=== PATIENT | male | born 1960 | race Two or more races ===

== ENCOUNTER → 2020-05-08 09:06 | Outpatient (BNVA) | payer OTHER, SELFPAY | PROVIDERS: PCP Internal Medicine; Visit Provider Nurse Practitioner ==

== ENCOUNTER 2020-05-09 09:31 | Outpatient (REF) | payer OTHER, SELFPAY ==
[2020-05-09 10:32] LABS: MANUAL DIFF FLAG NO
[2020-05-09 10:40] LABS: Basophils Percent Auto 0.3 % (0-2); Eosinophils Absolute Auto 0.3 X10*3/uL (0.0-0.4); Hematocrit 44.7 % (42-52); Hemoglobin 14.9 g/dl (14.0-18.0); Imm Gran Abs Auto 0.05 X10*3/uL (0.00-0.03); Imm Gran Pct Auto 0.4 % (0.0-0.4); Lymphocytes Absolute Auto 3.4 X10*3/uL (1.2-4.9); Lymphocytes Percent Auto 25.4 % (20-40); Mean Corpuscular HGB Conc 33.3 g/dl (31.0-36.0); Mean Corpuscular Volume 93.1 fL (80-98); Monocytes Absolute Auto 0.8 X10*3/uL (0.1-1.2); Neutrophils Absolute Auto 8.9 X10*3/uL (2.0-8.3); Neutrophils Percent Auto 65.9 % (45-73); Platelet Count 299 X10*3/uL (160-400); Red Cell Distribution Width 12.8 % (11.0-16.0); White Blood Count 13.6 X10*3/uL (4.8-10.8)
[2020-05-09 11:10] LABS: Alanine Aminotransferase 23 U/L (0-40); Albumin Level 4.5 g/dL (3.5-5.0); Alkaline Phosphatase 105 U/L (39-117); Aspartate Amino Transferase 19 U/L (5-37); Bilirubin Total 0.4 mg/dL (0.0-1.0); Blood Urea Nitrogen 24 mg/dL (9-16); Estimated Glomerular Filt Rate > 60; Glucose Random 105 mg/dL (60-115); Total Protein 7.6 g/dL (6.5-8.0)
[2020-05-09 11:20] LABS: Anion Gap 13 (12-20); Carbon Dioxide 27 mmol/L (22-29); Chloride 107 mmol/L (96-108); Potassium 5.9 mmol/L (3.3-5.1); Sodium 141 mmol/L (135-145)
== END 2020-05-09 09:32 | disposition home or self-care (01) ==
LOC: HO.LAB 09:31
PROVIDERS: PCP Internal Medicine; Visit Provider Nurse Practitioner
DX: D12.6 Benign neoplasm of colon, unspecified (principal); Z12.11 Encounter for screening for malignant neoplasm of colon
CPT/HCPCS: 36415; 80053; 85025

== ENCOUNTER 2020-08-01 08:37 | Day surgery (SDC) | payer OTHER, SELFPAY ==
[2020-07-25 16:20] VITALS: BMI 25.3
--- NOTE | 2020-07-31 09:26 | HO.ANESPROP2 ---
Documented by User: Savannah Grider 08/05/20 11:03 HPI - Anesthesia Eval Consult details Narrative: 59yo M for Colonoscopy PMFSH Active Problems Active Problems: All Active Problems (Updated 07/25/20 @ 16:19 by Angeline Nash) Tubular adenoma of colon (Acute) Colon cancer screening (Acute) Leukocytosis (Acute) Past Medical History Medical History Erectile dysfunction HLD (hyperlipidemia) Hx of hematuria Hypertension Multiple joint pain Osteoporosis Seasonal allergies Family History Family History Family/Other Diabetes Surgical History Surgical History Hx of colonoscopy Social History Social History Are you a primary continuum of care manager to a significant other at home: No Do you presently have visiting nurse or other home services: No Alcohol intake: former Smoking Status: Current every day smoker Tobacco Type: Cigarette Packs Per Day: 0.5 Cigarettes Per Day: 10.0 Meds Allergies Allergy/AdvReac Type Severity Reaction Status Date / Time aspirin [ASPIRIN] Allergy Unknown RASH/SWELLING, Verified 07/25/20 16:11 hives ibuprofen Allergy Unknown hives Verified 07/25/20 16:11 Seasonal Allergies Allergy Unknown Unknown Verified 07/25/20 16:11 Home Medications Medication Instructions Recorded Confirmed Last Taken Type amitriptyline 25 mg tablet 25 mg PO BEDTIME 05/08/20 07/25/20 Unknown History atorvastatin 20 mg tablet 20 mg PO DAILY 05/08/20 07/25/20 Unknown History docusate sodium 100 mg capsule 100 mg PO BID 05/08/20 07/25/20 Unknown History alendronate 1 tab PO QAM 07/25/20 07/25/20 Unknown History calcium carbonate 1 tab PO BID 07/25/20 07/25/20 Unknown History gabapentin 2 cap PO TID 07/25/20 07/25/20 Unknown History loratadine 1 tab PO DAILY 07/25/20 07/25/20 Unknown History Exam Exam Date and Time: July 31, 2020 0926 Height,Weight and Vital Signs: Height 5 ft 4 in Weight 67 kg Assessment and Plan Assessment Anesthesia Assessment: Chart Reviewed Documented by User: Mike Casarez MD 08/06/20 08:30 PMFSH Past Medical History Medical History Erectile dysfunction HLD (hyperlipidemia) Hx of hematuria Hypertension Multiple joint pain Osteoporosis Seasonal allergies Family History Family History Family/Other Diabetes Surgical History Surgical History Hx of colonoscopy Social History Social History Are you a primary continuum of care manager to a significant other at home: No Do you presently have visiting nurse or other home services: No Alcohol intake: former Smoking Status: Current every day smoker Tobacco Type: Cigarette Packs Per Day: 0.5 Cigarettes Per Day: 10.0 Meds Allergies Allergy/AdvReac Type Severity Reaction Status Date / Time aspirin [ASPIRIN] Allergy Unknown RASH/SWELLING, Verified 07/25/20 16:11 hives ibuprofen Allergy Unknown hives Verified 07/25/20 16:11 Seasonal Allergies Allergy Unknown Unknown Verified 07/25/20 16:11 Home Medications Medication Instructions Recorded Confirmed Last Taken Type amitriptyline 25 mg tablet 25 mg PO BEDTIME 05/08/20 07/25/20 Unknown History atorvastatin 20 mg tablet 20 mg PO DAILY 05/08/20 07/25/20 Unknown History docusate sodium 100 mg capsule 100 mg PO BID 05/08/20 07/25/20 Unknown History alendronate 1 tab PO QAM 07/25/20 07/25/20 Unknown History calcium carbonate 1 tab PO BID 07/25/20 07/25/20 Unknown History gabapentin 2 cap PO TID 07/25/20 07/25/20 Unknown History loratadine 1 tab PO DAILY 07/25/20 07/25/20 Unknown History Assessment and Plan Assessment Anesthesia Assessment: Anesthesia Plan Discussed and Chart Reviewed Final Anesthetic Review NPO: Yes ASA Class: III Final Preanesthetic Review: No Changes in Pt Med Stat, Meds/Allgs Chart Reviewed, Consent Obtained/Reviewed and Anes Risks/Benef Reviewed Patient Risk: Low Procedure Risk: Low Anesthetic Plan Anesthetic Plan: MAC: Disposition: Standard PACU
--- NOTE | 2020-08-01 09:01 | MHC.SHP ---
Pre-Procedural Eval Section B Chief Complaint: Screening Details of Present Illness: hx of polyps and poor prep Relevant Family History (Specify if Yes): No Relevant Social History: Tobacco Use Present Medications: see Short Stay Collaborative assessment Medical History: Significant History (Erectile dysfunction HLD (hyperlipidemia) Hx of hematuria Hypertension Multiple joint pain Osteoporosis Seasonal allergies) History of Previous Operations: Relevant previous surgery/procedure and date(s) (colonoscopy ) Allergies: Allergies Allergy/AdvReac Type Severity Reaction Status Date / Time aspirin [ASPIRIN] Allergy Unknown RASH/SWELLING, Verified 07/25/20 16:11 hives ibuprofen Allergy Unknown hives Verified 07/25/20 16:11 Seasonal Allergies Allergy Unknown Unknown Verified 07/25/20 16:11 Review of Systems Sugical H&P ROS: Negative: Constitution, Cardiovascular, Respiratory, Neurological, Psychiatric, Hem-Onc, Allergic/Immunologic, Gastrointestinal, Genitourinary, Musculoskeletal, Integumentary, Endocrine and Eyes/Ears/Nose/Throat Exam Surgical H&P Exam: Normal: HEENT, Normal: Heart, Normal: Lungs, Normal: Extremities, Normal: Abdomen, Normal: Skin and Normal: Neurological Plan Diagnosis/Plan: Unchanged I have reviewed the history and physical and performed a pertinent physical examination on my patient. No changes have occurred unless specified.
[2020-08-01 09:17] VITALS: BP 137/74; PULSE 79; RESP 16; TEMP 36.2; O2SAT 98
[2020-08-01] MEDS: Lactated Ringers 1,000 ML 100 ML IVCONT (09:27)
--- NOTE | 2020-08-01 09:36 | P.OP_ITS ---
Operative Note Operative Note Date of Service: 08/01/20 Narrative: Operative Information Procedure Description: Colonoscopy COLONOSCOPY Instrument: Olympus variable stiffness adult scope 190L Colonoscopy Monitoring: Vital signs and clinical assessment, continuous EKG monitoring, Pulse oximetry, Carbon Dioxide monitoring and blood pressure monitoring were done throughout the procedure. Colon withdrawal time was 9 minutes. Procedure: The patient was placed in the left lateral decubitis position and pre-procedure medications were administered. After a digital rectal examination of the ano-rectum, the video colonoscope was inserted into the rectum and advanced through the colon to the cecum/TI. The colonoscope was slowly withdrawn in a retrograde panoramic fashion and the colon mucosa was carefully examined including a retroflexed view of the rectum. Findings and interventions are described below. Procedure Difficulty:easy Findings: Terminal Ileum-normal Cecum:normal Ascending Colon: normal Transverse Colon - 5-7 mm sessile polyp removed with forceps Descending Colon:normal Sigmoid Colon: x 2 sessile polyps 10-12 mm removed with cold snare Rectum: Retroflexion with small internal hemorrhoids, grade I Anorectum - normal Colon preparation: [place] Bowel Preparation Scale Right colon; 3 Transverse colon: 3 Left colon; 3 (0 = Unprepared colon segment with mucosa not seen due to solid stool that cannot be cleared. 1 = Portion of mucosa of the colon segment seen, but other areas of the colon segment not well seen due to staining, residual stool and/or opaque liquid. 2 = Minor amount of residual staining, small fragments of stool and/or opaque liquid, but mucosa of colon segment seen well. 3 = Entire mucosa of colon segment seen well with no residual staining, small fragments of stool or opaque liquid) Impression and Post Procedure Diagnosis: polyps internal hemorrhoids Plan: High fiber diet leaflet Avoid straining at stool, epsom salts and sitz bath, anusol supps or cream as needed Repeat Colonoscopy in 5-7 years or earlier if clinically indicated Above findings were reviewed with the patient and relevant handouts were provided if indicated.
--- NOTE | 2020-08-01 09:36 | P.BOP_ITS ---
Brief Operative Note Date of Service: 08/01/20 Pre-op diagnosis: hx of polyps Post-op diagnosis: same Procedure: see op note Surgeon: Melony Stock MD Anesthesia: MAC Was an Cytogenetic Technician used for this Procedure?: No Estimated blood loss (mL): 0 Condition: stable Disposition: PACU
[2020-08-01 10:10] VITALS: BP 123/73; PULSE 73; RESP 16; TEMP 36.1; O2SAT 98
[2020-08-01 10:25] VITALS: BP 109/69; PULSE 64; RESP 16; TEMP 36.1; O2SAT 98
== END 2020-08-01 11:01 | disposition home or self-care (01) ==
PROVIDERS: PCP Internal Medicine; Visit Provider Internal Medicine Gastroenterology
PROC: 0DJD8ZZ Inspection of Lower Intestinal Tract, Via Natural or Artificial Opening Endoscopic (ICD-10-PCS; CPT 45378; principal; 2020-08-01 10:10)
DX: Z12.11 Encounter for screening for malignant neoplasm of colon (principal); Z86.010 Personal history of colon polyps; D12.3 Benign neoplasm of transverse colon; D12.5 Benign neoplasm of sigmoid colon; K64.0 First degree hemorrhoids; I10 Essential (primary) hypertension; M81.0 Age-related osteoporosis without current pathological fracture; Z79.899 Other long term (current) drug therapy; F17.210 Nicotine dependence, cigarettes, uncomplicated; Z88.8 Allergy status to other drugs, medicaments and biological substances
CPT/HCPCS: 45385; 45380; 88305

== ENCOUNTER → 2020-08-15 13:30 | Outpatient (BNVA) | payer MEDICAID, SELFPAY | PROVIDERS: PCP Internal Medicine; Visit Provider Nurse Practitioner ==

== ENCOUNTER 2021-07-16 17:27 | Emergency (ER) | payer MEDICARE, MEDICAID, SELFPAY ==
--- NOTE | ~2021-07-16 | CT_ITS ---
EXAMINATION: CT HEAD WITHOUT CONTRAST CLINICAL INFORMATION: Left-sided headache. COMPARISON: None. TECHNIQUE: Contiguous axial imaging was performed from the skull base to vertex without intravenous administration of contrast. Coronal and sagittal reformatted images are performed at the CT scanner. [This CT examination was performed using dose optimization techniques as appropriate, variously including the following: *Automated exposure control *Adjustment of mA and/or kV according to patient size (this includes techniques or standardized protocols for targeted exams where dose is matched to indication/reason for exam; i.e. extremities or head) *Use of iterative reconstruction technique] DLP: 652 mGy-cm. FINDINGS: There is no evidence of acute intracranial hemorrhage or territorial infarction. No abnormal mass-effect or midline shift is seen. Phelan to white matter differentiation is well preserved. No extra-axial fluid collections are identified. The ventricles are normal in size. There is no abnormal attenuation within the brain parenchyma. There is no osseous abnormality. The mastoid air cells and visualized portions of the paranasal sinuses are well-aerated. CT/CT head/brain wo con IMPRESSION: No acute intracranial pathology.
[2021-07-16 18:29] VITALS: BP 161/90; PULSE 70; RESP 18; TEMP 36.5; O2SAT 98; BMI 26.6
[2021-07-16 20:02] VITALS: BP 173/83; PULSE 70; RESP 166; TEMP 36.5; O2SAT 96
--- NOTE | 2021-07-16 20:05 | ED_ITS ---
HPI - Headache General Chief Complaint: Headache Stated Complaint: Head pain Time Seen by Provider: 07/16/21 17:35 Source: patient Mode of arrival: ambulatory Limitations: language barrier History of Present Illness HPI Narrative: history obtained by converting technician. Patient with left sided headache that goes from back to front, It is stabbing. No history of migraines, he has had headaches before that is one sided. MD elicited complaint: headache Onset (ago): day(s) Onset description: gradually Location: left Severity: moderate Quality & Timing: sharp Associated symptoms: none Related Data Home Medications Medication Instructions Recorded Confirmed amitriptyline 25 mg tablet 25 mg PO BEDTIME 05/08/20 07/25/20 atorvastatin 20 mg tablet 20 mg PO DAILY 05/08/20 07/25/20 docusate sodium 100 mg capsule 100 mg PO BID 05/08/20 07/25/20 alendronate 70 mg tablet 1 tab PO QAM 07/25/20 07/25/20 calcium carbonate 500 mg calcium 1 tab PO BID 07/25/20 07/25/20 (1,250 mg) tablet gabapentin 100 mg capsule 2 cap PO TID 07/25/20 07/25/20 loratadine 10 mg tablet 1 tab PO DAILY 07/25/20 07/25/20 Previous Rx's Medication Instructions Recorded magnesium citrate 300 ml PO DAILY 1 Days #296 ml 05/08/20 acetaminophen 500 mg tablet 1,000 mg PO Q6H PRN #30 tab 07/16/21 (Tylenol Extra Strength) promethazine 25 mg tablet 25 mg PO Q6H PRN #20 tab 07/16/21 Allergies Allergy/AdvReac Type Severity Reaction Status Date / Time aspirin [ASPIRIN] Allergy Unknown RASH/SWELLING, Verified 07/16/21 18:32 hives ibuprofen Allergy Unknown hives Verified 07/16/21 18:32 Seasonal Allergies Allergy Unknown Unknown Verified 07/16/21 18:32 Review of Systems Constitutional: Constitutional: Reports no additional constitutional complaints Eyes: Eyes: Reports no additional eye complaints ENT: Denies dizziness Cardiovascular: Cardiovascular: Reports no additional cardiovascular complaints Respiratory: Respiratory: Reports as per HPI Gastrointestinal: Gastrointestinal: Reports no additional gastrointestinal complaints Musculoskeletal: Musculoskeletal: Reports no additional musculoskeletal complaints Integumentary/Breasts: Skin/Breast: Denies rash Neurologic: Reports system reviewed and no additional complaints, except as documented, Denies dizziness and Denies Sensory deficit (Neuro) Psychiatric: Psychiatric: Denies anxiety [facility] Past Medical History Medical History Erectile dysfunction HLD (hyperlipidemia) Hx of hematuria Hypertension Multiple joint pain Osteoporosis Seasonal allergies Surgical History Hx of colonoscopy Family History Family History Family/Other Diabetes Social History Social History Are you a primary home visit field care manager to a significant other at home: No Do you presently have visiting nurse or other home services: No Alcohol intake: never Patient Tobacco Use Status: Never used Tobacco Cigarette Packs Per Day: 0.5 Cigarettes Per Day: 10.0 Use of substances other than those prescribed or required for medical reasons: No Advance Directives: No Physical Exam Vital Signs: Vital Signs: Last Vital Signs Temp 97.7 F 07/16/21 20:02 Pulse 70 07/16/21 20:02 Resp 166 H 07/16/21 20:02 BP 173/83 H 07/16/21 20:02 Pulse Ox 96 07/16/21 20:02 BMI result Body Mass Index 26.6 Const: General: healthy appearing Nutritional Appearance: average body habitus Orientation/consciousness: oriented to person and patient oriented x3 Limitations: no limitations HEENT: Head: Yes normal to inspection Ears: external ears normal General nose exam: Normal external nose present Mouth: Normal oral and palatal mucosa present and oropharynx normal Throat: Yes posterior oropharynx normal Eyes: General: appearance normal, both eyes and all related structures Neck: Other: supple Neck: Yes normal visual inspection Chest: Chest palpation & inspection: normal inspection of the chest Resp: Auscultation: clear to auscultation bilaterally Cardio: Jugular venous distension: no JVD Rate: regular rate Rhythm: regular rhythm Heart sounds: S1 normal heart sound present and S2 normal heart sound present GI: Inspection: Yes normal to inspection Palpation (GI): Soft to palpation, nontender and No hepatosplenomegaly present Auscultation: normal bowel sounds : General: Yes no CVA tenderness Back/Spine/Pelvis: Back: no CVA tenderness Skin: General skin exam: no rashes or lesions noted Neuro: General: oriented to person and patient oriented x3 Cranial nerves: Yes CN's II-XII intact bilaterally Motor exam (neuro): 5/5 motor strength present throughout Sensory Exam: No Sensory deficit (Neuro) Extrem: General: Yes normal to inspection Psych: Appearance: grossly normal Course Reevaluation(s) Reevaluation #1: patient looks well, neurologically intact with dc home with migraine Time: 21:03 MDM - Headache Imaging Data CT scan - head: Radiologist's impression: no intracranial pathology Discharge Plan Discharge Clinical Impression: Headache, Migraine Patient Disposition: Home, Self-Care Instructions: Acute Headache (ED), Migraine Headache (ED) Prescriptions: New acetaminophen [Tylenol Extra Strength] 500 mg tablet 1,000 mg PO Q6H PRN (Reason: pain) Qty: 30 0RF promethazine 25 mg tablet 25 mg PO Q6H PRN (Reason: nausea and vomiting) Qty: 20 0RF No Action alendronate 70 mg tablet 1 tab PO QAM 0RF calcium carbonate 500 mg calcium (1,250 mg) tablet 1 tab PO BID 0RF gabapentin 100 mg capsule 2 cap PO TID 0RF loratadine 10 mg tablet 1 tab PO DAILY 0RF docusate sodium 100 mg capsule 100 mg PO BID 0RF amitriptyline 25 mg tablet 25 mg PO BEDTIME 0RF atorvastatin 20 mg tablet 20 mg PO DAILY 0RF magnesium citrate Solution 300 ml PO DAILY 1 Days Qty: 296 0RF Referrals: Tremaine Banuelos MD [Primary Care Provider] - 1 week
[2021-07-16] MEDS: Acetaminophen 325 MG TABLET 975 MG PO (20:15)
== END 2021-07-16 21:23 | disposition home or self-care (01) ==
PROVIDERS: Emergency Provider Emergency Medicine; PCP Internal Medicine
DX: G43.009 Migraine without aura, not intractable, without status migrainosus (principal); I10 Essential (primary) hypertension
CPT/HCPCS: 70450; 99284

== ENCOUNTER 2022-01-29 07:17 | Outpatient (REF) | payer OTHER, MEDICARE, MEDICAID, SELFPAY ==
--- NOTE | ~2022-01-29 | MR_ITS ---
EXAMINATION: MR LUMBAR SPINE WITHOUT CONTRAST CLINICAL INFORMATION: Vertebrogenic low back pain. COMPARISON: None TECHNIQUE: MRI of the lumbar spine was obtained using routine sequences without contrast. FINDINGS: The lumbar vertebral bodies maintain normal heights and alignment. No significant disc height loss is seen. There is minimal subchondral endplate edema superiorly at L2 and L4. The distal spinal cord appears normal. The conus medullaris terminates normally at the L1-L2 level. The extraspinal soft tissues are within normal limits. SPINAL LEVELS: L1-L2: No posterior disc abnormality. No spinal canal or neural foraminal stenosis. L2-L3: Mild disc bulging. No spinal canal or neural foraminal stenosis. L3-L4: Mild disc bulging with mild facet arthropathy. Right foraminal protrusion contacts the extraforaminal right L3 nerve root. No spinal canal stenosis. L4-L5: Disc bulging. Mild bilateral neural foraminal stenosis. No spinal canal stenosis. L5-S1: No posterior disc abnormality. Mild facet arthropathy. No spinal canal or neural foraminal stenosis. MR/MR lumbar spine wo con IMPRESSION: Mild degenerative spondylosis. No significant narrowing of the spinal canal. At L3-L4 there is right foraminal protrusion which contacts the extraforaminal right L3 nerve root.
== END 2022-01-29 07:18 | disposition home or self-care (01) ==
LOC: HO.MRI 07:17
PROVIDERS: Visit Provider Internal Medicine
DX: M54.51 Vertebrogenic low back pain (principal)
CPT/HCPCS: 72148

== ENCOUNTER 2022-03-10 16:31 | Inpatient (IN) | payer MEDICARE, MEDICAID, SELFPAY ==
--- NOTE | ~2022-03-10 | CT_ITS ---
EXAMINATION: CT HEAD WITHOUT CONTRAST CLINICAL INFORMATION: Right-sided weakness. COMPARISON: CT head 07/16/2021 TECHNIQUE: Contiguous axial imaging was performed from the skull base to vertex without intravenous administration of contrast. Coronal and sagittal reformatted images are performed at the CT scanner. [This CT examination was performed using dose optimization techniques as appropriate, variously including the following: *Automated exposure control *Adjustment of mA and/or kV according to patient size (this includes techniques or standardized protocols for targeted exams where dose is matched to indication/reason for exam; i.e. extremities or head) *Use of iterative reconstruction technique] DLP: 624 mGy-cm. FINDINGS: There is no evidence of acute intracranial hemorrhage or territorial infarction. No abnormal mass-effect or midline shift is seen. Phelan to white matter differentiation is well preserved. No extra-axial fluid collections are identified. The ventricles are normal in size. There is no abnormal attenuation within the brain parenchyma. There is no osseous abnormality. The mastoid air cells and visualized portions of the paranasal sinuses are well-aerated. CT/CT head for stroke IMPRESSION: No acute intracranial pathology. This critical result was discussed with Dr Jasso on 03/10/2022, 1807 hours and it was ascertained that the content and urgency of the report was understood at the time of direct communication.
--- NOTE | ~2022-03-10 | CT_ITS ---
EXAMINATION: CTA OF THE HEAD AND NECK CLINICAL INFORMATION: Right-sided weakness. COMPARISON: Head CT dated 07/16/2021. TECHNIQUE: Test bolus sequences followed by intravenous administration 70 mL of Omnipaque 350. Helical imaging was performed in the axial plane from the mediastinum to the skull vertex. Delayed postcontrast imaging of the head was also performed. The data was processed at the histotechnologist's workstation for generation of MIP sequences. Three-dimensional volume rendered reformatted images were also generated at an offline 3-D workstation. Stenoses are assessed in accordance with NASCET criteria unless otherwise indicated. This CT examination was performed using dose optimization techniques as appropriate, variously including the following: *Automated exposure control *Adjustment of mA and/or kV according to patient size (this includes techniques or standardized protocols for targeted exams where dose is matched to indication/reason for exam; i.e. extremities or head) *Use of iterative reconstruction technique DLP: 1530 mGy-cm. FINDINGS: CTA neck: The imaged aortic arch and origins of the great vessels are normal. The common carotid arteries are widely patent. The carotid bifurcations are relatively normal with minimal atheromatous calcifications at the origins of the internal carotid arteries. The remainder of the cervical internal carotid arteries are normal. The vertebral arteries opacify normally and are of normal caliber. The soft tissues of the neck are unremarkable. [id number] cervical spondylosis noted. There are subsegmental atelectatic changes in the lungs with moderate emphysematous changes and apical bullae. CTA head: The vertebral arteries and basilar artery are normal in caliber with mild atherosclerotic wall calcifications in the intradural vertebral arteries. The posterior cerebral arteries are widely patent. The internal carotid arteries are of normal caliber. The ANTIONE and MCA vascular complexes bilaterally are normal. There is no abnormal parenchymal or leptomeningeal enhancement. The venous sinuses opacify normally. CT/CT angio head neck stroke IMPRESSION: No significant stenosis or occlusion in the cervical or intracranial vasculature. Mild scattered areas of atherosclerotic wall calcifications. Moderate emphysematous changes in the lungs with apical bullae. Imaging findings reported to JOLYNN Kincaid at 7:11 PM on 03/10/2022.
--- NOTE | ~2022-03-10 | XR_ITS ---
EXAMINATION: XR CHEST CLINICAL INFORMATION: Weakness and shortness of breath COMPARISON: None TECHNIQUE: Frontal view of the chest was obtained. FINDINGS: The lungs are clear. No airspace consolidation, pleural effusion, or pneumothorax. The cardiomediastinal silhouette is within normal limits. No acute osseous injury. XR/XR chest 1V IMPRESSION: No acute pulmonary process.
--- NOTE | ~2022-03-10 | MR_ITS ---
MRI OF THE BRAIN WITHOUT IV CONTRAST INDICATION: CVA. COMPARISON: CT Head and CTA head and neck 03/10/2022. TECHNIQUE: Multiplanar multisequence MR imaging of the brain was obtained without IV contrast. FINDINGS: There is no hydrocephalus, extra-axial surface collection, or herniation. There is mild background chronic microangiopathy. The major flow voids at the skull base are preserved. Small acute infarct in the left parietal lobe extending into the left operculum. There is no intracranial hemorrhage on the gradient recalled echo acquisition. There is a partially empty sella. The cerebellar tonsils are normally positioned. The cerebellum and brainstem are normal. The craniocervical junction is normal. Osseous marrow signal intensity is homogenous. The visualized soft tissues are unremarkable. MR/MR head/brain wo con IMPRESSION: - Small acute infarct in the left parietal lobe extending into the left operculum. No mass effect and no hemorrhagic transformation. - Mild background chronic microangiopathy.
--- NOTE | 2022-03-10 17:42 | ED_ITS ---
HPI - General Adult General Chief complaint: Weakness Stated complaint: High blood pressure Time Seen by Provider: 03/10/22 18:03 Related Data Home Medications Medication Instructions Recorded Confirmed amitriptyline 25 mg tablet 25 mg PO BEDTIME 05/08/20 07/25/20 atorvastatin 20 mg tablet 20 mg PO DAILY 05/08/20 07/25/20 docusate sodium 100 mg capsule 100 mg PO BID 05/08/20 07/25/20 alendronate 70 mg tablet 1 tab PO QAM 07/25/20 07/25/20 calcium carbonate 500 mg calcium 1 tab PO BID 07/25/20 07/25/20 (1,250 mg) tablet gabapentin 100 mg capsule 2 cap PO TID 07/25/20 07/25/20 loratadine 10 mg tablet 1 tab PO DAILY 07/25/20 07/25/20 Previous Rx's Medication Instructions Recorded magnesium citrate 300 ml PO DAILY 1 day #296 mL 05/08/20 acetaminophen 500 mg tablet 1,000 mg PO Q6H PRN pain #30 tabs 07/16/21 (Tylenol Extra Strength) promethazine 25 mg tablet 25 mg PO Q6H PRN nausea and 07/16/21 vomiting #20 tabs Allergies Allergy/AdvReac Type Severity Reaction Status Date / Time aspirin [ASPIRIN] Allergy Unknown RASH/SWELLING, Verified 07/16/21 18:32 hives ibuprofen Allergy Unknown hives Verified 07/16/21 18:32 Seasonal Allergies Allergy Unknown Unknown Verified 07/16/21 18:32 PMFSH Past Medical History Medical History Erectile dysfunction HLD (hyperlipidemia) Hx of hematuria Hypertension Multiple joint pain Osteoporosis Seasonal allergies Surgical History Hx of colonoscopy Family History Family History Family/Other Diabetes Social History Social History Are you a primary respiratory care technician to a significant other at home: No Do you presently have visiting nurse or other home services: No Alcohol intake: never Patient Tobacco Use Status: Never used Tobacco Cigarette Packs Per Day: 0.5 Cigarettes Per Day: 10.0 Advance Directives: No Advance Directives Information Provided: No Physical Exam ED Vital Signs: Vital Signs - 24 hr 03/10/22 17:43 03/10/22 19:50 Temperature 97.8 F 98.3 F Pulse Rate 65 64 Respiratory Rate 20 18 Blood Pressure 170/52 H 149/72 H Pulse Oximetry 99 97 Oxygen Delivery Method Room Air Room Air BMI result Body Mass Index 27.6 Course Course Course Narrative: RUPERTO 61 year old male presents w/ right sided weakness, facial droop, difficulty speaking, numbhead and headache, since this morning. Spoke to nurse from [facility] and told him to come in. LKWT : 8 am, however now having increasing weakness over the past hour and headache w/ numbness. Not on thinners Exam: Right sided weakness and left sided facial droop Plan- back to the department stroke protocol ordered Medications Administered Discontinued Medications Generic Name Dose Route Start Last Admin Trade Name Freq PRN Reason Stop Dose Admin Iohexol 70 ml 03/10/22 18:52 03/10/22 18:53 Iohexol 350 Mg/Ml 100 Ml Infus..Btl IV 03/10/22 18:53 70 ml ONCE ONE Administration Medical Decision Making Lab Data Result Diagrams: 03/10/22 18:14 03/10/22 18:14 Labs: Lab Results 03/10/22 03/10/22 03/10/22 Range/Units 18:02 18:14 18:14 WBC 9.2 (4.8-10.8) X10*3/uL RBC 4.68 (4.60-5.80) X10*6/uL Hgb 14.1 (14.0-18.0) g/dl Hct 42.1 (42.0-52.0) % MCV 90.0 (80.0-98.0) fL MCH 30.1 (27.0-33.0) pg MCHC 33.5 (31.0-36.0) g/dl RDW 12.8 (11.0-16.0) % Plt Count 249 (160-400) X10*3/uL MPV 9.5 (9.4-12.4) fL Immature Gran % (Auto) 0.4 (0.0-0.4) % Neut % (Auto) 51.8 (45-73) % Lymph % (Auto) 35.6 (20-40) % [place] % (Auto) 7.6 (2-11) % Eos % (Auto) 4.2 H (0-4) % Baso % (Auto) 0.4 (0-2) % Lymph # (Auto) 3.3 (1.2-4.9) X10*3/uL [place] # (Auto) 0.7 (0.1-1.2) X10*3/uL Eos # (Auto) 0.4 (0.0-0.4) X10*3/uL Baso # (Auto) 0.0 (0.0-0.2) X10*3/uL Abs Immat Gran (auto) 0.04 H (0.00-0.03) X10*3/uL Absolute Neuts (auto) 4.7 (2.0-8.3) x10*3/uL Absolute Nucleated RBC 0.000 (0.0-0.012) X10*3/uL Nucleated RBC % (auto) 0.0 (0.0-0.2) /100WBC PT 11.1 (10.0-13.1) SEC Whole Blood PT 11.6 (11.1-13.5) sec INR 1.0 (0.9-1.1) Whole Blood INR 1.0 (0.9-1.1) Sodium (135-145) mmol/L Potassium (3.3-5.1) mmol/L Chloride (96-108) mmol/L Carbon Dioxide (22-29) mmol/L Anion Gap (12-20) BUN (9-16) mg/dL Creatinine (0.5-1.4) mg/dL Estim Creat Clear Calc Estimated GFR Random Glucose (60-115) mg/dL Calcium (8.4-10.2) mg/dL Troponin I High Sens (<3.5-35.0) ng/L Hold Red Top 03/10/22 03/10/22 03/10/22 Range/Units 18:14 18:14 18:14 WBC (4.8-10.8) X10*3/uL RBC (4.60-5.80) X10*6/uL Hgb (14.0-18.0) g/dl Hct (42.0-52.0) % MCV (80.0-98.0) fL MCH (27.0-33.0) pg MCHC (31.0-36.0) g/dl RDW (11.0-16.0) % Plt Count (160-400) X10*3/uL MPV (9.4-12.4) fL Immature Gran % (Auto) (0.0-0.4) % Neut % (Auto) (45-73) % Lymph % (Auto) (20-40) % [place] % (Auto) (2-11) % Eos % (Auto) (0-4) % Baso % (Auto) (0-2) % Lymph # (Auto) (1.2-4.9) X10*3/uL [place] # (Auto) (0.1-1.2) X10*3/uL Eos # (Auto) (0.0-0.4) X10*3/uL Baso # (Auto) (0.0-0.2) X10*3/uL Abs Immat Gran (auto) (0.00-0.03) X10*3/uL Absolute Neuts (auto) (2.0-8.3) x10*3/uL Absolute Nucleated RBC (0.0-0.012) X10*3/uL Nucleated RBC % (auto) (0.0-0.2) /100WBC PT (10.0-13.1) SEC Whole Blood PT (11.1-13.5) sec INR (0.9-1.1) Whole Blood INR (0.9-1.1) Sodium 139 (135-145) mmol/L Potassium 4.3 (3.3-5.1) mmol/L Chloride 109 H (96-108) mmol/L Carbon Dioxide 25 (22-29) mmol/L Anion Gap 9 L (12-20) BUN 19 H (9-16) mg/dL Creatinine 1.15 (0.5-1.4) mg/dL Estim Creat Clear Calc 60.2 Estimated GFR > 60 Random Glucose 98 (60-115) mg/dL Calcium 9.1 (8.4-10.2) mg/dL Troponin I High Sens 4.4 (<3.5-35.0) ng/L Hold Red Top See Note Discharge Plan Discharge Prescriptions: No Action alendronate 70 mg tablet 1 tab PO QAM calcium carbonate 500 mg calcium (1,250 mg) tablet 1 tab PO BID gabapentin 100 mg capsule 2 cap PO TID loratadine 10 mg tablet 1 tab PO DAILY acetaminophen [Tylenol Extra Strength] 500 mg tablet 1,000 mg PO Q6H PRN (Reason: pain) Qty: 30 0RF promethazine 25 mg tablet 25 mg PO Q6H PRN (Reason: nausea and vomiting) Qty: 20 0RF docusate sodium 100 mg capsule 100 mg PO BID amitriptyline 25 mg tablet 25 mg PO BEDTIME atorvastatin 20 mg tablet 20 mg PO DAILY magnesium citrate Solution 300 ml PO DAILY 1 Days Qty: 296 0RF
[2022-03-10 17:43] VITALS: BP 170/52; PULSE 65; RESP 20; TEMP 36.6; O2SAT 99; BMI 25.7
--- NOTE | 2022-03-10 17:45 | ECG_ITS ---
Test Reason : weakness Blood Pressure : / mmHG Vent. Rate : 063 BPM Atrial Rate : 063 BPM P-R Int : 152 ms QRS Dur : 078 ms QT Int : 388 ms P-R-T Axes : 008 038 037 degrees QTc Int : 397 ms Normal sinus rhythm Normal ECG No previous ECGs available Referred By: Malinda Kincaid Electronically Signed By:RACHEAL REYNOLDS MD
[2022-03-10 17:59] VITALS: BMI 27.6
[2022-03-10 18:19] LABS: MANUAL DIFF FLAG NO
[2022-03-10 18:20] LABS: Prothrombin Time Whole Bld POC 11.6 sec (11.1-13.5)
[2022-03-10 18:21] LABS: Basophils Percent Auto 0.4 % (0-2); Eosinophils Absolute Auto 0.4 X10*3/uL (0.0-0.4); Eosinophils Percent Auto 4.2 % (0-4); Hematocrit 42.1 % (42.0-52.0); Hemoglobin 14.1 g/dl (14.0-18.0); Imm Gran Abs Auto 0.04 X10*3/uL (0.00-0.03); Imm Gran Pct Auto 0.4 % (0.0-0.4); Lymphocytes Absolute Auto 3.3 X10*3/uL (1.2-4.9); Lymphocytes Percent Auto 35.6 % (20-40); Mean Corpuscular HGB Conc 33.5 g/dl (31.0-36.0); Mean Corpuscular Hemoglobin 30.1 pg (27.0-33.0); Mean Platelet Volume 9.5 fL (9.4-12.4); Monocytes Absolute Auto 0.7 X10*3/uL (0.1-1.2); Monocytes Percent Auto 7.6 % (2-11); Neutrophils Absolute Auto 4.7 x10*3/uL (2.0-8.3); Neutrophils Percent Auto 51.8 % (45-73); Platelet Count 249 X10*3/uL (160-400); Red Blood Count 4.68 X10*6/uL (4.60-5.80); Red Cell Distribution Width 12.8 % (11.0-16.0); White Blood Count 9.2 X10*3/uL (4.8-10.8)
[2022-03-10 18:28] LABS: Prothrombin Time 11.1 SEC (10.0-13.1)
[2022-03-10 18:34] LABS: Stroke Lab Use COMPLETE
[2022-03-10 18:37] LABS: Anion Gap 9 (12-20); Blood Urea Nitrogen 19 mg/dL (9-16); Calcium 9.1 mg/dL (8.4-10.2); Carbon Dioxide 25 mmol/L (22-29); Chloride 109 mmol/L (96-108); Creatinine Clr Calc Pharmacy 60.2; Estimated Glomerular Filt Rate > 60; Glucose Random 98 mg/dL (60-115); Potassium 4.3 mmol/L (3.3-5.1); Sodium 139 mmol/L (135-145)
[2022-03-10 18:42] LABS: Troponin-I High Sensitivity 4.4 ng/L (<3.5-35.0)
[2022-03-10] MEDS: iohexoL 350 MG/ML 100 ML INFUS..BTL 70 ML IV (18:53)
--- NOTE | 2022-03-10 19:08 | ED_ITS ---
HPI - Weakness General Chief complaint: Weakness Stated complaint: High blood pressure Time Seen by Provider: 03/10/22 18:03 Source: patient and family ( ) Mode of arrival: EMS Limitations: language barrier ( patient speaks [place] only, motor vehicle parts interpreter used) History of Present Illness HPI Narrative: 61-year-old male who presents emergency department for evaluation of right arm and leg weakness and headache. Patient states that last night when he went to bed around 22:00 he had a headache which came on gradually. He states that is unusual for him to get headache. The headache was located in the front of his head and the top of his head. He described as a pressure-like sensation which was constant and was 9/10. He states that he took a sleeping pill ( he does not know the name of the pill) and fell asleep. He then woke up at 08:00 and his right arm and right leg were weak. He states that he also had difficulty speaking. He states the headache resolved. He states that the ventrally was able to talk and he did regain some strength and his right side but he still feels like his right hand and right leg are weak compared to the left. He states that around 14:00 hours his headache came back but was not as severe. He denied fever, chills, rhinorrhea, sore throat, cough, chest pain, shortness of breath, nausea, vomiting or diarrhea. Related Data Home Medications Medication Instructions Recorded Confirmed amitriptyline 25 mg tablet 25 mg PO BEDTIME 05/08/20 07/25/20 atorvastatin 20 mg tablet 20 mg PO DAILY 05/08/20 07/25/20 calcium carbonate 500 mg calcium 1 tab PO BID 07/25/20 07/25/20 (1,250 mg) tablet gabapentin 100 mg capsule 2 cap PO TID 07/25/20 07/25/20 lisinopril 10 mg tablet 1 tab DAILY 03/10/22 quetiapine 50 mg tablet 1 tab DAILY 03/10/22 Previous Rx's Medication Instructions Recorded acetaminophen 500 mg tablet 1,000 mg PO Q6H PRN pain #30 tabs 07/16/21 (Tylenol Extra Strength) Allergies Allergy/AdvReac Type Severity Reaction Status Date / Time aspirin [ASPIRIN] Allergy Unknown RASH/SWELLING, Verified 07/16/21 18:32 hives ibuprofen Allergy Unknown hives Verified 07/16/21 18:32 Seasonal Allergies Allergy Unknown Unknown Verified 07/16/21 18:32 Review of Systems Review of Systems: Yes all other systems are reviewed and are negative [facility] Past Medical History [facility] Narrative: Social history: Patient is a former smoker states that he quit 1 year prior. He did smoke for 46 years. He states that he has had no alcohol drinking 20 years. He denies drug use. He i Medical History Erectile dysfunction HLD (hyperlipidemia) Hx of hematuria Hypertension Multiple joint pain Osteoporosis Seasonal allergies Surgical History Hx of colonoscopy Family History Family History Family/Other Diabetes Social History Social History Are you a primary aged or disabled carer to a significant other at home: No Do you presently have visiting nurse or other home services: No Alcohol intake: never Patient Tobacco Use Status: Never used Tobacco Cigarette Packs Per Day: 0.5 Cigarettes Per Day: 10.0 Advance Directives: No Advance Directives Information Provided: No Physical Exam Vital Signs: Vital Signs: Last Vital Signs Temp 98.3 F 03/10/22 19:50 Pulse 64 03/10/22 19:50 Resp 18 03/10/22 19:50 BP 149/72 H 03/10/22 19:50 Pulse Ox 97 03/10/22 19:50 O2 Del Method 03/10/22 19:50 BMI result Body Mass Index 27.6 Const: General: cooperative and no acute distress Orientation/consciousness: oriented to person and oriented to place Limitations: no limitations HEENT: Head: Yes normal to inspection, Yes normocephalic and Yes atraumatic Ears: external ears normal General nose exam: Normal external nose present Face and sinus: Yes normal facial exam Mouth: Normal oral and palatal mucosa present Throat: Yes posterior oropharynx normal Eyes: General: appearance normal, both eyes and all related structures Pupils: Equal, round and reactive pupils present Neck: Neck: Yes normal visual inspection, Yes no lymphadenopathy, Yes trachea midline and Yes supple Chest: Chest palpation & inspection: normal inspection of the chest and normal palpation of entire chest wall Resp: Effort & Inspection: normal respiratory effort and able to speak in complete sentences Auscultation: clear to auscultation bilaterally Cardio: Rate: regular rate Rhythm: regular rhythm Heart sounds: S1 normal heart sound present, S2 normal heart sound present and no murmurs GI: Inspection: Yes normal to inspection Palpation (GI): Soft to palpation, nontender and no guarding Auscultation: normal bowel sounds : General: Yes no CVA tenderness Back/Spine/Pelvis: Back: no CVA tenderness Skin: General skin exam: no rashes or lesions noted Neuro: Other: The patient does have 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 He is able to hold his arms and legs up against gravity. He has a normal light touch sensory exam bilaterally. General: oriented to person and oriented to place Cranial nerves: Yes CN's II-XII intact bilaterally and Yes Equal, round and reactive pupils present Cognition (Neuro): normal cognition Extrem: General: Yes normal to inspection Psych: Appearance: grossly normal Speech and movement: Normal speech and movement present Affect: normal affect Attitude: cooperative Thought process: Normal thought process present Thought content: Normal thought content present NIH Stroke Scale Internal: Initial- Upon Arrival Level of Consciousness: Alert Level of Consciousness Questions: Answers both questions correctly Level of Consciousness Commands: Performs both tasks correctly Best Gaze: Normal Visual: No visual loss Facial Palsy: Normal Motor Arm (Right): Drift Motor Arm (Left): No drift Motor Leg (Right): Drift Motor Leg (Left): No drift Limb Ataxia: Absent Sensory: Normal Best Language: No aphasia Dysarthia: Normal Extinction and Inattention: No abnormality Score: 2 Course Course Course Narrative: 61-year-old male who went to bed last night at 22:00 hours with a headache and woke up in the morning at 08:00 hours with right arm, right leg weakness and difficulty talking. His symptoms have improved throughout the day, he is able to talk without any difficulty and has no difficulty with word finding. The patient does have right upper and right lower extremity weakness compared to the left. The patient has an ache stroke scale was 2. By the time the patient presented he was outside of the thrombolytics window but may be inside the clot retrieval window. Laboratory evaluation was ordered. CT of the brain without contrast and CT angiogram head and neck were also ordered. The patient is allergic to aspirin, this causes throat swelling and rash. 1918: Laboratory evaluation: Chloride elevated 109, BUN elevated 19, high sensitive troponin I detectable but not elevated 4.4. Radiology evaluation: CT head without contrast: IMPRESSION: No acute intracranial pathology. This critical result was discussed with Dr Jasso on 03/10/2022, 1807 hours and it was ascertained that the content and urgency of the report was understood at the time of direct communication. Dictated By:Joe Cronin MD CT angiogram head/ neck: IMPRESSION: No significant stenosis or occlusion in the cervical or intracranial vasculature. Mild scattered areas of atherosclerotic wall calcifications. Moderate emphysematous changes in the lungs with apical bullae. Imaging findings reported to JOLYNN Kincaid at 7:11 PM on 03/10/2022. Dictated By:TRENTON MOORE MD Given the negative CT scan and CT angiogram, do not think that there is an acute intervention that can be done at this time however the patient will need to be admitted for further evaluation of possible acute stroke. The patient cannot take aspirin Therefore I will give the patient Plavix 75 mg orally. 1926: I did discuss the patient's presentation over tiger text with the covering hospitalist, Dr. Vidal Medications Administered Discontinued Medications Generic Name Dose Route Start Last Admin Trade Name Freq PRN Reason Stop Dose Admin Iohexol 70 ml 03/10/22 18:52 03/10/22 18:53 Iohexol 350 Mg/Ml 100 Ml Infus..Btl IV 03/10/22 18:53 70 ml ONCE ONE Administration Medical Decision Making Lab Data Result Diagrams: 03/10/22 18:14 03/10/22 18:14 Labs: Lab Results 03/10/22 03/10/22 03/10/22 Range/Units 18:02 18:14 18:14 WBC 9.2 (4.8-10.8) X10*3/uL RBC 4.68 (4.60-5.80) X10*6/uL Hgb 14.1 (14.0-18.0) g/dl Hct 42.1 (42.0-52.0) % MCV 90.0 (80.0-98.0) fL MCH 30.1 (27.0-33.0) pg MCHC 33.5 (31.0-36.0) g/dl RDW 12.8 (11.0-16.0) % Plt Count 249 (160-400) X10*3/uL MPV 9.5 (9.4-12.4) fL Immature Gran % (Auto) 0.4 (0.0-0.4) % Neut % (Auto) 51.8 (45-73) % Lymph % (Auto) 35.6 (20-40) % [place] % (Auto) 7.6 (2-11) % Eos % (Auto) 4.2 H (0-4) % Baso % (Auto) 0.4 (0-2) % Lymph # (Auto) 3.3 (1.2-4.9) X10*3/uL [place] # (Auto) 0.7 (0.1-1.2) X10*3/uL Eos # (Auto) 0.4 (0.0-0.4) X10*3/uL Baso # (Auto) 0.0 (0.0-0.2) X10*3/uL Abs Immat Gran (auto) 0.04 H (0.00-0.03) X10*3/uL Absolute Neuts (auto) 4.7 (2.0-8.3) x10*3/uL Absolute Nucleated RBC 0.000 (0.0-0.012) X10*3/uL Nucleated RBC % (auto) 0.0 (0.0-0.2) /100WBC PT 11.1 (10.0-13.1) SEC Whole Blood PT 11.6 (11.1-13.5) sec INR 1.0 (0.9-1.1) Whole Blood INR 1.0 (0.9-1.1) Sodium (135-145) mmol/L Potassium (3.3-5.1) mmol/L Chloride (96-108) mmol/L Carbon Dioxide (22-29) mmol/L Anion Gap (12-20) BUN (9-16) mg/dL Creatinine (0.5-1.4) mg/dL Estim Creat Clear Calc Estimated GFR POC Glucose (60-115) mg/dL Random Glucose (60-115) mg/dL Calcium (8.4-10.2) mg/dL Troponin I High Sens (<3.5-35.0) ng/L Hold Red Top 03/10/22 03/10/22 03/10/22 Range/Units 18:14 18:14 18:14 WBC (4.8-10.8) X10*3/uL RBC (4.60-5.80) X10*6/uL Hgb (14.0-18.0) g/dl Hct (42.0-52.0) % MCV (80.0-98.0) fL MCH (27.0-33.0) pg MCHC (31.0-36.0) g/dl RDW (11.0-16.0) % Plt Count (160-400) X10*3/uL MPV (9.4-12.4) fL Immature Gran % (Auto) (0.0-0.4) % Neut % (Auto) (45-73) % Lymph % (Auto) (20-40) % [place] % (Auto) (2-11) % Eos % (Auto) (0-4) % Baso % (Auto) (0-2) % Lymph # (Auto) (1.2-4.9) X10*3/uL [place] # (Auto) (0.1-1.2) X10*3/uL Eos # (Auto) (0.0-0.4) X10*3/uL Baso # (Auto) (0.0-0.2) X10*3/uL Abs Immat Gran (auto) (0.00-0.03) X10*3/uL Absolute Neuts (auto) (2.0-8.3) x10*3/uL Absolute Nucleated RBC (0.0-0.012) X10*3/uL Nucleated RBC % (auto) (0.0-0.2) /100WBC PT (10.0-13.1) SEC Whole Blood PT (11.1-13.5) sec INR (0.9-1.1) Whole Blood INR (0.9-1.1) Sodium 139 (135-145) mmol/L Potassium 4.3 (3.3-5.1) mmol/L Chloride 109 H (96-108) mmol/L Carbon Dioxide 25 (22-29) mmol/L Anion Gap 9 L (12-20) BUN 19 H (9-16) mg/dL Creatinine 1.15 (0.5-1.4) mg/dL Estim Creat Clear Calc 60.2 Estimated GFR > 60 POC Glucose (60-115) mg/dL Random Glucose 98 (60-115) mg/dL Calcium 9.1 (8.4-10.2) mg/dL Troponin I High Sens 4.4 (<3.5-35.0) ng/L Hold Red Top See Note 03/10/22 Range/Units 19:51 WBC (4.8-10.8) X10*3/uL RBC (4.60-5.80) X10*6/uL Hgb (14.0-18.0) g/dl Hct (42.0-52.0) % MCV (80.0-98.0) fL MCH (27.0-33.0) pg MCHC (31.0-36.0) g/dl RDW (11.0-16.0) % Plt Count (160-400) X10*3/uL MPV (9.4-12.4) fL Immature Gran % (Auto) (0.0-0.4) % Neut % (Auto) (45-73) % Lymph % (Auto) (20-40) % [place] % (Auto) (2-11) % Eos % (Auto) (0-4) % Baso % (Auto) (0-2) % Lymph # (Auto) (1.2-4.9) X10*3/uL [place] # (Auto) (0.1-1.2) X10*3/uL Eos # (Auto) (0.0-0.4) X10*3/uL Baso # (Auto) (0.0-0.2) X10*3/uL Abs Immat Gran (auto) (0.00-0.03) X10*3/uL Absolute Neuts (auto) (2.0-8.3) x10*3/uL Absolute Nucleated RBC (0.0-0.012) X10*3/uL Nucleated RBC % (auto) (0.0-0.2) /100WBC PT (10.0-13.1) SEC Whole Blood PT (11.1-13.5) sec INR (0.9-1.1) Whole Blood INR (0.9-1.1) Sodium (135-145) mmol/L Potassium (3.3-5.1) mmol/L Chloride (96-108) mmol/L Carbon Dioxide (22-29) mmol/L Anion Gap (12-20) BUN (9-16) mg/dL Creatinine (0.5-1.4) mg/dL Estim Creat Clear Calc Estimated GFR POC Glucose 101 (60-115) mg/dL Random Glucose (60-115) mg/dL Calcium (8.4-10.2) mg/dL Troponin I High Sens (<3.5-35.0) ng/L Hold Red Top Critical Care Time Critical Care Time Critical Care Time: Yes Total Critical Care Time: 45 Attestation: Critical Care: The patient was critically ill with a high probability of imminent or life threatening deterioration. I spent greater than 30 minutes of discontinuous time evaluating the patient,delivering critical care at the bedside, discussing and evaluating pertinent data with consultants. Critical care time does not include time spent performing separately billable procedures or teaching. Total time spent performing critical care was 45 minutes. Discharge Plan Discharge Clinical Impression: Stroke Prescriptions: No Action alendronate 70 mg tablet 1 tab PO QAM calcium carbonate 500 mg calcium (1,250 mg) tablet 1 tab PO BID gabapentin 100 mg capsule 2 cap PO TID loratadine 10 mg tablet 1 tab PO DAILY acetaminophen [Tylenol Extra Strength] 500 mg tablet 1,000 mg PO Q6H PRN (Reason: pain) Qty: 30 0RF promethazine 25 mg tablet 25 mg PO Q6H PRN (Reason: nausea and vomiting) Qty: 20 0RF docusate sodium 100 mg capsule 100 mg PO BID amitriptyline 25 mg tablet 25 mg PO BEDTIME atorvastatin 20 mg tablet 20 mg PO DAILY magnesium citrate Solution 300 ml PO DAILY 1 Days Qty: 296 0RF
[2022-03-10 19:50] VITALS: BP 149/72; PULSE 64; RESP 18; TEMP 36.8; O2SAT 97
[2022-03-10 20:03] LABS: Glucose, Whole Blood 101 mg/dL (60-115)
--- NOTE | 2022-03-10 20:31 | PHA.MEDREC ---
Pharmacy Consult ? Medication Reconciliation Pharmacy has completed the medication reconciliation.
[2022-03-10 20:41] LABS: Influenza A PCR NEGATIVE (Negative); Influenza B PCR NEGATIVE (Negative); Resp Syncy Virus RNA Qual PCR NEGATIVE (Negative); SARS COV2 PCR INHOUSE NEGATIVE (Negative)
[2022-03-10] MEDS: Clopidogrel Bisulfate 75 MG TABLET PO (21:02)
--- NOTE | 2022-03-10 21:03 | PC.NURSE ---
Pt was able to swallow his meds with no problem
--- NOTE | 2022-03-10 21:13 | PM.IMHP ---
History of Present Illness Date of Service: 03/10/22 Chief Complaint: weakness Uruguayan-speaking only, history is obtained with the help of an motor vehicle parts interpreter. 61-year-old male past medical history of hypertension, and hyperlipidemia presents to the hospital with complaints of right-sided weakness as well as change in speech. Patient reports that he went to bed on Wednesday night with a headache, woke up on Wednesday morning at 08:00 with inability to speak, as well as right-sided weakness in the upper and lower extremity. He feels that he is now back to his baseline. With normal speech, in no significant weakness on the right side. He denies any current headache, no change in vision, no blurry or double vision, no facial droop, no chest pain, no palpitations, no abdominal pain nausea or vomiting, no diarrhea constipation, no urinary symptoms and extremity edema. No previous similar episode. On arrival to the ED patient hypertensive with blood pressure 170/52, otherwise stable Labs unremarkable Chest x-ray negative, Head and neck CT angiogram shows no significant stenosis or occlusion in the cervical or intracranial vasculature. Mild scattered areas of atherosclerotic wall calcification. Patient allergic to aspirin, given Plavix will be admitted for further management Review of Systems Review of Systems: Yes all other systems are reviewed and are negative [facility] Medical History Erectile dysfunction HLD (hyperlipidemia) Hx of hematuria Hypertension Multiple joint pain Osteoporosis Seasonal allergies Family History Family/Other Diabetes Surgical History Hx of colonoscopy Social History Are you a primary client care representative to a significant other at home: No Do you presently have visiting nurse or other home services: No Alcohol intake: never Patient Tobacco Use Status: Never used Tobacco Cigarette Packs Per Day: 0.5 Cigarettes Per Day: 10.0 Advance Directives: No Advance Directives Information Provided: No Meds Allergies Allergy/AdvReac Type Severity Reaction Status Date / Time aspirin [ASPIRIN] Allergy Unknown RASH/SWELLING, Verified 07/16/21 18:32 hives ibuprofen Allergy Unknown hives Verified 07/16/21 18:32 Seasonal Allergies Allergy Unknown Unknown Verified 07/16/21 18:32 Active Medications: Current Medications Acetaminophen (Acetaminophen 325 Mg Tablet) 650 mg PO Q6H PRN PRN Reason: Pain, Mild (Pain Scale 1-3) Atorvastatin Calcium (Atorvastatin Calcium 80 Mg Tablet) 80 mg PO DAILY [facility] Calcium Carbonate (Calcium Carbonate 500 Mg Tablet) 500 mg PO BID [facility] Clopidogrel Bisulfate (Clopidogrel Bisulfate 75 Mg Tablet) 75 mg PO DAILY [facility] Docusate Sodium (Docusate Sodium 100 Mg Capsule) 100 mg PO DAILY PRN PRN Reason: Constipation Ondansetron HCl (Ondansetron Hcl 4 Mg/2 Ml Vial) 4 mg IVPUSH Q8H PRN PRN Reason: Nausea and Vomiting Pharmacy Consult (Consult Rx Perform Med Rec) 1 each MISCELLANE ONCE PRN PRN Reason: Consult order Quetiapine Fumarate (Quetiapine Fumarate 50 Mg Tablet) 50 mg PO BEDTIME [facility] Home Medications Medication Instructions Recorded Confirmed Last Taken Type atorvastatin 20 mg tablet 20 mg PO DAILY 05/08/20 03/10/22 03/10/22 History calcium carbonate 500 mg calcium 1 tab PO BID 07/25/20 03/10/22 03/10/22 History (1,250 mg) tablet lisinopril 10 mg tablet 1 tab DAILY 03/10/22 03/10/22 03/10/22 History quetiapine 50 mg tablet 1 tab PO BEDTIME 03/10/22 03/10/22 03/09/22 History Physical Exam Vital Signs and Narrative: Vital Signs: Last Vital Signs Temp 98.3 F 03/10/22 19:50 Pulse 64 03/10/22 19:50 Resp 18 03/10/22 19:50 BP 149/72 H 03/10/22 19:50 Pulse Ox 97 03/10/22 19:50 O2 Del Method 03/10/22 19:50 BMI result Body Mass Index 27.6 Const: General: cooperative and no acute distress Orientation/consciousness: patient oriented x3 Eyes: General: appearance normal, both eyes and all related structures Pupils: Equal, round and reactive pupils present Resp: Effort & Inspection: normal respiratory effort Auscultation: clear to auscultation bilaterally Cardio: Rate: regular rate Rhythm: regular rhythm GI: Palpation (GI): Soft to palpation Auscultation: normal bowel sounds Skin: General skin exam: no rashes or lesions noted Neuro: Other: 4/5 strength in right lower extremity, No aphasia General: patient oriented x3 Cranial nerves: Yes Equal, round and reactive pupils present Cognition (Neuro): normal cognition Extrem: General: Yes normal to inspection and Yes no pedal edema Results Labs CBC and Chem 7: 03/10/22 18:14 03/10/22 18:14 Labs: Laboratory Results - last 24 hr 03/10/22 03/10/22 03/10/22 18:02 18:14 18:14 MCV 90.0 MCH 30.1 MCHC 33.5 RDW 12.8 Plt Count 249 MPV 9.5 Immature Gran % (Auto) 0.4 Neut % (Auto) 51.8 Lymph % (Auto) 35.6 Bibb % (Auto) 7.6 Eos % (Auto) 4.2 H Baso % (Auto) 0.4 Lymph # (Auto) 3.3 Bib[place] # (Auto) 0.7 Eos # (Auto) 0.4 Baso # (Auto) 0.0 Abs Immat Gran (auto) 0.04 H Absolute Neuts (auto) 4.7 Absolute Nucleated RBC 0.000 Nucleated RBC % (auto) 0.0 PT 11.1 Whole Blood PT 11.6 INR 1.0 Whole Blood INR 1.0 Anion Gap Estim Creat Clear Calc Estimated GFR POC Glucose Random Glucose Calcium Troponin I High Sens Hold Red Top Influenza Type A (PCR) Influenza Type B (PCR) RSV RNA Qual (PCR) SARS-CoV-2 RNA (RT-PCR) 03/10/22 03/10/22 03/10/22 18:14 18:14 18:14 MCV MCH MCHC RDW Plt Count MPV Immature Gran % (Auto) Neut % (Auto) Lymph % (Auto) Bibb % (Auto) Eos % (Auto) Baso % (Auto) Lymph # (Auto) Bibb # (Auto) Eos # (Auto) Baso # (Auto) Abs Immat Gran (auto) Absolute Neuts (auto) Absolute Nucleated RBC Nucleated RBC % (auto) PT Whole Blood PT INR Whole Blood INR Anion Gap 9 L Estim Creat Clear Calc 60.2 Estimated GFR > 60 POC Glucose Random Glucose 98 Calcium 9.1 Troponin I High Sens 4.4 Hold Red Top See Note Influenza Type A (PCR) Influenza Type B (PCR) RSV RNA Qual (PCR) SARS-CoV-2 RNA (RT-PCR) 03/10/22 03/10/22 19:51 19:59 MCV MCH MCHC RDW Plt Count MPV Immature Gran % (Auto) Neut % (Auto) Lymph % (Auto) [place] % (Auto) Eos % (Auto) Baso % (Auto) Lymph # (Auto) [place] # (Auto) Eos # (Auto) Baso # (Auto) Abs Immat Gran (auto) Absolute Neuts (auto) Absolute Nucleated RBC Nucleated RBC % (auto) PT Whole Blood PT INR Whole Blood INR Anion Gap Estim Creat Clear Calc Estimated GFR POC Glucose 101 Random Glucose Calcium Troponin I High Sens Hold Red Top Influenza Type A (PCR) NEGATIVE Influenza Type B (PCR) NEGATIVE RSV RNA Qual (PCR) NEGATIVE SARS-CoV-2 RNA (RT-PCR) NEGATIVE Imaging Radiologist's Impressions: Impressions Head CT 03/10/22 17:57 IMPRESSION: No acute intracranial pathology. This critical result was discussed with Dr Jasso on 03/10/2022, 1807 hours and it was ascertained that the content and urgency of the report was understood at the time of direct communication. Head/Neck CTA 03/10/22 18:53 IMPRESSION: No significant stenosis or occlusion in the cervical or intracranial vasculature. Mild scattered areas of atherosclerotic wall calcifications. Moderate emphysematous changes in the lungs with apical bullae. Imaging findings reported to JOLYNN Kincaid at 7:11 PM on 03/10/2022. Chest X-Ray 03/10/22 19:08 IMPRESSION: No acute pulmonary process. Assessment and Plan (1) Stroke: Status: Acute Plan 61-year-old male with past medical history of hyperlipidemia, hypertension presents to the hospital with complaints of stroke-like symptoms # acute CVA - likely left-sided MCA territory given his symptoms. Patient had expressive aphasia as well as right-sided weakness - no significant neurological deficits on exam at this time - will start on Plavix given his allergy to aspirin - high-dose statin - lipid battery - MRI in a.m. - neurology consulted # hypertension - hold antihypertensive to permissive hypertension - monitor BP # hyperlipidemia - on atorvastatin 20 mg, will increase to 80 daily DVT prophylaxis: Early ambulation Time Spent With Patient Time: Total time managing care of this patient today ____ minutes. Quality Stroke Does the patient have a stroke diagnosis?: Yes Reason for No Anti-thrombotic by Day Two: N/A - Med Ordered VTE Prior VTE?: No VTE Risk Level:: Medical - low VTE Device Contraindication: Treatment Not Indicated VTE Drug Contraindication: Treatment Not Indicated
[2022-03-10 21:17] VITALS: BP 142/70; PULSE 61; RESP 19; TEMP 36.7; O2SAT 99
[2022-03-11] VITALS (11 sets, daily range): BP systolic 122–143; BP diastolic 63–74; PULSE 55–80; RESP 13–20; TEMP 36.4–37; O2SAT 96–98
--- NOTE | 2022-03-11 02:29 | MHC.EDTECH ---
pt ambulated to the restroom and back no problem, he ask for something to eat and drink 2 turkey sandwiches were given and a pitcher of water vitals taken no other issues
--- NOTE | 2022-03-11 06:11 | PC.NURSE ---
Patient is alert and oriented. Neuso assessment remains to be negative through the night. Vitals are stable. Denies to be in pain. Patient drinking water and ambulated to the bathroom multiple times with the steady gate. Patient is aware of plan of care
[2022-03-11 06:50] LABS: MANUAL DIFF FLAG NO
[2022-03-11 06:55] LABS: Basophils Absolute Auto 0.1 X10*3/uL (0.0-0.2); Basophils Percent Auto 0.5 % (0-2); Eosinophils Absolute Auto 0.5 X10*3/uL (0.0-0.4); Eosinophils Percent Auto 4.3 % (0-4); Hematocrit 39.8 % (42.0-52.0); Hemoglobin 13.9 g/dl (14.0-18.0); Imm Gran Abs Auto 0.06 X10*3/uL (0.00-0.03); Imm Gran Pct Auto 0.6 % (0.0-0.4); Lymphocytes Absolute Auto 2.8 X10*3/uL (1.2-4.9); Lymphocytes Percent Auto 25.5 % (20-40); Mean Corpuscular HGB Conc 34.9 g/dl (31.0-36.0); Mean Corpuscular Hemoglobin 31.2 pg (27.0-33.0); Mean Corpuscular Volume 89.2 fL (80.0-98.0); Mean Platelet Volume 10.1 fL (9.4-12.4); Monocytes Absolute Auto 0.8 X10*3/uL (0.1-1.2); Monocytes Percent Auto 7.1 % (2-11); Neutrophils Absolute Auto 6.8 x10*3/uL (2.0-8.3); Platelet Count 247 X10*3/uL (160-400); Red Blood Count 4.46 X10*6/uL (4.60-5.80); Red Cell Distribution Width 12.7 % (11.0-16.0); White Blood Count 10.9 X10*3/uL (4.8-10.8)
[2022-03-11 07:13] LABS: Cholesterol 138 mg/dL; HDL Cholesterol 27 mg/dL; LDL Cholesterol Calculated 78 mg/dl; Triglycerides 167 mg/dL
[2022-03-11 07:14] LABS: Anion Gap 12 (12-20); Blood Urea Nitrogen 17 mg/dL (9-16); Calcium 9.2 mg/dL (8.4-10.2); Carbon Dioxide 23 mmol/L (22-29); Chloride 108 mmol/L (96-108); Creatinine Clr Calc Pharmacy 62.9; Estimated Glomerular Filt Rate > 60; Glucose Random 145 mg/dL (60-115); Sodium 139 mmol/L (135-145)
[2022-03-11 08:11] LABS: Glucose, Whole Blood 109 mg/dL (60-115)
--- NOTE | 2022-03-11 09:21 | MHC.CM.PN ---
Addendum entered by Rupali Welch 03/11/22 15:45: PT MADE INPATIENT. IMM DELIVERED. Original Note: [facility] DELIVERED PT LIVES WITH SPOUSE IN A [facility]. USES [facility] AT TIMES FOR MOBILITY. NO PRIOR SERVICES. + COVID VAX X4. NO HCP BUT WILLING TO COMPLETE ONE. PCP DR. DIAMOND AT [facility]. DP: HOME, NO SERVICES ANTICIPATED. [facility] WILL TRANSPORT. CM WILL CONTINUE TO FOLLOW.
[2022-03-11] MEDS: Atorvastatin Calcium 80 MG TABLET PO (10:00)
[2022-03-11] MEDS: Clopidogrel Bisulfate 75 MG TABLET PO (10:00)
--- NOTE | 2022-03-11 14:47 | MHC.STROKE ---
03/10/22 1631 WALK-IN C/O RIGHT ARM, LEG, VANN AND RESOLVED SLURRED SPEECH. LAST KNOWN WELL 03/09/22 2200 WITH VANN, WOKE ON 03/10/22 AT 0800 WITH RIGHT ARM/LEG WEAKNESS. WAITED TO COME TO THE ED FOR > 8HRS. NIHSS =2. CTH AND CTA H/N DONE, NO LVO, EXCLUDED FROM THROMBOLYTIC THERAPY DUE TO > 4.5 HOURS FROM ONSET. I MET WITH THE PATIENT, HIS AND [id number] AFTER THE MRI TO REVIEW THE FINDINGS. I HAD AN STUDENT FINANCE SPECIALIST PRESENT DURING THIS TEACHING SESSION. I GAVE THEM A SCREENSHOT OF THE LOCATION OF THE STROKE AND CORRELATING SYMPTOMS, I REVIEWED THE PLAN OF CARE THE STROKE EDUCATION BOOKLET, STRESSED MEDICATION COMPLIANCE AND PROGNOSIS IN THIS AREA OF THE BRAIN, I ANSWERED ALL OF THEIR QUESTIONS. HE WILL BE GETTIGN AND ECHO WITH BUBBLE PART OF THE STROKE WORKUP. I DISCUSSED THIS WITH DR BAHENA AND HE HAS SPOKEN TO DR SHEPHERD. WE REVIEWED HIS LIPID PANEL AND HE HAS BEEN VERY GOOD ABOUT TAKING HIS MEDICATIONS. HE UNDERSTANDS THAT IF SYMPTOMS RETURN TO CALL 911 AND RETURN TO THE HOSPITAL.
[2022-03-11] MEDS: Acetaminophen 325 MG TABLET 650 MG PO (14:49)
--- NOTE | 2022-03-11 15:14 | PC.NURSE ---
Pt c/o 09/21 headache with some dizzines with amb. tylemol given . bed alarm on. Ирина Nolan Rn taking over pt care.
--- NOTE | 2022-03-11 17:42 | HO.PM.IMPN ---
Subjective Subjective Date of Service: 03/11/22 Interval History: cva Review of Systems Seems like weakness and slurred speech seems to be improving, Denies any chest pain or shortness of breath or abdominal pain or fever chills. Physical Exam Vital Signs: Vital Signs: Last Vital Signs Temp 98.0 F 03/11/22 15:11 Pulse 80 03/11/22 15:11 Resp 18 03/11/22 15:11 BP 143/69 H 03/11/22 15:20 Pulse Ox 98 03/11/22 15:11 O2 Del Method 03/11/22 15:11 BMI result Body Mass Index 27.6 Appearance: Alert.? Oriented X3.? not in distress.? cvs: rrr, [id number] , no murmur res: clear to auscultation ,no rhonchii or wheezing abd: no rebound or guarding ,nt, bs present. ext pulses present , no cyanosis . neuro: axo3 , seems to be right sided weakness imprvin significantly Objective Data Active Medications Acetaminophen (Acetaminophen 325 Mg Tablet) 650 mg PO Q6H PRN PRN Reason: Pain, Mild (Pain Scale 1-3) Last Admin: 03/11/22 14:49 Dose: 650 mg Documented By: RASHAAD Atorvastatin Calcium (Atorvastatin Calcium 80 Mg Tablet) 80 mg PO DAILY [facility] Last Admin: 03/11/22 10:00 Dose: 80 mg Documented By: RASHAAD Calcium Carbonate (Calcium Carbonate 500 Mg Tablet) 500 mg PO BID [facility] Last Admin: 03/11/22 10:00 Dose: 500 mg Documented By: RASHAAD Clopidogrel Bisulfate (Clopidogrel Bisulfate 75 Mg Tablet) 75 mg PO DAILY [facility] Last Admin: 03/11/22 10:00 Dose: 75 mg Documented By: RASHAAD Docusate Sodium (Docusate Sodium 100 Mg Capsule) 100 mg PO DAILY PRN PRN Reason: Constipation Ondansetron HCl (Ondansetron Hcl 4 Mg/2 Ml Vial) 4 mg IVPUSH Q8H PRN PRN Reason: Nausea and Vomiting Pharmacy Consult (Consult Rx Perform Med Rec) 1 each MISCELLANE ONCE PRN PRN Reason: Consult order Quetiapine Fumarate (Quetiapine Fumarate 50 Mg Tablet) 50 mg PO BEDTIME [facility] Labs CBC & Chem 7: 03/11/22 06:15 03/11/22 06:15 Labs: Laboratory Results - last 24 hr 03/10/22 03/10/22 03/10/22 18:02 18:14 18:14 MCV 90.0 MCH 30.1 MCHC 33.5 RDW 12.8 Plt Count 249 MPV 9.5 Immature Gran % (Auto) 0.4 Neut % (Auto) 51.8 Lymph % (Auto) 35.6 [place] % (Auto) 7.6 Eos % (Auto) 4.2 H Baso % (Auto) 0.4 Lymph # (Auto) 3.3 [place] # (Auto) 0.7 Eos # (Auto) 0.4 Baso # (Auto) 0.0 Abs Immat Gran (auto) 0.04 H Absolute Neuts (auto) 4.7 Absolute Nucleated RBC 0.000 Nucleated RBC % (auto) 0.0 PT 11.1 Whole Blood PT 11.6 INR 1.0 Whole Blood INR 1.0 Anion Gap Estim Creat Clear Calc Estimated GFR POC Glucose Random Glucose Calcium Troponin I High Sens Triglycerides Cholesterol LDL Cholesterol, Calc HDL Cholesterol Hold Red Top Influenza Type A (PCR) Influenza Type B (PCR) RSV RNA Qual (PCR) SARS-CoV-2 RNA (RT-PCR) 03/10/22 03/10/22 03/10/22 18:14 18:14 18:14 MCV MCH MCHC RDW Plt Count MPV Immature Gran % (Auto) Neut % (Auto) Lymph % (Auto) [place] % (Auto) Eos % (Auto) Baso % (Auto) Lymph # (Auto) [place] # (Auto) Eos # (Auto) Baso # (Auto) Abs Immat Gran (auto) Absolute Neuts (auto) Absolute Nucleated RBC Nucleated RBC % (auto) PT Whole Blood PT INR Whole Blood INR Anion Gap 9 L Estim Creat Clear Calc 60.2 Estimated GFR > 60 POC Glucose Random Glucose 98 Calcium 9.1 Troponin I High Sens 4.4 Triglycerides Cholesterol LDL Cholesterol, Calc HDL Cholesterol Hold Red Top See Note Influenza Type A (PCR) Influenza Type B (PCR) RSV RNA Qual (PCR) SARS-CoV-2 RNA (RT-PCR) 03/10/22 03/10/22 03/11/22 19:51 19:59 06:15 MCV 89.2 MCH 31.2 MCHC 34.9 RDW 12.7 Plt Count 247 MPV 10.1 Immature Gran % (Auto) 0.6 H Neut % (Auto) 62.0 Lymph % (Auto) 25.5 [place] % (Auto) 7.1 Eos % (Auto) 4.3 H Baso % (Auto) 0.5 Lymph # (Auto) 2.8 [place] # (Auto) 0.8 Eos # (Auto) 0.5 H Baso # (Auto) 0.1 Abs Immat Gran (auto) 0.06 H Absolute Neuts (auto) 6.8 Absolute Nucleated RBC 0.000 Nucleated RBC % (auto) 0.0 PT Whole Blood PT INR Whole Blood INR Anion Gap Estim Creat Clear Calc Estimated GFR POC Glucose 101 Random Glucose Calcium Troponin I High Sens Triglycerides Cholesterol LDL Cholesterol, Calc HDL Cholesterol Hold Red Top Influenza Type A (PCR) NEGATIVE Influenza Type B (PCR) NEGATIVE RSV RNA Qual (PCR) NEGATIVE SARS-CoV-2 RNA (RT-PCR) NEGATIVE 03/11/22 03/11/22 03/11/22 06:15 06:45 07:02 MCV MCH MCHC RDW Plt Count MPV Immature Gran % (Auto) Neut % (Auto) Lymph % (Auto) [place] % (Auto) Eos % (Auto) Baso % (Auto) Lymph # (Auto) [place] # (Auto) Eos # (Auto) Baso # (Auto) Abs Immat Gran (auto) Absolute Neuts (auto) Absolute Nucleated RBC Nucleated RBC % (auto) PT Whole Blood PT INR Whole Blood INR Anion Gap 12 Estim Creat Clear Calc 62.9 Estimated GFR > 60 POC Glucose 109 Random Glucose 145 H Calcium 9.2 Troponin I High Sens Triglycerides 167 Cholesterol 138 LDL Cholesterol, Calc 78 HDL Cholesterol 27 Hold Red Top Influenza Type A (PCR) Influenza Type B (PCR) RSV RNA Qual (PCR) SARS-CoV-2 RNA (RT-PCR) Assessment and Plan (1) Stroke: Status: Acute Plan 61-year-old male with past medical history of hyperlipidemia, hypertension presents to the hospital with complaints of stroke-like symptoms # acute CVA - likely left-sided MCA territory given his symptoms.? Patient had expressive aphasia as well as right-sided weakness - no significant neurological deficits on exam at this time - - MRI -shows Small acute infarct in the left parietal lobe extending into the left operculum.? - neurology consulted-will start on Plavix given his allergy to aspirin,high-dose statin - lipid panel noted. echo with bubble study permissive htn neuro d/w -complete workup -continue above management # hypertension - hold antihypertensive to permissive hypertension - monitor BP, pt/ot # hyperlipidemia - on atorvastatin 20 mg, adjusted to 80 daily DVT prophylaxis:? Early ambulation inpatient need:new cva -workup pending echo,moniter blood pressure. Time Spent With Patient Time: Total time managing care of this patient today ____ minutes. Quality Stroke Does the patient have a stroke diagnosis?: Yes Reason for No Anti-thrombotic by Day Two: N/A - Med Ordered VTE Prior VTE?: No VTE Risk Level:: Medical - low VTE Device Contraindication: Treatment Not Indicated VTE Drug Contraindication: Treatment Not Indicated
[2022-03-11] MEDS: QUEtiapine Fumarate 50 MG TABLET PO (21:22)
[2022-03-12] VITALS: BP 153/76; PULSE 69; RESP 20; TEMP 36.1; O2SAT 94
[2022-03-12 03:10] VITALS: BP 132/73; PULSE 66; RESP 20; TEMP 36.9; O2SAT 96
--- NOTE | 2022-03-12 07:00 | CA_ITS ---
Transthoracic Echocardiogram Patient (Last, First, Middle): Leatha Olivas, Gender: Male Date of : 1960 Age: 61 Procedure Date: 03/12/2022 Procedure Type: Transthoracic Echocardiogram Location: [facility] [place] Height: 162.56 cm Weight: 73.03 kg BSA: 1.78 m2 Heart Rate: 74 bpm BP: 139 / 74 mmHg Funeral Counselor: ÁLVARO Sood MD: Reina Nagel MD Gasoline Catalyst Operator: Paul Darling MD Symptoms: cva, Please perform bubble Study Quality: Fair/Contrast ECG Rhythm: Sinus Conclusions: - 1. Technically limited study despite use of contrast agent 2. Hyperdynamic LV systolic function with greater than 70% LV EF with impaired relaxation filling pattern 3. Mild aortic regurgitation 4. No clear evidence of PFO on this study Findings Procedure Information Contrast agent, definity, is being given per protocol without apparent complications. Left Ventricle Normal left ventricular cavity size. There is normal left ventricular wall thickness. The left ventricular systolic function is hyperdynamic. The visually estimated ejection fraction is >70%. Spectral Doppler is indicative of an impaired relaxation filling pattern. Right Ventricle There is normal right ventricular systolic function. Atria The left atrium is normal in size. There is no evidence of interatrial shunt by agitated saline. The right atrium was not well visualized. Aortic Valve The aortic valve was not well visualized. There is no aortic valve stenosis. There is mild aortic valve regurgitation. Mitral Valve There is mild anterior and posterior mitral leaflet thickening. There is trace mitral valve regurgitation. There is no mitral valve stenosis. Pulmonic Valve The pulmonic valve was not well visualized. Tricuspid Valve Likely normal tricuspid valve structure and function. Tricuspid regurgitation envelope is inadequate for calculation of right ventricular systolic pressure. Normal right atrial pressure. Great Vessels The aorta was not well visualized. The pulmonary artery was not well visualized. Venous The inferior vena cava is normal in size and collapses greater than 50% with inspiration. Pericardium/Pleural The pericardium was not well visualized. Prior Study Comparison No prior study available for comparison. Measurements 2D Linear Measurements IVSd: 0.77 0.6-0.9/0.6-1.0 cm LVIDd: 4.31 3.9-5.3/4.2-5.9 cm LVIDd Index: 2.42 2.4-3.2/2.2-3.1 cm/m2 LVIDs: 2.71 2.0-3.6 cm LVPWd: 0.80 0.7-1.1 cm LA Diam: 2.90 2.7-3.8/3.0-4.0 cm LAIDs Index: 1.63 1.5-2.3 cm/m2 LV Mass: 127.73 67-162/88-224 g LV Mass Index: 71.76 43-95/49-115 g/m2 LVOT Diam: 1.90 3.0+(-)1.3 cm 2D Systolic Function EF 4C: 76.10 >55% EF 2C: 75.20 >55% EF BiP: 75.00 >55% Mitral Valve MV Pk E: 0.51 MV PK A: 0.77 MV Decel Time: 261.00 E/A: 0.70 E'Lateral: 10.40 E'Medial: 8.27 E/E' Med: 6.20 E/E' Lat: 4.90 PHT: 76.00 MVA PHT: 2.89 Decel [place]: 1.95 Aortic Valve AoV Pk Tj: 1.45 AoV Mn Tj: 0.80 AoV VTI: 0.22 AoV Pk Grad: 8.00 Aov Mn Grad: 3.00 ROBIN Cont.VTI: 2.66 LVOT LVOT Pk Tj: 1.31 LVOT Mn Tj: 0.78 LVOT VTI: 0.21 LVOT Pk Grad: 7.00 LVOT Mn Grad: 3.00 LVOT Diam: 1.90 LVOT Area: 2.84 Diastolic Function MV Pk E: 0.51 MV Pk A: 0.77 E/A: 0.70 E'Medial: 8.27 E/E' Med: 6.20 E' Laterial: 10.40 E/E' Lat: 4.90 Right Ventricle TAPSE (mm): 20.00 TVS' Tj: 11.50 Tricuspid Valve RA Press: 3.00 Great Vessels Aorta Sinus of Valsalva: 3.10 2.0-3.5 cm Ao Asc: 3.00 2.1-3.4 cm Pulmonary Valve PV Pk Tj: 0.99 Peak PV Grad: 4.00 Updated in Other Vendor System with Status of Final Paul Darling MD electronically signed on 03/12/2022 12:03:03 PM with status of Final
[2022-03-12 08:00] VITALS: BP 135/82; PULSE 84; RESP 19; TEMP 36.2; O2SAT 95
[2022-03-12] MEDS: Clopidogrel Bisulfate 75 MG TABLET PO (09:46)
[2022-03-12] MEDS: Atorvastatin Calcium 80 MG TABLET PO (09:46)
--- NOTE | 2022-03-12 10:02 | PM.DS ---
DS: Providers Provider Date of Service: 03/12/22 Date of admission: 03/11/22 14:42 Primary care physician: Tremaine Chandra MD Consults: 03/10/22 21:10 Consult to Neurology Routine Consulting Provider: [facility] Reason for consultation: CVA Has provider been notified: No DS: Diagnosis Discharge Diagnosis (1) Stroke: Status: Acute DS: Summary Hospital Course Hospital Course: 61-year-old male past medical history of hypertension, and hyperlipidemia presents to the hospital with complaints of right-sided weakness as well as change in speech.? Patient reports that he went to bed on Wednesday night with a headache, woke up on Wednesday morning at 08:00 with inability to speak, as well as right-sided weakness in the upper and lower extremity.? He feels that he is now back to his baseline.? With normal speech, in no significant weakness on the right side. He denies any current headache, no change in vision, no blurry or double vision, no facial droop, no chest pain, no palpitations, no abdominal pain nausea or vomiting, no diarrhea constipation, no urinary symptoms and extremity edema.? No previous similar episode.? On arrival to the ED patient hypertensive with blood pressure 170/52, otherwise stable Labs unremarkable Chest x-ray negative, Head and neck CT angiogram shows no significant stenosis or occlusion in the cervical or intracranial vasculature.? Mild scattered areas of atherosclerotic wall calcification. Patient allergic to aspirin, given Plavix will be admitted for further management. Hospital course: Patient was admitted for acute CVA with right-sided weakness and somewhat slowed speech: Patient was started on Plavix and adjusted atorvastatin high dose in addition patient had an MRI and CTA done-CTA seems fine, MRI shows small acute infarct in left parietal lobe . Patient's symptoms are improved significantly patient is mobile and walking around freely without much deficits. Echo seems fine ,ef 70%,seems fine. further management outaptiently. Discussed with the neuro-continue Plavix and statin, patient is to follow-up with PCP outpatient for further management, consider outpatient neuro evaluation. seen by pt/ot-recommendations patient home with no services. Going on with Above is discussed with the patient in detail length. Time Spent with Patient Time attestation: Total time managing care of this patient today ____ minutes. Discharge coordination time: Greater than 30 minutes Quality: Safe Use of Opioids Does Pt have an Active Cancer Diagnosis on the Problem List?: No Quality: Stroke Does the patient have a stroke diagnosis?: No Physical Exam Vital Signs: Vital Signs: Last Vital Signs Temp 97.2 F 03/12/22 08:00 Pulse 84 03/12/22 08:00 Resp 19 03/12/22 08:00 BP 135/82 03/12/22 08:00 Pulse Ox 95 03/12/22 08:00 O2 Del Method 03/12/22 08:00 BMI result Body Mass Index 27.6 Appearance: Alert.? Oriented X3.? not in distress.? cvs: rrr, [id number] , no murmur res: clear to auscultation ,no rhonchii or wheezing abd: no rebound or guarding ,nt, bs present. ext pulses present , no cyanosis . neuro: axo3 , seems to be right sided weakness improved. DS: Data Imaging Chest x-ray: Radiologist's impression: ITS Impressions Head CT 03/10/22 17:57 IMPRESSION: No acute intracranial pathology. This critical result was discussed with Dr Jasso on 03/10/2022, 1807 hours and it was ascertained that the content and urgency of the report was understood at the time of direct communication. Head/Neck CTA 03/10/22 18:53 IMPRESSION: No significant stenosis or occlusion in the cervical or intracranial vasculature. Mild scattered areas of atherosclerotic wall calcifications. Moderate emphysematous changes in the lungs with apical bullae. Imaging findings reported to JOLYNN Kincaid at 7:11 PM on 03/10/2022. Chest X-Ray 03/10/22 19:08 IMPRESSION: No acute pulmonary process. Brain MRI 03/11/22 12:06 IMPRESSION: - Small acute infarct in the left parietal lobe extending into the left operculum. No mass effect and no hemorrhagic transformation. - Mild background chronic microangiopathy. Discharge Plan Discharge Anticipated Discharge Date/Time: 03/12/22 09:55 Patient Disposition: Home, Self-Care Discharge Diagnosis: cva Referrals: Tremaine Banuelos MD [Primary Care Provider] - 1 Week Discharge Medications: New clopidogrel 75 mg Tablet 75 mg PO DAILY Qty: 30 0RF atorvastatin 80 mg Tablet 80 mg PO DAILY Qty: 30 0RF docusate sodium 100 mg Capsule 100 mg PO DAILY PRN (Reason: Constipation) Qty: 30 0RF Continued calcium carbonate 500 mg calcium (1,250 mg) tablet 1 tab PO BID lisinopril 10 mg tablet 1 tab DAILY quetiapine 50 mg tablet 1 tab PO BEDTIME Discontinued atorvastatin 20 mg tablet 20 mg PO DAILY Discharge Orders: Discharge Order (Routine); Ordered 03/12/22 Ordered By: Reina Nagel Diet: Advance to usual diet Activity on Discharge: As tolerated Stand Alone Forms: Patient Portal Discharge page Care Plan Goals: Patient was admitted for acute CVA with right-sided weakness and somewhat slowed speech: Patient was started on Plavix and adjusted atorvastatin high dose in addition patient had an MRI and CTA done-CTA seems fine, MRI shows small acute infarct in left parietal lobe . Patient's symptoms are improved significantly patient is mobile and walking around freely without much deficits. Echo seems fine ,ef 70%,seems fine. further management outaptiently. patient is to follow-up with PCP outpatient for further management, consider outpatient neuro evaluation. Health Concerns: As above. Plan of Treatment: As above. Assessment: As above. Patient Instructions: Ischemic Stroke (DC)
--- NOTE | 2022-03-12 10:19 | MHC.CM.PN ---
DP:PT MEDICALLY CLEARED FOR DC HOME, NO SERVICES. [facility] WILL TRANSPORT HOME.
== END 2022-03-12 13:51 | disposition home or self-care (01) | DRG 65 ==
LOC: HO.ED 18:16 → HO.EDOVER 21:13 → HO.IMC 03-11 06:50
PROVIDERS: Physician Assistant; Admitting Provider Internal Medicine; Emergency Provider Emergency Medicine Emergency Medical Services; PCP Internal Medicine; Visit Provider Internal Medicine
DX: I63.512 Cerebral infarction due to unspecified occlusion or stenosis of left middle cerebral artery (principal); G81.91 Hemiplegia, unspecified affecting right dominant side; R29.702 NIHSS score 2; I35.1 Nonrheumatic aortic (valve) insufficiency; E78.5 Hyperlipidemia, unspecified; Z79.899 Other long term (current) drug therapy
CPT/HCPCS: 0241U; 36415; 70450; 70496; 70498; 70551; 71045; 80048; 80061; 82947; 84484; 85025; 85610; 93005; 93306; 97165; 99219; 99285; Q9957; Q9967

== ENCOUNTER → 2022-06-01 10:32 | Outpatient (REF) | payer MEDICARE, MEDICAID, SELFPAY ==
--- NOTE | 2022-06-01 10:36 | HM_ITS ---
* Procedure start date 06/01/2022. Procedure length 30 days. Wear time 22.2 days. * Underlying rhythm is sinus. Average ventricular rate 74/Min. Range 46 to 133/Min. * Rare supraventricular ventricular ectopy. Low burden. * No sustained arrhythmias. No evidence of atrial fibrillation. * No clear patient symptoms documented. MTDD
== END ==
LOC: HO.CARD 10:32
PROVIDERS: PCP Registered Nurse; Visit Provider Psychiatry & Neurology Neurology
DX: Z86.73 Personal history of transient ischemic attack (TIA), and cerebral infarction without residual deficits (principal)
CPT/HCPCS: 93270

== ENCOUNTER 2022-06-11 08:06 | Outpatient (REF) | payer MEDICARE, MEDICAID, SELFPAY ==
--- NOTE | ~2022-06-11 | MM_ITS ---
EXAMINATION: BONE DENSITOMETRY CLINICAL INDICATION: Osteoporosis. COMPARISON: Baseline BD dated 03/23/2019. Dorsal spine radiographs 12/08/2019. TECHNIQUE: Using a [employer] DXA System (software version: 13.1) manufactured by [employer], dual-energy x-ray absorptiometry was performed of the lumbar spine and left hip. The images are of good technical quality. Summary results are attached. FINDINGS: AP SPINE L1-L4: BMD 1.067 g/cm2, Z-score -0.2, T-score -1.3, osteopenia, 5.6% increase from baseline (<5% change is not significant). Baseline: BMD 1.010 g/cm2. LEFT FEMUR, NECK: BMD 0.761 g/cm2, Z-score -0.9, T-score -2.4, osteopenia. Baseline: BMD 0.738 g/cm2. LEFT FEMUR, TOTAL: BMD 0.867 g/cm2, Z-score -0.7, T-score -1.6, osteopenia, 15.6% increase from baseline (<5% change is not significant). Baseline: BMD 0.750 g/cm2. . IDENTIFIED RISK FACTORS: Rheumatoid arthritis. Osteoporosis. HISTORY OF FRACTURE: Mid dorsal vertebral compression, T8. MEDICATIONS: Calcium supplement or multivitamin. Vitamin D. MM/XR DEXA axial skeleton IMPRESSION: 1. DIAGNOSIS: Osteopenia based on the lowest T-score value of -2.4 in the femoral neck applying World Health Organization criteria. 2. 10-YEAR FRACTURE RISK PREDICTION, FRAX: Major osteoporotic fracture (clinical spine, forearm, hip or shoulder) 7.2%. Hip fracture 1.8%. 3. Treatment Recommendations: NOF guidelines recommend consideration for treatment in postmenopausal women and men age 50 and older presenting with the following: -A hip or vertebral (clinical or morphometric) fracture. -T-score less than or equal to -2.5 at the femoral neck or spine after appropriate evaluation to exclude secondary causes. -Low bone mass at the hip or spine and a 10-year fracture probability by FRAX of greater than or equal to 3% for hip fracture or greater than or equal to 20% for major osteoporotic fracture based on the [place] adapted WHO algorithm. 4. Other Recommendations: All treatment decisions require clinical judgment and consideration of individual patient factors, including patient preferences, comorbidities, previous drug use, risk factors not captured in the FRAX model (e.g. frailty, falls, vitamin D deficiency, increased bone turnover, interval significant decline in bone density) and possible under or overestimation of fracture risk by FRAX. Additional medical evaluation for secondary cause of low bone mineral density may be appropriate. FUTURE SCAN RECOMMENDATION: People with diagnosed cases of osteoporosis or at high risk for fracture should have regular bone mineral density tests. For patients eligible for Medicare, routine testing is allowed once every 2 years. The testing frequency can be increased to one year for patients who have rapidly progressing disease, those who are receiving or discontinuing medical therapy to restore bone mass, or have additional risk factors.
== END 2022-06-11 08:07 | disposition home or self-care (01) ==
LOC: HO.MAMMO 08:06
PROVIDERS: Visit Provider Registered Nurse
DX: Z13.820 Encounter for screening for osteoporosis (principal); M81.0 Age-related osteoporosis without current pathological fracture
CPT/HCPCS: 77080

== ENCOUNTER 2022-06-24 11:55 | Outpatient (REF) | payer MEDICARE, MEDICAID, SELFPAY ==
--- NOTE | ~2022-06-24 | XR_ITS ---
EXAMINATION: XR KNEE, LEFT CLINICAL INFORMATION: Reason for Exam ACUTE PAIN OF LEFT KNEE COMPARISON: Knee radiographs 12/05/2019 TECHNIQUE: 4 views of the knee FINDINGS: No acute fracture or dislocation. Mild degenerative changes of the knee with quadriceps tendon enthesopathy, spurring of the tibial spines and borderline loss of medial compartment joint space. Small suprapatellar joint effusion. Atherosclerotic vascular calcification. XR/XR knee LT 4V IMPRESSION: * No acute osseous abnormality. * Mild degenerative changes of the knee, similar to prior. Small suprapatellar joint effusion.
== END 2022-06-24 11:56 | disposition home or self-care (01) ==
LOC: HO.XRAY 11:55
PROVIDERS: PCP Registered Nurse; Visit Provider Registered Nurse
DX: M25.562 Pain in left knee (principal); Z86.73 Personal history of transient ischemic attack (TIA), and cerebral infarction without residual deficits
CPT/HCPCS: 73564

== ENCOUNTER 2022-08-26 10:25 | Emergency (ER) | payer MEDICARE, MEDICAID, SELFPAY ==
[2022-08-26 11:17] VITALS: BP 119/80; PULSE 78; RESP 18; TEMP 36.4; O2SAT 97; BMI 27.5
--- NOTE | 2022-08-26 11:17 | ED.SKABFB ---
HPI - Skin/Abscess/Foreign Bdy General Chief complaint: General Medical Stated complaint: bumps on skin Time Seen by Provider: 08/26/22 11:22 Source: patient, RN notes reviewed and old records reviewed Mode of arrival: ambulatory History of Present Illness HPI narrative: 61-year-old male with a past medical history of CVA presenting to the ED complaining of pruritic rash to bilateral upper extremities x1 week. Does report using new body soap, otherwise denies known new exposures, travel, or insect bites. Denies SOB/CP, throat closing sensation, cough MD complaint: rash Onset (ago): week(s) Related Data Home Medications Medication Instructions Recorded Confirmed calcium carbonate 500 mg calcium 1 tab PO BID 07/25/20 03/10/22 (1,250 mg) tablet lisinopril 10 mg tablet 1 tab DAILY 03/10/22 03/10/22 quetiapine 50 mg tablet 1 tab PO BEDTIME 03/10/22 03/10/22 Previous Rx's Medication Instructions Recorded atorvastatin 80 mg tablet 80 mg PO DAILY #30 tabs 03/12/22 clopidogrel 75 mg tablet 75 mg PO DAILY #30 tabs 03/12/22 docusate sodium 100 mg capsule 100 mg PO DAILY PRN Constipation 03/12/22 #30 caps cetirizine 10 mg capsule (Zyrtec) 10 mg PO DAILY PRN allergy 08/26/22 symptoms #10 caps diphenhydramine HCl 25 mg capsule 25 mg PO TID PRN itching #14 caps 08/26/22 (Benadryl) hydrocortisone 1 % topical cream 1 appl topical BID PRN rash 7 days 08/26/22 (Anti-Itch (hydrocortisone)) #453.6 grams Allergies Allergy/AdvReac Type Severity Reaction Status Date / Time aspirin [ASPIRIN] Allergy Unknown RASH/SWELLING, Verified 07/16/21 18:32 hives ibuprofen Allergy Unknown hives Verified 07/16/21 18:32 Seasonal Allergies Allergy Unknown Unknown Verified 07/16/21 18:32 Review of Systems Review of Systems: Constitutional: No Fever, No Chills ENT/Mouth: No Ear Pain, No Nasal Congestion, No Hoarseness, No sore throat, No Rhinorrhea, No Swallowing Difficulty Cardiovascular: No Chest Pain, No SOB Respiratory: No Cough, No Sputum, No Wheezing Gastrointestinal: No Nausea, No Vomiting, No Abdominal pain Musculoskeletal: No joint pain, No Myalgias, No Joint Swelling Skin: No Skin Lesions, + rash Neuro: No Weakness, No Numbness, No Paresthesias Yes all other systems are reviewed and are negative Constitutional: Constitutional: Reports as per [facility] Past Medical History Attestation statement: The following information was validated with the patient. Source: old records reviewed Medical History Erectile dysfunction HLD (hyperlipidemia) Hx of hematuria Hypertension Multiple joint pain Osteoporosis Seasonal allergies Surgical History Hx of colonoscopy Family History Family History Family/Other Diabetes Social History Social History Are you a primary professional healthcare representative to a significant other at home: No Do you presently have visiting nurse or other home services: No Alcohol intake: never Patient Tobacco Use Status: Never used Tobacco Cigarette Packs Per Day: 0.5 Cigarettes Per Day: 10.0 service: No Current occupational status: disabled Physical Exam Vital Signs: Vital Signs: Last Vital Signs Temp 97.6 F 08/26/22 11:17 Pulse 78 08/26/22 11:17 Resp 18 08/26/22 11:17 BP 119/80 08/26/22 11:17 Pulse Ox 97 08/26/22 11:17 O2 Del Method Room Air 08/26/22 11:17 BMI result Body Mass Index 27.5 Const: General: cooperative, healthy appearing and no acute distress Orientation/consciousness: patient oriented x3 Limitations: no limitations HEENT: Head: Yes normal to inspection and Yes atraumatic Ears: hearing grossly normal bilaterally General nose exam: Normal external nose present Face and sinus: Yes normal facial exam Mouth: Normal oral and palatal mucosa present Throat: Yes posterior oropharynx normal, Yes tonsils normal, Yes uvula midline, No peritonsillar mass, No uvula laterally displaced and No uvular edema Eyes: General: appearance normal, both eyes and all related structures EOM: EOMs intact bilaterally Neck: Neck: Yes normal visual inspection and Yes no meningeal signs Resp: Effort & Inspection: normal respiratory effort and no respiratory distress Cardio: Rate: regular rate Skin: Other: + raised erythematous rash with scant central scaling. No vesicles, no warmth, not circumferential. No palm/sole involvement or mucous membrane involvement. No sloughing Wounds: no wounds Neuro: General: patient oriented x3, tone normal and no meningeal signs Gait exam (Neuro): Normal gait present Extrem: General: Yes normal to inspection Course Course Course Narrative: RME - 61 yo Indonesian speaking male presents to the ER for evaluation of an itchy, red, rash on his bilateral arms for the last 1 week. Plan: full skin evaluation in [facility] [place] Medical Decision Making Medical Decision Making MDM Narrative: 61-year-old male with a past medical history of CVA presenting to the ED complaining of pruritic rash to bilateral upper extremities x1 week. On exam vital signs stable, NAD, nontoxic appearing appearing, physical exam as noted above concerning for atopic dermatitis vs possible psoriasis. Lower suspicion for tinea, SJS/TENS or cellulitis Plan: Topical steroid, dermatology follow-up Please refer to course for remaining clinical decision making, interpretation of labs/imaging results, and discussions with consultants and/or family members. Differential Diagnosis Differential Diagnoses: The differential diagnosis associated with the presentation includes As above Admission/Observation Consideration of admission/observation: Escalation of care including admission/observation considered Lab Data [facility] Lab Attestation statement: I reviewed the patient's lab results. Radiology Impression Discussion of test interpretation with radiology: I have reviewed the radiologist's reading. External Record Review External record reviewed: Inpatient record, Office record, Outpatient record, Prior outpatient labs, Prior outpatient radiology, Primary care record and Outside ED record Tests considered The following testing was considered but not selected: As above Discharge Plan Discharge Clinical Impression: Dermatitis Patient Disposition: Home, Self-Care Instructions: Dermatitis (ED) Additional Instructions: Topical hydrocortisone is a steroid, apply to your rash. You may also take Benadryl and Zyrtec at home for itching. Benadryl will make you drowsy, take at night. Topical steroids potentially can discolored your skin, ovoid application to her face, hands, feet or genital region Follow-up with your doctor in Dermatology as needed Is symptoms persist or worsen he develops shortness of breath, throat closing sensation return to the ED La hidrocortisona t?pica es un esteroide, se aplica a la erupci?n. Tambi?n puede chidi Benadryl y Zyrtec en casa para la picaz?n. Benadryl te adormecer?, t?stephane por la noche. Los esteroides t?picos potencialmente pueden decolorar la piel, la aplicaci?n ovoide en la klaus, las elisabeth, los pies o la velma?n genital. Seguimiento con cheema m?dico en Dermatolog?a seg?n sea necesario Si los s?ntomas persisten o empeoran, presenta dificultad para respirar, la sensaci?n de cerrar la garganta regresa al servicio de urgencias. Prescriptions: New hydrocortisone [Anti-Itch (HC)] 1 % cream 1 appl topical BID PRN (Reason: rash) 7 Days Qty: 453.6 0RF diphenhydramine HCl [Benadryl] 25 mg capsule 25 mg PO TID PRN (Reason: itching) Qty: 14 0RF Zyrtec 10 mg capsule 10 mg PO DAILY PRN (Reason: allergy symptoms) Qty: 10 0RF No Action calcium carbonate 500 mg calcium (1,250 mg) tablet 1 tab PO BID lisinopril 10 mg tablet 1 tab DAILY quetiapine 50 mg tablet 1 tab PO BEDTIME atorvastatin 80 mg Tablet 80 mg PO DAILY Qty: 30 0RF clopidogrel 75 mg Tablet 75 mg PO DAILY Qty: 30 0RF docusate sodium 100 mg Capsule 100 mg PO DAILY PRN (Reason: Constipation) Qty: 30 0RF Referrals: Carmela Goodman PA [Physician [employer] Operator] - Narayan Mullins MD [Physician] - Nina Poole PA [Physician [employer] Operator] - Bre Stanton NP [Nurse Practitioner] - Roxy Gonzalez PA-C [Physician [employer] Operator] - Print Language: Indonesian
[2022-08-26] MEDS: diphenhydrAMINE HCL 25 MG CAPSULE PO (11:40)
[2022-08-26 11:57] VITALS: BP 137/74; PULSE 69; RESP 18; O2SAT 96
--- NOTE | 2022-08-26 11:57 | PC.NURSE ---
Patient with rash noted to bilateral forearms. Patient otherwise well appearing.
== END 2022-08-26 11:59 | disposition home or self-care (01) ==
PROVIDERS: Emergency Provider Emergency Medicine
DX: R21 Rash and other nonspecific skin eruption (principal); L30.9 Dermatitis, unspecified
CPT/HCPCS: 99283; 99284

== ENCOUNTER 2022-09-21 10:44 | Outpatient (REF) | payer MEDICARE, MEDICAID, OTHER, SELFPAY ==
--- NOTE | ~2022-09-21 | XR_ITS ---
EXAMINATION: XR KNEE, RIGHT CLINICAL INFORMATION: Bilateral anterior knee pain. No injury. COMPARISON: Right knee radiographs 12/05/2019 TECHNIQUE: Four views of the right knee. FINDINGS: No fracture or joint effusion. Alignment is anatomic. Mild loss of patellofemoral compartmental and medial compartmental space overall similar to prior. There is enthesopathy of the quadriceps tendon, minimally increased from prior. XR/XR knee RT 4V IMPRESSION: Mild degenerative changes of the knee, essentially unchanged.
--- NOTE | ~2022-09-21 | XR_ITS ---
EXAMINATION: XR KNEE, LEFT CLINICAL INFORMATION: Bilateral anterior knee pain. No injury. COMPARISON: Radiographs of left knee 06/24/2022 TECHNIQUE: Four views of the left knee. FINDINGS: No fracture. Alignment is anatomic. Borderline medial compartmental narrowing is similar to the prior and there is again slight spurring of the tibial spines.. There is enthesopathy of the quadriceps tendon, similar to prior. Small suprapatellar effusion. XR/XR knee LT 4V IMPRESSION: Minimal degenerative change left knee, essentially unchanged. Small suprapatellar effusion.
== END 2022-09-21 10:45 | disposition home or self-care (01) ==
LOC: HO.XRAY 10:44
PROVIDERS: Visit Provider Registered Nurse
DX: M25.561 Pain in right knee (principal); M25.562 Pain in left knee; G89.29 Other chronic pain
CPT/HCPCS: 73564

== ENCOUNTER 2023-01-05 10:53 | Outpatient (REF) | payer MEDICARE, MEDICAID, OTHER, SELFPAY ==
[2023-01-05 13:26] LABS: MANUAL DIFF FLAG NO
[2023-01-05 13:53] LABS: Basophils Percent Auto 0.4 % (0-2); Eosinophils Absolute Auto 0.3 X10*3/uL (0.0-0.4); Eosinophils Percent Auto 3.6 % (0-4); Hematocrit 41.4 % (42.0-52.0); Hemoglobin 13.6 g/dl (14.0-18.0); Imm Gran Abs Auto 0.06 X10*3/uL (0.00-0.03); Imm Gran Pct Auto 0.7 % (0.0-0.4); Lymphocytes Absolute Auto 2.3 X10*3/uL (1.2-4.9); Mean Corpuscular HGB Conc 32.9 g/dl (31.0-36.0); Mean Corpuscular Hemoglobin 30.1 pg (27.0-33.0); Mean Corpuscular Volume 91.6 fL (80.0-98.0); Mean Platelet Volume 9.7 fL (9.4-12.4); Monocytes Absolute Auto 0.7 X10*3/uL (0.1-1.2); Monocytes Percent Auto 7.9 % (2-11); Neutrophils Absolute Auto 5.7 x10*3/uL (2.0-8.3); Neutrophils Percent Auto 62.4 % (45-73); Platelet Count 261 X10*3/uL (160-400); Red Blood Count 4.52 X10*6/uL (4.60-5.80); Red Cell Distribution Width 12.7 % (11.0-16.0); White Blood Count 9.1 X10*3/uL (4.8-10.8)
[2023-01-05 14:15] LABS: Anion Gap 12 (12-20); Blood Urea Nitrogen 18 mg/dL (9-16); Calcium 9.5 mg/dL (8.4-10.2); Carbon Dioxide 25 mmol/L (22-29); Chloride 107 mmol/L (96-108); Estimated Glomerular Filt Rate > 60; Glucose Random 99 mg/dL (60-115); Potassium 4.2 mmol/L (3.3-5.1); Sodium 140 mmol/L (135-145)
== END 2023-01-05 10:54 | disposition home or self-care (01) ==
LOC: HO.HHCL 10:53
PROVIDERS: Visit Provider Internal Medicine Geriatric Medicine
DX: Z01.818 Encounter for other preprocedural examination (principal)
CPT/HCPCS: 36415; 80048; 85025

== ENCOUNTER 2023-02-17 09:19 | Outpatient (REF) | payer MEDICARE, MEDICAID, OTHER, SELFPAY ==
--- NOTE | ~2023-02-17 | XR_ITS ---
EXAMINATION: XR CERVICAL SPINE CLINICAL INFORMATION: Cervical radiculopathy with right-sided pain x1 week COMPARISON: None available. TECHNIQUE: 3 views of the cervical spine were obtained. FINDINGS: There is maintained cervical lordosis. The vertebral heights and alignment is normal. There is loss of C6-C7 disc height with mild ventral spondylosis C4-C5, C5-C6, C6-C7 and C7-T1 disc levels. There is no visible fracture, dislocation. There is cardiomegaly unfused or old injury of C6 spinous process. The prevertebral and paravertebral soft tissues are normal. XR/XR cervical spine 3V IMPRESSION: 1. Degenerative disc changes C6-C7 disc level with mild ventral spondylosis. No visible acute fracture or dislocation seen. 2. There is unfused or old injury of C6 spinous process.
== END 2023-02-17 09:20 | disposition home or self-care (01) ==
LOC: HO.HHCX 09:19
PROVIDERS: Visit Provider Emergency Medicine
DX: M54.12 Radiculopathy, cervical region (principal)
CPT/HCPCS: 72040

== ENCOUNTER 2023-03-07 20:14 | Emergency (ER) | payer MEDICARE, MEDICAID, SELFPAY ==
--- NOTE | ~2023-03-07 | XR_ITS ---
EXAMINATION: XR CHEST CLINICAL INFORMATION: Chest pain COMPARISON: Chest radiograph 03/10/2022, dorsal spine 12/07/2021 TECHNIQUE: 2 views of the chest were obtained. FINDINGS: Dense seen is a mild compression fracture involving the T8 vertebral body, unchanged from 12/08/2019. No other significant abnormality is noted involving the heart, lungs, mediastinum, bony thorax or soft tissues. XR/XR chest 2V IMPRESSION: No acute intrathoracic disease. Old T8 compression fracture.
--- NOTE | 2023-03-07 20:16 | ECG_ITS ---
Test Reason : CHEST PAIN Blood Pressure : / mmHG Vent. Rate : 071 BPM Atrial Rate : 071 BPM P-R Int : 160 ms QRS Dur : 076 ms QT Int : 360 ms P-R-T Axes : 048 -01 028 degrees QTc Int : 391 ms Normal sinus rhythm Normal ECG When compared with ECG of 10-MAR-2022 17:57, No significant change was found Referred By: Generic ED Physician Electronically Signed By:RACHEAL REYNOLDS MD
[2023-03-07 20:24] VITALS: BP 139/81; PULSE 79; RESP 18; TEMP 37; O2SAT 96; BMI 28.1
[2023-03-07 20:34] LABS: MANUAL DIFF FLAG NO
[2023-03-07 20:36] LABS: Basophils Percent Auto 0.3 % (0-2); Eosinophils Absolute Auto 0.4 X10*3/uL (0.0-0.4); Eosinophils Percent Auto 3.7 % (0-4); Hematocrit 42.8 % (42.0-52.0); Hemoglobin 14.2 g/dl (14.0-18.0); Imm Gran Abs Auto 0.05 X10*3/uL (0.00-0.03); Imm Gran Pct Auto 0.4 % (0.0-0.4); Lymphocytes Percent Auto 26.8 % (20-40); Mean Corpuscular HGB Conc 33.2 g/dl (31.0-36.0); Mean Corpuscular Volume 90.5 fL (80.0-98.0); Mean Platelet Volume 8.8 fL (9.4-12.4); Monocytes Absolute Auto 0.9 X10*3/uL (0.1-1.2); Monocytes Percent Auto 7.8 % (2-11); Neutrophils Absolute Auto 6.8 x10*3/uL (2.0-8.3); Platelet Count 343 X10*3/uL (160-400); Red Blood Count 4.73 X10*6/uL (4.60-5.80); White Blood Count 11.2 X10*3/uL (4.8-10.8)
[2023-03-07 20:51] LABS: Alanine Aminotransferase 20 U/L (0-40); Albumin Level 4.1 g/dL (3.5-5.0); Alkaline Phosphatase 139 U/L (39-117); Anion Gap 17 (12-20); Aspartate Amino Transferase 18 U/L (5-37); Bilirubin Total 0.4 mg/dL (0.0-1.0); Blood Urea Nitrogen 21 mg/dL (9-16); Carbon Dioxide 21 mmol/L (22-29); Chloride 107 mmol/L (96-108); Creatinine Clr Calc Pharmacy 54.6; Estimated Glomerular Filt Rate 58; Glucose Random 106 mg/dL (60-115); Potassium 5.5 mmol/L (3.3-5.1); Sodium 139 mmol/L (135-145); Total Protein 7.8 g/dL (6.5-8.0)
[2023-03-07 21:00] LABS: Troponin-I High Sensitivity < 2.7 ng/L (<3.5-35.0)
--- NOTE | 2023-03-07 23:26 | ED.CHESTPAIN ---
HPI - Chest Pain General Chief Complaint: Chest Pain Stated Complaint: chest pain Time Seen by Provider: 03/07/23 23:26 Source: patient Mode of arrival: ambulatory Limitations: no limitations History of Present Illness HPI narrative: patient is 62 years old with history of hypertension hyperlipidemia left MCA CVA on clopidogrel comes with right-sided chest pain which is burning/tightness feeling for last 2 days worse on deep breath no nausea no vomiting Pain increases on movement and palpation Related Data Home Medications Medication Instructions Recorded Confirmed calcium carbonate 500 mg calcium 1 tab PO BID 07/25/20 03/10/22 (1,250 mg) tablet lisinopril 10 mg tablet 1 tab DAILY 03/10/22 03/10/22 quetiapine 50 mg tablet 1 tab PO BEDTIME 03/10/22 03/10/22 Previous Rx's Medication Instructions Recorded atorvastatin 80 mg tablet 80 mg PO DAILY #30 tabs 03/12/22 clopidogrel 75 mg tablet 75 mg PO DAILY #30 tabs 03/12/22 docusate sodium 100 mg capsule 100 mg PO DAILY PRN Constipation 03/12/22 #30 caps cetirizine 10 mg capsule (Zyrtec) 10 mg PO DAILY PRN allergy 08/26/22 symptoms #10 caps diphenhydramine HCl 25 mg capsule 25 mg PO TID PRN itching #14 caps 08/26/22 (Benadryl) hydrocortisone 1 % topical cream 1 appl topical BID PRN rash 7 days 08/26/22 (Anti-Itch (hydrocortisone)) #453.6 grams morphine 15 mg immediate release 15 mg PO Q8H PRN pain #15 tabs 03/08/23 tablet Allergies Allergy/AdvReac Type Severity Reaction Status Date / Time aspirin [ASPIRIN] Allergy Unknown RASH/SWELLING, Verified 07/16/21 18:32 hives ibuprofen Allergy Unknown hives Verified 07/16/21 18:32 Seasonal Allergies Allergy Unknown Unknown Verified 07/16/21 18:32 Review of Systems Review of Systems: Yes all other systems are reviewed and are negative PMFSH Past Medical History Medical History Osteoporosis Erectile dysfunction Seasonal allergies HLD (hyperlipidemia) Hypertension Hx of hematuria Multiple joint pain Surgical History Hx of colonoscopy Family History Family History Family/Other Diabetes Social History Social History Are you a primary healthcare architect to a significant other at home: No Do you presently have visiting nurse or other home services: No Alcohol intake: never Patient Tobacco Use Status: Never used Tobacco Cigarette Packs Per Day: 0.5 Cigarettes Per Day: 10.0 Smoked in Last 30 Days: No Use of substances other than those prescribed or required for medical reasons: No Advance Directives: No Advance Directives Information Provided: No service: No Current occupational status: disabled Physical Exam Vital Signs: Vital Signs: Last Vital Signs Temp 98.3 F 03/08/23 02:13 Pulse 73 03/08/23 02:13 Resp 14 03/08/23 02:13 BP 134/81 03/08/23 02:13 Pulse Ox 95 03/08/23 02:13 O2 Del Method Room Air 03/08/23 02:13 BMI result Body Mass Index 28.1 Appearance: Alert. Oriented X3. No acute distress. Eyes: PERRLA, No Nystagmus ENT: Pharynx normal. Oral Mucosa moist Neck: Normal inspection. Neck supple. CVS: Normal heart rate and rhythm. Pulses normal. Respiratory: No respiratory distress. Equal air entry bilateral, no wheezing/rales/rhonchi Abdomen: Soft and nontender. Bowel sounds are present, no mass palpable, no CVA tenderness Skin: Skin warm and dry. Normal skin color. Normal skin turgor. Extremities: No lower extremity edema. No calf tenderness Neuro: Oriented X 3. No motor deficit. No sensory deficit.No cerebellar signs , cranial nerves II-XII intact Medications Administered Discontinued Medications Generic Name Dose Route Start Last Admin Trade Name Freq PRN Reason Stop Dose Admin Morphine Sulfate 15 mg 03/08/23 02:00 03/08/23 02:48 Morphine Sulfate Immed Release 15 Mg Tablet PO 03/08/23 02:01 15 mg ONCE ONE Administration Sodium Zirconium Cyclosilicate 10 gm 03/08/23 00:06 03/08/23 00:24 Sodium Zirconium Cyclosilicate 10 Gm Powd.Pack PO 03/08/23 00:07 10 gm ONCE ONE Administration Medical Decision Making Medical Decision Making MDM Narrative: Patient workup negative for PE/ACS , two high sensitive troponin were negative for delta change, EKG without any ischemic change Differential Diagnosis Differential Diagnoses: The differential diagnosis associated with the presentation includes ACS/musculoskeletal chest pain/PE Lab Data [facility] Lab Attestation statement: I reviewed the patient's lab results. 03/07/23 20:29 03/07/23 20:29 Labs: Lab Results 03/07/23 03/08/23 Range/Units 20:29 01:03 WBC 11.2 H (4.8-10.8) X10*3/uL RBC 4.73 (4.60-5.80) X10*6/uL Hgb 14.2 (14.0-18.0) g/dl Hct 42.8 (42.0-52.0) % MCV 90.5 (80.0-98.0) fL MCH 30.0 (27.0-33.0) pg MCHC 33.2 (31.0-36.0) g/dl RDW 12.0 (11.0-16.0) % Plt Count 343 D (160-400) X10*3/uL MPV 8.8 L (9.4-12.4) fL Immature Gran % (Auto) 0.4 (0.0-0.4) % Neut % (Auto) 61.0 (45-73) % Lymph % (Auto) 26.8 (20-40) % [place] % (Auto) 7.8 (2-11) % Eos % (Auto) 3.7 (0-4) % Baso % (Auto) 0.3 (0-2) % Lymph # (Auto) 3.0 (1.2-4.9) X10*3/uL [place] # (Auto) 0.9 (0.1-1.2) X10*3/uL Eos # (Auto) 0.4 (0.0-0.4) X10*3/uL Baso # (Auto) 0.0 (0.0-0.2) X10*3/uL Abs Immat Gran (auto) 0.05 H (0.00-0.03) X10*3/uL Absolute Neuts (auto) 6.8 (2.0-8.3) x10*3/uL Absolute Nucleated RBC 0.000 (0.0-0.012) X10*3/uL Nucleated RBC % (auto) 0.0 (0.0-0.2) /100WBC PT 11.8 (11.1-13.3) SEC INR 1.0 (0.9-1.1) D-Dimer High Sensitivty 214 NG/ML Sodium 139 (135-145) mmol/L Potassium 5.5 H D (3.3-5.1) mmol/L Chloride 107 (96-108) mmol/L Carbon Dioxide 21 L (22-29) mmol/L Anion Gap 17 (12-20) BUN 21 H (9-16) mg/dL Creatinine 1.26 (0.5-1.4) mg/dL Estim Creat Clear Calc 54.6 Estimated GFR 58 Random Glucose 106 (60-115) mg/dL Calcium 10.0 (8.4-10.2) mg/dL Total Bilirubin 0.4 (0.0-1.0) mg/dL AST 18 (5-37) U/L ALT 20 (0-40) U/L Alkaline Phosphatase 139 H (39-117) U/L Troponin I High Sens < 2.7 < 2.7 (<3.5-35.0) ng/L Total Protein 7.8 (6.5-8.0) g/dL Albumin 4.1 (3.5-5.0) g/dL Independent Interpretation I performed an independent interpretation of an: EKG and Plain X-Ray Interpretation: Normal sinus rhythm heart rate 71 beats per minute normal intervals normal axis no acute ST-T no acute ischemia impression normal EKG Discharge Plan Discharge Clinical Impression: Musculoskeletal chest pain Patient Disposition: Home, Self-Care Instructions: Noncardiac Chest Pain (ED) Additional Instructions: Your chest pain is unlikely from the heart your potassium slightly elevated avoid having bananas/orange juice Follow with PCP Take pain medication as prescribed Es poco probable que cheema dolor en el pecho provenga del coraz?n. cheema potasio ligeramente elevado evite consumir pl?tanos/jugo de naranja Seguir con PCP [place] los analg?sicos seg?n lo recetado. Prescriptions: New morphine 15 mg tablet 15 mg PO Q8H PRN (Reason: pain) Qty: 15 0RF Rx Instructions: Partial Fill upon patient request. No Action calcium carbonate 500 mg calcium (1,250 mg) tablet 1 tab PO BID lisinopril 10 mg tablet 1 tab DAILY quetiapine 50 mg tablet 1 tab PO BEDTIME atorvastatin 80 mg Tablet 80 mg PO DAILY Qty: 30 0RF clopidogrel 75 mg Tablet 75 mg PO DAILY Qty: 30 0RF docusate sodium 100 mg Capsule 100 mg PO DAILY PRN (Reason: Constipation) Qty: 30 0RF hydrocortisone [Anti-Itch (HC)] 1 % cream 1 appl topical BID PRN (Reason: rash) 7 Days Qty: 453.6 0RF diphenhydramine HCl [Benadryl] 25 mg capsule 25 mg PO TID PRN (Reason: itching) Qty: 14 0RF Zyrtec 10 mg capsule 10 mg PO DAILY PRN (Reason: allergy symptoms) Qty: 10 0RF Interventions: ED Discharge Assessment Last Done: 03/08/23 02:51 Discharge Date/Time: 03/08/23 02:52 Print Language: Cameroonian
[2023-03-07 23:36] VITALS: BP 147/82; PULSE 71; RESP 14; TEMP 37.1; O2SAT 96
[2023-03-08] MEDS: Sodium Zirconium Cyclosilicate 10 GM POWD.PACK PO (00:24)
[2023-03-08 01:32] LABS: Troponin-I High Sensitivity < 2.7 ng/L (<3.5-35.0)
[2023-03-08 01:37] LABS: Prothrombin Time 11.8 SEC (11.1-13.3)
[2023-03-08 01:39] LABS: D Dimer High Sensitivity 214 NG/ML
[2023-03-08 02:13] VITALS: BP 134/81; PULSE 73; RESP 14; TEMP 36.8; O2SAT 95
[2023-03-08] MEDS: Morphine Sulfate Immed Release 15 MG TABLET PO (02:48)
== END 2023-03-08 02:53 | disposition home or self-care (01) ==
PROVIDERS: Emergency Provider Internal Medicine
DX: R07.89 Other chest pain (principal); I10 Essential (primary) hypertension; Z86.73 Personal history of transient ischemic attack (TIA), and cerebral infarction without residual deficits; Z79.899 Other long term (current) drug therapy
CPT/HCPCS: 36415; 71046; 80053; 84484; 85025; 85379; 85610; 93005; 99283; 99284

== ENCOUNTER → 2023-03-07 20:16 | Outpatient (BNV) | payer MEDICARE, MEDICAID, SELFPAY | PROVIDERS: Emergency Provider Internal Medicine; Visit Provider Internal Medicine Cardiovascular Disease | DX: R07.9 Chest pain, unspecified (principal) | CPT/HCPCS: 93010 ==

== ENCOUNTER 2023-03-27 11:26 | Emergency (ER) | payer MEDICARE, MEDICAID, SELFPAY ==
--- NOTE | ~2023-03-27 | CT_ITS ---
EXAMINATION: CT ABDOMEN AND PELVIS WITHOUT CONTRAST CLINICAL INFORMATION: Left mid abdomen pain. Question stone. COMPARISON: 09/16/2018 . Thoracic spine radiograph dated 12/08/2019 TECHNIQUE: Multidetector volumetric imaging was performed from the superior aspect of the liver through the pubic symphysis. Sagittal and coronal reformatted images were obtained on the technologist's workstation. This CT examination was performed using dose optimization techniques as appropriate, variously including the following: *Automated exposure control *Adjustment of mA and/or kV according to patient size (this includes techniques or standardized protocols for targeted exams where dose is matched to indication/reason for exam; i.e. extremities or head) *Use of iterative reconstruction technique DLP: 529 mGy-cm FINDINGS: LUNG BASES: Within the anterior segment of the right upper lobe near the right minor fissure, there is a partially imaged 3 x 1.3 x 1.5 cm focus of nodular consolidation which abuts the anterior pleural surface and anterior aspect of the mediastinal pleural . No effusion. Minimal dependent atelectasis at the bases. LIVER, GALLBLADDER, AND BILIARY TREE: The liver is normal in size, shape, and attenuation. No focal hepatic lesion or biliary ductal dilatation is present. The gallbladder is unremarkable with no evidence of radiopaque gallstones, gallbladder wall thickening, or obvious pericholecystic inflammatory changes. PANCREAS: Unremarkable. SPLEEN: Unremarkable. ADRENAL GLANDS: Unremarkable. KIDNEYS AND URETERS: A calcification in the left renal sinus is likely vascular. The kidneys are normal in size, shape, and attenuation. No hydronephrosis, hydroureter, or calculi seen. Trace bilateral perinephric stranding. BLADDER: Unremarkable. GASTROINTESTINAL TRACT: Multiple duodenal diverticula are identified, particularly around the second portion of the duodenum, measuring up to 4 cm in diameter. Stomach, small bowel, and colon are normal in caliber. There is a small focus of fat stranding around the anterior margin of the descending colon with intervening fat attenuation, most likely corresponding to epiploic appendagitis. There is a separate pericolonic calcific focus just distal to this which likely corresponds to a previously torsed epiploic appendage. Appendix is normal. No significant diverticulosis. ABDOMINAL WALL: Tiny fat-containing umbilical hernia. No bowel involvement. LYMPH NODES: Normal. VASCULAR: Calcific atherosclerosis in the abdominal aorta and iliac arteries. No aneurysmal dilatation. PELVIC VISCERA: The prostate and seminal vesicles are unremarkable. OSSEOUS STRUCTURES: No acute osseous findings. Mild multilevel degenerative disc disease in the lower thoracic and lumbar spine. There is chronic anterior wedging vertebral bodies at T8 and T9, consistent with old compression fractures. CT/CT abdomen pelvis wo IV con IMPRESSION: 1. Epiploic appendagitis at the descending colon. 2. A partially imaged 3 cm focus of nodular consolidation in the right upper lobe. According to the UPDATED 2017 Fleischner Society recommendations, the advised follow-up imaging for a single solid nodule measuring 9 mm or greater is: Consider CT, PET/CT, or tissue sampling at 3 months. 3. Multiple duodenal diverticula.
[2023-03-27 12:23] VITALS: BP 126/81; PULSE 63; RESP 18; TEMP 36.7; O2SAT 99; BMI 27.7
--- NOTE | 2023-03-27 12:25 | ED_ITS ---
HPI - Abdominal Pain General Chief Complaint: Abdominal Pain Stated Complaint: L side abd pain Time Seen by Provider: 03/27/23 22:25 Source: patient Mode of arrival: ambulatory Limitations: no limitations History of Present Illness HPI narrative: Patient's history of colonic tubular adenoma status post colonoscopy 09/01 also has history of kidney stone more than 30 years ago comes here for pain in the left mid abdominal area for last 3 days constant pain which gets worse off and on no nausea no vomiting no hematuria no blood in the stool no constipation patient feels hungry no fever or chills Related Data Home Medications Medication Instructions Recorded Confirmed calcium carbonate 500 mg calcium 1 tab PO BID 07/25/20 03/10/22 (1,250 mg) tablet lisinopril 10 mg tablet 1 tab DAILY 03/10/22 03/10/22 quetiapine 50 mg tablet 1 tab PO BEDTIME 03/10/22 03/10/22 Previous Rx's Medication Instructions Recorded atorvastatin 80 mg tablet 80 mg PO DAILY #30 tabs 03/12/22 clopidogrel 75 mg tablet 75 mg PO DAILY #30 tabs 03/12/22 docusate sodium 100 mg capsule 100 mg PO DAILY PRN Constipation 03/12/22 #30 caps cetirizine 10 mg capsule (Zyrtec) 10 mg PO DAILY PRN allergy 08/26/22 symptoms #10 caps diphenhydramine HCl 25 mg capsule 25 mg PO TID PRN itching #14 caps 08/26/22 (Benadryl) hydrocortisone 1 % topical cream 1 appl topical BID PRN rash 7 days 08/26/22 (Anti-Itch (hydrocortisone)) #453.6 grams morphine 15 mg immediate release 15 mg PO Q8H PRN pain #15 tabs 03/08/23 tablet Allergies Allergy/AdvReac Type Severity Reaction Status Date / Time aspirin [ASPIRIN] Allergy Unknown RASH/SWELLING, Verified 03/27/23 12:22 hives Seasonal Allergies Allergy Unknown Unknown Verified 03/27/23 12:22 Review of Systems Review of Systems Yes all other systems are reviewed and are negative PMFSH Past Medical History Onset Date is defined in the Problem List Problems that require an onset date and time if occurred within 24 hrs of arrival to the ED Aortic Dissection and Rupture; Neurologic impairment; Cardiopulmonary Arrest; Endotracheal Intubation; Insertion or Replacement of Mechanical Circulatory Assist Device Medical History Osteoporosis Erectile dysfunction Seasonal allergies HLD (hyperlipidemia) Hypertension Hx of hematuria Multiple joint pain Surgical History Hx of colonoscopy Family History Family History Family/Other Diabetes Social History Social History Are you a primary patient care associate to a significant other at home: No Do you presently have visiting nurse or other home services: No Alcohol intake: never Patient Tobacco Use Status: Never used Tobacco Cigarette Packs Per Day: 0.5 Cigarettes Per Day: 10.0 Smoked in Last 30 Days: No Use of substances other than those prescribed or required for medical reasons: No Advance Directives: No Advance Directives Information Provided: No service: No Current occupational status: disabled Physical Exam ED Vital Signs: Vital Signs - 24 hr 03/27/23 12:23 03/27/23 20:51 03/27/23 22:37 Temperature 98.1 F 97.1 F 98.0 F Pulse Rate 63 66 60 Respiratory Rate 18 18 12 Blood Pressure 126/81 129/76 141/67 H Pulse Oximetry 99 96 100 Oxygen Delivery Method Room Air Room Air Room Air BMI result Body Mass Index 27.7 Appearance: Alert. Oriented X3. No acute distress. Eyes: No pallor or icterus ENT: Pharynx normal. Oral Mucosa moist Neck: Normal inspection. Neck supple. CVS: Normal heart rate and rhythm. Pulses normal. Respiratory: No respiratory distress. Equal air entry bilateral, Abdomen: Soft , deep tenderness left midabdomen Bowel sounds are present, no mass palpable, no CVA tenderness Skin: Skin warm and dry. Normal skin color. Normal skin turgor. Extremities: No lower extremity edema. No calf tenderness Neuro: Oriented X 3. Course Course Course Narrative: This is an RME: Additional HPI, ROS, PE not included below will be deferred to primary provider. This is a 62-year-old Surinamese-speaking male presenting to the emergency department with complaints of left lower quadrant pain x2 days. Last bowel movement was this morning. No bloody or black stool. He is eating well. Plan: Labs Medical Decision Making Medical Decision Making MDM Narrative: Patient nonspecific left upper and mid abdominal pain workup negative except for CT scan showing epiploic appendagitis likely the cause for the pain negative for diverticulitis or gall stone kidney stone or UTI will discharge patient home on ibuprofen Differential Diagnosis Differential Diagnoses: The differential diagnosis associated with the presentation includes Renal colic/ diverticulitis Lab Data [facility] Lab Attestation statement: I reviewed the patient's lab results. 03/27/23 14:43 03/27/23 14:43 Labs: Lab Results 03/27/23 03/27/23 Range/Units 14:43 23:54 WBC 9.6 (4.8-10.8) X10*3/uL RBC 4.81 (4.60-5.80) X10*6/uL Hgb 14.4 (14.0-18.0) g/dl Hct 44.1 (42.0-52.0) % MCV 91.7 (80.0-98.0) fL MCH 29.9 (27.0-33.0) pg MCHC 32.7 (31.0-36.0) g/dl RDW 12.2 (11.0-16.0) % Plt Count 321 (160-400) X10*3/uL MPV 9.2 L (9.4-12.4) fL Immature Gran % (Auto) 0.6 H (0.0-0.4) % Neut % (Auto) 63.6 (45-73) % Lymph % (Auto) 27.1 (20-40) % [place] % (Auto) 5.4 (2-11) % Eos % (Auto) 2.9 (0-4) % Baso % (Auto) 0.4 (0-2) % Lymph # (Auto) 2.6 (1.2-4.9) X10*3/uL [place] # (Auto) 0.5 (0.1-1.2) X10*3/uL Eos # (Auto) 0.3 (0.0-0.4) X10*3/uL Baso # (Auto) 0.0 (0.0-0.2) X10*3/uL Abs Immat Gran (auto) 0.06 H (0.00-0.03) X10*3/uL Absolute Neuts (auto) 6.1 (2.0-8.3) x10*3/uL Absolute Nucleated RBC 0.000 (0.0-0.012) X10*3/uL Nucleated RBC % (auto) 0.0 (0.0-0.2) /100WBC Sodium 139 (135-145) mmol/L Potassium 4.2 (3.3-5.1) mmol/L Chloride 106 (96-108) mmol/L Carbon Dioxide 24 (22-29) mmol/L Anion Gap 13 (12-20) BUN 19 H (9-16) mg/dL Creatinine 1.20 (0.5-1.4) mg/dL Estim Creat Clear Calc 56.9 Estimated GFR > 60 Random Glucose 153 H (60-115) mg/dL Calcium 9.8 (8.4-10.2) mg/dL Magnesium 1.9 (1.6-2.6) mg/dL Total Bilirubin 0.3 (0.0-1.0) mg/dL Direct Bilirubin 0.1 (0.0-0.5) mg/dL AST 28 (5-37) U/L ALT 43 H (0-40) U/L Alkaline Phosphatase 129 H (39-117) U/L Total Protein 7.7 (6.5-8.0) g/dL Albumin 4.2 (3.5-5.0) g/dL Lipase 51 (8-78) U/L Urine Color Yellow Urine Appearance Clear Urine pH 5.5 (5.0-9.0) Ur Specific [place] 1.020 (1.005-1.025) Urine Protein Negative (Neg-Trace) mg/dL Urine Glucose (UA) Negative (Negative) mg/dL Urine Ketones Negative (Negative) mg/dL Urine Blood Negative (Negative) Urine Nitrite Negative (Negative) Ur Leukocyte Esterase Negative (Negative) Independent Interpretation I performed an independent interpretation of an: CT Scan Radiology Impression Discussion of test interpretation with radiology: I have reviewed the radiologist's reading. Medications Administered Discontinued Medications Generic Name Dose Route Start Last Admin Trade Name Freq PRN Reason Stop Dose Admin Ibuprofen 600 mg 03/28/23 00:57 03/28/23 01:15 Ibuprofen 600 Mg Tablet PO 03/28/23 00:58 600 mg ONCE ONE Administration Discharge Plan Discharge Clinical Impression: Epiploic appendagitis Patient Disposition: Home, Self-Care Instructions: Abdominal Pain (ED) Additional Instructions: Take ibuprofen for pain as needed You have benign condition which will resolve off its own Report to the ER if pain gets worse [place] ibuprofeno para el dolor seg?n sea necesario. Tiene elham afecci?n benigna que se resolver? por s? hamzah. Informe a urgencias si el dolor empeora Prescriptions: No Action calcium carbonate 500 mg calcium (1,250 mg) tablet 1 tab PO BID lisinopril 10 mg tablet 1 tab DAILY quetiapine 50 mg tablet 1 tab PO BEDTIME atorvastatin 80 mg Tablet 80 mg PO DAILY Qty: 30 0RF clopidogrel 75 mg Tablet 75 mg PO DAILY Qty: 30 0RF docusate sodium 100 mg Capsule 100 mg PO DAILY PRN (Reason: Constipation) Qty: 30 0RF morphine 15 mg tablet 15 mg PO Q8H PRN (Reason: pain) Qty: 15 0RF Rx Instructions: Partial Fill upon patient request. hydrocortisone [Anti-Itch (HC)] 1 % cream 1 appl topical BID PRN (Reason: rash) 7 Days Qty: 453.6 0RF diphenhydramine HCl [Benadryl] 25 mg capsule 25 mg PO TID PRN (Reason: itching) Qty: 14 0RF Zyrtec 10 mg capsule 10 mg PO DAILY PRN (Reason: allergy symptoms) Qty: 10 0RF Interventions: ED Discharge Assessment Last Done: 03/28/23 01:21 Discharge Date/Time: 03/28/23 01:23 Print Language: Surinamese
[2023-03-27 14:48] LABS: MANUAL DIFF FLAG NO
[2023-03-27 14:49] LABS: Basophils Percent Auto 0.4 % (0-2); Eosinophils Absolute Auto 0.3 X10*3/uL (0.0-0.4); Eosinophils Percent Auto 2.9 % (0-4); Hematocrit 44.1 % (42.0-52.0); Hemoglobin 14.4 g/dl (14.0-18.0); Imm Gran Abs Auto 0.06 X10*3/uL (0.00-0.03); Imm Gran Pct Auto 0.6 % (0.0-0.4); Lymphocytes Absolute Auto 2.6 X10*3/uL (1.2-4.9); Lymphocytes Percent Auto 27.1 % (20-40); Mean Corpuscular HGB Conc 32.7 g/dl (31.0-36.0); Mean Corpuscular Hemoglobin 29.9 pg (27.0-33.0); Mean Corpuscular Volume 91.7 fL (80.0-98.0); Mean Platelet Volume 9.2 fL (9.4-12.4); Monocytes Absolute Auto 0.5 X10*3/uL (0.1-1.2); Monocytes Percent Auto 5.4 % (2-11); Neutrophils Absolute Auto 6.1 x10*3/uL (2.0-8.3); Neutrophils Percent Auto 63.6 % (45-73); Platelet Count 321 X10*3/uL (160-400); Red Blood Count 4.81 X10*6/uL (4.60-5.80); Red Cell Distribution Width 12.2 % (11.0-16.0); White Blood Count 9.6 X10*3/uL (4.8-10.8)
[2023-03-27 15:08] LABS: Alanine Aminotransferase 43 U/L (0-40); Albumin Level 4.2 g/dL (3.5-5.0); Alkaline Phosphatase 129 U/L (39-117); Anion Gap 13 (12-20); Aspartate Amino Transferase 28 U/L (5-37); Bilirubin Direct 0.1 mg/dL (0.0-0.5); Bilirubin Total 0.3 mg/dL (0.0-1.0); Blood Urea Nitrogen 19 mg/dL (9-16); Calcium 9.8 mg/dL (8.4-10.2); Carbon Dioxide 24 mmol/L (22-29); Chloride 106 mmol/L (96-108); Creatinine Clr Calc Pharmacy 56.9; Estimated Glomerular Filt Rate > 60; Glucose Random 153 mg/dL (60-115); Lipase 51 U/L (8-78); Magnesium 1.9 mg/dL (1.6-2.6); Potassium 4.2 mmol/L (3.3-5.1); Sodium 139 mmol/L (135-145); Total Protein 7.7 g/dL (6.5-8.0)
[2023-03-27 20:51] VITALS: BP 129/76; PULSE 66; RESP 18; TEMP 36.2; O2SAT 96
[2023-03-27 22:37] VITALS: BP 141/67; PULSE 60; RESP 12; TEMP 36.7; O2SAT 100
--- NOTE | 2023-03-27 22:40 | PC.NURSE ---
Pt ca&ox4, no signs of distress. Pt reports 10/10 LLQ pain onset x2 days that has gotten progressively worse does not radiate, worsens with movement, improves when applying pressure. Pt denies n/v/d. Family at bedside. Urine requested. Pt ambulates with a steady gait. Plan of care ongoing.
[2023-03-28 00:02] LABS: Appearance Urine Clear; Color Urine Yellow; Glucose Urine UA Negative (Negative); Leukocyte Esterase Urine Negative (Negative); Nitrite Urine Negative (Negative); PH 5.5 (5.0-9.0); Urine Blood Negative (Negative); Urine Ketones Negative (Negative); Urine Protein Negative (Neg-Trace)
[2023-03-28] MEDS: Ibuprofen 600 MG TABLET PO (01:15)
== END 2023-03-28 01:23 | disposition home or self-care (01) ==
PROVIDERS: Physician Assistant Medical; Emergency Provider Internal Medicine
DX: K63.89 Other specified diseases of intestine (principal); R10.32 Left lower quadrant pain; I10 Essential (primary) hypertension; E78.5 Hyperlipidemia, unspecified; Z86.73 Personal history of transient ischemic attack (TIA), and cerebral infarction without residual deficits; Z79.02 Long term (current) use of antithrombotics/antiplatelets; Z79.899 Other long term (current) drug therapy
CPT/HCPCS: 36415; 74176; 80048; 80076; 81003; 83690; 83735; 85025; 99284

== ENCOUNTER 2023-08-23 08:13 | Outpatient (REF) | payer MEDICARE, MEDICAID, SELFPAY ==
[2023-08-23 11:48] LABS: Hematocrit 41.3 % (42.0-52.0); Hemoglobin 13.8 g/dl (14.0-18.0); Mean Corpuscular HGB Conc 33.4 g/dl (31.0-36.0); Mean Corpuscular Hemoglobin 30.8 pg (27.0-33.0); Mean Corpuscular Volume 92.2 fL (80.0-98.0); Platelet Count 262 X10*3/uL (160-400); Red Blood Count 4.48 X10*6/uL (4.60-5.80); Red Cell Distribution Width 12.9 % (11.0-16.0); White Blood Count 8.5 X10*3/uL (4.8-10.8)
[2023-08-23 11:58] LABS: Estimated Average Glucose 123 mg/dL; Hemoglobin A1c % 5.9 % (<6.0)
[2023-08-23 12:17] LABS: Appearance Urine Clear; Color Urine Yellow; Glucose Urine UA Negative (Negative); Leukocyte Esterase Urine Negative (Negative); Nitrite Urine Negative (Negative); PH 6.5 (5.0-9.0); Urine Blood Negative (Negative); Urine Ketones Negative (Negative); Urine Protein Negative (Neg-Trace)
[2023-08-23 12:24] LABS: Alanine Aminotransferase 19 U/L (0-40); Albumin Level 4.1 g/dL (3.5-5.0); Alkaline Phosphatase 110 U/L (39-117); Anion Gap 15 (12-20); Aspartate Amino Transferase 25 U/L (5-37); Bilirubin Total 0.4 mg/dL (0.0-1.0); Blood Urea Nitrogen 19 mg/dL (9-16); Calcium 9.7 mg/dL (8.4-10.2); Carbon Dioxide 23 mmol/L (22-29); Chloride 108 mmol/L (96-108); Cholesterol 119 mg/dL (<200); Estimated Glomerular Filt Rate > 60; Glucose Random 108 mg/dL (60-115); HDL Cholesterol 30 mg/dL (>40); LDL Cholesterol Calculated 66 mg/dL (<100); Potassium 4.4 mmol/L (3.3-5.1); Sodium 142 mmol/L (135-145); Triglycerides 117 mg/dL (<150)
[2023-08-23 12:25] LABS: Syphilis Screen Nonreactive (Nonreactive)
[2023-08-23 12:26] LABS: HBS Num1 0.92 mIU/mL (0-7.99); HBc Num1 0.08 S/CO (0.00-0.79); HBsAGNum1 0.28 S/CO (0.00-0.99); HIV AB/AG Nonreactive (Nonreactive); HIV Num 1 0.06 S/CO (0.00-0.99); Hepatitis B Core Antibody Nonreactive (Nonreactive); Hepatitis B Surface Antigen Negative (Negative); ~HepC Num1 0.09 S/CO (0.00-0.79); ~Hepatitis B Surface Antibody NONREACTIVE (Nonreactive); ~Hepatitis C Antibody Nonreactive (Nonreactive)
[2023-08-23 12:27] LABS: TSH reflex Free T4 3.81 uIU/mL (0.32-4.0); Vitamin D 25-OH Total 41.3 ng/mL (>30)
[2023-08-23 12:33] LABS: Bacteria Urine None Seen (None Seen); Hyaline Casts Urine 0-2 /LPF (0-2); RBC Urine 0-2 /HPF (0-2); Squamous Epithelial Cell Urine 0-2 /HPF (0-2); WBC Urine 0-5 /HPF (0-5)
[2023-08-23 12:35] LABS: Prostate Specific Antigen 0.43 ng/mL (<0.05-4.0)
[2023-08-23 13:17] LABS: CT PCR NOT DETECTED (Not Detect.); NG PCR NOT DETECTED (Not Detect.)
== END 2023-08-23 08:14 | disposition home or self-care (01) ==
LOC: HO.HHCL 08:13
PROVIDERS: Visit Provider Student in an Organized Health Care Education/Training Program
DX: Z00.00 Encounter for general adult medical examination without abnormal findings (principal); R31.29 Other microscopic hematuria; Z12.5 Encounter for screening for malignant neoplasm of prostate
CPT/HCPCS: 0353U; 36415; 80053; 80061; 81001; 82306; 83036; 84153; 84443; 85027; 86704; 86706; 86780; 86803; 87340; 87389

== ENCOUNTER 2023-08-26 16:39 | Outpatient (REF) | payer MEDICARE, MEDICAID, SELFPAY ==
[2023-08-26 17:21] LABS: Creatinine Urine 28.47 mg/dL; Microalbumin Urine < 5.0 mg/L
== END 2023-08-26 16:40 | disposition home or self-care (01) ==
LOC: HO.HHCLNP 16:39
PROVIDERS: Visit Provider Student in an Organized Health Care Education/Training Program
DX: Z00.00 Encounter for general adult medical examination without abnormal findings (principal)
CPT/HCPCS: 82043; 82570

== ENCOUNTER → 2023-11-10 16:00 | Outpatient (RCR) | payer OTHER, SELFPAY ==
[2020-05-20 10:55] VITALS: BP 162/88; PULSE 77; RESP 12; TEMP 36.6; O2SAT 99; BMI 25.3
--- NOTE | 2020-05-20 11:41 | P.CNHO_ITS ---
Subjective - Subjective Chief complaint: Consult for leukocytosis. Patient: new to practice Consult date: 05/20/20 Requesting Physician: Dr. Tremaine Chandra. Primary Care Provider: Tremaine Chandra MD Medical Summary: DIAGNOSIS: LEUKOCYTOSIS. HPI - Consult Narrative Reason for consult: Consult for leukocytosis. Narrative: Leatha Olivas is a pleasant 59 year old gentleman, with a history of smoking, who has been noted to have Leukocytosis. Review of his lab revealed the following WBC trend: 07/31: WBC 8.8. 01/31: WBC 12.5. 05/09/20: WBC 13.6. ROS: He denies easy fatigability. No fever nor chills. Appetite is good. Weight goes up and down. He has body aches and joint pains. He fell years ago. Since then he has had these aches and pains. No headache no dizziness. No chest pain or trouble breathing. Denies abdominal pain nausea vomiting heartburn indigestion. Bowels are working without any gross blood in it. He enjoys a good appetite. His weight is s table. No dysuria hematuria. Denies depression. Denies skin rashes nor pruritus. Family history: He denies any known blood disorder or cancer in the family. Social history: He used to work in [employer]. He is not but lives with someone. He has 2 children. He smokes half a pack a day. Not all the time. He used to be heavy drinker but quit 20 years ago. Denies drugs. Review of Systems - Constitutional Reports system reviewed and no additional complaints, except as documented, Reports weakness - Eyes Reports system reviewed and no additional complaints, except as documented, Denies blurry vision - ENT Reports system reviewed and no additional complaints, except as documented - Cardiovascular Reports system reviewed and no additional complaints, except as documented, Denies chest pain at rest - Respiratory Reports no additional respiratory complaints, Denies chest congestion - Gastrointestinal Reports system reviewed and no additional complaints, except as documented, Denies abdominal pain, Denies change in bowel habits - Genitourinary Genitourinary: Reports no additional male genitourinary complaints, Denies blood in urine - Musculoskeletal Reports system reviewed and no additional complaints, except as documented, D enies back pain - Integumentary/Breasts Skin/Breast: Reports no additional skin complaints, Denies bleeding lesions - Neurologic Reports system reviewed and no additional complaints, except as documented - Psychiatric Reports system reviewed and no additional complaints, except as documented, Denies anxiety - Endocrine Reports no additional endocrine complaints, Denies excessive sweating - Hematologic/Lymphatic Reports system reviewed and no additional complaints, except as documented - Allergic/Immunologic Reports system reviewed and no additional complaints, except as documented, Denies GI upset with certain foods Oncology Screenings - ECOG Performance Status ECOG Performance Status: 0 [facility] Medical History: Medical History (Last Updated 05/20/20 @ 08:12 by Dora Cabezas) Erectile dysfunction HLD (hyperlipidemia) Hx of hematuria Hypertension Multiple joint pain Osteoporosis Seasonal allergies Functional capacity: independent ambulation Patient : No Family History: Family History (Last Updated 05/08/20 @ 09:13 by NIEVES Perez) Family/Other Diabetes Surgical History: Surgical History (Last Updated 05/08/20 @ 09:12 by NIEVES Perez) Hx of colonoscopy Social History: Social History (Last Updated 05/20/20 @ 11:00 by Dora Cabezas) Alcohol History: Alcohol intake: former Alcohol History Details: Alcohol intake frequency: does not drink Tobacco History: Smoking Status: Current every day smoker Tobacco Type: Cigarette Substance Use History: Use of substances other than those prescribed or required for medical reasons : No Nutrition Assessment: Patient : No Smoking status: Current every day smoker Home Medications and Allergies Home Medications Medication Instructions Recorded Confirmed Type amitriptyline 25 mg tablet 25 mg PO BEDTIME 05/08/20 05/20/20 History atorvastatin 20 mg tablet 20 mg PO DAILY 05/08/20 05/20/20 History calcium carbonate 500 mg calcium 500 mg PO BID 05/08/20 05/20/20 History (1,250 mg) tablet docusate sodium 100 mg capsule 100 mg PO BID 05/08/20 05/20/20 History Allergies Allergy/AdvReac Type Severity Reaction Status Date / Time aspirin [ASPIRIN] Allergy Unknown RASH/SWELLING, Verified 05/08/20 09:07 hives ibuprofen Allergy Unknown hives Verified 05/08/20 09:07 Seasonal Allergies Allergy Unknown Unknown Verified 05/20/20 08:13 Physical Exam Vital signs: Vital Signs Temp 98 F 05/20/20 10:55 Pulse 77 05/20/20 10:55 Resp 12 05/20/20 10:55 BP 162/88 H 05/20/20 10:55 Pulse Ox 99 05/20/20 10:55 Intake & Output 05/19/20 05/20/20 05/20/20 18:59 06:59 18:59 Other: Weight 67 kg Weight in Grams [id number] Weight 67 kg - Constitutional Present: no acute distress - Routine HEENT Exam Head: Present: normal inspection ENT: Present: mucous membranes moist - Routine Neck Exam Present: supple - Routine Respiratory Exam Present: CTAB - Routine Cardiovascular Exam Cardiovascular: Present: RRR, S1, S2 - Routine Abdominal Exam Present: normal bowel sounds, nontender - Routine Rectal Exam Patient deferred: digital exam - Routine Extremities Exam Present: nontender - Routine Skin Exam Present: intact - Routine Neurological Exam Present: alert, oriented X3, normal speech - Detailed Neurological Exam: Coma Scale Eye Opening: Spontaneous (4) Verbal Response: Oriented (5) Motor Response: Obeys commands (6) [place] Coma Scale Total: 15 Hem/Onc Consult Result - Labs CBC & Chem 7: 05/20/20 11:59 05/20/20 11:59 Assessment and Plan (1) Leukocytosis Status: Acute This is a pleasant 59-year-old gentleman with a history of leukocytosis dating back to 02/07/2019, when his white count was 12.5. Recent white count from 05/09/2020 was 13.6. He has a normal diff. DIFFERENTIAL DIAGNOSIS: 1. AN INFECTION: He denies any symptoms of fever chills night sweats or any acute infectious problems. 2. MED RELATED: No recent use of steroids or epinephrine or other medications that could be responsible. 3. SMOKING RELATED: This appears most likely, he has been smoking for a long time. 4. COLLAGEN VASCULAR DISORDER: Mostly associated with leukopenia however sometimes can lead to leukocytosis. Rheumatoid arthritis versus lupus. 5. LYMPHOPROLIFERATIVE DISORDER: CML versus lymphoma. WBC count from today's actually within normal limits. This is reassuring. PLAN: I will proceed with further workup. Will check sed rate: 23, BRE and RA: <15. Will check LDH: 153 and BCR ABL gene transcript. If the above is positive will proceed with a bone marrow exam for further evaluation. In the meantime he was advised to quit smoking. He will return in 3 months for a follow-up visit. Thank you CC: Dr. Tremaine Chandra.
--- NOTE | 2020-05-20 11:44 | MHC.HEMONCMA ---
Pr present for leukocytosis consult. History reviewed, labs drawn and nub card tender was used.
[2020-05-20 12:31] LABS: Baso%MD 0.3 %; Eos%MD 1.9 %; Hematocrit 42.1 % (42-52); IG%MD 0.3 %; Lymph%MD 32.8 %; Mean Corpuscular HGB Conc 33.3 g/dl (31.0-36.0); Mean Corpuscular Hemoglobin 30.6 pg (27.0-33.0); Mean Corpuscular Volume 92.1 fL (80-98); Neut%MD 58.7 %; Platelet Count 270 X10*3/uL (160-400); Red Blood Count 4.57 X10*6/uL (4.60-5.80); Red Cell Distribution Width 12.6 % (11.0-16.0); White Blood Count 10.3 X10*3/uL (4.8-10.8)
[2020-05-20 12:52] LABS: Alanine Aminotransferase 21 U/L (0-40); Albumin Level 4.5 g/dL (3.5-5.0); Alkaline Phosphatase 93 U/L (39-117); Aspartate Amino Transferase 18 U/L (5-37); Bilirubin Total 0.3 mg/dL (0.0-1.0); Blood Urea Nitrogen 17 mg/dL (9-16); Calcium 9.4 mg/dL (8.4-10.2); Creatinine Clr Calc Pharmacy 71.3; Estimated Glomerular Filt Rate > 60; Glucose Random 95 mg/dL (60-115); Lactate Dehydrogenase 153 U/L (118-273); Total Protein 7.3 g/dL (6.5-8.0)
[2020-05-20 13:12] LABS: Anion Gap 12 (12-20); Carbon Dioxide 27 mmol/L (22-29); Chloride 105 mmol/L (96-108); Potassium 4.3 mmol/L (3.3-5.1); Rheumatoid Factor < 15.0 IU/mL (<15.0); Sodium 140 mmol/L (135-145)
[2020-05-20 13:50] LABS: Erythrocyte Sedimentation Rate 23 MM/HR (0-15)
[2020-05-20 14:10] LABS: Band Neutrophils Percent 3 % (3-5); Eosinophils Absolute Manual 0.1 X10*3/UL (0.0-0.8); Eosinophils Percent Manual 1 % (0-4); Lymphocytes Absolute Manual 4.1 X10*3/uL (0.6-4.8); Lymphocytes Percent Manual 40 % (20-40); Monocytes Absolute Manual 0.5 X10*3/uL (0.0-1.2); Monocytes Percent Manual 5 % (2-11); Neutrophils Absolute Manual 5.6 X10*3/uL (2.2-7.9); Neutrophils Percent Manual 51 % (45-73)
[2020-05-20 14:11] LABS: Platelet Estimate NORMAL (NORMAL); Platelet Morphology Comment NORMAL; RBC Morphology NORMAL
[2020-05-22 13:22] LABS: Anti Nuclear Antibody Screen NEGATIVE (NEGATIVE)
== END | disposition home or self-care (01) ==
LOC: HO.ONC 05-20 10:33
PROVIDERS: PCP Internal Medicine; Referring Provider Internal Medicine; Visit Provider Internal Medicine Medical Oncology
DX: D72.829 Elevated white blood cell count, unspecified (principal)
CPT/HCPCS: 36415; 80053; 81206; 81207; 83615; 85007; 85027; 85652; 86038; 86039; 86431; 99204

== ENCOUNTER 2024-05-07 02:30 | Emergency (ER) | payer MEDICARE, MEDICAID, SELFPAY ==
--- NOTE | ~2024-05-07 | CT_ITS ---
CLINICAL HISTORY: abdominal pain CT abdomen and pelvis with contrast Comparison: CT/REG/[place]/SR - CT ABDOMEN PELVIS WO IV CON - 03/27/23 23:23 EST Findings: Mild dependent subsegmental atelectasis is seen in bilateral lower lobes. There is focal fatty infiltration adjacent to the falciform ligament. The gallbladder, pancreas, spleen, bilateral adrenal glands, and bilateral kidneys appear within normal limits. 3.9 cm duodenal diverticulum is present. There is no evidence of bowel obstruction. The appendix appears normal. There is no pneumoperitoneum or ascites. Small fat containing umbilical hernia is noted. The urinary bladder appears normal. There is no adenopathy. Mild degenerative changes are seen in the spine. Schmorl's node is seen in the superior endplate of T11. No acute osseous abnormality is identified. IMPRESSION: No acute abdominopelvic abnormality is identified. This document has been electronically signed by: Ana Valdez on 05/07/2024 09:04:45
[2024-05-07 02:42] VITALS: BP 98/66; PULSE 94; RESP 16; TEMP 36.9; O2SAT 98; BMI 27.4
--- NOTE | 2024-05-07 04:11 | ECG_ITS ---
Test Reason : DIZZY Blood Pressure : */* mmHG Vent. Rate : 94 BPM Atrial Rate : 94 BPM P-R Int : 144 ms QRS Dur : 72 ms QT Int : 326 ms P-R-T Axes : 47 -26 16 degrees QTcB Int : 407 ms Normal sinus rhythm Low voltage QRS Cannot rule out Anterior infarct , age undetermined Abnormal ECG When compared with ECG of 07-Mar-2023 20:20, Minimal criteria for Anterior infarct are now Present Referred By: Abigail Colon Electronically Signed By: TROY MOODY
[2024-05-07 04:37] LABS: MANUAL DIFF FLAG NO
[2024-05-07 04:38] LABS: Basophils Percent Auto 0.3 % (0-2); Eosinophils Absolute Auto 0.1 X10*3/uL (0.0-0.4); Eosinophils Percent Auto 0.9 % (0-4); Hematocrit 35.2 % (42.0-52.0); Hemoglobin 12.2 g/dl (14.0-18.0); Imm Gran Abs Auto 0.03 X10*3/uL (0.00-0.03); Imm Gran Pct Auto 0.3 % (0.0-0.4); Lymphocytes Absolute Auto 0.8 X10*3/uL (1.2-4.9); Lymphocytes Percent Auto 7.4 % (20-40); Mean Corpuscular HGB Conc 34.7 g/dl (31.0-36.0); Mean Corpuscular Hemoglobin 29.4 pg (27.0-33.0); Mean Corpuscular Volume 84.8 fL (80.0-98.0); Mean Platelet Volume 9.5 fL (9.4-12.4); Monocytes Percent Auto 9.3 % (2-11); Neutrophils Percent Auto 81.8 % (45-73); Platelet Count 204 X10*3/uL (160-400); Red Blood Count 4.15 X10*6/uL (4.60-5.80); Red Cell Distribution Width 13.2 % (11.0-16.0)
[2024-05-07 04:58] LABS: Troponin-I High Sensitivity 3.8 ng/L (<3.5-35.0)
[2024-05-07 05:00] LABS: Alkaline Phosphatase 97 U/L (39-117)
[2024-05-07 05:05] LABS: Alanine Aminotransferase 18 U/L (0-40); Albumin Level 3.9 g/dL (3.5-5.0); Anion Gap 12 (12-20); Aspartate Amino Transferase 25 U/L (5-37); Bilirubin Direct 0.2 mg/dL (0.0-0.5); Bilirubin Total 0.7 mg/dL (0.0-1.0); Blood Urea Nitrogen 16 mg/dL (9-16); Calcium 8.8 mg/dL (8.4-10.2); Carbon Dioxide 19 mmol/L (22-29); Chloride 110 mmol/L (96-108); Creatinine Clr Calc Pharmacy 62.1; Estimated Glomerular Filt Rate > 60; Ethanol < 10 mg/dL; Glucose Random 122 mg/dL (60-115); Magnesium 1.6 mg/dL (1.6-2.6); Sodium 137 mmol/L (135-145)
--- NOTE | 2024-05-07 05:21 | MHC.EDTECH ---
Attempted to get a urine sample,patient was unable to give at this time
[2024-05-07 05:24] LABS: Influenza A PCR NEGATIVE (Negative); Influenza B PCR NEGATIVE (Negative); Resp Syncy Virus RNA Qual PCR NEGATIVE (Negative); SARS COV2 PCR INHOUSE NEGATIVE (Negative)
--- NOTE | 2024-05-07 07:44 | ED_ITS ---
HPI - General Adult General Chief complaint: General Medical Stated complaint: Dizziness, fever Time Seen by Provider: 05/07/24 07:44 Source: patient and seismic interpreter (all interactions with this patient were facilitated with an [facility] japanese interpreter) Mode of arrival: ambulatory Limitations: language barrier (all interactions with this patient were facilitated with an [facility] japanese interpreter) History of Present Illness ED Provider: Alivia Chance PA-C HPI narrative: Patient is a 63 year old assigned male at with a history of stroke presenting to the emergency department today with chills, lightheadedness, abdominal pain, and nausea. Patient states that over the last few days he has had nausea, abdominal pain, chills, and lightheadedness. Patient denies any dizziness, vomiting, fever, blurry vision, double vision, loss of vision, chest pain, difficulty breathing, shortness of breath, back pain, night sweats, pain with urination, increased urinary frequency, increased urinary urgency, blood in his urine or stool, syncope or a near syncopal episode, recent trauma or falls, bowel incontinence, bladder incontinence, or any other complaints at this time. Onset (ago): day(s) Relieving factors: none Exacerbating factors: none Associated symptoms: fever/chills and nausea/vomiting Treatments prior to arrival: none Related Data Home Medications ?Medication ?Instructions ?Recorded ?Confirmed calcium carbonate 1 tab PO BID 07/25/20 03/10/22 lisinopril 10 mg tablet 1 tab DAILY 03/10/22 03/10/22 quetiapine 50 mg tablet 1 tab PO BEDTIME 03/10/22 03/10/22 Previous Rx's ?Medication ?Instructions ?Recorded atorvastatin 80 mg tablet 80 mg PO DAILY #30 tabs 03/12/22 clopidogrel 75 mg tablet 75 mg PO DAILY #30 tabs 03/12/22 docusate sodium 100 mg capsule 100 mg PO DAILY PRN Constipation 03/12/22 #30 caps cetirizine 10 mg capsule (Zyrtec) 10 mg PO DAILY PRN allergy 08/26/22 symptoms #10 caps diphenhydramine HCl 25 mg capsule 25 mg PO TID PRN itching #14 caps 08/26/22 (Benadryl) hydrocortisone 1 % topical cream 1 appl topical BID PRN rash 7 days 08/26/22 (Anti-Itch (hydrocortisone)) #453.6 grams morphine 15 mg immediate release 15 mg PO Q8H PRN pain #15 tabs 03/08/23 tablet Allergies Allergy/AdvReac Type Severity Reaction Status Date / Time aspirin [ASPIRIN] Allergy Unknown RASH/SWELLING, Verified 05/07/24 02:45 hives Seasonal Allergies Allergy Unknown Unknown Verified 05/07/24 02:45 Review of Systems 2 Constitutional: Constitutional: Reports no additional constitutional complaints, Reports chills, Denies fever(s) and Denies night sweats Eyes: Eyes: Reports no additional eye complaints, Denies blurry vision, Denies change in vision, Denies diplopia, Denies eye discharge, Denies loss of vision and Denies eye pain ENT: Denies dizziness Cardiovascular: Cardiovascular: Reports no additional cardiovascular complaints, Denies chest pain, Denies lightheadedness, Denies Loss of Consciousness and Denies dyspnea Respiratory: Respiratory: Reports no additional respiratory complaints and Denies dyspnea Gastrointestinal: Gastrointestinal: Reports no additional gastrointestinal complaints, Reports abdominal pain, Denies melena, Denies hematochezia, Denies change in bowel habits, Denies change in stool character and Reports nausea Genitourinary: Genitourinary: Reports no additional male genitourinary complaints, Denies hematuria, Denies oliguria, Denies difficulty urinating, Denies dysuria, Denies urinary frequency, Denies urinary hesitancy, Denies urinary incontinence and Denies urinary urgency Musculoskeletal: Musculoskeletal: Reports no additional musculoskeletal complaints, Denies numbness and Denies tingling Neurologic: Denies dizziness, Denies loss of vision, Denies numbness and Denies tingling Psychiatric: Psychiatric: Reports no additional psychiatric complaints Endocrine: Endocrine: Reports no additional endocrine complaints Hematologic/Lymphatic: Hematologic/Lymphatic: Reports no additional hematologic/lymphatic complaints Allergic/Immunologic: Allergic/Immunologic: Reports no additional allergic/immunologic complaints PMFSH Past Medical History Attestation statement: The following information was validated with the patient. Source: old records reviewed and nursing notes reviewed Medical History Osteoporosis Erectile dysfunction Seasonal allergies HLD (hyperlipidemia) Hypertension Hx of hematuria Multiple joint pain Surgical History Hx of colonoscopy Family History Family History Family/Other Diabetes Social History Social History Are you a primary career development associate to a significant other at home: No Do you presently have visiting nurse or other home services: No Alcohol intake: never Patient Tobacco Use Status: Never used Tobacco Cigarette Packs Per Day: 0.5 Cigarettes Per Day: 10.0 Advance Directives: No Advance Directives Information Provided: No service: No Current occupational status: disabled Physical Exam ED Vital Signs: Vital Signs - 24 hr 05/07/24 02:42 05/07/24 09:51 Temperature 98.5 F 99.1 F Pulse Rate 94 73 Respiratory Rate 16 18 Blood Pressure 98/66 128/64 Pulse Oximetry 98 95 Oxygen Delivery Method Room Air Room Air BMI result Body Mass Index 27.4 Const General: cooperative, no acute distress, alert and awake Nutritional Appearance: well nourished Orientation/consciousness: patient oriented x3 Limitations: no limitations HENMT Head: Yes normal to inspection and Yes atraumatic Ears: hearing grossly normal bilaterally and external ears normal General nose exam: Normal external nose present, no nasal discharge noted and no epistaxis Face and sinus: Yes normal facial exam, No abrasion and No laceration Mouth: Normal oral and palatal mucosa present, no drooling and no muffled voice Eyes General: appearance normal, both eyes and all related structures Periorbital: periorbital findings normal Eyelids: Yes eyelids normal Conjunctivae: conjunctivae normal Pupils: Equal, round and reactive pupils present EOM: EOMs intact bilaterally Neck Neck: Yes normal visual inspection, Yes full ROM and Yes no lymphadenopathy Chest Chest palpation & inspection: normal inspection of the chest Resp Effort & Inspection: normal respiratory effort and able to speak in complete sentences GI Inspection: Yes normal to inspection Palpation (GI): Soft to palpation, not firm, Tenderness to palpation present (GI) in the LLQ, in the RLQ, in the LUQ and in the RUQ, no guarding and not rigid Neuro General: patient oriented x3, moves all extremities and CN's II-XI intact bilaterally Cranial nerves: Yes Equal, round and reactive pupils present Cognition (Neuro): normal cognition Extrem General: Yes normal to inspection, Yes full ROM and Yes capillary refill normal Psych Appearance: grossly normal Mental Status: mental status grossly normal Affect: normal affect Attitude: cooperative Thought process: Normal thought process present Thought content: Normal thought content present Insight: Good insight present (Psych) NIH Stroke Scale Internal: Initial- Upon Arrival Time: 07:44 Level of Consciousness: Alert Level of Consciousness Questions: Answers both questions correctly Level of Consciousness Commands: Performs both tasks correctly Best Gaze: Normal Visual: No visual loss Facial Palsy: Normal Motor Arm (Right): No drift Motor Arm (Left): No drift Motor Leg (Right): No drift Motor Leg (Left): No drift Limb Ataxia: Absent Sensory: Normal Best Language: No aphasia Dysarthia: Normal Extinction and Inattention: No abnormality Score: 0 Medications Administered Discontinued Medications Generic Name Dose Route Start Last Admin Trade Name Freq PRN Reason Stop Dose Admin Sodium Chloride 1,000 mls @ 999 mls/hr 05/07/24 08:00 05/07/24 09:46 Ns IV 05/07/24 09:00 Infused .Q1H1M STEPHANIE Infusion Iohexol 85 ml 05/07/24 08:27 05/07/24 08:27 Iohexol 350 Mg/Ml 100 Ml Infus..Btl IV 05/07/24 08:28 85 ml ONCE ONE Administration Morphine Sulfate 4 mg 05/07/24 07:56 05/07/24 08:28 Morphine Sulfate 4 Mg/Ml Cartridge IVPUSH 05/07/24 07:57 4 mg ONCE ONE Administration Protocol Medical Decision Making Medical Decision Making [facility] Narrative: Patient is a 63 year old assigned male at with a history of stroke presenting to the emergency department today with chills, lightheadedness, abdominal pain, and nausea. Patient's physical exam was as noted in the physical exam portion of this note. Patient's blood work was unremarkable. Patient's urine showed no acute process. Patient's EKG was unremarkable. Patient's CT abd/pelvis showed no acute process. I explained my physical exam findings as well as all test results to the patient. I answered all questions asked by the patient. I stressed the importance of the patient taking his medication as directed (either prescribed or as the over the counter packaging recommends). I stressed the importance of the patient following up with his primary care provider. I stressed the importance of the patient returning to the emergency department immediately if his symptoms were to worsen or if he were to develop any dizziness, shortness of breath, difficulty breathing, chest pain, blurry vision, loss of vision, nausea, vomiting, abdominal pain, fever, chills, back pain, or any other complaints. Patient verbalized agreement and understanding with this treatment plan and discharge. Differential Diagnosis Differential Diagnoses: The differential diagnosis associated with the presentation includes Viral illness Influenza RSV COVID-19 Nausea Abdominal pain Gastroenteritis Admission/Observation Consideration of admission/observation: Escalation of care including admission/observation considered Patient would have been admitted to the hospital had his work up had any findings where hospital admission was appropriate and his clinical presentation warranted hospital admission. Lab Data [facility] Lab Attestation statement: I reviewed the patient's lab results. My interpretation of these results are in the [facility] Rationale portion of this note. 05/07/24 04:29 05/07/24 04:29 Labs: Lab Results 05/07/24 05/07/24 05/07/24 Range/Units 04: 04: 08:32 WBC 11.0 H (4.8-10.8) X10*3/uL RBC 4.15 L (4.60-5.80) X10*6/uL Hgb 12.2 L (14.0-18.0) g/dl Hct 35.2 L (42.0-52.0) % MCV 84.8 (80.0-98.0) fL MCH 29.4 (27.0-33.0) pg MCHC 34.7 (31.0-36.0) g/dl RDW 13.2 (11.0-16.0) % Plt Count 204 (160-400) X10*3/uL MPV 9.5 (9.4-12.4) fL Immature Gran % (Auto) 0.3 (0.0-0.4) % Neut % (Auto) 81.8 H (45-73) % Lymph % (Auto) 7.4 L (20-40) % [place] % (Auto) 9.3 (2-11) % Eos % (Auto) 0.9 (0-4) % Baso % (Auto) 0.3 (0-2) % Lymph # (Auto) 0.8 L (1.2-4.9) X10*3/uL [place] # (Auto) 1.0 (0.1-1.2) X10*3/uL Eos # (Auto) 0.1 (0.0-0.4) X10*3/uL Baso # (Auto) 0.0 (0.0-0.2) X10*3/uL Abs Immat Gran (auto) 0.03 (0.00-0.03) X10*3/uL Absolute Neuts (auto) 9.0 H (2.0-8.3) x10*3/uL Absolute Nucleated RBC 0.000 (0.0-0.012) X10*3/uL Nucleated RBC % (auto) 0.0 (0.0-0.2) /100WBC Sodium 137 (135-145) mmol/L Potassium 4.0 (3.3-5.1) mmol/L Chloride 110 H (96-108) mmol/L Carbon Dioxide 19 L (22-29) mmol/L Anion Gap 12 (12-20) BUN 16 (9-16) mg/dL Creatinine 1.08 (0.5-1.4) mg/dL Estim Creat Clear Calc 62.1 Estimated GFR > 60 Random Glucose 122 H (60-115) mg/dL Calcium 8.8 D (8.4-10.2) mg/dL Magnesium 1.6 (1.6-2.6) mg/dL Total Bilirubin 0.7 (0.0-1.0) mg/dL Direct Bilirubin 0.2 (0.0-0.5) mg/dL AST 25 (5-37) U/L ALT 18 (0-40) U/L Alkaline Phosphatase 97 (39-117) U/L Troponin I High Sens 3.8 (<3.5-35.0) ng/L Total Protein 7.0 (6.5-8.0) g/dL Albumin 3.9 (3.5-5.0) g/dL Urine Color Yellow Urine Appearance Clear Urine pH 5.5 (5.0-9.0) Ur Specific [place] 1.015 (1.005-1.025) Urine Protein Negative (Neg-Trace) mg/dL Urine Glucose (UA) Negative (Negative) mg/dL Urine Ketones Negative (Negative) mg/dL Urine Blood Negative (Negative) Urine Nitrite Negative (Negative) Ur Leukocyte Esterase Negative (Negative) Urine Opiates Screen Not Detected (Not Detect) Ur Buprenorphine Scrn Not Detected (Not Detect) ng/mL Ur Oxycodone Screen Not Detected (Not Detect) ng/mL Urine Methadone Screen Not Detected (Not Detect) ng/mL Urine Fentanyl Screen Not Detected (Not Detect) Ur Barbiturates Screen Not Detected (Not Detect) Ur Phencyclidine Scrn Not Detected (Not Detect) Ur Amphetamines Screen Not Detected (Not Detect) U Benzodiazepines Scrn Not Detected (Not Detect) Urine Cocaine Screen Not Detected (Not Detect) U Marijuana (THC) Screen Not Detected (Not Detect) Ethyl Alcohol < 10 mg/dL Influenza Type A (PCR) NEGATIVE (Negative) Influenza Type B (PCR) NEGATIVE (Negative) RSV RNA Qual (PCR) NEGATIVE (Negative) SARS-CoV-2 RNA (RT-PCR) NEGATIVE (Negative) S. pyogenes GrpA ELLE Negative (Negative) Independent Interpretation I performed an independent interpretation of an: EKG and CT Scan Interpretation: My interpretation is in agreement with the radiologist's impression of this imaging study. L Report Number: [id number]: Total DLP = 465.00 mGy-cm CLINICAL HISTORY: abdominal pain CT abdomen and pelvis with contrast Comparison: CT/REG/NC/SR - CT ABDOMEN PELVIS WO IV CON - 03/27/23 23:23 EST Findings: Mild dependent subsegmental atelectasis is seen in bilateral lower lobes. There is focal fatty infiltration adjacent to the falciform ligament. The gallbladder, pancreas, spleen, bilateral adrenal glands, and bilateral kidneys appear within normal limits.3.9 cm duodenal diverticulum is present. There is no evidence of bowel obstruction. The appendix appears normal. There is no pneumoperitoneum or ascites. Small fat containing umbilical hernia is noted. The urinary bladder appears normal. There is no adenopathy. Mild degenerative changes are seen in the spine. Schmorl's node is seen in the superior endplate of T11. No acute osseous abnormality is identified. IMPRESSION: No acute abdominopelvic abnormality is identified. This document has been electronically signed by: Ana Valdez on 05/07/2024 09:04:45 Dictated By: Ana Valdez MD Signed By: Electronically signed by Ana Valdez MD 05/07/24 0905 I independently interpreted this EKG and am in agreement with the below findings: Vent. Rate: 94 BPM Atrial Rate: 94 BPM P-R Int: 144 ms QRS Dur: 72 ms QT Int: 326 ms P-R-T Axes: 47 -26 16 degrees QTcB Int: 407 ms Normal sinus rhythm Low voltage QRS Cannot rule out Anterior infarct , age undetermined When compared with ECG of 07-Mar-2023 20:20, Minimal criteria for Anterior infarct are now Present Referred By: Abigail Colon Electronically Signed By: DAVID MOODY Dictated By: David Moody MD Signed By: Electronically signed by David Moody MD 05/07/24 [id number] Radiology Impression Discussion of test interpretation with radiology: I have reviewed the radiologist's reading. Discharge Plan Discharge Clinical Impression: Viral illness, Abdominal pain, Nausea Patient Disposition: Home, Self-Care Instructions: Acute Nausea and Vomiting (ED), Viral Syndrome (ED), Abdominal Pain (ED) Additional Instructions: Your work up today did not show any emergent reason for your symptoms. Follow up with your primary care provider. Return to the emergency department immediately if your symptoms worsen or if you develop any dizziness, shortness of breath, difficulty breathing, chest pain, blurry vision, loss of vision, nausea, vomiting, abdominal pain, fever, chills, back pain, or any other complaints. Ramana?seguimiento?con cheema m?dico de atenci?n primaria. Acuda inmediatamente al servicio de urgencias si brayan s?ntomas empeoran o si presenta falta de aliento, dificultad para respirar, dolor tor?cico, mareos, aturdimiento, dolor de espalda, dolor abdominal, fiebre, escalofr?os o cualquier otro s?ntoma. Prescriptions: No Action calcium carbonate 500 mg calcium (1,250 mg) tablet 1 tab PO BID lisinopril 10 mg tablet 1 tab DAILY quetiapine 50 mg tablet 1 tab PO BEDTIME atorvastatin 80 mg Tablet 80 mg PO DAILY Qty: 30 0RF clopidogrel 75 mg Tablet 75 mg PO DAILY Qty: 30 0RF docusate sodium 100 mg Capsule 100 mg PO DAILY PRN (Reason: Constipation) Qty: 30 0RF morphine 15 mg tablet 15 mg PO Q8H PRN (Reason: pain) Qty: 15 0RF Rx Instructions: Partial Fill upon patient request. hydrocortisone [Anti-Itch (HC)] 1 % cream 1 appl topical BID PRN (Reason: rash) 7 Days Qty: 453.6 0RF diphenhydramine HCl [Benadryl] 25 mg capsule 25 mg PO TID PRN (Reason: itching) Qty: 14 0RF Zyrtec 10 mg capsule 10 mg PO DAILY PRN (Reason: allergy symptoms) Qty: 10 0RF Referrals: [facility] [Provider Group] (Call to establish and follow up with a primary care provider. If you already have a primary care provider, please follow up with them. Llame para establecer y hacer un seguimiento con un proveedor de atenci?n primaria. Si ya tiene un proveedor de atenci?n primaria, ramana un seguimiento con ?l.) [facility] [Provider [facility]] (Call to establish and follow up with a primary care provider. If you already have a primary care provider, please follow up with them. Llame para establecer y hacer un seguimiento con un proveedor de atenci?n primaria. Si ya tiene un proveedor de atenci?n primaria, ramana un seguimiento con ?l.) [facility] [Provider Group] (Call to establish and follow up with a primary care provider. If you already have a primary care provider, please follow up with them. Llame para establecer y hacer un seguimiento con un proveedor de atenci?n primaria. Si ya tiene un proveedor de atenci?n primaria, ramana un seguimiento con ?l.) [facility] [Provider Group] (Call to establish and follow up with a primary care provider. If you already have a primary care provider, please follow up with them. Llame para establecer y hacer un seguimiento con un proveedor de atenci?n primaria. Si ya tiene un proveedor de atenci?n primaria, ramana un seguimiento con ?l.) Interventions: ED Discharge Assessment Last Done: 05/07/24 09:51 Discharge Date/Time: 05/07/24 09:52 Print Language: Jamaican
[2024-05-07] MEDS: 0.9 % Sodium Chloride 1,000 ML 999 ML IV (08:09)
[2024-05-07] MEDS: iohexoL 350 MG/ML 100 ML INFUS..BTL 85 ML IV (08:27)
[2024-05-07] MEDS: Morphine Sulfate 4 MG/ML CARTRIDGE IVPUSH (08:28)
[2024-05-07 08:38] LABS: Appearance Urine Clear; Color Urine Yellow; Glucose Urine UA Negative (Negative); Leukocyte Esterase Urine Negative (Negative); Nitrite Urine Negative (Negative); PH 5.5 (5.0-9.0); Specific Gravity - Urine 1.015 (1.005-1.025); Urine Blood Negative (Negative); Urine Ketones Negative (Negative); Urine Protein Negative (Neg-Trace)
[2024-05-07 08:43] LABS: IDNOW Serial# 08D9AD1C; Strep A Nucleic Acid Negative (Negative)
[2024-05-07 08:48] LABS: Amphetamine Screen Urine Not Detected (Not Detect); Barbiturates, Urine Not Detected (Not Detect); Benzodiazepines Screen Urine Not Detected (Not Detect); Buprenorphine Scr Not Detected (Not Detect); Cannabinoid Screen Urine Not Detected (Not Detect); Cocaine Screen Urine Not Detected (Not Detect); Fentanyl, urine Not Detected (Not Detect); Methadone Screen, Urine Not Detected (Not Detect); Opiate Screen Urine Not Detected (Not Detect); Oxycodone Screen Urine Not Detected (Not Detect); Phencyclidine Screen Urine Not Detected (Not Detect)
[2024-05-07 09:51] VITALS: BP 128/64; PULSE 73; RESP 18; TEMP 37.3; O2SAT 95
== END 2024-05-07 09:52 | disposition home or self-care (01) ==
PROVIDERS: Emergency Medicine; Physician Assistant Medical; Emergency Provider Emergency Medicine; PCP Student in an Organized Health Care Education/Training Program
DX: B34.9 Viral infection, unspecified (principal); R42 Dizziness and giddiness; R50.9 Fever, unspecified; R10.2 Pelvic and perineal pain; R94.31 Abnormal electrocardiogram [ECG] [EKG]; R11.2 Nausea with vomiting, unspecified; Z03.818 Encounter for observation for suspected exposure to other biological agents ruled out; Z51.81 Encounter for therapeutic drug level monitoring; Z79.899 Other long term (current) drug therapy
CPT/HCPCS: 0241U; 74177; 80048; 80076; 80307; 81003; 83735; 84484; 85025; 87651; 93005; 96361; 96374; 99284; J2270; Q9967

== ENCOUNTER → 2024-05-07 04:11 | Outpatient (BNV) | payer MEDICARE, MEDICAID, SELFPAY | PROVIDERS: Emergency Provider Emergency Medicine; PCP Student in an Organized Health Care Education/Training Program; Visit Provider Internal Medicine | DX: R94.31 Abnormal electrocardiogram [ECG] [EKG] (principal); R42 Dizziness and giddiness | CPT/HCPCS: 93010 ==

== ENCOUNTER → 2024-05-07 07:56 | Outpatient (BNV) | payer MEDICARE, MEDICAID, SELFPAY | PROVIDERS: Emergency Provider Emergency Medicine; PCP Student in an Organized Health Care Education/Training Program; Visit Provider Radiology Vascular & Interventional Radiology | DX: R10.9 Unspecified abdominal pain (principal) | CPT/HCPCS: 74177 ==

== ENCOUNTER 2024-08-02 09:42 | Outpatient (REF) | payer MEDICARE, OTHER, SELFPAY ==
--- NOTE | ~2024-08-02 | XR_ITS ---
EXAMINATION: XR KNEE 3 VIEWS LEFT HISTORY: pt with left knee pain in last 6 months with ongoing pain, had surgery of knee COMPARISON: Comparison is made with the prior examination dated 09/21/2022. FINDINGS: Three views of the left knee are submitted. Osseous mineralization is normal. There is no fracture or dislocation. The joint spaces are preserved. There is calcification of the popliteal artery. There is no joint effusion. XR/XR knee LT 3V IMPRESSION: Unremarkable examination of the left knee. Electronically signed by: Viktor Cody MD 08/02/2024 10:02 AM EDT
--- OUTSIDE RECORDS SUMMARY | 2024-08-02 11:00 | XMS_ITS | Encounter Summary ---
Author Organization [employer] Address [address] [place] [address] Care Team Providers Care Hand Decorator Name Role Phone Janet Thompson MD Primary Care Pro vider Reason for Visit * Reason Comments Med Refill Encounter Details Date Type Department Care Team ([facility] st Contact Info) Description 03/20/2024 Refill [facility] MEDICINE [address] [place], [place] [phone] Kasie Blackwood MD [address] [place], [place] [phone] Social History Tobacco Use Types Packs/Day Years Used Date Smoking Tobacco: Former Cigarettes 0.5 44 1 976 - 2019 Smokeless Tobacco: Never Comments:Used to smoke tobac co at 14 y of age until 2 y ago,at 60 y of age ,used to smoke 5 to 6 cig a day for 46 years . PQT a year 13.8 -no need for lung ca screening Alcohol Use Standard Drinks/Week Comments Not Currently 0 (1 standard drink = 0.6 oz pur e alcohol) Quit 20 years ago Depression Answer Date Recorded Patient Health Questionnaire-9 Score 2 06/30/2023 Patient Health Questionnaire-9 Score 2 06/30/2023 Last PHQ-9: Questionnaire Data Not on file 0 06/30/2023 Housing Stability Answer Date Recorded What is your housing situation today? I have dustin molina 06/21/[address] you li ve. Do you have problems with any of the following? None of the above 06/21/2023 Food Insecurity Answer Date Recorded Within the past 12 months, y ou worried that your food would run out before you got money to buy more: Never True 06/30/2023 Within the past 12 months,th e food you bought just didn't last and you didn't have enough money to get more: Never True Transportation Answer Date Recorded In the past 12 months, has l ack of transportation kept you from medical appts, meetings, work or from getting things needed for daily living? No 06/21/2023 Utilities Answer Date Recorded In the past 12 months, has t he electric, gas, oil or water company threatened to shut off services in your home? No 06/21/2023 Depression Answer Date Recorded Patient Health Questionnaire-2 Score 0 06/30/2023 Sex and Gender Information Value Date Recorded Sex Assigned at Male 01/12/2022 10:19 AM EDT Legal Sex Male 10:19 AM EDT Gender Identity Male 01/12/2022 10:19 AM EDT Sexual Orientation Straight 01/12/2022 10 :19 AM EDT documented as of this encounter Plan of Treatment Upcoming Encounters Date Type Department Care Team (Late st Contact Info) Description 09/27/2024 2:00 PM EDT Office Visit [facility] MEDICINE [address] [place] [address] Janet Thompson MD [address] [place] [address] 10/13/2024 2:00 PM EDT Office Visit [facility] OPTOMETRY [address] [place] [address] Diego, Sara, OD [address] [place] [address] documented as of this encounter Visit Diagnoses Not on filedocumented in this encounter Additional Health Concerns Assessment Noted Time PHQ-9 Depression Total Score: 2 06/30/19 24 2:02 PM EDT documented as of this encounter Care Teams Hand Decorator Relationship Specialty Start Date End Date Janet Thompson MD [address] [place] [id number] PCP - General Internal Medicine 09/09/22 documented as of this encounter
--- OUTSIDE RECORDS SUMMARY | 2024-08-02 11:00 | XMS_ITS | Encounter Summary ---
Author Organization [employer] Address [address] [facility] [address] [place] [address] Care Team Providers Care Credit Counselor Name Role Phone Janet Thompson MD Primary Care Pro vider Reason for Visit * Reason Comments Med Refill Encounter Details Date Type Department Care Team (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) Social History Tobacco Use Types Packs/Day Years [...] Description 09/27/2024 2:00 PM EDT Office Visit [facility] MEDICINE [address] [place] [address] Janet Thompson MD [address] [place] [address] 10/13/2024 2:00 PM EDT Office Visit [facility] OPTOMETRY [address] [place] [address] Diego, Sara, OD [address] [place] [address] documented as of this encounter Visit Diagnoses Diagnosis 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
--- OUTSIDE RECORDS SUMMARY | 2024-08-02 11:00 | XMS_ITS | Encounter Summary ---
Author Organization [employer] Address 75 [facility] 7t [place] [address] Care Team Providers Care Mounter Sousaphones Name Role Phone Tremaine Banuelos MD Primary Care Prov ider Erin Aviles Primary Care Provider [phone]- [phone] Janet Thompson MD Primary Care Pro vider Encounter Details Date Type Department Care Team (Latest Contact Info) Description 05/13/2021 Abstract [facility] CONVERSIONS Dental, Provider, DDS Social History Tobacco Use Types Packs/Day Years Used Date Smoking Tobacco: Never Assessed Sex and Gender Information Value Date Recorded Sex Assigned at Male 01/12/2022 10:19 AM EDT Legal Sex Male 10:19 AM EDT Gender Identity Male 01/12/2022 10:19 AM EDT Sexual Orientation Straight 01/12/2022 10 :19 AM EDT documented as of this encounter Plan of Treatment Upcoming Encounters Date Type Department Care Team (Late st Contact Info) Description 09/27/2024 2:00 PM EDT Office Visit [facility] MEDICINE [address] [place] [address] Janet Thompson MD [address] [place] [address] 10/13/2024 2:00 PM EDT Office Visit [facility] OPTOMETRY [address] [place] [address] Sara Cortez, OD [address] [place] [address] documented as of this encounter Visit Diagnoses Not on filedocumented in this encounter Care Teams Mounter Sousaphones Relationship Specialty Start Date End Date Tremaine Banuelos MD [address] [place] [address] PCP - General Internal Medicine 08/13/19 05/10/22 Erin Aviles FNP [address] [place] [address] PCP - General Family Medicine 05/11/22 09/08/22 Janet Thompson MD [address] [place] [address] PCP - General Internal Medicine 09/09/22 documented as of this encounter
--- OUTSIDE RECORDS SUMMARY | 2024-08-02 11:00 | XMS_ITS | Encounter Summary ---
Author Organization [employer] Address 75 [facility] 7 [place] [address] Care Team Providers Care Throw Out Clerk Name Role Phone Janet Thompson MD Primary Care Pro vider Reason for Visit * Reason Onset Date Comments Med Refill 01/28/2023 Encounter Details Date Type Department Care Team ([facility] st Contact Info) Description 01/28/2023 Telephone [facility] MEDICINE [address] [place] [address] [phone] Janet Thompson MD [address] [place] [address] Med Refill Social History Tobacco Use Types Packs/Day Years Used Date Smoking Tobacco: Former Cigarettes 0.5 44 1 976 - 2019 Smokeless Tobacco: Never Alcohol Use Standard Drinks/Week Comments Not Currently 0 (1 standard drink = 0.6 oz pur e alcohol) Quit 20 years ago Depression Answer Date Recorded Patient Health Questionnaire-9 Score 5 05/12/2022 Housing Stability Answer Date Recorded What is your housing situation today? Not on lorie e 01/05/[address] you li ve. Do you have problems with any of the following? None of the above 01/05/2023 Food Insecurity Answer Date Recorded Within the past 12 months, y ou worried that your food would run out before you got money to buy more: Never True 01/05/2023 Within the past 12 months,th e food you bought just didn't last and you didn't have enough money to get more: Never True Transportation Answer Date Recorded In the past 12 months, has l ack of transportation kept you from medical appts, meetings, work or from getting things needed for daily living? No 01/05/2023 Utilities Answer Date Recorded In the past 12 months, has t he electric, gas, oil or water company threatened to shut off services in your home? No 01/05/2023 Depression Answer Date Recorded Patient Health Questionnaire-2 Score 2 05/12/2022 Sex and Gender Information Value Date Recorded Sex Assigned at Male 01/12/2022 10:19 AM EDT Legal Sex Male 10:19 AM EDT Gender Identity Male 01/12/2022 10:19 AM EDT Sexual Orientation Straight 01/12/2022 10 :19 AM EDT documented as of this encounter Miscellaneous Notes * Telephone Encounter - Antonia Agarwal LPN - 01/28/2023 12:55 PM EST Medication was sent to [facility] #[id number] on 10/08/22 #90 with 1 refill. * Telephone Encounter - Dominic Powers - 01/28/2023 12:12 PM EST Tc from patient requesting medication refill for clopidogrel (Plavix) 75 MG tablet. documented in this encounter Plan of Treatment Upcoming Encounters Date Type Department Care Team (Late st Contact Info) Description 09/27/2024 2:00 PM EDT Office Visit [facility] MEDICINE [address] [place] [address] Janet Thompson MD [address] [place] [address] 10/13/2024 2:00 PM EDT Office Visit [facility] OPTOMETRY [address] [place] [address] Sara Cortez OD [address] [place] [address] documented as of this encounter Visit Diagnoses Not on filedocumented in this encounter Additional Health Concerns Assessment Noted Time PHQ-9 Depression Total Score: 5 05/12/19 11:52 AM EST documented as of this encounter Care Teams Throw Out Clerk Relationship Specialty Start Date End Date Janet Thompson MD [address] [place] [id number] PCP - General Internal Medicine 09/09/22 documented as of this encounter
--- OUTSIDE RECORDS SUMMARY | 2024-08-02 11:00 | XMS_ITS | Encounter Summary ---
Author Organization [employer] Address 75 [facility] 7t [place] [address] Care Team Providers Care Putty Worker Name Role Phone Janet Thompson MD Primary Care Pro vider Reason for Visit * Reason Comments Med Refill Encounter Details Date Type Department Care Team ([facility] st Contact Info) Description 12/24/2023 Refill [facility] MEDICINE [address] [place], [place] [phone] Janet Thompson MD [address] [place] [address] Social History Tobacco Use Types Packs/Day Years [...] Description 09/27/2024 2:00 PM EDT Office Visit [facility] MEDICINE [address] [place] [address] Janet Thompson MD [address] [place] [address] 10/13/2024 2:00 PM EDT Office Visit [facility] OPTOMETRY [address] [place] [address] Diego, Sara, OD [address] [place] [address] documented as of this encounter Visit Diagnoses Not on filedocumented in this encounter Additional Health Concerns Assessment Noted Time PHQ-9 Depression Total Score: 2 06/30/19 24 2:02 PM EDT documented as of this encounter Care Teams Putty Worker Relationship Specialty Start Date End Date Janet Tohmpson MD [address] [place] [address] PCP - General Internal Medicine 09/09/22 documented as of this encounter
--- OUTSIDE RECORDS SUMMARY | 2024-08-02 11:00 | XMS_ITS | Encounter Summary ---
Author Organization [employer] Address 75 [facility] 7t [place] [address] Care Team Providers Care Rest Room Matron Name Role Phone Janet Thompson MD Primary Care Pro vider Encounter Details Date Type Department Care Team ([facility] st Contact Info) Description 05/13/2023 Telephone [facility] MEDICINE [address] [place] [address] aJnet Thompson MD [address] [place], [place] [phone] Social History Tobacco Use Types Packs/Day Years Used Date Smoking Tobacco: Former Cigarettes 0.5 44 1 976 - 2019 Smokeless Tobacco: Never Alcohol Use Standard Drinks/Week Comments Not Currently 0 (1 standard drink = 0.6 oz pur e alcohol) Quit 20 years ago Depression Answer Date Recorded Patient Health Questionnaire-9 Score 10 04/14/2023 Patient Health Questionnaire-9 Score 10 04/14/2023 Last PHQ-9: Questionnaire Data Not on file 0 04/14/2023 Housing Stability Answer Date Recorded What is [...] Answer Date Recorded Patient Health Questionnaire-2 Score 4 04/14/2023 Sex and Gender Information Value Date Recorded Sex Assigned at Male 01/12/2022 10:19 AM EDT Legal Sex Male 10:19 AM EDT Gender Identity Male 01/12/2022 10:19 AM EDT Sexual Orientation Straight 01/12/2022 10 :19 AM EDT documented as of this encounter Miscellaneous Notes * Telephone Encounter - Elena Flores RN - 05/13/2023 11:55 AM EST Pt has upcoming TP in June. A1C indicative of prediabetes * Telephone Encounter - Do Hall - 05/13/2023 11:48 AM EST TC from Kesha with [employer] calling in to report A1c . Report : 6.0% Any questions may contact phone # [phone]. documented in this encounter Plan of Treatment Upcoming Encounters Date Type Department Care Team (Late st Contact Info) Description 09/27/2024 2:00 PM EDT Office Visit [facility] MEDICINE [address] [place] [address] Janet Thompson MD [address] [place] [address] 10/13/2024 2:00 PM EDT Office Visit [facility] OPTOMETRY [address] [place] [address] Sara Cortez, MARK [address] [place] [address] documented as of this encounter Visit Diagnoses Not on filedocumented in this encounter Additional Health Concerns Assessment Noted Time PHQ-9 Depression Total Score: 10 024 3:53 PM EST documented as of this encounter Care Teams Rest Room Matron Relationship Specialty Start Date End Date Janet Thompson MD [address] [place] [id number] PCP - General Internal Medicine 09/09/22 documented as of this encounter
--- OUTSIDE RECORDS SUMMARY | 2024-08-02 11:00 | XMS_ITS | Encounter Summary ---
Author Organization [employer] Address [address] [place] [address] 7 [place] [address] Care Team Providers Care Biofuels Plant Construction Worker Name Role Phone Janet Thompson MD Primary Care Pro vider Reason for Visit * Reason Onset Date Comments Med Refill 03/31/2024 Encounter Details Date Type Department Care Team ([facility] st Contact Info) Description 03/31/2024 Telephone [facility] MEDICINE [address] [place] [address] [phone] Janet Thompson MD [address] [place] [address] Med Refill Social History Tobacco Use Types Packs/Day Years Used Date Smoking Tobacco: Former Cigarettes 0.5 44 1 976 - 2020 Smokeless Tobacco: Never Comments:Used to smoke tobac [...] Telephone Encounter - Antonia Agarwal LPN - 03/31/2024 2:54 PM EST Patient needs to call [facility] Pharmacy and request medication be transferred to [facility]. * Telephone Encounter - Lorie Harman - 03/31/2024 2:46 PM EST TC from pt requesting medication refill. Medications needing refill : cetirizine (ZyrTEC) 10 MG tablet To be sent to: [facility]/pharmacy #[id number] [place], [place] - [address] [place] [address] documented in this encounter Plan of Treatment Upcoming Encounters Date Type Department Care Team ([facility] st Contact Info) Description 09/27/2024 2:00 PM EDT Office Visit [facility] MEDICINE [address] [place] [phone] Janet Thompson MD [address] [place] [address] 10/13/2024 2:00 PM EDT Office Visit [facility] OPTOMETRY [address] [place], [place] [phone] Sara Cortez, OD [address] [place] [address] documented as of this encounter Visit Diagnoses Not on filedocumented in this encounter Additional Health Concerns Assessment Noted Time PHQ-9 Depression Total Score: 2 06/30/19 24 2:02 PM EDT documented as of this encounter Care Teams Biofuels Plant Construction Worker Relationship Specialty Start Date End Date Janet Thompson MD [address] [place] [address] PCP - General Internal Medicine 09/09/22 documented as of this encounter
--- OUTSIDE RECORDS SUMMARY | 2024-08-02 11:00 | XMS_ITS | Encounter Summary ---
Author Organization [employer] Address [address] [place] [address] 7t [place] [address] Care Team Providers Care Senior Military Analyst Name Role Phone Janet Thompson MD Primary Care Pro vider Reason for Visit * Reason Comments Med Refill Encounter Details Date Type Department Care Team ([facility] st Contact Info) Description 01/29/2023 Refill [facility] MEDICINE [address] [place] [address] Erin Aviles FNP [address] [place] [address] Dept [place] [address] 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) Social History Tobacco Use Types Packs/Day Years Used Date Smoking Tobacco: Former Cigarettes 0.5 44 1 976 - 2020 Smokeless Tobacco: Never Alcohol Use Standard Drinks/Week [...] 2:00 PM EDT Office Visit [facility] MEDICINE [address] [place] [address] Janet Thompson MD [address] [place] [address] 10/13/2024 2:00 PM EDT Office Visit [facility] OPTOMETRY [address] [place] [address] Diego, Sara, OD [address] [place] [address] documented as of this encounter Visit Diagnoses Diagnosis 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) documented in this encounter Additional Health Concerns Assessment Noted Time PHQ-9 Depression Total Score: 5 05/12/19 23 11:52 AM EST documented as of this encounter Care Teams Senior Military Analyst Relationship Specialty Start Date End Date Janet Thompson MD [address] [place] [address] PCP - General Internal Medicine 09/09/22 documented as of this encounter
--- OUTSIDE RECORDS SUMMARY | 2024-08-02 11:01 | XMS_ITS | Encounter Summary ---
Author Organization [employer] Address [address] [place] [address] 7 [place] [address] Care Team Providers Care As400 Operator Name Role Phone Janet Thompson MD Primary Care Pro vider Reason for Referral * Imaging (Routine) - Authorized Specialty Diagnoses / Procedures Referred By Ayan t Referred To Contact Radiology Diagnoses Osteoporosis without current pathological fracture, unspecified osteoporosis type Procedures BD DEXA Axial Janet Thompson MD [address] [place] [address] Phone: tel: fax: [address] Phone: tel: fax: Referral ID Status Reason Start Date Expiration Date V isits Requested Visits Authorized [id number] Authorized 07/28/2024 07/28/2025 1 1 * Imaging (Routine) - Authorized Specialty Diagnoses / Procedures Referred By Contac t Referred To Contact Cardiology Diagnoses Screening for AAA (aortic abdominal aneurysm) History of tobacco use Procedures Vascular US abdominal aorta anuerysm AAA screening Janet Thompson MD [address] [place] [address] Phone: tel: fax: [address] Phone: tel: fax: Referral ID Status Reason Start Date Expiration Date Visits Requested Visits Authorized [id number] Authorized Perform Procedure 07/28/2024 07/28/2025 1 1 Encounter Details Date Type Department Care Team (Late st Contact Info) Description 07/28/2024 1:15 PM EDT Office Visit [facility] [address] [place] [address] Janet Thompson MD [address] [place], [place] [phone] Screening for AAA (aortic abdominal aneurysm) (Primary Dx); Dietary counseling; Exercise counseling; History of tobacco use; Chronic pain of left knee; Primary insomnia; Osteoporosis without current pathological fracture, unspecified osteoporosis type; Annual physical exam; Encounter for immunization; Essential hypertension; Mixed hyperlipidemia; Health care maintenance Social History Tobacco Use Types Packs/Day Years Used Date Smoking Tobacco: Former Cigarettes 0.5 44 1 6 - 2019 Smokeless Tobacco: Never Comments:Used to smoke tobac co at 14 y of age until 3 y ago,at 60 y of age ,used to smoke 5 to 6 cig a day for 46 years . PQT a year 13.8 -no need for lung ca screening Alcohol Use Standard Drinks/Week Comments Not Currently 0 (1 standard drink = 0.6 oz pur e alcohol) Quit 20 years ago Depression Answer Date Recorded Patient Health Questionnaire-9 Score 0 07/28/2024 Patient Health Questionnaire-9 Score 0 07/28/2024 Last PHQ-9: Questionnaire Data Not on file 0 07/28/2024 Housing Stability Answer Date Recorded What is your housing situation today? I have dustin molina 07/28/[address] you li ve. Do you have problems with any of the following? None of the above 07/28/2024 Food Insecurity Answer Date Recorded Within the past 12 months, y ou worried that your food would run out before you got money to buy more: Never True 07/28/2024 Within the past 12 months,th e food you bought just didn't last and you didn't have enough money to get more: Never True Transportation Answer Date Recorded In the past 12 months, has l ack of transportation kept you from medical appts, meetings, work or from getting things needed for daily living? No 07/28/2024 Utilities Answer Date Recorded In the past 12 months, has t he electric, gas, oil or water company threatened to shut off services in your home? No 07/28/2024 Depression Answer Date Recorded Patient Health Questionnaire-2 Score 0 07/28/2024 Internet Access Answer Date Recorded Internet Access Q1 Yes 07/28/2024 Internet Access Q2 Not on file 07/28/2024 Sex and Gender Information Value Date Recorded Sex Assigned at Male 01/12/2022 10:19 AM EDT Legal Sex Male 10:19 AM EDT Gender Identity Male 01/12/2022 10:19 AM EDT Sexual Orientation Straight 01/12/2022 10 :19 AM EDT documented as of this encounter Last Filed Vital Signs Vital Sign Reading Time Taken Comments Blood Pressure 115/73 07/28/2024 1:11 PM EDT Pulse 82 07/28/2024 1:11 PM EDT Temperature 36.7 ??C (98 ??F) 07/28/2024 1:11 PM EDT Respiratory Rate 20 07/28/2024 1:11 PM EDT Oxygen Saturation 97% 07/28/2024 1:11 PM EDT Inhaled Oxygen Concentration - - Weight 71.4 kg (157 lb 6.4 oz) 07/28/2024 1:11 P M EDT Height 162.6 cm (5' 4 ) 07/28/2024 1:11 PM EDT Body Mass Index 27.02 07/28/2024 1:11 PM EDT documented in this encounter Functional Status * Over the past 2 weeks, how often have you been bothered by any of the following problems? Question Answer Date of Assessment Author Patient Health Questionnaire -2 Score 0 07/28/2024 1:10 PM EDT Danyelle Garza MA * Little interest or pleasure in doing things Answer Date of Assessment Author Not at all 07/28/2024 1:10 PM EDT Brenda Garza MA * Feeling down, depressed, or hopeless Answer Date of Assessment Author Not at all 07/28/2024 1:10 PM EDT Brenda Garza MA * Trouble falling or staying asleep, or sleeping too much Answer Date of Assessment Author Not at all 07/28/2024 1:10 PM EDT Brenda Garza MA * Feeling tired or having little energy Answer Date of Assessment Author Not at all 07/28/2024 1:10 PM EDT Brenda Garza MA * Poor appetite or overeating Answer Date of Assessment Author Not at all 07/28/2024 1:10 PM EDT Brenda Garza MA * Feeling bad about yourself - or that you are a failure or have let yourself or your family down Answer Date of Assessment Author Not at all 07/28/2024 1:10 PM EDT Brenda Garza MA * Trouble concentrating on things, such as reading the newspaper or watching television Answer Date of Assessment Author Not at all 07/28/2024 1:10 PM EDT Brenda Garza MA * Moving or speaking so slowly that other people could have noticed? Or the opposite - being so fidgety or restless that you have been moving around a lot more than usual. Answer Date of Assessment Author Not at all 07/28/2024 1:10 PM EDT Brenda Garza MA * Thoughts that you would be better off or hurting yourself in some way Answer Date of Assessment Author Not at all 07/28/2024 1:10 PM EDT Brenda Garza MA * Patient Health Questionnaire-9 Score Answer Date of Assessment Author 0 07/28/2024 1:10 PM EDT Brenda Garza MA * Over the last 2 weeks, how often have you been bothered by any of the following problems? Question Answer Date of Assessment Author Feeling nervous, anxious, or on edge 0 07/28/2024 1:10 PM EDT Danyelle Garza MA Not being able to stop or co ntrol worrying 0 07/28/2024 1:10 PM EDT Danyelle Garza MA Worrying too much about diff erent things 0 07/28/2024 1:10 PM EDT Danyelle Garza MA Trouble relaxing 0 07/28/2024 1:10 PM EDT Danyelle Sorto MA Being so restless that it is hard to sit still 0 07/28/2024 1:10 PM EDT Danyelle Garza MA Becoming easily annoyed or irritable 0 07/28/2024 1:10 PM EDT Danyelle Garza MA Feeling afraid as if somethi ng awful might happen 0 07/28/2024 1:10 PM EDT Daynelle Garza MA GERI-7 Total Score 0 07/28/2024 1:10 PM EDT Danyelle Garza MA documented as of this encounter Progress Notes * Janet Pierre MD - 07/28/2024 1:15 PM EDT Subjective Patient ID: Leatha Olivas is a 63 y.o. male who presents for annual exam HPI 63 y o M w PMX of Stroke,chronic insomnia,HTN,Osteoporosis,anxiety,hx of tobacco smoking, hx of microscopic hematuria Comes for annual exam -reports Left knee pain for 5 months ,sometimes hot sensation, no swelling , had surgery more than a year ago , sometimes feeling throbbing sensation, no takes any med for it ,[facility] ----- Assessment and Plan: Health care maintenance -Annual exam done 07/2024 -colonoscopy in 2020 polyps x2 ,internal hemorrhoids -to repeat in 5 y per pt --path report : tubular adenoma x2 -PSA 08/2023 wnl -vaccine : Flu vaccine 02/2024 ,COVID 19 ,including last booster in 03/2024 , RSV vaccine 03/2023 ,Tdap 2016 ,Shingrix x2 , P20 today -hep B not immune vaccine - s/P 1 Dose -refuse further series ------- -Obtained BRCA neg test 06/2023 result from consult note Chronic insomnia Pt reports ongoing insomnia despite taking ambien and quetiapine ,stop both meds today -start Daridorexant 25mg daily within 30 minutes of bedtime ,Can not use doxepin because of glaucoma suscpect No med interactions found , can increase dose to 50 mg at next apt if needed -Rec BH to eval for insomnia for CBT but refuse ,denies depression and anxiey -Sleep hygiene,avoid te,coffee at night Stroke Pt w hx of stroke w no residual findings -continue on plavix for ASA allergy -continue atorvastatin 80 mg daily HTN BP controlled -hospital medical assistant to f in 10/13/2024,seen last 05/2024 Glaucoma suspect of both eyes -microalb 08/2023 Neg -continue lisinopril 10 mg daily -will do EKG at next pt for baseline PreDM -hb1AC 08/2023 5.9<---5.7,LDL 66 -repeat lipids,chem Osteoporosis -DEXA scan 03/23/2019: T-score value of -2.6 in the femoral neck. Diagnosed osteoporosis -DEXA scan 06/11/22 showed Osteopenia based on the lowest T-score value of -2.4 in the femoral neck = improvement in bone density -vit D 08/2023 41.3 -on alendronate since 2019- states took med until 2023 -so completed for aprox 4 years ,pt decided to stop -takes ca BID + vit D daily -referred for new DEXA scan today -order testosterone today if abn will repeat to r/o cause of osteoporosis ,possible from tobacco use hx Hx of tobacco smoking -not active Used to smoke tobacco at 14 y of age until 2 y ago,at 60 y of age ,used to smoke 5 to 6 cig a day for 46 years . PQT a year 13.8 -no need for lung ca screening -AAA abd US screening --refrered today Dermatitis Reports 3-4 months noticing photosensitivity in his arms after sun exposure, associated w itching Noted some plaques Possible ezcema vs less likely psoriasis ? -sun exposure avoidance ,use long sleeves -no better trial mizing cerave w triamcinolobe BID for 10 days -refer to dermatology -seen before ,denies explained lesions --gave info to call to reschedule f up# [phone] Left knee pain -reports Left knee pain for 5 months ,sometimes hot sensation, no swelling , had surgery more than a year ago , sometimes feeling throbbing sensation, no takes any med for it ,[facility] -gave today # of [facility] # [phone] -advised to call his ortho pt will inform meif needs new referral -referred today for XR knee -tylenol PRN Seasonal allergies -Cetirizine for throat itching Anemia 08/23/2023 hb 13.8 <--13.6 ,MCV wnl, BUN 19 denies melenas nor BRPR -order FOBT again not done -check testosterone level Review of Systems Constitutional: Negative. HENT: Negative. Eyes: Negative. Respiratory: Negative. Cardiovascular: Negative. Gastrointestinal: Negative. Genitourinary: Negative. Musculoskeletal: Negative. Neurological: Negative. Psychiatric/Behavioral: Positive for sleep disturbance. Objective BP 115/73 (BP Location: Left arm, Patient Position: Sitting, BP Cuff Size: Adult) Pulse 82 Temp98 ??F (36.7 ??C) (Temporal) Resp 20 Ht 5' 4 (1.626 m) Wt 157 lb 6.4 oz (71.4 kg) SpO2 97% BMI 27.02 kg/m?? Physical Exam Constitutional: Appearance: Normal appearance. He is obese. HENT: Head: Normocephalic and atraumatic. Right Ear: Tympanic membrane and ear canal normal. Left Ear: Tympanic membrane and ear canal normal. Mouth/Throat: Pharynx: Oropharynx is clear. Eyes: Extraocular Movements: Extraocular movements intact. Pupils: Pupils are equal, round, and reactive to light. Cardiovascular: Rate and Rhythm: Normal rate and regular rhythm. Heart sounds: No murmur heard. Pulmonary: Effort: Pulmonary effort is normal. Breath sounds: Normal breath sounds. Abdominal: Palpations: Abdomen is soft. Musculoskeletal: General: Normal range of motion. Cervical back: Normal range of motion and neck supple. Skin: General: Skin is warm. Findings: Lesion (chronic skin hyperpigmented lesions in arms -dorsum) present. Neurological: General: No focal deficit present. Mental Status: He is alert and oriented to person, place, and time. Psychiatric: Mood and Affect: Mood normal. Behavior: Behavior normal. Assessment/Plan Problem List Items Addressed This Visit Essential hypertension Hyperlipidemia Osteoporosis Relevant Orders BD DEXA Axial Testosterone, Free (Dialysis) And Total, MS Insomnia Relevant Medications Daridorexant HCl 25 MG tablet Left knee pain Relevant Orders XR Knee 3 Views Left Health care maintenance History of tobacco use Relevant Orders Vascular US abdominal aorta anuerysm AAA screening Other Visit Diagnoses Screening for AAA (aortic abdominal aneurysm) - Primary Relevant Orders Vascular US abdominal aorta anuerysm AAA screening Dietary counseling Exercise counseling Annual physical exam Relevant Orders Albumin, Random Urine W/Creatinine CBC Chlamydia/N. Gonorrhoeae RNA, TMA, Urogenitial Comprehensive Metabolic Panel Hemoglobin A1c Hepatitis B surface antigen, EIA Hepatitis C Antibody with Reflex to HCV, RNA, Quantitative, Real-Time PCR HIV-1/2 Antigen and Antibodies, Fourth Generation, with Reflexes Lipid Panel, Standard Syphilis Screen Vitamin B12 (Cobalamin) and Folate Panel, Serum TSH with Reflex to Free T4 Vitamin D, 25-Hydroxy, Total, Immunoassay Iron And Total Iron Binding Capacity Ferritin PSA,Total Encounter for immunization Relevant Orders PCV-20 VACCINE 6 wks + (Completed) documented in this encounter Plan of Treatment Upcoming Encounters Date Type Department Care Team (Late st Contact Info) Description 09/27/2024 2:00 PM EDT Office Visit [facility] [address] [place] [address] Janet Thompson MD [address] [place] [address] 10/13/2024 2:00 PM EDT Office Visit [facility] [address] [place] [address] Sara Cortez, OD [address] [place] [address] Scheduled Orders Name Type Priority Associated Diagnoses Orde r Schedule BD DEXA Axial Imaging Routine Osteoporosis without current pathological fracture, unspecified osteoporosis type Expected: 07/28/2024, Expires: 07/28/2025 Albumin, Random Urine W/Creatinine Lab Routine Annual physical exam Expected: 07/28/2024 (Approximate), Expires: 07/28/2025 CBC Lab Routine Annual physical exam Expected: 07/28/2024 (Approximate), Expires: 07/28/2025 Chlamydia/N. Gonorrhoeae RNA, TMA, Urogenitial Microbiology Routine Annual physical exam Expected: 07/28/2024 (Approximate), Expires: 07/28/2025 Comprehensive Metabolic Panel Lab Routine Annual physical exam Expected: 07/28/2024 (Approximate), Expires: 07/28/2025 Hemoglobin A1c Lab Routine Annual physical exam Expected: 07/28/2024 (Approximate), Expires: 07/28/2025 Hepatitis B surface antigen, EIA Lab Routine Annual physical exam Expected: 07/28/2024 (Approximate), Expires: 07/28/2025 Hepatitis C Antibody with Reflex to HCV, RNA, Quantitative, Real-Time PCR Lab Routine Annual physical exam Expected: 07/28/2024 (Approximate), Expires: 07/28/2025 HIV-1/2 Antigen and Antibodies, Fourth Generation, with Reflexes Lab Routine Annual physical exam Expected: 07/28/2024 (Approximate), Expires: 07/28/2025 Lipid Panel, Standard Lab Routine Annual physical exam Expected: 07/28/2024 (Approximate), Expires: 07/28/2025 Syphilis Screen Lab Routine Annual physical exam Expected: 07/28/2024 (Approximate), Expires: 07/28/2025 Vitamin B12 (Cobalamin) and Folate Panel, Serum Lab Routine Annual physical exam Expected: 07/28/2024 (Approximate), Expires: 07/28/2025 TSH with Reflex to Free T4 Lab Routine Annual physical exam Expected: 07/28/2024 (Approximate), Expires: 07/28/2025 Vitamin D, 25-Hydroxy, Total, Immunoassay Lab Routine Annual physical exam Expected: 07/28/2024 (Approximate), Expires: 07/28/2025 Iron And Total Iron Binding Capacity Lab Routine Annual physical exam Expected: 07/28/2024 (Approximate), Expires: 07/28/2025 Ferritin Lab Routine Annual physical exam Expected: 07/28/2024 (Approximate), Expires: 07/28/2025 PSA,Total Lab Routine Annual physical exam Expected: 07/28/2024, Expires: 07/28/2025 Testosterone, Free (Dialysis) And Total, MS Lab Routine Osteoporosis without current pathological fracture, unspecified osteoporosis type Expected: 07/30/2024 (Approximate), Expires: 07/30/2025 documented as of this encounter Procedures Procedure Name Priority Date/Time Associated Diagnosis Comments XR KNEE 3 VIEWS LEFT Routine 08/02/2024 9:43 AM EDT Chronic pain of left knee documented in this encounter Results * XR Knee 3 Views Left (08/02/2024 9:43 AM EDT) Anatomical Region Laterality Modality Lower Extremities, Knee Left Radiogra phic Imaging 08/02/2024 9:43 AM EDT Narrative 08/02/2024 10:04 AM EDT ?[facility] ?[address] ?[place] [address] ?XRay Report ? Signed ? Patient: Brendon,Leatha ?MR#: [id number] ? : 1960 ?Acct:[id number] ? Age/Sex: 63 / M ?ADM Date: 08/02/24 ? Loc: HO.HHCX ? Attending Dr: Janet Pierre MD ? Ordering Physician: Janet Thompson MD ?? Date of Service: 08/02/24 ?? Procedure(s): XR knee LT 3V ?? Accession Number(s): [id number] ? cc: Janet Thompson MD ? EXAMINATION: ??XR KNEE 3 VIEWS LEFT ? HISTORY: pt with left knee pain in last 6 months with ongoing pain, had ?? surgery of knee ? COMPARISON: Comparison is made with the prior examination dated ?? 09/21/2022. ? FINDINGS: ? Three views of the left knee are submitted. ??Osseous mineralization is ?? normal. ??There is no fracture or dislocation. ??The joint spaces are ?? preserved. ??There is calcification of the popliteal artery. There is no ?? joint effusion. ? XR/XR knee LT 3V ?? IMPRESSION: ? Unremarkable examination of the left knee. ? Electronically signed by: ??Viktor Cody MD ??08/02/2024 10:02 AM EDT ?? RP ? Dictated By: ?Viktor Cody MD ? Signed By: ?<Electronically signed by Viktor Cody MD in OV> ?08/02/24 1002 ? DD/ 0943 ? TD/TT: 08/02/24 0956 ? [employer] Assistant: ? Procedure Note Stephen Rodriguez - 08/02/[address] [address] XRay Report Signed Patient: Flaco Olivas#: [id number] : 9Acct:[id number] Age/Sex: 63 / MADM Date: 08/02/24 Loc: HO.HHCX Attending Dr: Janet Pierre MD Ordering Physician: Janet Thompson MD Date of Service: 08/02/24 Procedure(s): XR knee LT 3V Accession Number(s): [id number] cc: Janet Thompson MD EXAMINATION: XR KNEE 3 VIEWS LEFT HISTORY: pt with left knee pain in last 6 months with ongoing pain, had surgery of knee COMPARISON: Comparison is made with the prior examination dated 09/21/2022. FINDINGS: Three views of the left knee are submitted. Osseous mineralization is normal. There is no fracture or dislocation. The joint spaces are preserved. There is calcification of the popliteal artery. There is no joint effusion. XR/XR knee LT 3V IMPRESSION: Unremarkable examination of the left knee. Electronically signed by: Viktor Cody MD 08/02/2024 10:02 AM EDT Dictated By: Viktor Cody MD Signed By: <Electronically signed by Viktor Cody MD in OV> 08/02/24 1002 DD/ 0943 TD/TT: 08/02/24 0956 [employer] Assistant: Janet Pierre MD IMG XR PROCEDURES Final Result documented in this encounter Visit Diagnoses Diagnosis Screening for AAA (aortic abdominal aneurysm)- Primary Screening for other and unspecified cardiovascular conditions Dietary counseling Dietary surveillance and counseling Exercise counseling History of tobacco use Personal history of tobacco use, presenting hazards to health Chronic pain of left knee Primary insomnia Persistent disorder of initiating or maintaining sleep Osteoporosis without current pathological fracture, unspecified osteoporosis type Annual physical exam Routine general medical examination at a health care facility Encounter for immunization Essential hypertension Unspecified essential hypertension Mixed hyperlipidemia Health care maintenance documented in this encounter Additional Health Concerns Assessment Noted Time PHQ-9 Depression Total Score: 0 07/29/19 1:10 PM EDT documented as of this encounter Care Teams As400 Operator Relationship Specialty Start Date End Date Janet Thompson MD [address] [place] [address] [place] [address] PCP - General Internal Medicine 09/09/22 documented as of this encounter
--- OUTSIDE RECORDS SUMMARY | 2024-08-02 11:01 | XMS_ITS | Encounter Summary ---
Author Organization [employer] Address [address] [place] [address] Care Team Providers Care Vegetable Grader Name Role Phone Janet Thompson MD Primary Care Pro vider Encounter Details Date Type Department Care Team (Latest Contact Info) Description 07/28/2024 Travel Social History Tobacco Use Types Packs/Day Years [...] AM EDT documented as of this encounter Functional Status * Over the [...] Author Not at all 07/28/2024 1:10 PM AAYUSHT Brenda Garza MA * Trouble falling or staying asleep, or sleeping too much Answer Date of Assessment Author Not at all 07/28/2024 1:10 PM AAYUSHT Brenda Garza MA * Feeling tired or having little energy Answer Date of Assessment Author Not at all 07/28/2024 1:10 PM AAYUSHT Brenda Garza MA * Poor appetite or overeating Answer Date of Assessment Author Not at all 07/28/2024 1:10 PM AAYUSHT Brenda Garza MA * Feeling bad about yourself - or that you are a failure or have let yourself or your family down Answer Date of Assessment Author Not at all 07/28/2024 1:10 PM AAYUSHT Brenda Garza MA * Trouble concentrating on [...] might happen 0 07/28/2024 1:10 PM EDT Danyelle Garza MA GERI-7 Total Score 0 07/28/2024 1:10 PM EDT Danyelle Garza MA documented as of this encounter Plan of Treatment Upcoming Encounters Date Type Department Care Team (Late st Contact Info) Description 09/27/2024 2:00 PM EDT Office Visit [facility] [address] [place], [place] [phone] Janet Thompson MD [address] [place], [place] [phone] 10/13/2024 2:00 PM EDT Office Visit [facility] [address] [place], [place] [phone] Diego, Sara, OD [address] [place], [place] [phone] documented as of this encounter Visit Diagnoses Not on filedocumented in this encounter Additional Health Concerns Assessment Noted Time PHQ-9 Depression Total Score: 0 07/29/19 25 1:10 PM EDT documented as of this encounter Care Teams Vegetable Grader Relationship Specialty Start Date End Date Janet Thompson MD [address] [place], [place] [phone] PCP - General Internal Medicine 09/09/22 documented as of this encounter
--- OUTSIDE RECORDS SUMMARY | 2024-08-02 11:01 | XMS_ITS | Clinical Summary ---
Author Organization [employer] Address [address] [facility] 7t [place] [address] Care Team Providers Care Professor Criminal Justice Name Role Phone Janet Thompson MD Primary Care Pro vider Allergies Active Allergy Reactions Criticality Noted Date Comments Aspirin Other 11/24/2023 Other Reaction(s): sardines-itchy, swelling Penicillin G 11/24/2023 Medications * This document contains information received from the source organization and may not represent a complete record from that organization. Oyster Shell Calcium 500 MG tabletIndicatio ns:Osteoporosis without current pathological fracture, unspecified osteoporosis type Take 1 tablet by mouth 2 times daily. 180 tablet 1 04/29/19 24 Active ceramides (CeraVe) moisturizing cream Apply 1 Application. topically if needed for dry skin. 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 90 tablet 07/29/19 25 Active triamcinolone (Kenalog) 0.1 % ointment Apply topically 2 times daily. 15 g 1 07/29/19 25 Active alendronate (Fosamax) 70 MG tabletIndicatio ns:Osteoporosis without current pathological fracture, unspecified osteoporosis type Take 1 tablet (70 mg) by mouth every 7 (seven) days. Take 1 tablet by mouth every week in the morning, at least 30 minutes before first food, drink, med 12 tablet 3 05/13/19 24 025 Discontinued(Ot her) triamcinolone (Kenalog) 0.1 % ointment Apply topically 2 times daily. 15 g 1 08/26/19 24 025 Discontinued(Ot her) zolpidem (Ambien) 5 MG tablet TAKE 1 TABLET BY MOUTH AT BEDTIME IF NEEDED FOR SLEEP 28 tablet 05/16/19 25 025 Discontinued(Re order (will not trigger notification to Pharmacy)) QUEtiapine (SEROquel) 50 MG tabletIndicatio ns:Primary insomnia TAKE 1 TABLET BY MOUTH AT BEDTIME 90 tablet 1 05/23/19 25 025 Discontinued(Ot her) zolpidem (Ambien) 5 MG tablet TAKE 1 TABLET BY MOUTH AT BEDTIME IF NEEDED FOR SLEEP 28 tablet 06/13/19 25 025 Discontinued(Ot her) cetirizine (ZyrTEC) 10 MG tablet TAKE 1 TABLET BY MOUTH EVERY MORNING 90 tablet 06/23/19 25 025 Discontinued(Re order (will not trigger notification to Pharmacy)) zolpidem (Ambien) 5 MG tablet TAKE 1 TABLET BY MOUTH AT BEDTIME IF NEEDED FOR SLEEP 28 tablet 07/11/19 25 025 Discontinued(Ot her) Active Problems Problem Noted Date Diagnosed Date History of tobacco use 07/01/2023 Health care maintenance 04/15/2023 Left knee pain 09/09/2022 Overview (09/09/2022): bilateral knee joint pain chronic < 1 year. No imaging Associated swelling Treating w/ Voltaren gel Assessment & Plan (09/09/2022 10:14 PM EDT): No xray results from 06/09/22 Will order bilateral xray again Refer Ortho Will task MA to contact pt and f/u PT referral Followup 2 months w/ new PCP Adjustment disorder, unspecified 06/09/2022 Insomnia 06/09/2022 CVA (cerebrovascular accident) 05/12/2022 Overview (09/09/2022): Continue Clopidogrel as prescribed. Forgetfulness/memory loss may be related to CVA. Improving. Neurology is monitoring Right sided Upper extremity weakness has improved Assessment & Plan (09/09/2022 10:12 PM EDT): Followup w/ Neurology PRN Locate most recent neuro notes Followup w/ new PCP Osteoporosis 03/19/2022 Overview (09/09/2022): Initial BMD 03/23/2019 showed lowest T-score value of -2.6 in the femoral neck. Diagnosed osteoporosis and started Fosamax Repeat BMD 06/11/22 showed Osteopenia based on the lowest T-score value of -2.4 in the femoral neck = improvement in bone density Per up to date recommended to Continue Fosamax 1 tablet weekly dosing for 5 years before taking drug holiday. If BMD repeat in 2024 is stable or improved again; Hold medication and continue BMD every 2 years monitoring or onset of new fragility fracture Assessment & Plan (09/09/2022 10:12 PM EDT): Refill Calcium Followup w/ new PCP Erectile dysfunction 08/03/2018 Essential hypertension 08/03/2018 Hyperlipidemia 08/03/2018 Multiple joint pain 08/03/2018 Seasonal allergies 08/03/2018 Resolved Problems Problem Noted Date Diagnosed Date Resolved Date Microscopic hematuria 08/03/20182023 Encounters Date Type Department Care Team Description 07/28/2024 1:15 PM EDT Office Visit [facility] [address] [place] [phone] Janet Thompson MD Screening for AAA (aortic abdominal aneurysm) (Primary Dx); Dietary counseling; Exercise counseling; History of tobacco use; Chronic pain of left knee; Primary insomnia; Osteoporosis without current pathological fracture, unspecified osteoporosis type; Annual physical exam; Encounter for immunization; Essential hypertension; Mixed hyperlipidemia; Health care maintenance 07/28/2024 Travel 07/27/2024 Telephone [facility] [address] [place] [address] Janet Thompson MD CHART PREP 07/10/2024 Refill [facility] [address] [place] [address] Janet Thompson MD 06/24/2024 Refill [facility] [address] [place] [address] Janet Thompson MD Essential hypertension 06/22/2024 Refill [facility] [address] [place] [address] Janet Thompson MD 06/12/2024 Refill [facility] [address] [place] [address] Janet Thompson MD 05/29/2024 Refill [facility] [address] [place] [address] Janet Thompson MD Cerebrovascular accident (CVA) due to thrombosis of precerebral artery ([facility]/HCC) 05/22/2024 Refill [facility] [address] [place] [address] Janet Thompson MD Primary insomnia; 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) 05/17/2024 Telephone [facility] [address] [place] [address] Janet Thompson MD May recall 05/12/2024 3:30 PM EST Office Visit [facility] OPTOMETRY [address] [place] [address] Sara Cortez, OD Glaucoma suspect of both eyes (Primary Dx) 05/12/2024 Refill [facility] [address] [place] [address] Janet Thompson MD 05/12/2024 Travel from Last 3 Months Immunizations Immunization Administration Dates Next Due Hep B, adult 08/27/2023 Influenza injectable quadriv alent preservative free 02/17/2023,11/28/2021,12/03/2020,2019 Influenza, High Dose Seasona l, Preservative Free 03/01/2024 Pfizer Covid-19 Vaccine 12+ 03/23/2024,0 04/14/2023,12/17/2020,2020,06/20/2020 Pfizer Covid-19 Vaccine 12+ Bivalent 02/09/2022 Pneumococcal Conjugate PCV 20 07/28/2024 RSV Bivalent 03/31/2023 Tdap 03/04/2017 Zoster, Recombinant 11/28/2021,06/05/2021 Family History Medical History Relation Name Comments Prostate cancer Father Diabetes Father's Brother Prostate cancer Father's Brother Blindness Paternal Grandfather Glaucoma Paternal Grandfather Relation Name Status Comments Father Father's Brother Paternal Grandfather Social History Tobacco Use Types Packs/Day Years [...] Orientation Straight 01/12/2022 10 :19 AM EDT Last Filed Vital Signs Vital Sign Reading [...] Mass Index 27.02 07/28/2024 1:11 PM EDT Plan of Treatment Upcoming Encounters Date Type Department Care Team (Late st Contact Info) Description 09/27/2024 2:00 PM EDT Office Visit [facility] [address] [place], [place] [phone] Janet Thompson MD [address] [place], [place] [phone] 10/13/2024 2:00 PM EDT Office Visit [facility] OPTOMETRY [address] [place] [address] [phone] Sara Cortez OD [address] [place] [address] Health Maintenance Due Date Last Done Comments CT Colonography 1960 FIT DNA/Cologuard 1960 FIT 1960 FOBT 1960 Sigmoidoscopy 1960 Lung Cancer Screening 2008 Hepatitis B Vaccines (2 of 3 - 19+ 3-dose series) 09/24/2023 08/27/2023 Diabetes: Hemoglobin A1C 08/22/2024 024, 12/12/2020, 04/05/2020 COVID-19 Vaccine ( season) 2024 03/23/2024, 04/14/2023, 02/09/2022, Additional history exists Alcohol/Substance Use Screening 07/28/2025 07/28/2024 Depression Screening 07/28/2025 07/28/2024, 07/29/19 25 SDOH Screening 07/28/2025 07/28/2024 Tobacco Screening 07/28/2025 07/28/2024 Colonoscopy 08/02/2025 Colorectal Cancer Screening 08/02/2025 DTaP/Tdap/Td Vaccines (2 - Td or Tdap) 03/04/2027 03/04/2017 Lipid Panel 08/22/2028 08/23/2023, 09/12, 12/12/2020, Additional history exists Zoster Vaccines Completed 11/28/2021, 06/05/2021 RSV Patients and Patients Aged 60 years or older Completed 03/31/2023 Hepatitis C Screening Completed 08/23/2023 Influenza Vaccine Completed 03/01/2024, , 11/28/2021, Additional history exists Pneumococcal Vaccine: 50+ Years Completed 07/28/2024 HIB Vaccines Aged Out No longer eligi ble based on patient's age to complete this topic HPV Vaccines Aged Out No longer eligi ble based on patient's age to complete this topic Hepatitis A Vaccines Aged Out No long er eligible based on patient's age to complete this topic IPV Vaccines Aged Out No longer eligi ble based on patient's age to complete this topic Meningococcal B Vaccine Aged Out No l onger eligible based on patient's age to complete this topic Meningococcal Vaccine Aged Out No shiela dayo eligible based on patient's age to complete this topic RSV under 20 months Aged Out No longe r eligible based on patient's age to complete this topic Rotavirus Vaccines Aged Out No longer eligible based on patient's age to complete this topic Procedures Procedure Name Priority Date/Time Associated Diagnosis Comments XR KNEE 3 VIEWS LEFT Routine 08/02/2024 9:43 AM EDT Chronic pain of left knee AUTOMATED VISUAL FIELD, EXTENDED - OU - BOTH EYES Routine 05/12/2024 3:30 PM EST Glaucoma suspect of both eyes HEPATITIS C AB W/REFL TO HCV RNA, QN, PCR Routine 08/23/2023 8:21 AM EDT Annual physical exam HEMOGLOBIN A1C Routine 08/23/2023 8:21 AM EDT Annual physical exam LIPID PANEL, STANDARD Routine 08/23/2023 8:21 AM EDT Annual physical exam from Last 3 Months or Most Recently Relevant to Health Maintenance Results * XR Knee 3 Views Left (08/02/2024 9:43 AM EDT) Anatomical Region Laterality Modality Lower Extremities, Knee Left [facility] 08/02/2024 9:43 AM EDT Narrative 08/02/2024 10:04 AM EDT ?[facility] ?[address] ?[place] [address] ?XRay Report ? Signed ? Patient: Brendon,Chidiut ?MR#: [id number] ? : 1960 ?Acct:[id number] ? Age/Sex: 63 / M ?ADM Date: 05/21/25 ? Loc: HO.HHCX ? Attending Dr: Janet Pierre MD ? Ordering Physician: Janet Thompson MD ?? Date of Service: 08/02/24 ?? Procedure(s): XR knee LT 3V ?? Accession Number(s): [id number] ? cc: Janet Thompson MD ? EXAMINATION: [...] ??Viktor Cody MD ??08/02/2024 10:02 AM EDT ? Dictated By: ?Viktor Cody MD ? Signed By: ?<Electronically signed by Viktor Cody MD in OV> ?08/02/24 1002 ? DD/ 0943 ? TD/TT: 08/02/24 0956 ? Program Supervisor: ? Procedure Note Michael, Image - 08/02/[address] [address] XRay Report Signed Patient: Flaco Olivas#: [id number] : 9Acct:[id number] Age/Sex: 63 / MADM Date: 08/02/24 Loc: HO.HHCX Attending Dr: Janet Pierre MD Ordering Physician: Janet Thompson MD Date of Service: 08/02/24 Procedure(s): XR knee LT 3V Accession Number(s): [id number] cc: Janet Thompson MD EXAMINATION: XR KNEE [...] Viktor Cody MD 08/02/2024 10:02 AM EDT RP Dictated By: Viktor Cody MD Signed By: <Electronically signed by Viktor Cody MD in OV> 08/02/24 1002 DD/ 0943 TD/TT: 08/02/24 0956 Program Supervisor: Janet Pierre MD IMG XR PROCEDURES Final Result * Automated Visual Field, Extended - OU - Both Eyes (05/12/2024 3:30 PM EST) Sara Matthews, OD - 05/15/2024 12:40 PM EST VISUAL FIELD INTERPRETATION Visual Field Interpretation Test Details: Reliability Indices: False positive errors OD: 0/7 OS: 0/7 False negative errors OD: 0/7 OS: 1/8 Statistical Indices: MS [src]: OD: 20.0 OS: 20.7 MD [< 2.0 src]: OD: 1.5 OS: 0.7 sLV [< 2.5 src]: OD: 1.9 OS: 1.4 Impression: Reason for testing: Glaucoma suspect secondary to large optic nerve cupping in both eyes, a family history of Glaucoma, and elevated intraocular pressures in both eyes. Poor visual field results on 04/14/2024 testing. Test Reliability: Good reliability. Low false negatives/positives. Impression: Right eye (OD): Unremarkable, no glaucomatous field defects Left eye (OS): Unremarkable, no glaucomatous field defects Progression: Much improved to 04/14/2024 testing. Stable to 06/2022 visual field tests. Management Plan: No suspicion for glaucoma at this time. Will have him return in 6 months for a complete eye exam. us Sara Cortez OD OPHTH VISUAL FIELD Final Resu lt * Hepatitis C Antibody with Reflex to HCV, RNA, Quantitative, Real-Time PCR (08/23/2023 8:21 AM EDT) Hepatitis C Antibody Nonreactive Nonreactive [facility] Comment:Antibodies to HCV no t detected; does not exclude early acuteHCV infection. Blood Venous blood specimen / Unknown 08/23/2023 8:21 AM EDT 08/23/2023 11:44 AM EDT us Janet Pierre MD LAB BLOOD ORDERAB LES Final Result Performing Organization Address [facility] Co de Phone Number [facility] [address] [place] [phone] * Hemoglobin A1c (08/23/2023 8:21 AM EDT) Hemoglobin A1c 5.9 <6.0 % [facility] Comment:Hemoglobin A1C Refer ence Range Adults: 4.8 - 6.0 % Non diabetic: < 6.0 % Goal: < 7.0 %Additional Action Suggested: > 8.0 %Note: Hemoglobin A1c results are invalid for patients with abnormal amounts of HbF. Blood transfusions may impact the HbA1c concentration in the patient sample. Estimated Average Glucose 123 mg/dL [facility] Comment:eAG = Estimated ave rage glucose which is %A1C expressed asaverage glucose, using the formula of the U0C-MtrdcmjVgnfnnd Glucose study (ADAG), Diabetes Care, Vol.31,#8,2007 Blood Venous blood specimen / Unknown 08/23/2023 8:21 AM EDT 08/23/2023 11:41 AM EDT us Janet Pierre MD LAB BLOOD ORDERAB LES Final Result Performing Organization Address City/[facility] Co de Phone Number [facility] [address] [place] [phone] * (ABNORMAL) Lipid Panel, Standard (08/23/2023 8:21 AM EDT) Triglycerides 117 <150 mg/dL [facility] Comment:Desirable Triglyceri de: less than 150 mg/dLBorderline High Triglyceride 150-199 mg/dLHigh Triglyceride: 200-499 mg/dLVery High Triglyceride: greater than or equal to 5OO mg/dL Cholesterol 119 <200 mg/dL [facility] Comment:Desirable Cholestero l: less than 200 mg/dLBorderline High Cholesterol: 200-239 mg/dLHigh Cholesterol: greater than 239 mg/dL LDL Cholesterol Calculated 66 <100 mg/dL [facility] Comment:Desirable LDL: less than 100 mg/dLNear Optimal/Above Optimal LDL: 110- 129 mg/dLBorderline High LDL: 130-159 mg/dLHigh LDL: 160-189 mg/dLVery High LDL: greater than or equal to 190 mg/dL HDL Cholesterol 30(L) >40 mg/dL [facility] Comment:Desirable HDL: great er than 40 mg/dL Note: This HDL assay may give artificially low results in patients with liver disease. Blood Venous blood specimen / Unknown 08/23/2023 8:21 AM EDT 08/23/2023 11:44 AM EDT Janet Pierre MD LAB BLOOD ORDERAB LES Final Result [facility] [address] [place] [phone] from Last 3 Months or Most Recently Relevant to Health Maintenance [place] [place] [address] STANDARD [facility] MEDICARE ADVANTAGE Care Teams Professor Criminal Justice Relationship Specialty Start Date End Date Janet Thompson MD [address] [place] [phone] PCP - General Internal Medicine 09/09/22
--- OUTSIDE RECORDS SUMMARY | 2024-08-02 11:01 | XMS_ITS | Encounter Summary ---
Author Organization [employer] Address [address] [facility] [address] [place] [address] Care Team Providers Care Pouring Crane Operator Name Role Phone Tremaine Banuelos MD Primary Care Prov ider Erin Aviles [facility] Primary Care Provider [phone] Janet Thompson MD Primary Care Pro vider Reason for Visit * Reason Onset Date Comments Other 04/02/2022 Encounter Details Date Type Department Care Team ([facility] st Contact Info) Description 04/02/2022 Telephone [facility] MED & PEDS [address] [place], [place] [phone] Tremaine Banuelos MD [address] [place] [address] Other Social History Tobacco Use Types Packs/Day Years Used Date Smoking Tobacco: Former Cigarettes Smokeless Tobacco: Never Sex and Gender Information Value Date Recorded Sex Assigned at Male 01/12/2022 10:19 AM EDT Legal Sex Male 10:19 AM EDT Gender Identity Male 01/12/2022 10:19 AM EDT Sexual Orientation Straight 01/12/2022 10 :19 AM EDT COVID-19 Exposure Response Date Recorded In the last 10 days, have yo u been in contact with someone who was confirmed or suspected to have Coronavirus/COVID-19? No / Unsure 03/20/2022 9:25 AM EST documented as of this encounter Miscellaneous Notes * Telephone Encounter - Nidhi Mir - 04/02/2022 10:44 AM EST Tc from patient calling on the status of care at [facility], due to transportation difficulties to [facility]. documented in this encounter Plan of Treatment Upcoming Encounters Date Type Department Care Team (Late st Contact Info) Description 09/27/2024 2:00 PM EDT Office Visit [facility]INE [address] [place] [phone] Janet Thompson MD [address] [place] [address] 10/13/2024 2:00 PM EDT Office Visit [facility] OPTOMETRY [address] [place], [place] [phone] Sara Cortez, OD [address] [place] [address] documented as of this encounter Visit Diagnoses Not on filedocumented in this encounter Additional Health Concerns Assessment Noted Time PHQ-9 Depression Total Score: 0 03/20/19 10:12 AM EST documented as of this encounter Care Teams Pouring Crane Operator Relationship Specialty Start Date End Date Tremaine Banuelos MD [address] [place] [address] PCP - General Internal Medicine 08/13/19 05/10/22 Erin Aviles FNP [address] [place] [address] PCP - General Family Medicine 05/11/22 09/08/22 Janet Thompson MD [address] [place] [address] PCP - General Internal Medicine 09/09/22 documented as of this encounter
== END 2024-08-02 09:43 | disposition home or self-care (01) ==
LOC: HO.HHCX 09:42
PROVIDERS: Visit Provider Student in an Organized Health Care Education/Training Program
DX: M25.562 Pain in left knee (principal); G89.29 Other chronic pain
CPT/HCPCS: 73562

== ENCOUNTER → 2024-08-02 09:43 | Outpatient (BNV) | payer MEDICARE, SELFPAY | PROVIDERS: Visit Provider Radiology Diagnostic Radiology | DX: M25.562 Pain in left knee (principal) | CPT/HCPCS: 73562 ==

== ENCOUNTER 2024-08-23 14:03 | Outpatient (AMB) | payer MEDICARE, MEDICAID, SELFPAY ==
--- NOTE | 2024-08-23 14:28 | A.OFFVIS_ITS ---
Vital Signs 08/23/24 14:32 Height 5 ft 4 in Weight 157 lb BMI 26.9 BP 124/68 Blood Pressure Location Lt brachial Position Sitting Pulse 70 Pulse Source Pulse Oximeter Pulse Oximetry (%) 96 Oxygen Delivery Method Room Air Intake Visit Reasons: ENP - Chronic Insomnia Intake Note: Patient presents IND[employer] COMM[employer]ION[employer] chronic Insomnia. Pt reports ongoing insomnia despite taking ambien and quetiapine, stop both meds today-start Daridorexant 25mg daily within 30 min of bedtime, can not use docepin because of glaucoma suspect. Patient leaving for [place] on 09/08-09/22 looking for medications that he would need. Evaluation Assistant Required: Yes Evaluation Assistant Services: Evaluation Assistant Present Evaluation Assistant Name: Mati [id number] Information Interpreted: non-clinical & clinical Accompanied by: Self / Same As Patient Allergies aspirin [ASPIRIN] Allergy (Unknown, Verified 08/23/24 14:38) RASH/SWELLING, hives Penicillins Allergy (Unknown, Verified 08/23/24 14:38) Unknown Seasonal Allergies Allergy (Unknown, Verified 08/23/24 14:38) Unknown HPI Comments Details: 63 year old prydeinig speaking male referred to us for sleep evaluation by Dr. Walters, his PCP. Evaluation Assistant on IPAD PMH 2023 Stroke he went to the [facility] ED for r. sided head /arm/ leg numbness, and speech difficulties with loss of words. He was started on a stroke protocol with statin, plavix, and lisinopril. 2021 MRI c/w small infarct parietal lobe and microvascular angiopathy. LABs pending Insomnia protocol tried Daridorexant, Benadryl, Ramelteon, Quietapine 50mg in the past and is currently taking Ambien 5mg x2. He has difficulty with sleep since 2019 as he had a work related accident and fractured his vertebrae, he can not remember the details because he lost conscious then woke up in the hospital. He goes to bed at 10pm and gets up at 4am, goes to the bathroom 2-3x and has difficulty staying asleep asleep. Denies parasomnias. He has headaches sometimes, lasting 5min and they go away on their own. BP is managed. He continues to be forgetful, forgets to take his medicine, he gets confused easily, and goes to a location and realizes he is in the wrong location, lacks attention and focus. He stopped driving because of this. RLS symptoms at night has the feeling as if he needs to move his legs all the time, with numbness, tingling, burning bilateral. He gets up and stands then stretches his legs, L>R. Mood is depressed, and feels anxious, so he tries to keep himself busy daily. [facility], [facility] Medical History Insomnia Osteoporosis Erectile dysfunction Seasonal allergies HLD (hyperlipidemia) Hypertension Hx of hematuria Multiple joint pain Surgical History Hx of colonoscopy Family History Family/Other Diabetes Social History Are you a primary resident care supervisor to a significant other at home: No Do you presently have visiting nurse or other home services: No Alcohol intake: never Patient Tobacco Use Status: Never used Tobacco Cigarette Packs Per Day: 0.5 Cigarettes Per Day: 10.0 service: No Current occupational status: disabled Physical Exam Vital Signs: Last Vital Signs Pulse 70 08/23/24 14:32 BP 124/68 08/23/24 14:32 Pulse Ox 96 08/23/24 14:32 Oxygen Delivery Method Room Air 08/23/24 14:32 BMI result Body Mass Index 26.9 Const General: cooperative, comfortable and no acute distress Nutritional Appearance: average body habitus Orientation/consciousness: patient oriented x3 HEENT Face and sinus: Yes face symmetric Teeth and gingiva: other (mallampti score is 3) Neck Neck: Yes full ROM Resp Effort & Inspection: normal respiratory effort and able to speak in complete se ntences Neuro Other: limited rom on lateral head rotation, trapezius General: patient oriented x3 and moves all extremities Cranial nerves: Yes Facial sensation intact/muscles of mastication intact, Yes Normal accommodation reflex present, Yes Normal facial strength present, Yes Midline tongue present, Yes Ability to bilaterally rotate head present and Yes Ability to bilaterally elevate shoulders present Cognition (Neuro): normal cognition Gait exam (Neuro): Normal gait present Motor exam (neuro): 5/5 motor strength present throughout, no tremor noted and Normal motor muscle tone present throughout Deep tendon reflexes (DTR's): Right triceps reflex intensity grade: 2+, Left triceps reflex intensity grade: 2+, Rt Biceps (C5, C6): 2+, Left biceps reflex intensity grade: 2+, Right brachioradialis reflex intensity grade: 2+, Left brachioradialis reflex intensity grade: 2+, Right patellar reflex intensity grade: 2+, Left patellar reflex intensity grade: 2+, Right ankle reflex intensity grade: 2+ and Left ankle reflex intensity grade: 2+ Coordination: [id number] test normal Psych Appearance: well kempt Attitude: cooperative Thought content: Normal thought content present Results Reviewed Results Reviewed: 02/2022 MRI reviewed with patient MR/MR head/brain wo con IMPRESSION: - Small acute infarct in the left parietal lobe extending into the left operculum. No mass effect and no hemorrhagic transformation. - Mild background chronic microangiopathy. Assessment & Plan Assessment & Plan (1) Excessive daytime sleepiness: Code(s): G47.19 - Other hypersomnia Category: Medical (2) Loud snoring: Code(s): R06.83 - Snoring Category: Medical (3) Bilateral headaches: Code(s): R51.9 - Headache, unspecified Category: Medical (4) RLS (restless legs syndrome): Code(s): G25.81 - Restless legs syndrome Category: Medical Plan HST to r/o anu labs r/o fatigue B12, Ferritin rls? Vit D, Homocysteine, MMA, Folate MMSE at next visit to assess forgetfulness F/u 3 months Orders: Orders RT home sleep study Today G47.19 - Other hypersomnia Patient Instructions: Sleep Hygiene provided: set a scheduled bedtime and wake time to help regulate the circadian rhythm and balance the release of pituitary hormones. Sleep in a dark room, temperatures below 68 degrees, and no devices n bed. Limit caffeinated products 6 hours prior to bed, and limit fluids 2-4 hours prior to bed. Gentle night yoga, diffusing essential oils, and playing soft music can be relaxing. Coding Level of Care Code New Pt Level 4 (32357) Diagnoses Excessive daytime sleepiness G47.19 Loud snoring R06.83 Bilateral headaches R51.9 RLS (restless legs syndrome) G25.81 Time Spent (min) 30 Comment evaluation Sleep Questionnaire Difficulty falling asleep: Yes Difficulty staying asleep?: Yes Snoring: Yes Witnessed apneas: Yes Gasping arousals: No Nocturia: No GERD: No Vivid dreams: No Acting out dreams: Yes Abnormal behavior in sleep: No Abnormal movements in sleep: No Morning headaches: No Excessive daytime sleepiness: Yes Daytime naps: No Restless legs: Yes Hallucinations: Yes Sleep paralysis: No Drop attacks: No Sleep Study: No CPAP: No
[2024-08-23 14:32] VITALS: BP 124/68; PULSE 70; O2SAT 96; BMI 26.9
== END 2024-08-23 16:03 | disposition home or self-care (01) ==
PROVIDERS: PCP Student in an Organized Health Care Education/Training Program; Visit Provider Physician Assistant Medical
DX: G47.19 Other hypersomnia (principal); R06.83 Snoring; R51.9 Headache, unspecified; G25.81 Restless legs syndrome
CPT/HCPCS: 99204

== ENCOUNTER → 2024-08-23 14:03 | Outpatient (BNVA) | payer MEDICARE, OTHER, SELFPAY | PROVIDERS: PCP Student in an Organized Health Care Education/Training Program; Visit Provider Physician Assistant Medical | DX: G47.19 Other hypersomnia (principal); G25.81 Restless legs syndrome; R06.83 Snoring; R51.9 Headache, unspecified | CPT/HCPCS: 99202 ==

== ENCOUNTER 2024-10-04 07:26 | Outpatient (REF) | payer MEDICARE, SELFPAY ==
--- NOTE | ~2024-10-04 | MM_ITS ---
EXAMINATION: DXA BONE DENSITY AXIAL HISTORY: pt w/ osteoporosis off Alendronate for 1 year TECHNIQUE: Floop Dual energy absorptiometry (DEXA) of the lumbar spine, total left hip, and femoral neck was performed. COMPARISON: Comparison is made with the prior examination dated 06/11/2022. FINDINGS: The bone mineral density of the lumbar spine is 1.129 g/cm2, corresponding to a T-score of -0.8, and a Z-score of -0.1. This is indicative of normal bone mineral density. This represents a BMD change of 5.8% compared to the prior exam. This is statistically significant. The bone mineral density of the left total hip is 0.844 g/cm2, corresponding to a T-score of -1.8, and a Z-score of -1.1. This is indicative of osteopenia. This represents a BMD change of -2.7% compared to the prior exam. This is not statistically significant. The bone mineral density of the left femoral neck is 0.777 g/cm2, corresponding to a T-score of -2.3, and a Z-score of -1.0. This is indicative of osteopenia. This represents a BMD change of 2.1% compared to the prior exam. MM/XR DEXA axial skeleton IMPRESSION: Based on bone mineral density, and according to World Health Organization (WHO) criteria, the diagnosis is consistent with osteopenia. Statistically, 68% of repeat scans fall within 1 SD (+/- 0.010 g/cm2 for AP spine L1-L4) and 1 SD (+/- 0.012 g/cm2 for femur total) FRAX is a trademark of the [employer]'s [employer] Metabolic [employer] Disease, a World Health Organization (WHO) Collaborating Center. Electronically signed by: Viktor Cody MD 10/04/2024 09:44 AM EDT
--- NOTE | ~2024-10-04 | US_ITS ---
EXAMINATION: US RETROPERITONEUM AORTA HISTORY: SCREENING, HX OF TOBACCO SMOKING TECHNIQUE: Ultrasound of the abdominal aorta was performed with color flow and spectral imaging. COMPARISON: Correlation is made with a CT of the abdomen with contrast dated 05/07/2024. FINDINGS: Real-time grayscale ultrasound imaging was performed and reviewed. Plaque is seen in the distal aorta and bilateral common iliac arteries. Proximal abdominal aorta measures 2.9 x 2.2 cm Mid abdominal aorta measures 2.7 x 2.6 cm Distal abdominal aorta measures 1.8 x 2.0cm. Left proximal iliac artery measures 0.9 x 1.0 cm. Right proximal iliac artery measures 0.9 x 1.0cm. US/US aorta IMPRESSION: No evidence of an abdominal aortic aneurysm. Electronically signed by: Viktor Cody MD 10/04/2024 08:48 AM EDT
--- OUTSIDE RECORDS SUMMARY | 2024-10-04 07:28 | XMS_ITS | Encounter Summary ---
Author Organization [email or web address] Address [address] [facility] [address] [place] [address] Care Team Providers Care Window Repairer Name Role Phone Janet Thompson MD Primary Care Pro vider Reason for Visit * Reason Onset Date Comments Med Refill 01/28/2023 Encounter Details Date Type Department Care Team ([facility] st Contact Info) Description 01/28/2023 Telephone [facility] [address] [place] [address] [phone] Janet Thompson MD [address] [place] [address] Med Refill Social History Tobacco Use Types [...] 12:55 PM EST Medication was sent to [facility] #[id number] on 10/08/22 #90 with 1 refill. * Telephone Encounter - Dominic Powers - 01/28/2023 12:12 PM EST Tc from patient requesting medication refill for clopidogrel (Plavix) 75 MG tablet. documented in this encounter Plan of Treatment Upcoming Encounters Date Type Department Care Team (Late st Contact Info) Description 10/13/2024 2:00 PM EDT Office Visit [facility] [address] [place] [address] Sara Cortez, OD [address] [place] [address] documented as of this encounter Visit Diagnoses Not on filedocumented in this encounter Additional Health Concerns Assessment Noted Time PHQ-9 Depression Total Score: 5 05/12/19 11:52 AM EST documented as of this encounter Care Teams Window Repairer Relationship Specialty Start Date End Date Janet Thompson MD [address] [place] [address] PCP - General Internal Medicine 09/09/22 documented as of this encounter
== END 2024-10-04 07:27 | disposition home or self-care (01) ==
LOC: HO.US 07:26
PROVIDERS: PCP Student in an Organized Health Care Education/Training Program; Visit Provider Student in an Organized Health Care Education/Training Program
DX: M81.0 Age-related osteoporosis without current pathological fracture (principal); Z13.6 Encounter for screening for cardiovascular disorders; Z87.891 Personal history of nicotine dependence
CPT/HCPCS: 76775; 77080

== ENCOUNTER → 2024-10-04 07:30 | Outpatient (BNV) | payer MEDICARE, SELFPAY | PROVIDERS: PCP Student in an Organized Health Care Education/Training Program; Visit Provider Radiology Diagnostic Radiology | DX: Z87.891 Personal history of nicotine dependence (principal); M85.80 Other specified disorders of bone density and structure, unspecified site | CPT/HCPCS: 76775; 77080 ==

== ENCOUNTER → 2024-11-02 07:38 | Outpatient (REF) | payer MEDICARE, SELFPAY ==
--- OUTSIDE RECORDS SUMMARY | 2024-11-02 07:40 | XMS_ITS | Encounter Summary ---
Author Organization [email or web address] Address [address] [facility] [address] [place] [address] Care Team Providers Care Procurement Engineer Name Role Phone Janet Thompson MD Primary Care Pro vider Reason for Visit * Reason Onset Date Comments Med Refill 01/28/2023 Encounter Details Date Type Department Care Team ([facility] st Contact Info) Description 01/28/2023 Telephone [facility] [address] [place] [address] [phone] Janet Thompson MD [address] [place] [address] Med Refill Social History Tobacco Use Types [...] 12:55 PM EST Medication was sent to [facility] #[id number] on 10/08/22 #90 with 1 refill. * Telephone Encounter - Dominic Powers - 01/28/2023 12:12 PM EST Tc from patient requesting medication refill for clopidogrel (Plavix) 75 MG tablet. documented in this encounter Plan of Treatment Upcoming Encounters Date Type Department Care Team (Late st Contact Info) Description 04/16/2025 2:00 PM EST Office Visit [facility] [address] [place] [address] Sara Cortez, OD [address] [place] [address] documented as of this encounter Visit Diagnoses Not on filedocumented in this encounter Additional Health Concerns Assessment Noted Time PHQ-9 Depression Total Score: 5 05/12/19 11:52 AM EST documented as of this encounter Care Teams Procurement Engineer Relationship Specialty Start Date End Date Janet Thompson MD [address] [place] [address] PCP - General Internal Medicine 09/09/22 documented as of this encounter
== END ==
LOC: HO.SL 07:38
PROVIDERS: PCP Student in an Organized Health Care Education/Training Program; Visit Provider Physician Assistant Medical
DX: G47.33 Obstructive sleep apnea (adult) (pediatric) (principal); G47.19 Other hypersomnia; R06.83 Snoring
CPT/HCPCS: 95806

== ENCOUNTER → 2024-11-02 07:58 | Outpatient (BNV) | payer MEDICARE, SELFPAY | PROVIDERS: PCP Student in an Organized Health Care Education/Training Program; Visit Provider Psychiatry & Neurology Neurology | DX: G47.33 Obstructive sleep apnea (adult) (pediatric) (principal) | CPT/HCPCS: 95806 ==

== ENCOUNTER 2024-11-28 09:32 | Outpatient (AMB) | payer MEDICARE, SELFPAY ==
--- NOTE | 2024-11-28 09:55 | A.OFFVIS_ITS ---
Vital Signs 11/28/24 09:57 Height 5 ft 4 in Weight 153 lb 2 oz BMI 26.3 BP 118/74 Blood Pressure Location Lt brachial Position Sitting Pulse 82 Pulse Source Pulse Oximeter Pulse Oximetry (%) 97 Oxygen Delivery Method Room Air Intake Visit Reasons: 3 mo follow up Intake Note: Patient presents follow up Sleep/RLS. HST in chart(AHI-6, KEM-86%. APAP 5- 20cm). Patient states one of the medications for his sleep(doesnt remember name of RX) he takes and can only sleep 3hrs. Save All Operator Required: Yes Save All Operator Language: Hardwood Floor Installation Helper Services: Save All Operator Present Save All Operator Name: Bettina [id number] Information Interpreted: non-clinical & clinical Accompanied by: Self / Same As Patient Allergies aspirin (ASPIRIN) Allergy (Unknown, Verified 11/28/24 10:01) RASH/SWELLING, hives Penicillins Allergy (Unknown, Verified 11/28/24 10:01) Unknown Seasonal Allergies Allergy (Unknown, Verified 11/28/24 10:01) Unknown HPI Comments Details: 63 year old Bahamian speaking male is here for a f/u of his HST. Save All Operator on IPAD PMH Feb 2022 He experienced stroke like symptoms and he went to the ED at [facility] for slurred speech and r. sided hemiparesis. He was started on stroke protocol with statin, antiplatelete, serjio inhibitor and iv fluids and sent home after complete work up. 10/2024 HST c/w AHI 6 and O2 Nadirs to 86% will start him on APAP [id number]. He has fragmented sleep patterns since 2019 as he had a work related accident and sustained multiple vertebral fractures. He continues to have insomnia and has tried Daridorexant, Benadryl, Ramelteon, Quetiapine and Ambien in the past. Ambien 10mg works well for him.He goes to bed at 10pm and gets up at 4am, goes to the bathroom 2-3x and has difficulty staying asleep. Denies parasomnias. He has daily headaches, lasting 5min and go away on their own with hydration and otc tylenol. Memory is poor as he continues to be forgetful, forgets to take his medicine, he gets confused easily, and goes to a location then realizes he is at the wrong destination. He lacks attention and focus. He stopped driving because of this. RLS symptoms are worse at night he has an uncomfortable sensation as if he needs to move his legs all the time. He has numbness, tingling, burning bilateral. He gets out of bed then stands up and stretches his legs, L>R. Mood is depressed, and he feels anxious, so he tries to keep himself busy daily. PFSH Medical History Insomnia Osteoporosis Erectile dysfunction Seasonal allergies HLD (hyperlipidemia) Hypertension Hx of hematuria Multiple joint pain Surgical History Hx of colonoscopy Family History Family/Other Diabetes Social History Are you a primary reproductive healthcare assistant to a significant other at home: No Do you presently have visiting nurse or other home services: No Alcohol intake: never Patient Tobacco Use Status: Never used Tobacco Cigarette Packs Per Day: 0.5 Cigarettes Per Day: 10.0 service: No Current occupational status: disabled Physical Exam Vital Signs: Last Vital Signs Pulse 82 11/28/24 09:57 BP 118/74 11/28/24 09:57 Pulse Ox 97 11/28/24 09:57 Oxygen Delivery Method Room Air 11/28/24 09:57 BMI result Body Mass Index 26.3 Const General: cooperative, comfortable and no acute distress Nutritional Appearance: average body habitus Orientation/consciousness: patient oriented x3 HEENT Face and sinus: Yes face symmetric Teeth and gingiva: other (mallampti score is 3) Neck Neck: Yes full ROM Resp Effort & Inspection: normal respiratory effort and able to speak in complete sentences Neuro Other: limited rom on lateral head rotation, trapezius, mild tremor noted in l. upper extremity General: patient oriented x3 and moves all extremities Cranial nerves: Yes Facial sensation intact/muscles of mastication intact, Yes Normal accommodation reflex present, Yes Normal facial strength present, Yes Midline tongue present, Yes Ability to bilaterally rotate head present and Yes Ability to bilaterally elevate shoulders present Cognition (Neuro): normal cognition Gait exam (Neuro): Normal gait present Motor exam (neuro): 5/5 motor strength present throughout, no tremor noted and Normal motor muscle tone present throughout Psych Appearance: grossly normal Mental Status: mental status grossly normal Speech and movement: Normal speech and movement present Attitude: cooperative Thought content: Normal thought content present Results Reviewed Results Reviewed: MR/MR head/brain wo con IMPRESSION: - Small acute infarct in the left parietal lobe extending into the left operculum. No mass effect and no hemorrhagic transformation. - Mild background chronic microangiopathy. CTA head: The vertebral arteries and basilar artery are normal in caliber with mild atherosclerotic wall calcifications in the intradural vertebral arteries. The posterior cerebral arteries are widely patent. The internal carotid arteries are of normal caliber. The ANTIONE and MCA vascular complexes bilaterally are normal. There is no abnormal parenchymal or leptomeningeal enhancement. The venous sinuses opacify normally. 10/2024 HST c/w AHI is 6 and O2 Nadirs to 86% will start him on APAP [id number]. Assessment & Plan Assessment & Plan (1) SNEHA (obstructive sleep apnea): Code(s): G47.33 - Obstructive sleep apnea (adult) (pediatric) Category: Medical (2) Excessive daytime sleepiness: Code(s): G47.19 - Other hypersomnia Category: Medical (3) Loud snoring: Code(s): R06.83 - Snoring Category: Medical (4) Bilateral headaches: Code(s): R51.9 - Headache, unspecified Category: Medical (5) RLS (restless legs syndrome): Code(s): G25.81 - Restless legs syndrome Category: Medical Plan Mild SNEHA AHI is 6 and O2 nadirs to 86%, start APAP [id number] and use nightly for >4 hours. Labs r/o fatigue B12, Ferritin rls? Vit D, Homocysteine, MMA, Folate MMSE at next visit to assess forgetfulness, and MRI, will monitor. F/u 3 months Orders: Orders Complete Blood Count no Diff Today G47.19 - Other hypersomnia, G47.33 - Obstructive sleep apnea (adult) (pediatric) Methylmalonic Acid Today G47.19 - Other hypersomnia, G47.33 - Obstructive sleep apnea (adult) (pediatric), G47.9 - Sleep disorder, unspecified, R53.83 - Other fatigue Homocysteine Today G47.19 - Other hypersomnia, G47.33 - Obstructive sleep apnea (adult) (pediatric), G47.9 - Sleep disorder, unspecified, R53.83 - Other fatigue Vitamin D 25-OH Total Today G47.19 - Other hypersomnia, G47.33 - Obstructive sleep apnea (adult) (pediatric) Vitamin B6 Today G47.19 - Other hypersomnia, G47.33 - Obstructive sleep apnea (adult) (pediatric) Vitamin B12 and Folate Today G47.19 - Other hypersomnia, G47.33 - Obstructive sleep apnea (adult) (pediatric) TSH reflex Free T4 Today G47.19 - Other hypersomnia, G47.33 - Obstructive sleep apnea (adult) (pediatric) Vitamin B1 Today G47.19 - Other hypersomnia, G47.33 - Obstructive sleep apnea (adult) (pediatric) Comprehensive Met. Panel Today G47.19 - Other hypersomnia, G47.33 - Obstructive sleep apnea (adult) (pediatric) Ferritin Today G47.19 - Other hypersomnia, G47.33 - Obstructive sleep apnea (adult) (pediatric) Patient Instructions: Sleep Hygiene provided: set a scheduled bedtime and wake time to help regulate the circadian rhythm and balance the release of pituitary hormones. Sleep in a dark room, temperatures below 68 degrees, and no devices n bed. Limit caffeinated products 6 hours prior to bed, and limit fluids 2-4 hours prior to bed. Gentle night yoga, diffusing essential oils, and playing soft music can be relaxing. Coding Level of Care Code Est Pt Level 4 (02759) Diagnoses SNEHA (obstructive sleep apnea) G47.33 Excessive daytime sleepiness G47.19 Loud snoring R06.83 Bilateral headaches R51.9 RLS (restless legs syndrome) G25.81
[2024-11-28 09:57] VITALS: BP 118/74; PULSE 82; O2SAT 97; BMI 26.3
--- OUTSIDE RECORDS SUMMARY | 2024-11-28 12:06 | XMS_ITS | Encounter Summary ---
Author Organization [employer] Address [address] [facility] [address] [place] [address] Care Team Providers Care Bobj Developer Name Role Phone Janet Thompson MD Primary Care Pro vider Reason for Visit * Reason Comments Med Refill Encounter Details Date Type Department Care Team ([facility] st Contact Info) Description 12/24/2023 Refill [facility] [address] [place], [place] [phone] Janet Thompson MD [address] [place] [address] Social History Tobacco Use Types Packs/Day Years [...] Care Team (Late st Contact Info) Description 12/08/2024 9:30 AM EDT Office Visit [facility] [address] [place] [address] Janet Thompson MD [address] [place] [address] 04/16/2025 2:00 PM EST Office Visit [facility] [address] [place] [address] Diego, Sara, OD [address] [place] [address] documented as of this encounter Visit Diagnoses Not on filedocumented in this encounter Additional Health Concerns Assessment Noted Time PHQ-9 Depression Total Score: 2 06/30/19 24 2:02 PM EDT documented as of this encounter Care Teams Bobj Developer Relationship Specialty Start Date End Date Janet Thompson MD [address] [place] [id number] PCP - General Internal Medicine 09/09/22 documented as of this encounter
--- OUTSIDE RECORDS SUMMARY | 2024-11-28 12:06 | XMS_ITS | Encounter Summary ---
Author Organization [employer] Address [address] [facility] [address] [place] [address] Care Team Providers Care Snaker Tractor Driver Name Role Phone Janet Thompson MD Primary Care Pro vider Reason for Visit * Reason Comments Med Refill Encounter Details Date Type Department Care Team ([facility] st Contact Info) Description 03/20/2024 Refill [facility] [address] [place], [place] [phone] Kasie Blackwood MD [address] [place], [place] [phone] Social History Tobacco Use Types Packs/Day Years [...] Description 12/08/2024 9:30 AM EDT Office Visit [facility] [address] [place] [address] Janet Thompson MD [address] [place] [address] 04/16/2025 2:00 PM EST Office Visit [facility] [address] [place] [address] Diego, Sara, OD [address] [place] [address] documented as of this encounter Visit Diagnoses Not on filedocumented in this encounter Additional Health Concerns Assessment Noted Time PHQ-9 Depression Total Score: 2 06/30/19 24 2:02 PM EDT documented as of this encounter Care Teams Snaker Tractor Driver Relationship Specialty Start Date End Date Janet Thompson MD [address] [place] [id number] PCP - General Internal Medicine 09/09/22 documented as of this encounter
--- OUTSIDE RECORDS SUMMARY | 2024-11-28 12:06 | XMS_ITS | Encounter Summary ---
Author Organization [employer] Address [address] [facility] 7 [place] [address] Care Team Providers Care Shop Laborer Name Role Phone Janet Thompson MD Primary Care Pro vider Reason for Visit * Reason Onset Date Comments Med Refill 01/28/2023 Encounter Details Date Type Department Care Team ([facility] st Contact Info) Description 01/28/2023 Telephone [facility] MEDICINE [address] [place] [address] [phone] Janet Thompson MD [address] [place] [address] Med Refill Social History Tobacco Use Types [...] 12:55 PM EST Medication was sent to [facility] #[id number] on 10/08/22 #90 with 1 refill. * Telephone Encounter - Dominic Powers - 01/28/2023 12:12 PM EST Tc from patient requesting medication refill for clopidogrel (Plavix) 75 MG tablet. documented in this encounter Plan of Treatment Upcoming Encounters Date Type Department Care Team (Late st Contact Info) Description 12/08/2024 9:30 AM EDT Office Visit [facility] MEDICINE [address] [place] [address] Janet Thompson MD [address] [place] [address] 04/16/2025 2:00 PM EST Office Visit [facility] OPTOM[facility] [address] [place] [address] Sara Cortez OD [address] [place] [address] documented as of this encounter Visit Diagnoses Not on filedocumented in this encounter Additional Health Concerns Assessment Noted Time PHQ-9 Depression Total Score: 5 05/12/19 11:52 AM EST documented as of this encounter Care Teams Shop Laborer Relationship Specialty Start Date End Date Janet Thompson MD [address] [place] [id number] PCP - General Internal Medicine 09/09/22 documented as of this encounter
--- OUTSIDE RECORDS SUMMARY | 2024-11-28 12:06 | XMS_ITS | Encounter Summary ---
Author Organization [employer] Address [address] [place] [address] 7 [place] [address] Care Team Providers Care Career Guidance Technician Name Role Phone Janet Thompson MD Primary Care Pro vider Reason for Visit * Reason Onset Date Comments FYI 08/22/2024 Encounter Details Date Type Department Care Team ([facility] st Contact Info) Description 08/22/2024 Telephone [facility] MEDICINE [address] [place] [phone] Janet Thompson MD [address] [place] [address] FYI Social History Tobacco Use Types Packs/Day Years [...] encounter Miscellaneous Notes * Telephone Encounter - Lorie Harman - 08/22/2024 8:47 AM EDT Tc from pt to report he's going on vacation to [place] from September 08 to September 25, 2024. documented in this encounter Plan of Treatment Upcoming Encounters Date Type Department Care Team (Late st Contact Info) Description 12/08/2024 9:30 AM EDT Office Visit [facility] MEDICINE [address] [place], [place] [phone] Janet Thompson MD [address] [place] [address] 04/16/2025 2:00 PM EST Office Visit [facility] OPTOMETRY [address] [place] [address] Sara Cortez, OD [address] [place] [address] documented as of this encounter Visit Diagnoses Not on filedocumented in this encounter Additional Health Concerns Assessment Noted Time PHQ-9 Depression Total Score: 0 07/29/19 25 1:10 PM EDT documented as of this encounter Care Teams Career Guidance Technician Relationship Specialty Start Date End Date Janet Thompson MD [address] [place] [id number] PCP - General Internal Medicine 09/09/22 documented as of this encounter
--- OUTSIDE RECORDS SUMMARY | 2024-11-28 12:06 | XMS_ITS | Encounter Summary ---
Author Organization [email or web address] Address [address] [place] [address] 7 [place] [address] Care Team Providers Care Studio Technician Video Operator Name Role Phone Janet Thompson MD Primary Care Pro vider Reason for Visit * Reason Onset Date Comments Med Refill 03/31/2024 Encounter Details Date Type Department Care Team ([facility] st Contact Info) Description 03/31/2024 Telephone [facility] MEDICINE [address] [place] [address] [phone] Janet Thompson MD [address] [place] [address] Med Refill Social History Tobacco Use Types [...] 2:54 PM EST Patient needs to call [facility] Pharmacy and request medication be transferred to [facility]. * Telephone Encounter - Lorie Harman - 03/31/2024 2:46 PM EST TC from pt requesting medication refill. Medications needing refill : cetirizine (ZyrTEC) 10 MG tablet To be sent to: [facility]/pharmacy #[id number] [place], [place] - [address] [place] [address] documented in this encounter Plan of Treatment Upcoming Encounters Date Type Department Care Team ([facility] st Contact Info) Description 12/08/2024 9:30 AM EDT Office Visit [facility] MEDICINE [address] [place] [phone] Janet Thompson MD [address] [place] [address] 04/16/2025 2:00 PM EST Office Visit [facility] OPTOMETRY [address] [place], [place] [phone] Sara Cortez, OD [address] [place], [place] [phone] documented as of this encounter Visit Diagnoses Not on filedocumented in this encounter Additional Health Concerns Assessment Noted Time PHQ-9 Depression Total Score: 2 06/30/19 24 2:02 PM EDT documented as of this encounter Care Teams Studio Technician Video Operator Relationship Specialty Start Date End Date Janet Thompson MD [address] [place], [place] [phone] PCP - General Internal Medicine 09/09/22 documented as of this encounter
--- OUTSIDE RECORDS SUMMARY | 2024-11-28 12:06 | XMS_ITS | Encounter Summary ---
Author Organization [employer] Address 75 [facility] 7t [place] [address] Care Team Providers Care Manager Sap Name Role Phone Janet Thompson MD Primary Care Pro vider Reason for Visit * Reason Comments Med Refill Encounter Details Date Type Department Care Team ([facility] st Contact Info) Description 07/26/[address] [facility] PEDS [address] [place] [address] Janet Thompson MD [address] [place] [address] Cerebrovascular accident (CVA) due to thrombosis of [...] Description 12/08/2024 9:30 AM EDT Office Visit [facility] MEDICINE [address] [place] [address] Janet Thompson MD [address] [place] [address] 04/16/2025 2:00 PM EST Office Visit [facility] OPTOMETRY [address] [place], [place] [phone] Diego, Sara, OD [address] [place] [address] documented as of this encounter Visit Diagnoses Diagnosis 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) documented in this encounter Additional Health Concerns Assessment Noted Time PHQ-9 Depression Total Score: 2 06/30/19 24 2:02 PM EDT documented as of this encounter Care Teams Manager Sap Relationship Specialty Start Date End Date Janet Thompson MD [address] [place], [place] [phone] PCP - General Internal Medicine 09/09/22 documented as of this encounter
--- OUTSIDE RECORDS SUMMARY | 2024-11-28 12:06 | XMS_ITS | Encounter Summary ---
Author Organization [employer] Address [address] [facility] 7t [place] [address] Care Team Providers Care Tape Cutter Name Role Phone Janet Thompson MD Primary Care Pro vider Reason for Visit * Reason Comments Med Refill Encounter Details Date Type Department Care Team (Late st Contact Info) Description 01/29/2023 Refill [facility] MED[facility]INE [address] [place] [address] Erin Aviles, SOLA Cerebrovascular accident (CVA) due to thrombosis of [...] t he electric, gas, oil or water [employer] threatened to shut off services in your [...] Description 12/08/2024 9:30 AM EDT Office Visit [facility] MEDICINE [address] [place] [address] Janet Thompson MD [address] [place] [address] 04/16/2025 2:00 PM EST Office Visit [facility] OPTOMETRY [address] [place] [address] Sara Cortez, OD [address] [place] [address] documented as of this encounter Visit Diagnoses Diagnosis 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) documented in this encounter Additional Health Concerns Assessment Noted Time PHQ-9 Depression Total Score: 5 05/12/19 23 11:52 AM EST documented as of this encounter Care Teams Tape Cutter Relationship Specialty Start Date End Date Janet Thompson MD [address] [place] [address] PCP - General Internal Medicine 09/09/22 documented as of this encounter
--- OUTSIDE RECORDS SUMMARY | 2024-11-28 12:06 | XMS_ITS | Encounter Summary ---
Author Organization [employer] Address [address] [place] [address] 7 [place] [address] Care Team Providers Care Statistical Reporting Analyst Name Role Phone Janet Thompson MD Primary Care Pro vider Reason for Visit * Reason Onset Date Comments Med Refill 08/22/2024 Encounter Details Date Type Department Care Team ([facility] st Contact Info) Description 08/22/2024 Telephone [facility] MEDICINE [address] [place] [address] [phone] Janet Thompson MD [address] [place] [address] Med Refill Social History Tobacco Use Types [...] Telephone Encounter - Antonia Agarwal LPN - 08/22/2024 8:47 AM EDT Please see TC from 08/21/24; Please inform pt that I send a referral to orthopedic for knee pain Also I prescribed zolpidem 5 mg advise to start that med and to try for 7 to 10 days if ongoing insomnia to call clinic to increase dose to 10 mg , will hold on Quetiapine w no clear indication for it Please advise to stop Ramelteon Thanks * Telephone Encounter - Lorie Harman - 08/22/2024 8:44 AM EDT TC from pt requesting medication refill. Medications needing refill : QUEtiapine (SEROquel) 50 MG tablet To be sent to: [facility]/pharmacy #[id number] [place], [place] - [address] [place] [address] documented in this encounter Plan of Treatment Upcoming Encounters Date Type Department Care Team (Late st Contact Info) Description 12/08/2024 9:30 AM EDT Office Visit [facility] MEDICINE [address] [place] [address] Janet Thompson MD [address] [place] [address] 04/16/2025 2:00 PM EST Office Visit [facility] OPTOMETRY [address] [facility], [place] [phone] Sara Cortez, OD [address] [place] [address] documented as of this encounter Visit Diagnoses Not on filedocumented in this encounter Additional Health Concerns Assessment Noted Time PHQ-9 Depression Total Score: 0 07/29/19 25 1:10 PM EDT documented as of this encounter Care Teams Statistical Reporting Analyst Relationship Specialty Start Date End Date Janet Thompson MD [address] [place], [place] [phone] PCP - General Internal Medicine 09/09/22 documented as of this encounter
--- OUTSIDE RECORDS SUMMARY | 2024-11-28 12:06 | XMS_ITS | Encounter Summary ---
Author Organization [employer] Address 75 [facility] 7t [place] [address] Care Team Providers Care Tai Chi Instructor Name Role Phone Janet Thompson MD Primary Care Pro vider Encounter Details Date Type Department Care Team ([facility] st Contact Info) Description 05/13/2023 Telephone [facility] MEDICINE [address] [place] [address] Janet Thompson MD [address] [place], [place] [phone] Social History Tobacco Use Types Packs/Day Years [...] - 05/13/2023 11:48 AM EST TC from [facility] [place] [place] with [employer] calling in to report A1c . Report : 6.0% Any questions may contact phone # [phone]. documented in this encounter Plan of Treatment Upcoming Encounters Date Type Department Care Team (Late st Contact Info) Description 12/08/2024 9:30 AM EDT Office Visit [facility] MEDICINE [address] [place] [address] Janet Thompson MD [address] [place] [address] 04/16/2025 2:00 PM EST Office Visit [facility] OPTOMETRY [address] [place] [address] Sara Cortez, OD [address] [place] [address] documented as of this encounter Visit Diagnoses Not on filedocumented in this encounter Additional Health Concerns Assessment Noted Time PHQ-9 Depression Total Score: 10 024 3:53 PM EST documented as of this encounter Care Teams Tai Chi Instructor Relationship Specialty Start Date End Date Janet Thompson MD [address] [place] [address] PCP - General Internal Medicine 09/09/22 documented as of this encounter
--- OUTSIDE RECORDS SUMMARY | 2024-11-28 12:06 | XMS_ITS | Encounter Summary ---
Author Organization [employer] Address [address] [place] [address] 7 [place] [address] Care Team Providers Care Hotel Yardperson Name Role Phone Janet Thompson MD Primary Care Pro vider Reason for Visit * Reason Onset Date Comments Medication Question 08/30/2024 Encounter Details Date Type Department Care Team ([facility] st Contact Info) Description 08/30/2024 Telephone [facility] MEDICINE [address] [place] [address] [phone] Janet Thompson MD [address] [place] [address] Medication Question Social History Tobacco Use Types Packs/Day Years [...] encounter Miscellaneous Notes * Telephone Encounter - Do Hall - 09/04/2024 9:06 AM EDT Tc from pt requesting a call back to discuss medication zolpidem (Ambien) 5 MG tablet. States is leaving on vacation Wednesday. * Telephone Encounter - Ac Fonseca - 08/30/2024 12:40 PM EDT Tc from pt calling in regards to sleep medication stating it is not working for him and he is requesting a call back to discuss an alternative. Please contact pt at [phone]. (Indonesian Speaker) documented in this encounter Plan of Treatment Upcoming Encounters Date Type Department Care Team (Late st Contact Info) Description 12/08/2024 9:30 AM EDT Office Visit [facility] MEDICINE [address] [place] [phone] Janet Thompson MD [address] [place] [address] 04/16/2025 2:00 PM EST Office Visit [facility] OPTOMETRY [address] [place], [place] [phone] Sara Cortez, OD [address] [place], [place] [phone] documented as of this encounter Visit Diagnoses Not on filedocumented in this encounter Additional Health Concerns Assessment Noted Time PHQ-9 Depression Total Score: 0 07/29/19 25 1:10 PM EDT documented as of this encounter Care Teams Hotel Yardperson Relationship Specialty Start Date End Date Janet Thompson MD [address] [place], [place] [phone] PCP - General Internal Medicine 09/09/22 documented as of this encounter
--- OUTSIDE RECORDS SUMMARY | 2024-11-28 12:07 | XMS_ITS | Clinical Summary ---
Author Organization [employer] Address [address] [facility] 7[address] [place] [address] Care Team Providers Care Cell Tender Name Role Phone Janet Thompson MD Primary Care Pro vider Allergies Active Allergy Reactions Criticality Noted Date Comments Aspirin Other 11/24/2023 Other Reaction(s): sardines-itchy, swelling Penicillin G 11/24/2023 Medications * This document contains information received from the source organization and may not represent a complete record from that organization. ceramides (CeraVe) moisturizing cream Apply 1 Application. topically if needed for dry skin. 340 g 1 08/26/19 24 Active triamcinolone (Kenalog) 0.1 % ointment Apply topically 2 times daily. 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 90 tablet 09/05/19 25 025 Active lisinopril 10 MG tabletIndicatio ns:Essential hypertension TAKE 1 TABLET BY MOUTH EVERY DAY 90 tablet 09/22/19 25 Active cetirizine (ZyrTEC) 10 MG tablet TAKE 1 TABLET BY MOUTH EVERY MORNING 90 tablet 09/28/19 25 Active Oyster Shell Calcium 500 MG tabletIndicatio ns:Osteoporosis without current pathological fracture, unspecified osteoporosis type TAKE 1 TABLET BY MOUTH TWICE A DAY 180 tablet 1 10/03/19 25 Active zolpidem (Ambien) 10 MG tablet TAKE 1 TABLET BY MOUTH AT BEDTIME NEEDED FOR SLEEP 30 tablet 11/15/19 25 Active atorvastatin (Lipitor) 80 MG tabletIndicatio ns:Cerebrovascu lar accident (CVA) due to thrombosis of precerebral artery (CMS/HCC) TAKE 1 TABLET BY MOUTH EVERY EVENING 90 tablet 11/21/19 25 Active atorvastatin (Lipitor) 80 MG tabletIndicatio ns:Cerebrovascu lar accident (CVA) due to thrombosis of precerebral artery (CMS/HCC) TOME 1 TABLETA POR VIA ORAL [facility] 90 tablet 08/25/19 25 025 Discontinued zolpidem (Ambien) 10 MG tablet TAKE 1 TABLET BY MOUTH AT BEDTIME NEEDED FOR SLEEP 30 tablet 10/12/19 25 025 Discontinued(Re order (will not trigger notification to Pharmacy)) Active Problems Problem Noted Date Diagnosed Date History of tobacco use 07/01/2023 Health care maintenance 04/15/2023 Left knee pain 09/09/2022 Overview (09/09/2022): bilateral knee joint pain chronic < 1 year. No imaging Associated swelling Treating w/ Voltareluci gel Assessment & Plan (09/09/2022 10:14 PM [...] Encounters Date Type Department Care Team Description 11/19/2024 Refill [facility] [address] [facility] [place] [address] Janet Thompson MD 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) 11/14/2024 Refill [facility] [address] [facility] [place], [place] [phone] Janet Thompson MD 10/13/2024 2:00 PM EDT Office Visit [facility] [address] [facility], [place] [phone] Diego, Sara, OD Glaucoma suspect of both eyes (Primary Dx); Age-related nuclear cataract of both eyes; Presbyopia of both eyes 10/13/2024 Travel 10/11/2024 Refill [facility] [address] [facility] [place], [place] [phone] Janet Thompson MD 10/06/2024 Telephone [facility] [address] [facility], [place] [phone] Janet Thompson MD SEP RECALL 10/02/2024 Refill [facility] [address] [place] [address] Jante Thompson MD Osteoporosis without current pathological fracture, unspecified osteoporosis type 09/27/2024 2:00 PM EDT Office Visit [facility] [address] [place] [address] Janet Thompson MD Insomnia, unspecified type (Primary Dx); Health care maintenance; Mixed hyperlipidemia; Essential hypertension 09/27/2024 Travel 09/26/2024 Telephone [facility] [address] [place] [address] Janet Thompson MD CHART PREP 09/21/2024 Refill [facility] [address] [place] [address] Janet Thompson MD Essential hypertension 09/04/2024 Orders Only [facility] 230 [place] [address] Janet Thompson MD 08/30/2024 Telephone [facility] [address] [place] [address] Janet Thompson MD Medication Question from Last 3 Months Immunizations Immunization Administration Dates Next Due Hep B, adult 08/27/2023 Influenza injectable quadriv alent preservative free 02/17/2023,11/28/2021,12/03/2020,2019 Influenza, High Dose Seasona l, Preservative Free 11/27/2024,03/01/2024 Pfizer Covid-19 Vaccine 12+ 03/23/2024,0 04/14/2023,12/17/2020,2020,06/20/2020 Pfizer [...] 1 976 - 2019 Smokeless Tobacco: Never Tobacco Cessation:Counseling Given: Not Answered Comments:Used to smoke tobacco at 14 y of age until 3 [...] Sign Reading Time Taken Comments Blood Pressure 110/56 09/27/2024 2:05 PM EDT Pulse 81 09/27/2024 2:05 PM EDT Temperature 36.6 C (97.9 F) 09/27/2024 2:05 PM EDT Respiratory Rate 20 09/27/2024 2:05 PM EDT Oxygen Saturation 99% 09/27/2024 2:05 PM EDT Inhaled Oxygen Concentration - - Weight 72.1 kg (159 lb) 09/27/2024 2:05 PM EDT Height 162.6 cm (5' 4 ) 09/27/2024 2:05 PM EDT Body Mass Index 27.29 09/27/2024 2:05 PM EDT Plan of Treatment Upcoming Encounters Date Type Department Care Team (Late st Contact Info) Description 12/08/2024 9:30 AM EDT Office Visit [facility] [address] [place] [address] Janet Thompson MD 230 [place] [address] 04/16/2025 2:00 PM EST Office Visit [facility] [address] [place] [address] Diego, Sara, OD [address] [place] [address] Health Maintenance Due Date Last Done Comments CT Colonography 1960 FIT DNA/Cologuard 1960 FIT 1960 FOBT 1960 Sigmoidoscopy 1960 Lung Cancer Screening 2008 Hepatitis B Vaccines (2 of 3 - 19+ 3-dose series) 09/24/2023 08/27/2023 COVID-19 Vaccine ( season) 2024 03/23/2024, 04/14/2023, 02/09/2022, Additional history exists Alcohol/Substance Use Screening 07/28/2025 07/28/2024 Depression Screening 07/28/2025 07/28/2024, 07/29/19 25 SDOH Screening 07/28/2025 07/28/2024 Colonoscopy 08/02/2025 Colorectal Cancer Screening 08/02/2025 Tobacco Screening 10/30/2025 10/30/2024 DTaP/Tdap/Td Vaccines (2 - Td or Tdap) 03/04/2027 03/04/2017 Lipid Panel 08/22/2028 08/23/2023, 09/12, 12/12/2020, Additional history exists Zoster Vaccines Completed 11/28/2021, 06/05/2021 RSV Patients and Patients Aged 60 years or older Completed 03/31/2023 Hepatitis C Screening Completed 08/23/2023 Pneumococcal Vaccine: 50+ Years Completed 07/28/2024 Influenza Vaccine Completed 11/27/2024, , 02/17/2023, Additional history exists HIB Vaccines Aged Out No longer eligi [...] Procedure Name Priority Date/Time Associated Diagnosis Comments AMB REFERRAL TO ORTHOPAEDIC SURGERY Routine 10/30/2024 Chronic pain of left knee Chronic pain of both knees OCT, OPTIC NERVE - OU - BOTH EYES Routine 10/13/2024 2:00 PM EDT Glaucoma suspect of both eyes BD DEXA AXIAL Routine 10/04/2024 9:15 AM EDT Osteoporosis without current pathological fracture, unspecified osteoporosis type US AORTA Routine 10/04/2024 7:37 AM EDT HEPATITIS C AB W/REFL TO HCV RNA, QN, PCR Routine 08/23/2023 8:21 AM EDT Annual physical exam LIPID PANEL, STANDARD Routine 08/23/2023 8:21 AM EDT Annual physical exam from Last 3 Months or Most Recently Relevant to Health Maintenance Results * Referral to Orthopaedic Surgery (10/30/2024) Janet Pierre MD OUTPATIENT REFERR AL ORDERABLES Final Result * OCT, Optic Nerve - OU - Both Eyes (10/13/2024 2:00 PM EDT) Narrative Sara Cortez, OD - 11/01/2024 4:08 PM EDT Images from the original result were not included. OCT OPTIC NERVE INTERPRETATION Optical Coherence Tomography Interpretation Report Test Details: Measurements: OD OS C/D Horizontal 0.73 0.72 C/D Vertical 0.65 0.70 Disc area 2.98 mm 2 2.97 mm 2 RNFL Average 117 microns 123 microns Test findings: OD: Thicker than average RNFL in temporal quadrant, normal RNFL thickness in all other quadrants OS: Thicker than average RNFL in temporal quadrant, normal RNFL thickness in all other quadrants Impression and Plan: Right eye (OD): stable to 09/2023 scan Left eye (OS): stable to 09/2023 scan No treatment indicated. Will monitor with an updated visual field test in 6 months. us Sara Cortez OD OPHTH TOMOGRAPHY Final Result * BD DEXA Axial (10/04/2024 9:15 AM EDT) Anatomical Region Laterality Modality Body Radiographic Acacia ging 10/04/2024 9:15 AM EDT Narrative 10/04/2024 9:47 AM EDT [address] [address] [id number] Mammography Report Signed Patient: Leatha Olivas MR#: [id number] : 1960 Acct:[id number] Age/Sex: 63 / M ADM Date: 10/04/24 Loc: HO.US Attending Dr: Janet Pierre MD Ordering Physician: Janet Thompson MD sults: Date of Service: 10/04/24 Follow Up: Procedure(s): XR DEXA axial skeleton Accession Number(s): [id number] cc: Janet Thompson MD EXAMINATION: DXA BONE DENSITY AXIAL HISTORY: pt w/ osteoporosis off Alendronate for 1 year TECHNIQUE: [facility] Dual energy absorptiometry (DEXA) of the lumbar spine, total left hip, and femoral neck was performed. COMPARISON: Comparison is made with the prior examination dated 06/11/2022. FINDINGS: The bone mineral density of the lumbar spine is 1.129 g/cm2, corresponding to a T-score of -0.8, and a Z-score of -0.1. This is indicative of normal bone mineral density. This represents a BMD change of 5.8% compared to the prior exam. This is statistically significant. The bone mineral density of the left total hip is 0.844 g/cm2, corresponding to a T-score of -1.8, and a Z-score of -1.1. This is indicative of osteopenia. This represents a BMD change of -2.7% compared to the prior exam. This is not statistically significant. The bone mineral density of the left femoral neck is 0.777 g/cm2, corresponding to a T-score of -2.3, and a Z-score of -1.0. This is indicative of osteopenia. This represents a BMD change of 2.1% compared to the prior exam. MM/XR DEXA axial skeleton IMPRESSION: Based on bone mineral density, and according to World Health Organization (WHO) criteria, the diagnosis is consistent with osteopenia. Statistically, 68% of repeat scans fall within 1 SD (+/- 0.010 g/cm2 for AP spine L1-L4) and 1 SD (+/- 0.012 g/cm2 for femur total) FRAX is a trademark of the [employer]'s [employer] [employer] Met[employer] Disease, a World Health Organization (WHO) Collaborating Center. Electronically signed by: Viktor Cody MD 10/04/2024 09:44 AM EDT Dictated By: Viktor Cody MD Signed By: <Electronically signed by Viktor Cody MD in OV> 10/04/24 0944 DD/ 4 TD/TT: 10/04/24929 Photo Engraver: Procedure Note Donotuseinterpreter, Image - 10/04/[address] [address] [id number] Mammography Report Signed Patient: Flaco Olivas#: [id number] : 9Acct:[id number] Age/Sex: 63 / MADM Date: 10/04/24 Loc: HO. Attending Dr: Janet Pierre MD Ordering Physician: Janet Thompson sults: Date of Service: 10/04/24Follow Up: Procedure(s): XR DEXA axial skeleton Accession Number(s): [id number] cc: Janet Thompson MD EXAMINATION: DXA BONE DENSITY AXIAL HISTORY: pt w/ osteoporosis off Alendronate for 1 year TECHNIQUE: [facility] Dual energy absorptiometry (DEXA) of the lumbar spine, total left hip, and femoral neck was performed. COMPARISON: Comparison is made with the prior examination dated 06/11/2022. FINDINGS: The bone mineral density of the lumbar spine is 1.129 g/cm2, corresponding to a T-score of -0.8, and a Z-score of -0.1. This is indicative of normal bone mineral density. This represents a BMD change of 5.8% compared to the prior exam. This is statistically significant. The bone mineral density of the left total hip is 0.844 g/cm2, corresponding to a T-score of -1.8, and a Z-score of -1.1. This is indicative of osteopenia. This represents a BMD change of -2.7% compared to the prior exam. This is not statistically significant. The bone mineral density of the left femoral neck is 0.777 g/cm2, corresponding to a T-score of -2.3, and a Z-score of -1.0. This is indicative of osteopenia. This represents a BMD change of 2.1% compared to the prior exam. MM/XR DEXA axial skeleton IMPRESSION: Based on bone mineral density, and according to World Health Organization (WHO) criteria, the diagnosis is consistent with osteopenia. Statistically, 68% of repeat scans fall within 1 SD (+/- 0.010 g/cm2 for AP spine L1-L4) and 1 SD (+/- 0.012 g/cm2 for femur total) FRAX is a trademark of the [employer] [place] [employer] Met[employer] Disease, a World Health Organization (WHO) Collaborating Center. Electronically signed by: Viktor Cody MD 10/04/2024 09:44 AM EDT RP Dictated By: Viktor Cody MD Signed By: <Electronically signed by Viktor Cody MD in OV> 10/04/2444 DD/ 4 TD/TT: 10/04/24929 Photo Engraver: us Janet Pierre MD IMG DXA PROCEDURE S Final Result * US aorta (10/04/2024 7:37 AM EDT) Anatomical Region Laterality Modality Abdomen Ultrasound 10/04/2024 7:37 AM EDT Narrative 10/04/2024 8:50 AM EDT [place] [address] Ultrasound Report Signed Patient: Leatha Olivas MR#: [id number] : 1960 Acct:[id number] Age/Sex: 63 / M ADM Date: 10/04/24 Loc: HO.US Attending Dr: Janet Pierre MD Ordering Physician: Janet Thompson MD Date of Service: 10/04/24 Procedure(s): US aorta Accession Number(s): [id number] cc: Janet Thompson MD EXAMINATION: US RETROPERITONEUM AORTA HISTORY: SCREENING, HX OF TOBACCO SMOKING TECHNIQUE: Ultrasound of the abdominal aorta was performed with color flow and spectral imaging. COMPARISON: Correlation is made with a CT of the abdomen with contrast dated 05/07/2024. FINDINGS: Real-time grayscale ultrasound imaging was performed and reviewed. Plaque is seen in the distal aorta and bilateral common iliac arteries. Proximal abdominal aorta measures 2.9 x 2.2 cm Mid abdominal aorta measures 2.7 x 2.6 cm Distal abdominal aorta measures 1.8 x 2.0cm. Left proximal iliac artery measures 0.9 x 1.0 cm. Right proximal iliac artery measures 0.9 x 1.0cm. US/US aorta IMPRESSION: No evidence of an abdominal aortic aneurysm. Electronically signed by: Viktor Cody MD 10/04/2024 08:48 AM EDT RP Dictated By: Viktor Cody MD Signed By: <Electronically signed by Viktor Cody MD in OV> 10/04/24 0848 DD/ TD/TT: 10/04/2442 Photo Engraver: Procedure Note Donotuseinterpreter, Image - 10/04/2024 [place] [address] Ultrasound Report Signed Patient: Flaco Olivas#: [id number] : 9Acct:[id number] Age/Sex: 63 / MADM Date: 10/04/24 Loc: HO. Attending Dr: Janet Pierre MD Ordering Physician: Janet Thompson MD Date of Service: 10/04/24 Procedure(s): US aorta Accession Number(s): [id number] cc: Janet Thompson MD EXAMINATION: US RETROPERITONEUM AORTA HISTORY: SCREENING, HX OF TOBACCO SMOKING TECHNIQUE: Ultrasound of the abdominal aorta was performed with color flow and spectral imaging. COMPARISON: Correlation is made with a CT of the abdomen with contrast dated 05/07/2024. FINDINGS: Real-time grayscale ultrasound imaging was performed and reviewed. Plaque is seen in the distal aorta and bilateral common iliac arteries. Proximal abdominal aorta measures 2.9 x 2.2 cm Mid abdominal aorta measures 2.7 x 2.6 cm Distal abdominal aorta measures 1.8 x 2.0cm. Left proximal iliac artery measures 0.9 x 1.0 cm. Right proximal iliac artery measures 0.9 x 1.0cm. US/US aorta IMPRESSION: No evidence of an abdominal aortic aneurysm. Electronically signed by: Viktor Cody MD 10/04/2024 08:48 AM EDT RP Dictated By: Viktor Cody MD Signed By: <Electronically signed by Viktor Cody MD in OV> 10/04/24 0848 DD/ 0737 TD/TT: 10/04/24 0742 Photo Engraver: us Janet Pierre MD IMG US PROCEDURES Final Result * Hepatitis C Antibody with Reflex to HCV, RNA, Quantitative, Real-Time PCR (08/23/2023 8:21 AM EDT) Pathologist [facility] Hepatitis C Antibody Nonreactive Nonreactive [facility] Comment:Antibodies to HCV no t detected; does not exclude early acuteHCV infection. Blood Venous blood specimen / Unknown 08/23/2023 8:21 AM EDT 08/23/2023 11:44 AM EDT us Janet Pierre MD LAB BLOOD ORDERAB LES Final Result [facility] [address] [place] [address] [phone] * (ABNORMAL) Lipid Panel, Standard (08/23/2023 8:21 AM EDT) Triglycerides 117 <150 mg/dL [facility] Comment:Desirable Triglyceri de: less than 150 mg/dLBorderline High Triglyceride 150-199 mg/dLHigh Triglyceride: 200-499 mg/dLVery High Triglyceride: greater than or equal to 5OO mg/dL Cholesterol 119 <200 mg/dL [facility] Comment:Desirable Cholestero l: less than 200 mg/dLBorderline High Cholesterol: 200-239 mg/dLHigh Cholesterol: greater than 239 mg/dL LDL Cholesterol Calculated 66 <100 mg/dL [facility] Comment:Desirable LDL: less than 100 mg/dLNear Optimal/Above Optimal LDL: 110- 129 mg/dLBorderline High LDL: 130-159 mg/dLHigh LDL: 160-189 mg/dLVery High LDL: greater than or equal to 190 mg/dL HDL Cholesterol 30(L) >40 mg/dL [facility] Comment:Desirable HDL: great er than 40 mg/dL Note: This HDL assay may give artificially low results in patients with liver disease. Blood Venous blood specimen / Unknown 08/23/2023 8:21 AM EDT 08/23/2023 11:44 AM EDT us Janet Pierre MD LAB BLOOD ORDERAB LES Final Result [facility] [address] [place] [address] [phone] from Last 3 Months or Most Recently Relevant to Health Maintenance [place] [address] [place] [address] STANDARD [employer] MEDICARE ADVANTAGE Care Teams Cell Tender Relationship Specialty Start Date End Date Janet Thompson MD [address] [place] [phone] PCP - General Internal Medicine 09/09/22
--- OUTSIDE RECORDS SUMMARY | 2024-11-28 12:07 | XMS_ITS | Encounter Summary ---
Author Organization [employer] Address [address] [place] [address] [address] [place] [address] Care Team Providers Care Flame Gouger Name Role Phone Tremaine Banuelos MD Primary Care Prov ider Erin Aviles RETAIL ASSET PROTECTION SPECIALIST Primary Care Provider Sonia Janet Lin MD Primary Care Pro vider Encounter Details Date Type Department Care Team (Latest Contact Info) Description 05/13/2021 Abstract [facility] CONVERSIONS Dental, Provider, DDS Social History [...] Description 12/08/2024 9:30 AM EDT Office Visit [facility] [address] [place] [address] Janet Thompson MD [address] [place] [address] 04/16/2025 2:00 PM EST Office Visit [facility] OPTOMETRY [address] [place] [address] Sara oCrtez, OD [address] [place] [address] documented as of this encounter Visit Diagnoses Not on filedocumented in this encounter Care Teams Flame Gouger Relationship Specialty Start Date End Date Tremaine Banuelos MD [address] [place] [address] PCP - General Internal Medicine 08/13/19 05/10/22 Erin Aviles FNP [address] [place] [address] PCP - General Family Medicine 05/11/22 09/08/22 Janet Thompson MD [address] [place] [address] PCP - General Internal Medicine 09/09/22 documented as of this encounter
--- OUTSIDE RECORDS SUMMARY | 2024-11-28 12:07 | XMS_ITS | Encounter Summary ---
Author Organization [employer] Address [address] [facility] [address]t [place] [address] Care Team Providers Care Manager Safe Name Role Phone Tremaine Banuelos MD Primary Care Prov ider Erin Aviles [facility] Primary Care Provider Janet Ortega MD Primary Care Pro vider Reason for Visit * Reason Onset Date Comments Other 04/02/2022 Encounter Details Date Type Department Care Team ([facility] st Contact Info) Description 04/02/2022 Telephone [facility] [address] [place], [place] [phone] Tremaine Banuelos MD [address] [place], [place] [phone] Other Social History Tobacco Use Types Packs/Day [...] calling on the status of care at [facility], due to transportation difficulties to [facility]. documented in this encounter Plan of Treatment Upcoming Encounters Date Type Department Care Team (Late st Contact Info) Description 12/08/2024 9:30 AM EDT Office Visit [facility] [address] [place] [address] Janet Thompson MD [address] [place], [place] [phone] 04/16/2025 2:00 PM EST Office Visit [facility] OPTOMETRY [address] [place], [place] [phone] Sara Cortez, OD [address] [place] [address] documented as of this encounter Visit Diagnoses Not on filedocumented in this encounter Additional Health Concerns Assessment Noted Time PHQ-9 Depression Total Score: 0 03/20/19 10:12 AM EST documented as of this encounter Care Teams Manager Safe Relationship Specialty Start Date End Date Tremaine Banuelos MD [address] [place] [address] PCP - General Internal Medicine 08/13/19 05/10/22 Erin Aviles FNP [address] [place] [address] PCP - General Family Medicine 05/11/22 09/08/22 Janet Thompson MD [address] [place] [address] PCP - General Internal Medicine 09/09/22 documented as of this encounter
== END 2024-11-28 10:32 | disposition home or self-care (01) ==
LOC: HO.HSMS 09:33
PROVIDERS: PCP Student in an Organized Health Care Education/Training Program; Visit Provider Physician Assistant Medical
DX: G47.33 Obstructive sleep apnea (adult) (pediatric) (principal); G47.19 Other hypersomnia; R06.83 Snoring; R51.9 Headache, unspecified; G25.81 Restless legs syndrome
CPT/HCPCS: 99214

== ENCOUNTER → 2024-11-28 09:32 | Outpatient (BNVA) | payer MEDICARE, SELFPAY | PROVIDERS: PCP Student in an Organized Health Care Education/Training Program; Visit Provider Physician Assistant Medical | DX: G47.33 Obstructive sleep apnea (adult) (pediatric) (principal); G47.19 Other hypersomnia; R06.83 Snoring; R51.9 Headache, unspecified; G25.81 Restless legs syndrome | CPT/HCPCS: 99212 ==

== ENCOUNTER 2024-12-04 08:16 | Outpatient (REF) | payer MEDICARE, SELFPAY ==
--- OUTSIDE RECORDS SUMMARY | 2024-12-04 09:26 | XMS_ITS | Encounter Summary ---
Author Organization [employer] Address [address] [place] [address] [address] [place] [address] Care Team Providers Care Motor Vehicle Dispatcher Name Role Phone Janet Thompson MD Primary Care Pro vider Reason for Visit * Reason Onset Date Comments Medication Question 08/30/2024 Encounter Details Date Type Department Care Team ([facility] st Contact Info) Description 08/30/2024 Telephone [facility] [address] [place] [phone] Janet Thompson MD [address] [place] [address] Medication Question Social History Tobacco Use Types [...] discuss an alternative. Please contact pt at [phone]. (Amharic Speaker) documented in this encounter Plan of Treatment Upcoming Encounters Date Type Department Care Team (Late st Contact Info) Description 12/08/2024 9:30 AM EDT Office Visit [facility] [address] [place] [phone] Janet Thompson MD [address] [place] [address] 04/16/2025 2:00 PM EST Office Visit [facility] OPTOMETRY [address] [place], [place] [phone] Sara Cortez, OD [address] [place], [place] [phone] documented as of this encounter Visit Diagnoses Not on filedocumented in this encounter Additional Health Concerns Assessment Noted Time PHQ-9 Depression Total Score: 0 07/29/19 25 1:10 PM EDT documented as of this encounter Care Teams Motor Vehicle Dispatcher Relationship Specialty Start Date End Date Janet Thompson MD [address] [place], [place] [phone] PCP - General Internal Medicine 09/09/22 documented as of this encounter
--- OUTSIDE RECORDS SUMMARY | 2024-12-04 09:26 | XMS_ITS | Encounter Summary ---
Author Organization [employer] Address 75 [facility] 7t [place] [address] Care Team Providers Care Drop Wire Aliner Name Role Phone Janet Thompson MD Primary Care Pro vider Encounter Details Date Type Department Care Team ([facility] st Contact Info) Description 05/13/[address] [facility] MEDICINE [address] [place] [address] Janet Thompson MD 230 [place], [place] [phone] Social History Tobacco Use Types Packs/Day Years [...] Miscellaneous Notes * Telephone Encounter - Elena Florse RN - 05/13/2023 11:55 AM EST Pt has upcoming TP in June. A1C indicative of prediabetes * Telephone Encounter - Do Hall - 05/13/2023 11:48 AM EST [place] [facility] [facility] [place] in to report A1c . Report : 6.0% Any questions may contact phone # [phone]. documented in this encounter Plan of Treatment Upcoming Encounters Date Type Department Care Team (Late st Contact Info) Description 12/08/2024 9:30 AM EDT Office Visit [facility] MEDICINE [address] [place] [address] Janet Thompson MD 230 [place] [address] 04/16/2025 2:00 PM EST Office Visit [facility] OPTOMETRY [address] [place] [address] Sara Cortez, OD 230 [place] [address] documented as of this encounter Visit Diagnoses Not on filedocumented in this encounter Additional Health Concerns Assessment Noted Time PHQ-9 Depression Total Score: 10 024 3:53 PM EST documented as of this encounter Care Teams Drop Wire Aliner Relationship Specialty Start Date End Date Janet Thompson MD [address] [place] [address] PCP - General Internal Medicine 09/09/22 documented as of this encounter
--- OUTSIDE RECORDS SUMMARY | 2024-12-04 09:26 | XMS_ITS | Encounter Summary ---
Author Organization [employer] Address [address] [place] [address] 7 [place] [address] Care Team Providers Care Manager Academic Name Role Phone Janet Thompson MD Primary Care Pro vider Reason for Visit * Reason Onset Date Comments Med Refill 08/22/2024 Encounter Details Date Type Department Care Team ([facility] st Contact Info) Description 08/22/2024 Telephone [facility] MEDICINE [address] [place] [address] [phone] Janet Thompson MD 230 [place] [address] Med Refill Social History Tobacco Use Types [...] 50 MG tablet To be sent to: [facility]/pharmacy #[id number] [place], [place] - [address] [place] [address] documented in this encounter Plan of Treatment Upcoming Encounters Date Type Department Care Team (Late st Contact Info) Description 12/08/2024 9:30 AM EDT Office Visit [facility] MEDICINE 230 [place] [address] Janet Thompson MD 230 [place] [address] 04/16/2025 2:00 PM EST Office Visit [facility] OPTOMETRY [address] [facility], [place] [phone] Sara Cortez, OD 230 [place] [address] documented as of this encounter Visit Diagnoses Not on filedocumented in this encounter Additional Health Concerns Assessment Noted Time PHQ-9 Depression Total Score: 0 07/29/19 25 1:10 PM EDT documented as of this encounter Care Teams Manager Academic Relationship Specialty Start Date End Date Janet Thompson MD [address] [place], [place] [phone] PCP - General Internal Medicine 09/09/22 documented as of this encounter
--- OUTSIDE RECORDS SUMMARY | 2024-12-04 09:26 | XMS_ITS | Encounter Summary ---
Author Organization [employer] Address [address] [place] [address] 7 [place] [address] Care Team Providers Care Center Machine Set Up Operator Name Role Phone Janet Thompson MD Primary Care Pro vider Reason for Visit * Reason Onset Date Comments Med Refill 03/31/2024 Encounter Details Date Type Department Care Team ([facility] st Contact Info) Description 03/31/2024 Telephone [facility] MEDICINE [address] [place] [address] [phone] Janet Thompson MD 230 [place] [address] Med Refill Social History Tobacco Use Types [...] 2:54 PM EST Patient needs to call [facility] Pharmacy and request medication be transferred to [facility]. * Telephone Encounter - Lorie Harman - 03/31/2024 2:46 PM EST TC from pt requesting medication refill. Medications needing refill : cetirizine (ZyrTEC) 10 MG tablet To be sent to: [facility]/pharmacy #[id number] [place], [place] - [address] [place] [address] documented in this encounter Plan of Treatment Upcoming Encounters Date Type Department Care Team ([facility] st Contact Info) Description 12/08/2024 9:30 AM EDT Office Visit [facility] MEDICINE [address] [place] [phone] Janet Thompson MD 230 [place] [address] 04/16/2025 2:00 PM EST Office Visit [facility] OPTOMETRY [address] [place], [place] [phone] Sara Cortez, OD 230 [place], [place] [phone] documented as of this encounter Visit Diagnoses Not on filedocumented in this encounter Additional Health Concerns Assessment Noted Time PHQ-9 Depression Total Score: 2 06/30/19 24 2:02 PM EDT documented as of this encounter Care Teams Center Machine Set Up Operator Relationship Specialty Start Date End Date Janet Thompson MD [address] [place], [place] [phone] PCP - General Internal Medicine 09/09/22 documented as of this encounter
--- OUTSIDE RECORDS SUMMARY | 2024-12-04 09:26 | XMS_ITS | Encounter Summary ---
Author Organization [employer] Address 75 [facility] 7t [place] [address] Care Team Providers Care Seafood Farmer Name Role Phone Janet Thompson MD Primary Care Pro vider Reason for Visit * Reason Comments Med Refill Encounter Details Date Type Department Care Team ([facility] st Contact Info) Description 07/26/2023 Refill [facility] MED & PEDS [address] [place] [address] Janet Thompson MD 230 [place] [address] Cerebrovascular accident (CVA) due to thrombosis of [...] 9:30 AM EDT Office Visit [facility] MEDICINE [address] [place] [address] Janet Thompson MD 230 [place] [address] 04/16/2025 2:00 PM EST Office Visit [facility] OPTOMETRY [address] [place], [place] [phone] Diego, Sara, OD 230 [place] [address] documented as of this encounter Visit Diagnoses Diagnosis 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) documented in this encounter Additional Health Concerns Assessment Noted Time PHQ-9 Depression Total Score: 2 06/30/19 24 2:02 PM EDT documented as of this encounter Care Teams Seafood Farmer Relationship Specialty Start Date End Date Janet Thompson MD 230 [place], [place] [phone] PCP - General Internal Medicine 09/09/22 documented as of this encounter
--- OUTSIDE RECORDS SUMMARY | 2024-12-04 09:26 | XMS_ITS | Encounter Summary ---
Author Organization [employer] Address 75 [facility] 7 [place] [address] Care Team Providers Care Home Appliances Mechanic Name Role Phone Janet Thompson MD Primary Care Pro vider Reason for Visit * Reason Onset Date Comments Med Refill 01/28/2023 Encounter Details Date Type Department Care Team ([facility] st Contact Info) Description 01/28/2023 Telephone [facility] MEDICINE [address] [place] [address] [phone] Janet Thompson MD 230 [place] [address] Med Refill Social History Tobacco Use Types [...] 12:55 PM EST Medication was sent to [facility] #[id number] on 10/08/22 #90 with 1 refill. * Telephone Encounter - Dominic Powers - 01/28/2023 12:12 PM EST Tc from patient requesting medication refill for clopidogrel (Plavix) 75 MG tablet. documented in this encounter Plan of Treatment Upcoming Encounters Date Type Department Care Team (Late st Contact Info) Description 12/08/2024 9:30 AM EDT Office Visit [facility] MEDICINE 230 [place] [address] Janet Thompson MD 230 [place] [address] 04/16/2025 2:00 PM EST Office Visit [facility] OPTOMETRY [address] [place] [address] Sara Cortez OD 230 [place] [address] documented as of this encounter Visit Diagnoses Not on filedocumented in this encounter Additional Health Concerns Assessment Noted Time PHQ-9 Depression Total Score: 5 05/12/19 11:52 AM EST documented as of this encounter Care Teams Home Appliances Mechanic Relationship Specialty Start Date End Date Janet Thompson MD [address] [place] [address] PCP - General Internal Medicine 09/09/22 documented as of this encounter
--- OUTSIDE RECORDS SUMMARY | 2024-12-04 09:26 | XMS_ITS | Encounter Summary ---
Author Organization [employer] Address 75 [facility] 7t [place] [address] Care Team Providers Care Tractor Trailer Operator Name Role Phone Janet Thompson MD Primary Care Pro vider Reason for Visit * Reason Comments Med Refill Encounter Details Date Type Department Care Team (Late st Contact Info) Description 01/29/[address] [facility] MEDICINE [address] [place] [address] Erin Aviles, SOLA Cerebrovascular accident (CVA) due [...] t he electric, gas, oil or water [employer] threatened to shut off services in your [...] 9:30 AM EDT Office Visit [facility] MEDICINE 230 [place] [address] Janet Thompson MD 230 [place] [address] 04/16/2025 2:00 PM EST Office Visit [facility] OPTOMETRY [address] [place] [address] Sara Cortez, OD 230 [place] [address] documented as of this encounter Visit Diagnoses Diagnosis 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) documented in this encounter Additional Health Concerns Assessment Noted Time PHQ-9 Depression Total Score: 5 05/12/19 23 11:52 AM EST documented as of this encounter Care Teams Tractor Trailer Operator Relationship Specialty Start Date End Date Janet Thompson MD [address] [place] [phone] PCP - General Internal Medicine 09/09/22 documented as of this encounter
--- OUTSIDE RECORDS SUMMARY | 2024-12-04 09:26 | XMS_ITS | Encounter Summary ---
Author Organization [employer] Address 75 [facility] 7t [place] [address] Care Team Providers Care Wind Farm Designer Name Role Phone Tremaine Banuelos MD Primary Care Prov ider Erin Aviles [facility] Primary Care Provider Janet Ortega MD Primary Care Pro vider Reason for Visit * Reason Onset Date Comments Other 04/02/2022 Encounter Details Date Type Department Care Team ([facility] st Contact Info) Description 04/02/2022 Telephone [facility] MED & PEDS [address] [place], [place] [phone] Tremaine Banuelos MD 505 [place], [place] [phone] Other Social History Tobacco Use Types Packs/Day [...] calling on the status of care at [facility], due to transportation difficulties to [facility]. documented in this encounter Plan of Treatment Upcoming Encounters Date Type Department Care Team (Late st Contact Info) Description 12/08/2024 9:30 AM EDT Office Visit [facility] MEDICINE 230 [place] [address] Janet Thompson MD 230 [place], [place] [phone] 04/16/2025 2:00 PM EST Office Visit [facility] OPTOMETRY [address] [place], [place] [phone] Sara Cortez, OD 230 [place] [address] documented as of this encounter Visit Diagnoses Not on filedocumented in this encounter Additional Health Concerns Assessment Noted Time PHQ-9 Depression Total Score: 0 03/20/19 10:12 AM EST documented as of this encounter Care Teams Wind Farm Designer Relationship Specialty Start Date End Date Tremaine Banuelos MD [address] [place] [address] PCP - General Internal Medicine 08/13/19 05/10/22 Erin Aviles FNP [address] [place] [address] PCP - General Family Medicine 05/11/22 09/08/22 Janet Thompson MD [address] [place] [address] PCP - General Internal Medicine 09/09/22 documented as of this encounter
--- OUTSIDE RECORDS SUMMARY | 2024-12-04 09:26 | XMS_ITS | Clinical Summary ---
Author Organization [employer] Address 75 [facility] 7t [place] [address] Care Team Providers Care Nail Machine Operator Name Role Phone Janet Thompson MD [...] MORNING 90 tablet 1 08/23/19 25 Active lisinopril 10 MG tabletIndicatio ns:Essential [...] EVERY EVENING 90 tablet 11/21/19 25 Active QUEtiapine (SEROquel) 50 MG tablet TAKE 1 TABLET BY MOUTH AT BEDTIME 90 tablet 12/01/19 25 Active atorvastatin (Lipitor) 80 MG tabletIndicatio ns:Cerebrovascu lar accident (CVA) due to thrombosis of precerebral artery (CMS/HCC) TOME 1 TABLETA POR VIA ORAL [facility] 90 tablet 08/25/19 25 025 Discontinued QUEtiapine (SEROquel) 50 MG tablet Take 1 tablet (50 mg) by mouth at bedtime. 90 tablet 09/05/19 25 025 Discontinued zolpidem (Ambien) 10 MG [...] year. No imaging Associated swelling Treating w/ David canas Assessment & Plan (09/09/2022 10:14 PM EDT): [...] Encounters Date Type Department Care Team Description 11/30/2024 Refill [facility] MEDICINE 230 [facility] [place] [address] Janet Thompson MD 11/19/2024 Refill [facility] MEDICINE 230 [place] [address] Janet Thompson MD 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) 11/14/2024 Refill [facility] MEDICINE 230 [place] [address] Janet Thompson MD 10/13/2024 2:00 PM EDT Office Visit [facility] OPTOMETRY [address] [facility] [place] [address] Diego, Sara, OD Glaucoma suspect of both eyes (Primary Dx); Age-related nuclear cataract of both eyes; Presbyopia of both eyes 10/13/2024 Travel 10/11/2024 Refill [facility] MEDICINE 230 [place] [place] [address] Janet Thompson MD 10/06/2024 Telephone [facility] MEDICINE [address] [place] [address] Janet Thompson MD SEP RECALL 10/02/2024 Refill [facility] [place] [address] Janet Thompson MD Osteoporosis without current pathological fracture, unspecified osteoporosis type 09/27/2024 2:00 PM EDT Office Visit [facility] MEDICINE [address] [place] [address] Janet Thompson MD Insomnia, unspecified type (Primary Dx); Health care maintenance; Mixed hyperlipidemia; Essential hypertension 09/27/2024 Travel 09/26/2024 Telephone [facility] MEDICINE [address] [place] [address] Janet Thompson MD CHART PREP 09/21/2024 Refill [facility] MEDICINE [address] [place] [address] Janet Thompson MD Essential hypertension 09/04/2024 Orders Only [facility] MEDICINE [address] [place] [address] Janet Thompson MD from Last 3 Months Immunizations Immunization Administration [...] Description 12/08/2024 9:30 AM EDT Office Visit [facility] MEDICINE [address] [place] [address] Janet Thompson MD 230 [place] [address] 04/16/2025 2:00 PM EST Office Visit [facility] OPTOMETRY [address] [place] [address] Diego, Sara, OD 230 [place] [address] Health Maintenance Due Date Last Done Comments [...] EDT) Anatomical Region Laterality Modality Body Radiographic Caacia ging 10/04/2024 9:15 AM EDT Narrative 10/04/2024 9:47 AM EDT [address] [phone] Mammography Report Signed Patient: Leatha Olivas MR#: [id number] : 1960 Acct:[id number] Age/Sex: 63 / M ADM Date: 10/04/24 Loc: . Attending Dr: Janet Pierre MD Ordering Physician: Janet Thompson [facility] Date of Service: 10/04/24 Follow Up: Procedure(s): XR DEXA axial skeleton Accession Number(s): [id number] cc: Janet Thompson MD EXAMINATION: DXA BONE DENSITY AXIAL HISTORY: pt w/ osteoporosis off Alendronate for 1 year TECHNIQUE: Familybuilder Dual energy absorptiometry (DEXA) of the lumbar [...] of the [employer] Metabolic Bone Disease, a World Health Organization (WHO) Collaborating Center. Electronically signed by: Viktor Cody MD 10/04/2024 09:44 AM EDT Dictated By: Viktor Cody MD Signed By: <Electronically signed by Viktor Cody MD in OV> 10/04/2444 DD/ 4 TD/TT: 10/04/24929 Open Hearth Door Liner: Procedure Note Donotuseinterpreter, Image - 10/04/2024 [place] [address] [id number] Mammography Report Signed Patient: Flaco Olivas#: [id number] : 9Acct:[id number] Age/Sex: 63 / MADM Date: 10/04/24 Loc: HO. Attending Dr: Janet Pierre MD Ordering Physician: Janet Thompson sults: Date of Service: 10/04/24Follow Up: Procedure(s): XR DEXA axial skeleton Accession Number(s): [id number] cc: Janet Thompson MD EXAMINATION: DXA BONE DENSITY AXIAL HISTORY: pt w/ osteoporosis off Alendronate for 1 year TECHNIQUE: Familybuilder Dual energy absorptiometry (DEXA) of the lumbar [...] of the [employer] Metabolic [facility] Disease, a World Health Organization (WHO) Collaborating Center. Electronically signed by: Viktor Cody MD 10/04/2024 09:44 AM EDT Dictated By: Viktor Cody MD Signed By: <Electronically signed by Viktor Cody MD in OV> 10/04/2444 DD/ 4 TD/TT: 10/04/24929 Open Hearth Door Liner: us Janet Pierre MD IMG DXA PROCEDURE S Final Result * US aorta (10/04/2024 7:37 AM EDT) Anatomical Region Laterality Modality Abdomen Ultrasound 10/04/2024 7:37 AM EDT Narrative 10/04/2024 8:50 AM EDT [place] [address] Ultrasound Report Signed Patient: Leatha Olivas MR#: [id number] : 1960 Acct:[id number] Age/Sex: 63 / M ADM Date: 10/04/24 Loc: HO.US Attending Dr: Janet Pierre MD Ordering Physician: Janet Thompson MD Date of Service: 10/04/24 Procedure(s): US aorta Accession Number(s): [id number] cc: Janet Thompson MD EXAMINATION: US RETROPERITONEUM [...] 10/04/24 0848 DD/ 0737 TD/TT: 10/04/24 0742 Open Hearth Door Liner: Procedure Note Donotuseinterpreter, Image - 10/04/2024 [place] [address] Ultrasound Report Signed Patient: Flaco Olivas#: [id number] : 1960cct:[id number] Age/Sex: 63 / MADM Date: 10/04/24 Loc: . Attending Dr: Janet Pierre MD Ordering Physician: Janet Thompson MD Date of Service: 10/04/24 Procedure(s): US aorta Accession Number(s): [id number] cc: Janet Thompson MD EXAMINATION: US RETROPERITONEUM [...] signed by Viktor Cody MD in OV> 10/04/2448 DD/ TD/TT: 10/04/24 0742 Open Hearth Door Liner: Janet Pierre MD IMG US PROCEDURES Final Result * Hepatitis C Antibody with Reflex to HCV, RNA, Quantitative, Real-Time PCR (08/23/2023 8:21 AM EDT) Hepatitis C Antibody Nonreactive Nonreactive [facility] Comment:Antibodies to HCV no t detected; does not exclude early acuteHCV infection. Blood Venous blood specimen / Unknown 08/23/2023 8:21 AM EDT 08/23/2023 11:44 AM EDT Janet Pierre MD LAB BLOOD ORDERAB LES Final Result [facility] [address] [place] [phone] * (ABNORMAL) Lipid Panel, Standard (08/23/2023 8:21 AM EDT) Triglycerides 117 <150 mg/dL [facility] Comment:Desirable Triglyceri de: less than 150 mg/dLBorderline High Triglyceride 150-199 mg/dLHigh Triglyceride: 200-499 mg/dLVery High Triglyceride: greater than or equal to 5OO mg/dL Cholesterol 119 <200 mg/dL [facility] Comment:Desirable Cholestero l: less than 200 mg/dLBorderline High Cholesterol: 200-239 mg/dLHigh Cholesterol: greater than 239 mg/dL LDL Cholesterol Calculated 66 <100 mg/dL [facility] Comment:Desirable LDL: less than 100 mg/dLNear Optimal/Above Optimal LDL: 110- 129 mg/dLBorderline High LDL: 130-159 mg/dLHigh LDL: 160-189 mg/dLVery High LDL: greater than or equal to 190 mg/dL HDL Cholesterol 30(L) >40 mg/dL [facility] Comment:Desirable HDL: great er than 40 mg/dL Note: This HDL assay may give artificially low results in patients with liver disease. Blood Venous blood specimen / Unknown 08/23/2023 8:21 AM EDT 08/23/2023 11:44 AM EDT Janet Pierre MD LAB BLOOD ORDERAB LES Final Result [facility] [address] [place] [address] [phone] from Last 3 Months or Most Recently Relevant to Health Maintenance Insurance [facility] STANDARD [facility] MEDICARE ADVANTAGE Care Teams Nail Machine Operator Relationship Specialty Start Date End Date Janet Thompson MD [address] [place] [phone] PCP - General Internal Medicine 09/09/22
--- OUTSIDE RECORDS SUMMARY | 2024-12-04 09:26 | XMS_ITS | Encounter Summary ---
Author Organization [employer] Address 75 [facility] 7t [place] [address] Care Team Providers Care Hooker Up Name Role Phone Janet Thompson MD Primary Care Pro vider Reason for Visit * Reason Comments Med Refill Encounter Details Date Type Department Care Team ([facility] st Contact Info) Description 12/24/2023 Refill [facility] MEDICINE [address] [place], [place] [phone] Janet Thompson MD 230 [place] [address] Social History Tobacco Use Types Packs/Day Years [...] 12/08/2024 9:30 AM EDT Office Visit [facility] MEDICINE [address] [place] [address] Janet Thompson MD 230 [place] [address] 04/16/2025 2:00 PM EST Office Visit [facility] OPTOMETRY [address] [place] [address] Diego, Sara, OD 230 [place] [address] documented as of this encounter Visit Diagnoses Not on filedocumented in this encounter Additional Health Concerns Assessment Noted Time PHQ-9 Depression Total Score: 2 06/30/19 24 2:02 PM EDT documented as of this encounter Care Teams Hooker Up Relationship Specialty Start Date End Date Janet Thompson MD [address] [place] [address] PCP - General Internal Medicine 09/09/22 documented as of this encounter
--- OUTSIDE RECORDS SUMMARY | 2024-12-04 09:26 | XMS_ITS | Encounter Summary ---
Author Organization [employer] Address [address] [place] [address] 7 [place] [address] Care Team Providers Care Cardiology Clinical Nurse Specialist Name Role Phone Tremaine Banuelos MD Primary Care Prov ider Erin Aviles DRAWER UPFITTER Primary Care Provider Sonia Janet Lin MD Primary Care Pro vider Encounter Details Date Type Department Care Team (Latest Contact Info) Description 05/13/2021 Abstract [facility] CONVERSIONS Dental, Provider, DDS Social History [...] Description 12/08/2024 9:30 AM EDT Office Visit [facility] MEDICINE 230 [place] [address] Janet Thompson MD 230 [place] [address] 04/16/2025 2:00 PM EST Office Visit [facility] OPTOMETRY [address] [place] [address] Sara Cortez, OD 230 [place] [address] documented as of this encounter Visit Diagnoses Not on filedocumented in this encounter Care Teams Cardiology Clinical Nurse Specialist Relationship Specialty Start Date End Date Tremaine Banuelos MD 505 [place] [address] PCP - General Internal Medicine 08/13/19 05/10/22 Erin Aviles FNP 505 [place] [address] PCP - General Family Medicine 05/11/22 09/08/22 Janet Thompson MD 230 [place] [address] PCP - General Internal Medicine 09/09/22 documented as of this encounter
--- OUTSIDE RECORDS SUMMARY | 2024-12-04 09:26 | XMS_ITS | Encounter Summary ---
Author Organization [employer] Address [address] [facility] [address] [place] [address] Care Team Providers Care Metallurgical Engineering Teacher Name Role Phone Janet Thompson MD Primary Care Pro vider Reason for Visit * Reason Comments Med Refill Encounter Details Date Type Department Care Team ([facility] st Contact Info) Description 03/20/2024 Refill [facility] [address] [place], [place] [phone] Kasie Blackwood MD [address] [place], [place] [phone] Social History Tobacco Use Types Packs/Day Years [...] Description 12/08/2024 9:30 AM EDT Office Visit [facility] [address] [place] [address] Janet Thompson MD [address] [place] [address] 04/16/2025 2:00 PM EST Office Visit [facility] [address] [place] [address] Diego, Sara, OD [address] [place] [address] documented as of this encounter Visit Diagnoses Not on filedocumented in this encounter Additional Health Concerns Assessment Noted Time PHQ-9 Depression Total Score: 2 06/30/19 24 2:02 PM EDT documented as of this encounter Care Teams Metallurgical Engineering Teacher Relationship Specialty Start Date End Date Janet Thompson MD [address] [place] [phone] PCP - General Internal Medicine 09/09/22 documented as of this encounter
--- OUTSIDE RECORDS SUMMARY | 2024-12-04 09:26 | XMS_ITS | Encounter Summary ---
Author Organization [employer] Address [address] [facility] 7 [place] [address] Care Team Providers Care Tool Engineer Name Role Phone Janet Thompson MD Primary Care Pro vider Reason for Visit * Reason Comments Med Refill Encounter Details Date Type Department Care Team ([facility] st Contact Info) Description 11/30/2024 Refill [facility] [address] [place], [place] [phone] Janet Thompson MD [address] [place] [address] Social History Tobacco Use Types Packs/Day Years [...] your housing situation today? I have dustin moilna 07/28/[address] you li [...] Description 12/08/2024 9:30 AM EDT Office Visit [facility] [address] [place] [address] Janet Thompson MD [address] [place] [address] 04/16/2025 2:00 PM EST Office Visit [facility] [address] [place] [address] Diego, Sara, OD [address] [place] [address] documented as of this encounter Visit Diagnoses Not on filedocumented in this encounter Additional Health Concerns Assessment Noted Time PHQ-9 Depression Total Score: 0 07/29/19 25 1:10 PM EDT documented as of this encounter Care Teams Tool Engineer Relationship Specialty Start Date End Date Janet Thompson MD [address] [place], [place] [phone] PCP - General Internal Medicine 09/09/22 documented as of this encounter
--- OUTSIDE RECORDS SUMMARY | 2024-12-04 09:26 | XMS_ITS | Encounter Summary ---
Author Organization [employer] Address [address] [place] [address] 7 [place] [address] Care Team Providers Care Hand Binder Cutter Name Role Phone Janet Thompson MD Primary Care Pro vider Reason for Visit * Reason Onset Date Comments FYI 08/22/2024 Encounter Details Date Type Department Care Team ([facility] st Contact Info) Description 08/22/2024 Telephone [facility] [address] [place] [phone] Janet Thompson MD [address] [place] [address] FYI Social History Tobacco Use Types Packs/Day [...] to report he's going on vacation to [place] from September 08 to September 25, 2024. documented in this encounter Plan of Treatment Upcoming Encounters Date Type Department Care Team (Late st Contact Info) Description 12/08/2024 9:30 AM EDT Office Visit [facility] [address] [place], [place] [phone] Janet Thompson MD [address] [place] [address] 04/16/2025 2:00 PM EST Office Visit [facility] OPTOMETRY [address] [place] [address] Sara Cortez, OD [address] [place] [address] documented as of this encounter Visit Diagnoses Not on filedocumented in this encounter Additional Health Concerns Assessment Noted Time PHQ-9 Depression Total Score: 0 07/29/19 25 1:10 PM EDT documented as of this encounter Care Teams Hand Binder Cutter Relationship Specialty Start Date End Date Janet Thompson MD [address] [place] [phone] PCP - General Internal Medicine 09/09/22 documented as of this encounter
[2024-12-04 11:35] LABS: Hematocrit 40.4 % (42.0-52.0); Hemoglobin 13.3 g/dl (14.0-18.0); Mean Corpuscular HGB Conc 32.9 g/dl (31.0-36.0); Mean Corpuscular Hemoglobin 29.4 pg (27.0-33.0); Mean Corpuscular Volume 89.4 fL (80.0-98.0); NRBC Abs Auto 0.000 X10*3/uL (0.0-0.012); NRBC Pct Auto 0.0 /100WBC (0.0-0.2); Platelet Count 251 X10*3/uL (160-400); Red Blood Count 4.52 X10*6/uL (4.60-5.80); White Blood Count 8.0 X10*3/uL (4.8-10.8)
[2024-12-04 11:54] LABS: Hematocrit 40.5 % (42.0-52.0); Hemoglobin 13.2 g/dl (14.0-18.0); Mean Corpuscular HGB Conc 32.6 g/dl (31.0-36.0); Mean Corpuscular Hemoglobin 29.1 pg (27.0-33.0); Mean Corpuscular Volume 89.4 fL (80.0-98.0); NRBC Abs Auto 0.000 X10*3/uL (0.0-0.012); NRBC Pct Auto 0.0 /100WBC (0.0-0.2); Platelet Count 248 X10*3/uL (160-400); Red Blood Count 4.53 X10*6/uL (4.60-5.80); White Blood Count 8.0 X10*3/uL (4.8-10.8)
[2024-12-04 12:11] LABS: Alanine Aminotransferase 28 U/L (0-40); Albumin Level 4.3 g/dL (3.5-5.0); Alkaline Phosphatase 109 U/L (39-117); Anion Gap 10 (12-20); Aspartate Amino Transferase 31 U/L (5-37); Blood Urea Nitrogen 19 mg/dL (9-16); Calcium 9.1 mg/dL (8.4-10.2); Carbon Dioxide 26 mmol/L (22-29); Chloride 108 mmol/L (96-108); Estimated Glomerular Filt Rate > 60; Potassium 4.4 mmol/L (3.3-5.1); Sodium 140 mmol/L (135-145); Total Protein 7.1 g/dL (6.5-8.0)
[2024-12-04 12:16] LABS: Alanine Aminotransferase 30 U/L (0-40); Albumin Level 4.3 g/dL (3.5-5.0); Alkaline Phosphatase 109 U/L (39-117); Anion Gap 11 (12-20); Aspartate Amino Transferase 35 U/L (5-37); Blood Urea Nitrogen 20 mg/dL (9-16); Calcium 9.3 mg/dL (8.4-10.2); Carbon Dioxide 26 mmol/L (22-29); Chloride 109 mmol/L (96-108); Cholesterol 129 mg/dL (<200); Estimated Glomerular Filt Rate > 60; HDL Cholesterol 36 mg/dL (>40); Iron 70 mcg/dL (45-160); Percent Iron Saturation 22 % (15-50); Potassium 4.6 mmol/L (3.3-5.1); Sodium 141 mmol/L (135-145); Total Iron Binding Capacity 321 mcg/dL (228-428); Total Protein 7.0 g/dL (6.5-8.0); Triglycerides 125 mg/dL (<150); Unsaturated Iron Binding 251 ug/dL
[2024-12-04 12:17] LABS: Ferritin 19 ng/mL (20-250)
[2024-12-04 12:18] LABS: Syphilis Screen Nonreactive (Nonreactive)
[2024-12-04 12:19] LABS: HBsAGNum1 0.37 S/CO (0.00-0.99); HIV Num 1 0.06 S/CO (0.00-0.99); Hepatitis B Surface Antigen Negative (Negative); ~HepC Num1 0.07 S/CO (0.00-0.79); ~Hepatitis C Antibody Nonreactive (Nonreactive)
[2024-12-04 12:22] LABS: Folate 13.6 ng/mL (> or = 4.0); Prostate Specific Antigen 0.52 ng/mL (<0.05-4.0); Vitamin B12 312 pg/mL (200-900)
[2024-12-04 12:23] LABS: Ferritin 18 ng/mL (20-250)
[2024-12-04 12:26] LABS: Folate 14.3 ng/mL (> or = 4.0); Vitamin B12 289 pg/mL (200-900)
[2024-12-08 19:13] LABS: Testosterone, Free 65.3 pg/mL (35.0-155.0)
== END 2024-12-04 08:17 | disposition home or self-care (01) ==
LOC: HO.HHCL 08:16
PROVIDERS: PCP Student in an Organized Health Care Education/Training Program; Referring Provider Student in an Organized Health Care Education/Training Program; Visit Provider Physician Assistant Medical
DX: Z00.00 Encounter for general adult medical examination without abnormal findings (principal); Z13.1 Encounter for screening for diabetes mellitus; Z12.5 Encounter for screening for malignant neoplasm of prostate; Z13.6 Encounter for screening for cardiovascular disorders; R53.83 Other fatigue; G47.33 Obstructive sleep apnea (adult) (pediatric); G47.19 Other hypersomnia; M81.0 Age-related osteoporosis without current pathological fracture; G47.9 Sleep disorder, unspecified
CPT/HCPCS: 36415; 80053; 80061; 82043; 82306; 82570; 82607; 82728; 82746; 83036; 83090; 83540; 83921; 84153; 84207; 84402; 84403; 84425; 84443; 85027; 86780; 86803; 87340; 87389

== ENCOUNTER 2025-02-12 08:02 | Outpatient (REF) | payer MEDICARE, SELFPAY ==
--- OUTSIDE RECORDS SUMMARY | 2025-02-12 08:11 | XMS_ITS | Clinical Summary ---
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 340 g 1 4 Active triamcinolone (Kenalog) 0.1 % ointment Apply topically 2 times daily. 15 g 1 5 Active clopidogrel (Plavix) 75 MG tabletIndications :Cerebrovascular accident (CVA) due to thrombosis of precerebral artery (HCC) TAKE 1 TABLET BY MOUTH EVERY MORNING 90 tablet 1 5 Active atorvastatin (Lipitor) 80 MG tabletIndications :Cerebrovascular accident (CVA) due to thrombosis of precerebral artery (HCC) TAKE 1 TABLET BY MOUTH EVERY EVENING 90 tablet 5 Active QUEtiapine (SEROquel) 50 MG tablet TAKE 1 TABLET BY MOUTH AT BEDTIME 90 tablet 5 Active Calcium Carb-Cholecalcife rol (Calcium 600+D) 600-20 MG-MCG tablet Take 1 tablet by mouth at noon and 1 tablet in the evening. Active ferrous sulfate 325 (65 Fe) MG tablet TOME SCOTT TABLETA POR V A ORAL TODOS LOS D FOR LOW IRON 5 Active metFORMIN XR (Glucophage-XR) 500 MG 24 hr tablet Take 1 tablet (500 mg) by mouth with evening meal. Do not crush, chew, or split. 90 tablet 5 12/09/19 26 Active lidocaine-priloca ine (Emla) 2.5-2.5 % cream Apply topically if needed each day for mild pain. 30 g 5 Active lisinopril 10 MG tabletIndications :Essential hypertension TAKE 1 TABLET BY MOUTH EVERY DAY 90 tablet 1 5 Active cetirizine (ZyrTEC) 10 MG tablet TAKE 1 TABLET BY MOUTH EVERY MORNING 90 tablet 5 Active zolpidem (Ambien) 10 MG tablet TAKE 1 TABLET BY MOUTH AT BEDTIME NEEDED FOR SLEEP 30 tablet 5 Active Active Problems Problem Noted Date Diagnosed Date History of tobacco use 07/01/2023 Health care maintenance 04/15/2023 Left knee pain 09/09/2022 Overview (09/09/2022): bilateral knee joint pain chronic < 1 year. No imaging Associated swelling Treating w/ David gel Assessment & Plan (09/09/2022 10:14 PM EDT): No xray results from 06/09/22 Will order bilateral xray again Refer Ortho Will task [place] to contact pt and f/u PT referral Followup 2 months w/ new PCP Adjustment disorder, unspecified 06/09/2022 Insomnia 06/09/2022 CVA (cerebrovascular accident) ([facility]) 023 Overview (09/09/2022): Continue Clopidogrel as prescribed. Forgetfulness/memory [...] Encounters Date Type Department Care Team Description 02/10/2025 Refill [facility] [address], [place] [address] Janet Thompson MD Cerebrovascular accident (CVA) due to thrombosis of precerebral artery (HCC) 01/11/2025 Refill [facility] [address], [place] [address] Janet Thompson MD 01/08/2025 Refill [facility] [address], [place] [address] Janet Thompson MD 12/26/2024 Results Follow-Up [facility] [address], [place] [address] Janet Thompson MD Fecal Globin By Immunochemistry 12/22/2024 Refill [facility] [address], [place] [address] Janet Thompson MD Essential hypertension 12/15/2024 Orders Only [facility] [address], [place] [address] Janet Thompson MD 12/12/2024 Refill [facility] [address], [place] [address] Janet Thompson MD 12/08/2024 9:30 AM EDT Office Visit [facility] [address] [place] [address] Janet Thompson MD Essential hypertension (Primary Dx); Anemia, unspecified type; Osteoporosis, unspecified osteoporosis type, unspecified pathological fracture presence; Polyp of colon, unspecified part of colon, unspecified type; Pain in both knees, unspecified chronicity 12/08/2024 Travel 12/04/2024 Orders Only GENERIC EXTERNAL DATA DEPARTMENT Provider, Generic External Data 11/30/2024 Refill [facility] [address] [place] [address] Janet Thompson MD 11/19/2024 Refill [facility] [address] [place] [address] Janet Thompson MD Cerebrovascular accident (CVA) due to thrombosis of precerebral artery ([facility]) 11/14/2024 Refill [facility] [address] [place] [address] Janet Thompson MD from Last 3 Months [...] 1 976 - 2020 Smokeless Tobacco: Never Tobacco Cessation:Counseling Given: Not [...] Sign Reading Time Taken Comments Blood Pressure 128/72 12/08/2024 9:41 AM EDT Pulse 100 12/08/2024 9:41 AM EDT Temperature 36.2 C (97.1 F) 12/08/2024 9:41 AM EDT Respiratory Rate 20 12/08/2024 9:41 AM EDT Oxygen Saturation 98% 12/08/2024 9:41 AM EDT Inhaled Oxygen Concentration - - Weight 69.9 kg (154 lb) 12/08/2024 9:41 AM EDT Height 162.6 cm (5' 4 ) 12/08/2024 9:41 AM EDT Body Mass Index 26.43 12/08/2024 9:41 AM EDT Plan of Treatment Upcoming Encounters Date Type Department Care Team (Late st Contact Info) Description 04/16/2025 2:00 PM EST Office Visit [facility] [address] [place] [address] Sara Cortez, OD [address] [place] [address] 04/17/2025 9:45 AM EST Office Visit [facility] [address] [place] [address] Janet Thompson MD [address] [place] [address] Health Maintenance Due Date Last Done Comments CT Colonography 1958 FIT DNA/Cologuard 1960 Sigmoidoscopy 1958 Lung Cancer Screening 2008 Hepatitis B Vaccines (2 of 3 - 19+ 3-dose series) 09/24/2023 08/27/2023 COVID-19 Vaccine ( season) 2024 03/23/2024, 04/14/2023, 02/09/2022, Additional history exists Alcohol/Substance Use Screening 07/28/2025 07/28/2024 Depression Screening 07/28/2025 07/28/2024, 07/29/19 25 SDOH Screening 07/28/2025 07/28/2024 Colonoscopy 08/02/2025 Colorectal Cancer Screening 08/02/2025 Diabetes: Hemoglobin A1C 12/04/2025 025, 08/23/2023, 12/12/2020, Additional history exists Tobacco Screening 12/08/2025 12/08/2024 FIT 12/15/2025 12/15/2024 FOBT 12/15/2025 12/15/2024 DTaP/Tdap/Td Vaccines (2 - Td or Tdap) 03/04/2027 03/04/2017 Lipid Panel 12/04/2029 12/04/2024, 08/13, 09/24/2021, Additional history exists Zoster Vaccines Completed 11/28/2021, 06/05/2021 RSV Patients and Patients Aged 60 years or older Completed 03/31/2023 Pneumococcal Vaccine: 50+ Years Completed 07/28/2024 Influenza Vaccine Completed 11/27/2024, , 02/17/2023, Additional history exists Hepatitis C Screening Completed 12/04/2024, 024 HIB Vaccines Aged Out No longer eligi [...] Procedure Name Priority Date/Time Associated Diagnosis Comments FECAL GLOBIN BY IMMUNOCHEMISTRY Routine 12/15/2024 12:00 AM EDT ECG 12-LEAD Routine 12/08/2024 9:45 AM EDT Essential hypertension CBC Routine 12/04/2024 8:38 AM EDT VITAMIN B1 Routine 12/04/2024 8:28 AM EDT VITAMIN B6 Routine 12/04/2024 8:28 AM EDT METHYLMALONIC ACID Routine 12/04/2024 8: 28 AM EDT VITAMIN B12/FOLATE, SERUM PANEL Routine 12/04/2024 8:28 AM EDT TSH W/REFLEX TO FT4 Routine 12/04/2024 8 :28 AM EDT VITAMIN D,25-OH,TOTAL,IA Routine 12/04/2024 8:28 AM EDT FERRITIN Routine 12/04/2024 8:28 AM EDT COMPREHENSIVE METABOLIC PANEL Routine 12/04/2024 8:28 AM EDT TESTOSTERONE, FREE (DIALYSIS) AND TOTAL,MS Routine 12/04/2024 8:28 AM EDT Osteoporosis without current pathological fracture, unspecified osteoporosis type PSA, TOTAL Routine 12/04/2024 8:28 AM EDT Annual physical exam FERRITIN Routine 12/04/2024 8:28 AM EDT Annual physical exam IRON AND TOTAL IRON BINDING CAPACITY Routine 12/04/2024 8:28 AM EDT Annual physical exam VITAMIN D,25-OH,TOTAL,IA Routine 12/04/2024 8:28 AM EDT Annual physical exam TSH W/REFLEX TO FT4 Routine 12/04/2024 8 :28 AM EDT Annual physical exam VITAMIN B12/FOLATE, SERUM PANEL Routine 12/04/2024 8:28 AM EDT Annual physical exam SYPHILIS SCREEN Routine 12/04/2024 8:28 AM EDT Annual physical exam LIPID PANEL, STANDARD Routine 12/04/2024 8:28 AM EDT Annual physical exam HIV 1/2 ANTIGEN/ANTIBODY, FOURTH GENERATION W/RFL Routine 12/04/2024 8:28 AM EDT Annual physical exam HEPATITIS C AB W/REFL TO HCV RNA, QN, PCR Routine 12/04/2024 8:28 AM EDT Annual physical exam HEPATITIS B SURFACE ANTIGEN, EIA Routine 12/04/2024 8:28 AM EDT Annual physical exam HEMOGLOBIN A1C Routine 12/04/2024 8:28 AM EDT Annual physical exam COMPREHENSIVE METABOLIC PANEL Routine 12/04/2024 8:28 AM EDT Annual physical exam CBC Routine 12/04/2024 8:28 AM EDT Annual physical exam ALBUMIN, RANDOM URINE W/CREATININE Routine 12/04/2024 8:28 AM EDT Annual physical exam HOMOCYSTEINE Routine 12/04/2024 8:02 AM EDT from Last 3 Months Results * Fecal Globin By Immunochemistry (12/15/2024 12:00 AM EDT) Fecal Globin By Immunochemistry SEE NOTE [facility] Comment: FECAL GLOBIN BY IMMUNOCHEMISTRY Micro Number: [id number] Test Status: Final Specimen Source: Insu () fobt test card Specimen Quality: Adequate Fecal Globin: Not Detected Reference Range: Not Detected Comment: Test results may be invalid as no date of collection was provided. Specimens are stable for 14 days. NOTE: Approved collection includes sample of toilet water adjacent to stool. Other methods of collection such as stool transferred from diaper, bedpan, or commode to toilet water may lead to inaccurate results. 12/15/2024 12/26/2024 1:0 3 AM EDT Narrative [facility] - 12/26/2024 1:08 AM EDT FASTING: UNKNOWN us Janet Pierre MD LAB BODY FLUIDS A ND STOOLS ORDERABLES Final Result [facility] [address], [place] [address] [facility] [address] [place] [address] * ECG 12 lead (12/08/2024 9:45 AM EDT) Narrative Janet Thompson MD - 12/08/2024 9:45 AM EDT -EKG today NSR,QTc 389, HR 69, no ischemic changes us Janet Pierre MD ECG ORDERABLES F inal Result * (ABNORMAL) CBC (12/04/2024 8:38 AM EDT) Only the most recent of2 resultswithin the time period is included. White Blood Count 8.0 4.8 - 10.8 X10*3/uL [facility] Red Blood Count 4.52(L) 4.60 - 5.80 X10*6/uL [facility] Hemoglobin 13.3(L) 14.0 - 18.0 g/dl [facility] Hematocrit 40.4(L) 42.0 - 52.0 % [facility] Mean Corpuscular Volume 89.4 80.0 - 98.0 fL [facility] Mean Corpuscular Hemoglobin 29.4 27.0 - 33.0 pg [facility] Mean Corpuscular HGB Conc 32.9 31.0 - 36.0 g/dl [facility] Red Cell Distribution Width 13.7 11.0 - 16.0 % [facility] Platelet Count 251 160 - 400 X10*3/uL [facility] Mean Platelet Volume 9.9 9.4 - 12.4 fL [facility] NRBC Pct Auto 0.0 0.0 - 0.2 /100WBC [facility] NRBC Abs Auto 0.000 0.0 - 0.012 X10*3/uL [facility] 12/04/2024 8:38 AM EDT 12/04/2024 11:17 AM EDT us Generic External Data Provider LAB BLOOD ORDERAB LES Final Result [facility] [address] [place] [address] [phone] * Syphilis Screen (12/04/2024 8:28 AM EDT) Syphilis Screen Nonreactive Nonreactive [facility] Blood 12/04/2024 8:28 AM EDT 12/04/2024 11:17 AM EDT Janet Pierre MD LAB BLOOD ORDERAB LES Final Result Performing Organization Address [facility] Co de Phone Number [facility] [address] [place] [address] [phone] * Vitamin D, 25-Hydroxy, Total, Immunoassay (12/04/2024 8:28 AM EDT) Only the most recent of2 resultswithin the time period is included. Vitamin D 25-OH Total 57.0 >30 ng/mL [facility] Comment: Health Based Reference Values*< 20 ng/mL Tdbsstayv69-19 ng/mL Insufficient> 30 ng/mL Sufficient*Elmer RUIZ. N Engl J Med. 2007;357:266-280There is no well-established upper level of normal vitamin Dlevels. Some laboratories use 50 ng/mL as an upper limit ofnormal. However, toxicity is patient-dependent and may occurat any level. Careful correlation with the patient'spresentation is necessary and, if there is concern forvitamin D toxicity, treatment should be consideredirrespective of the serum level.Care must be taken in interpreting Vitamin D results fromdifferent laboratories and methodologies. Published datademonstrated that results from patients undergoinghemodialysis may show a negative bias when tested withvarious automated 25-OH vitamin D assays when compared toLC-MS/MS.When testing samples from patients whose predominant form ofVitamin D is Vitamin D2, such as patients receiving VitaminD2 supplementation, results that are subtherapeutic shouldbe confirmed with another method such as LC-MS/MS. 12/04/2024 8:28 AM EDT 12/04/2024 11:17 AM EDT us Generic External Data Provider LAB BLOOD ORDERAB LES Final Result Performing Organization Address [facility] Co de Phone Number [facility] [address] [place] [phone] * Vitamin B12 (Cobalamin) and Folate Panel, Serum (12/04/2024 8:28 AM EDT) Only the most recent of2 resultswithin the time period is included. Vitamin B12 289 200 - 900 pg/mL [facility] Comment:NORMAL 200-900 PG/M L INDETERMINATE 160-199 PG/ML DEFICIENT < 160 PG/ML Folate 14.3 > or = 4.0 ng/mL [facility] Comment:Reference Values:> o r = 4.0 ng/mL< 4.0 ng/mL suggests folate deficiency Methotrexate, aminopterin and folinic acid(leucovorin) are chemotherapeutic agents whose molecularstructures are similar to folate; therefore, the Architectfolate assay cannot be used for patients using these drugs. 12/04/2024 8:28 AM EDT 12/04/2024 11:09 AM EDT us Generic External Data Provider LAB BLOOD ORDERAB LES Final Result Performing Organization Address [facility] Co de Phone Number [facility] [address] [place] [phone] * TSH with Reflex to Free T4 (12/04/2024 8:28 AM EDT) Only the most recent of2 resultswithin the time period is included. TSH reflex Free T4 3.34 0.32 - 4.0 uIU/mL [facility] 12/04/2024 8:28 AM EDT 12/04/2024 11:17 AM EDT us Generic External Data Provider LAB BLOOD ORDERAB LES Final Result Performing Organization Address [facility] Co de Phone Number [facility] [address] [place] [phone] * Albumin, Random Urine W/Creatinine (12/04/2024 8:28 AM EDT) Creatinine, Urine 136.36 mg/dL [facility] Microalbumin Urine <5.0 mg/L [facility] Microalbum Creatinine Ratio Ur TNP <30 ug/mg cr [facility] Comment:Unable to calculate albumin/creatinine ratio due to lowmicroalbumin or creatinine result. Urine (Urine, Random) 12/04/2024 8:28 AM EDT 12/04/2024 11:05 AM EDT us Janet Pierre MD LAB URINE ORDERAB LES Final Result Performing Organization Address [facility] Co de Phone Number [facility] [address] [place] [phone] * Hepatitis C Antibody with Reflex to HCV, RNA, Quantitative, Real-Time PCR (12/04/2024 8:28 AM EDT) Pathologist [facility] Hepatitis C Antibody Nonreactive Nonreactive [facility] Comment:Antibodies to HCV no t detected; does not exclude early acuteHCV infection. Blood Venous blood specimen / Unknown 12/04/2024 8:28 AM EDT 12/04/2024 11:17 AM EDT us Janet Pierre MD LAB BLOOD ORDERAB LES Final Result Performing Organization Address [facility] de Phone Number [facility] [address] [place] [phone] * Methylmalonic Acid (12/04/2024 8:28 AM EDT) Pathologist [facility] Methylmalonic Acid 360 69 - 390 nmol/L [facility] Comment: Serum methylmalonic acid (MMA) levels are used todiagnose and monitor several rare inborn errors ofmetabolism, including methylmalonic aciduria. Theenzymatic conversion of MMA to succinic acid requiresvitamin B12 (adenosyl-cobalamin) as a cofactor. SerumMMA levels are also used for assessing functionalvitamin B12 deficiency. Vitamin B12 is essential forfetal neurodevelopment, particularly early inpregnancy. Undiagnosed maternal vitamin B12 deficiencymay be associated with adverse / outcomes,such as neural tube defects and intrauterine growthrestriction.Floop utilized Multi-Modal Decomposition(MMD) analysis to establish first and second trimester-specific MMA reference intervals in , as givenbelow:MMA, First trimester (<13 wks gestation): 58-167 nmol/LMMA, Second trimester (13-23 wks gestation):63-241 nmol/LThis test was developed and its analytical performancecharacteristics have been determined by [employer]. It has not been cleared or approved by theA. This assay has been validated pursuant to the CLIAregulations and is used for clinical purposes.THIS TEST WAS PERFORMED AT:[employer]/[id number] [place] [id number] MOREJON MD,PHD 12/04/2024 8:28 AM EDT 12/04/2024 11:17 AM EDT us Generic External Data Provider LAB BLOOD ORDERAB LES Final Result [facility] [address] [place] [phone] * Iron And Total Iron Binding Capacity (12/04/2024 8:28 AM EDT) Iron 70 45 - 160 mcg/dL [facility] Total Iron Binding Capacity 321 228 - 428 mcg/dL [facility] Percent Iron Saturation 22 15 - 50 % [facility] Unsaturated Iron Binding 251 ug/dL [facility] Blood Venous blood specimen / Unknown 12/04/2024 8:28 AM EDT 12/04/2024 11:17 AM EDT Janet Pierre MD LAB BLOOD ORDERAB LES Final Result Performing Organization Address [facility]/ZIP Co de Phone Number [facility] [address] [place] [phone] * Hepatitis B surface antigen, EIA (12/04/2024 8:28 AM EDT) Hepatitis B Surface Ag Negative Negative [facility] Blood Venous blood specimen / Unknown 12/04/2024 8:28 AM EDT 12/04/2024 11:17 AM EDT Janet Pierre MD LAB BLOOD ORDERAB LES Final Result Performing Organization Address [facility] Co de Phone Number [facility] [address] [place] [phone] * HIV-1/2 Antigen and Antibodies, Fourth Generation, with Reflexes (12/04/2024 8:28 AM EDT) Pathologist [facility] HIV AB/AG Nonreactive Nonreactive [facility] Comment:HIV-1 p24 Ag and/or HIV-1/HIV-2 Ab not detected.A test result that is nonreactive does not exclude thepossibility of exposure to or infection with HIV-1 and/orHIV-2. Nonreactive results in this assay for individualswith prior exposure to HIV-1 and/or HIV-2 may be due toantigen and antibody levels that are below the limit ofdetection of this assay.The [employer] HIV Ag/Ab Combo assay result andsupplemental assay results should be interpreted inconjunction with the patient's clinical presentation,history and other laboratory results. If the results areinconsistent with clinical evidence, additional testing issuggested to confirm the result. Blood Venous blood specimen / Unknown 12/04/2024 8:28 AM EDT 12/04/2024 11:17 AM EDT Janet Pierre MD LAB BLOOD ORDERAB LES Final Result Performing Organization Address [facility]/ZIP Co de Phone Number [facility] [address] [place] [phone] * Testosterone, Free (Dialysis) And Total, MS (12/04/2024 8:28 AM EDT) Testosterone, Total 506 250 - 1100 ng/dL [facility] Comment:Men with clinically significant hypogonadalsymptoms and testosterone values repeatedly inthe range of the 200-300 ng/dL or less, maybenefit from testosterone treatment afteradequate risk and benefits counseling.For additional information, please refer tohttp://education.[employer]/faq/VtbkuErczrfbexiwhZRTPDTTNU940(This link is being provided for informational/educational purposes only.)This test was developed and its analytical performancecharacteristics have been determined by [employer] [place], [place]. It hasnot been cleared or approved by the U.S. Food and DrugAdministration. This assay has been validated pursuantto the CLIA regulations and is used for clinicalpurposes. Testosterone, Free 65.3 35.0 - 155.0 pg/mL [facility] Comment:This test was develo ped and its analytical performancecharacteristics have been determined by [employer] [place], [place]. It hasnot been cleared or approved by the U.S. Food and DrugAdministration. This assay has been validated pursuantto the CLIA regulations and is used for clinicalpurposes.THIS TEST WAS PERFORMED AT:[employer] [id number] [place] [id number] MOREJON MD,PHD Blood Venous blood specimen / Unknown 12/04/2024 8:28 AM EDT 12/04/2024 11:17 AM EDT us Janet Pierre MD LAB BLOOD ORDERAB LES Final Result Performing Organization Address [facility]/ZIP Co de Phone Number [facility] [address] [place] [phone] [phone] * Vitamin B1 (12/04/2024 8:28 AM EDT) Vitamin B1 17 8 - 30 nmol/L [facility] Comment:Vitamin supplementat ion within 24 hours prior toblood draw may affect the accuracy of the results.This test was developed and its analytical performancecharacteristics have been determined by [employer] [place], [place]. It hasnot been cleared or approved by the .S. Food and DrugAdministration. This assay has been validated pursuantto the CLIA regulations and is used for clinicalpurposes.THIS TEST WAS PERFORMED AT:[employer] [id number] [place] [id number] MOREJON MD,PHD 12/04/2024 8:28 AM EDT 12/04/2024 11:17 AM EDT us Generic External Data Provider LAB BLOOD ORDERAB LES Final Result [facility] [address] [place] [phone] [phone] * Vitamin B6, Plasma (12/04/2024 8:28 AM EDT) Pathologist [facility] Vitamin B6 9.2 2.1 - 21.7 ng/mL [facility] Comment:Vitamin supplementat ion within 24 hours prior toblood draw may affect the accuracy of the results.This test was developed and its analytical performancecharacteristics have been determined by [employer] [place], [place]. It hasnot been cleared or approved by the U.S. Food and DrugAdministration. This assay has been validated pursuantto the CLIA regulations and is used for clinicalpurposes.THIS TEST WAS PERFORMED AT:[employer] [id number] [place] [id number] MOREJON MD,PHD 12/04/2024 8:28 AM EDT 12/04/2024 11:17 AM EDT Generic External Data Provider LAB BLOOD ORDERAB LES Final Result Performing Organization Address [facility]/ZIP Co de Phone Number [facility] [address] [place] [phone] * PSA,Total (12/04/2024 8:28 AM EDT) Prostate Specific Antigen 0.52 <0.05 - 4.0 ng/mL [facility] Comment:PSA methodology: Abb ac Alidesiraety i ChemiluminescentMicroparticle Immunoassay (CMIA) Blood Venous blood specimen / Unknown 12/04/2024 8:28 AM EDT 12/04/2024 11:09 AM EDT Janet Pierre MD LAB BLOOD ORDERAB LES Final Result Performing Organization Address [facility] Co de Phone Number [facility] [address] [place] [phone] * (ABNORMAL) Hemoglobin A1c (12/04/2024 8:28 AM EDT) Hemoglobin A1c 6.2(H) <6.0 % [facility] Comment:Hemoglobin A1C Refer ence Range Adults: 4.8 - 6.0 % Non diabetic: < 6.0 % Goal: < 7.0 %Additional Action Suggested: > 8.0 %Note: Hemoglobin A1c results are invalid for patients with abnormal amounts of HbF. Blood transfusions may impact the HbA1c concentration in the patient sample. Estimated Average Glucose 131 mg/dL [facility] Comment:eAG = Estimated ave rage glucose which is %A1C expressed asaverage glucose, using the formula of the Q2B-JljhsefRoxkzrv Glucose study (ADAG), Diabetes Care, Vol.31,#8,Oct. 2007 Blood Venous blood specimen / Unknown 12/04/2024 8:28 AM EDT 12/04/2024 11:17 AM EDT Janet Pierre MD LAB BLOOD ORDERAB LES Final Result Performing Organization Address City/[facility]/ZIP Co de Phone Number [facility] [address] [place] [address] [phone] * (ABNORMAL) Ferritin (12/04/2024 8:28 AM EDT) Only the most recent of2 resultswithin the time period is included. Ferritin 18(L) 20 - 250 ng/mL [facility] 12/04/2024 8:28 AM EDT 12/04/2024 11:17 AM EDT us Generic External Data Provider LAB BLOOD ORDERAB LES Final Result Performing Organization Address [facility] Co de Phone Number [facility] [address] [place] [phone] * (ABNORMAL) Lipid Panel, Standard (12/04/2024 8:28 AM EDT) Triglycerides 125 <150 mg/dL [facility] Comment:Desirable Triglyceri de: less than 150 mg/dLBorderline High Triglyceride 150-199 mg/dLHigh Triglyceride: 200-499 mg/dLVery High Triglyceride: greater than or equal to 5OO mg/dL Cholesterol 129 <200 mg/dL [facility] Comment:Desirable Cholestero l: less than 200 mg/dLBorderline High Cholesterol: 200-239 mg/dLHigh Cholesterol: greater than 239 mg/dL LDL Cholesterol Calculated 68 <100 mg/dL [facility] Comment:Desirable LDL: less than 100 mg/dLNear Optimal/Above Optimal LDL: 110- 129 mg/dLBorderline High LDL: 130-159 mg/dLHigh LDL: 160-189 mg/dLVery High LDL: greater than or equal to 190 mg/dL HDL Cholesterol 36(L) >40 mg/dL [facility] Comment:Desirable HDL: great er than 40 mg/dL Note: This HDL assay may give artificially low results in patients with liver disease. Blood Venous blood specimen / Unknown 12/04/2024 8:28 AM EDT 12/04/2024 11:17 AM EDT us Janet Pierre MD LAB BLOOD ORDERAB LES Final Result [facility] [address] [place] [phone] [phone] * (ABNORMAL) Comprehensive Metabolic Panel (12/04/2024 8:28 AM EDT) Only the most recent of2 resultswithin the time period is included. Sodium 141 135 - 145 mmol/L [facility] Potassium 4.6 3.3 - 5.1 mmol/L [facility] Chloride 109(H) 96 - 108 mmol/L [facility] Carbon Dioxide 26 22 - 29 mmol/L [facility] Anion Gap 11(L) 12 - 20 [facility] Urea Nitrogen (BUN) 20(H) 9 - 16 mg/dL [facility] Creatinine, Serum 1.08 0.5 - 1.4 mg/dL [facility] Estimated Glomerular Filt Rate >60 [facility] Comment:Chronic Kidney Disea se: Estimated GFR < 60 mL/min/1.66n9Htovmk Kidney Disease: Estimated GFR < 15 mL/min/1.73m2 Glucose 105 60 - 115 mg/dL [facility] Calcium 9.3 8.4 - 10.2 mg/dL [facility] Bilirubin, Total 0.4 0.0 - 1.0 mg/dL [facility] Aspartate Amino Transferase 35 5 - 37 U/L [facility] Alanine Aminotransferase 30 0 - 40 U/L [facility] Total Protein 7.0 6.5 - 8.0 g/dL [facility] Albumin Level 4.3 3.5 - 5.0 g/dL [facility] Alkaline Phosphatase 109 39 - 117 U/L [facility] 12/04/2024 8:28 AM EDT 12/04/2024 11:17 AM EDT us Generic External Data Provider LAB BLOOD ORDERAB LES Final Result Performing Organization Address [facility] Co de Phone Number [facility] [address] [place] [phone] * Homocysteine (12/04/2024 8:02 AM EDT) Homocysteine 14.6 < or = 15.2 umol/L [facility] Comment:Homocysteine is incr eased by functional deficiency offolate or vitamin B12. Testing for methylmalonic aciddifferentiates between these deficiencies. Other causesof increased homocysteine include renal failure, folateantagonists such as methotrexate and phenytoin, andexposure to nitrous oxide.Veena Jerez, et al., [address] Production General Manager Med. 1999;131(5):331-9.THIS TEST WAS PERFORMED AT:[facility] [place] [id number] ROJAS MD 12/04/2024 8:02 AM EDT 12/04/2024 11:04 AM EDT Generic External Data Provider LAB BLOOD ORDERAB LES Final Result Performing Organization Address [facility] Co de Phone Number [facility] [address] [place] [phone] from Last 3 Months Insurance [facility] MEDICARE ADVANTAGE Care Teams Cushion Gum Applicator Relationship Specialty Start Date End Date Janet Thompson MD [address] [place] [address] PCP - General Internal Medicine 09/09/22
--- OUTSIDE RECORDS SUMMARY | 2025-02-12 08:11 | XMS_ITS | Encounter Summary ---
Author Organization [employer] Address [address] [place] [address] 7 [place] [address] Care Team Providers Care Production Worker Name Role Phone Tremaine Banuelos MD Primary Care Prov ider Erin Aviles [facility] Primary Care Provider Sonia Janet Lin MD Primary Care Pro vider Encounter Details Date Type Department Care Team (Latest Contact Info) Description 05/13/2021 Abstract [facility] CONVERSIONS Dental, Provider, DDS Social History Tobacco [...] Description 04/16/2025 2:00 PM EST Office Visit [facility] OPTOMETRY [address] [place] [address] Diego, Sara, OD [address] [place] [address] 04/17/2025 9:45 AM EST Office Visit [facility] MEDICINE [address] [place] [address] Janet Thompson MD [address] [place] [address] documented as of this encounter Visit Diagnoses Not on filedocumented in this encounter Care Teams Production Worker Relationship Specialty Start Date End Date Tremaine Banuelos MD [address] [place] [address] PCP - General Internal Medicine 08/13/19 05/10/22 Erin Aviles FNP [address] [place] [address] PCP - General Family Medicine 05/11/22 09/08/22 Janet Thompson MD [address] [place] [address] PCP - General Internal Medicine 09/09/22 documented as of this encounter
--- OUTSIDE RECORDS SUMMARY | 2025-02-12 08:11 | XMS_ITS | Encounter Summary ---
Author Organization [employer] Address 75 [facility] 7 [place] [address] Care Team Providers Care Clinical Dermatologist Name Role Phone Janet Thompson MD Primary Care Pro vider Reason for Visit * Reason Onset Date Comments Med Refill 01/28/2023 Encounter Details Date Type Department Care Team ([facility] st Contact Info) Description 01/28/2023 Telephone [facility] MEDICINE [address] [place] [address] [phone] Janet Thompson MD [address] [place] [address] Med Refill Social History Tobacco Use Types [...] 12:55 PM EST Medication was sent to [facility][id number] on 10/08/22 #90 with 1 refill. * Telephone Encounter - Dominic Powers - 01/28/2023 12:12 PM EST Tc from patient requesting medication refill for clopidogrel (Plavix) 75 MG tablet. documented in this encounter Plan of Treatment Upcoming Encounters Date Type Department Care Team (Late st Contact Info) Description 04/16/2025 2:00 PM EST Office Visit [facility] OPTOMETRY [address] [place] [address] Sara Cortez, OD 230 [place] [address] 04/17/2025 9:45 AM EST Office Visit [facility] MEDICINE [address] [place] [address] Janet Thompson MD [address] [place] [address] documented as of this encounter Visit Diagnoses Not on filedocumented in this encounter Additional Health Concerns Assessment Noted Time PHQ-9 Depression Total Score: 5 05/12/19 11:52 AM EST documented as of this encounter Care Teams Clinical Dermatologist Relationship Specialty Start Date End Date Janet Thompson MD [address] [place] [address] PCP - General Internal Medicine 09/09/22 documented as of this encounter
--- OUTSIDE RECORDS SUMMARY | 2025-02-12 08:11 | XMS_ITS | Encounter Summary ---
Author Organization [employer] Address [address] [place] [address] 7 [place] [address] Care Team Providers Care Sales And Marketing Professional Name Role Phone Janet Thompson MD Primary Care Pro vider Reason for Visit * Reason Comments Med Refill Encounter Details Date Type Department Care Team ([facility] st Contact Info) Description 02/10/2025 Refill [facility] MEDICINE [address] [place], [place] [phone] Janet Thompson MD [address] [place] [address] Cerebrovascular accident (CVA) due to thrombosis of precerebral artery (HCC) Social History Tobacco Use Types Packs/Day Years [...] Description 04/16/2025 2:00 PM EST Office Visit [facility] OPTOMETRY [address] [place] [address] Sara Cortez, OD 230 [place] [address] 04/17/2025 9:45 AM EST Office Visit [facility] MEDICINE [address] [place] [address] Janet Thompson MD [address] [place] [address] documented as of this encounter Visit Diagnoses Diagnosis Cerebrovascular accident (CVA) due to thrombosis of precerebral artery (HCC) documented in this encounter Additional Health Concerns Assessment Noted Time PHQ-9 Depression Total Score: 0 07/29/19 25 1:10 PM EDT documented as of this encounter Care Teams Sales And Marketing Professional Relationship Specialty Start Date End Date Janet Thompson MD [address] [place] [address] PCP - General Internal Medicine 09/09/22 documented as of this encounter
--- OUTSIDE RECORDS SUMMARY | 2025-02-12 08:11 | XMS_ITS | Encounter Summary ---
Author Organization [employer] Address 75 [facility] 7t [place] [address] Care Team Providers Care Chief Engineer Drilling And Recovery Name Role Phone Janet Thompson MD Primary Care Pro vider Reason for Visit * Reason Comments Med Refill Encounter Details Date Type Department Care Team (Late st Contact Info) Description 01/29/2023 Refill [facility] MEDICINE [address] [place] [address] Erin Aviles, SOLA Cerebrovascular accident (CVA) due [...] t he electric, gas, oil or water [employer] threatened to shut off services in your [...] Description 04/16/2025 2:00 PM EST Office Visit [facility] OPTOMETRY [address] [place] [address] Sara Cortez, OD [address] [place] [address] 04/17/2025 9:45 AM EST Office Visit [facility] MEDICINE [address] [place] [address] Janet Thompson MD [address] [place] [address] documented as of this encounter Visit Diagnoses Diagnosis Cerebrovascular accident (CVA) due to thrombosis of precerebral artery (HCC) documented in this encounter Additional Health Concerns Assessment Noted Time PHQ-9 Depression Total Score: 5 05/12/19 23 11:52 AM EST documented as of this encounter Care Teams Chief Engineer Drilling And Recovery Relationship Specialty Start Date End Date Janet Thompson MD [address] [place] [address] PCP - General Internal Medicine 09/09/22 documented as of this encounter
--- OUTSIDE RECORDS SUMMARY | 2025-02-12 08:11 | XMS_ITS | Encounter Summary ---
Author Organization [employer] Address [address] [place] [address] 7 [place] [address] Care Team Providers Care Mining Engineering Technologist Name Role Phone Janet Thompson MD Primary Care Pro vider Reason for Visit * Reason Onset Date Comments FYI 08/22/2024 Encounter Details Date Type Department Care Team ([facility] st Contact Info) Description 08/22/2024 Telephone [facility] MEDICINE [address] [place] [phone] Janet Thompson MD [address] [place] [address] FYI Social History Tobacco Use Types Packs/Day [...] Description 04/16/2025 2:00 PM EST Office Visit [facility] OPTOMETRY [address] [place], [place] [phone] Sara Cortez, OD [address] [place] [address] 04/17/2025 9:45 AM EST Office Visit [facility] MEDICINE [address] [place] [address] Janet Thompson MD [address] [place], [place] [phone] documented as of this encounter Visit Diagnoses Not on filedocumented in this encounter Additional Health Concerns Assessment Noted Time PHQ-9 Depression Total Score: 0 07/29/19 25 1:10 PM EDT documented as of this encounter Care Teams Mining Engineering Technologist Relationship Specialty Start Date End Date Janet Thompson MD [address] [place] [address] PCP - General Internal Medicine 09/09/22 documented as of this encounter
--- OUTSIDE RECORDS SUMMARY | 2025-02-12 08:11 | XMS_ITS | Encounter Summary ---
Author Organization [employer] Address 75 [facility] 7t [place] [address] Care Team Providers Care Director Of Accounts Receivable Name Role Phone Tremaine Banuelos MD Primary Care Prov ider Erin Aviles [facility] Primary Care Provider Janet Ortega MD Primary Care Pro vider Reason for Visit * Reason Onset Date Comments Other 04/02/2022 Encounter Details Date Type Department Care Team ([facility] st Contact Info) Description 04/02/2022 Telephone [facility] MED & PEDS [address] [place], [place] [phone] Tremaine Banuelos MD [address] [place], [place] [phone] Other Social History Tobacco Use Types Packs/Day [...] calling on the status of care at [facility], due to transportation difficulties to [facility]. documented in this encounter Plan of Treatment Upcoming Encounters Date Type Department Care Team (Late st Contact Info) Description 04/16/2025 2:00 PM EST Office Visit [facility] OPTOMETRY [address] [place], [place] [phone] Diego, Sara, OD [address] [place] [address] 04/17/2025 9:45 AM EST Office Visit [facility] MEDICINE [address] [place] [address] Janet Thompson MD [address] [place] [address] documented as of this encounter Visit Diagnoses Not on filedocumented in this encounter Additional Health Concerns Assessment Noted Time PHQ-9 Depression Total Score: 0 03/20/19 10:12 AM EST documented as of this encounter Care Teams Director Of Accounts Receivable Relationship Specialty Start Date End Date Tremaine Banuelos MD [address] [place] [address] PCP - General Internal Medicine 08/13/19 05/10/22 Erin Aviles FNP [address] [place] [address] PCP - General Family Medicine 05/11/22 09/08/22 Janet Thompson MD [address] [place] [address] PCP - General Internal Medicine 09/09/22 documented as of this encounter
--- OUTSIDE RECORDS SUMMARY | 2025-02-12 08:11 | XMS_ITS | Encounter Summary ---
Author Organization [employer] Address [address] [place] [address] 7 [place] [address] Care Team Providers Care Oncology Technician Name Role Phone Janet Thompson MD Primary Care Pro vider Reason for Visit * Reason Onset Date Comments Medication Question 08/30/2024 Encounter Details Date Type Department Care Team ([facility] st Contact Info) Description 08/30/2024 Telephone [facility] MEDICINE [address] [place] [address] [phone] Janet Thompson MD [address] [place] [address] Medication Question Social History Tobacco Use Types [...] discuss an alternative. Please contact pt at [phone]. (Amharic Speaker) documented in this encounter Plan of Treatment Upcoming Encounters Date Type Department Care Team (Late st Contact Info) Description 04/16/2025 2:00 PM EST Office Visit [facility] OPTOMETRY [address] [place], [place] [phone] DiegoSara barahona, OD [address] [place] [address] 04/17/2025 9:45 AM EST Office Visit [facility] MEDICINE 230 [place], [place] [phone] Janet Thompson MD [address] [place], [place] [phone] documented as of this encounter Visit Diagnoses Not on filedocumented in this encounter Additional Health Concerns Assessment Noted Time PHQ-9 Depression Total Score: 0 07/29/19 25 1:10 PM EDT documented as of this encounter Care Teams Oncology Technician Relationship Specialty Start Date End Date Janet Thompson MD [address] [place] [address] PCP - General Internal Medicine 09/09/22 documented as of this encounter
--- OUTSIDE RECORDS SUMMARY | 2025-02-12 08:11 | XMS_ITS | Encounter Summary ---
Author Organization [employer] Address 75 [facility] 7 [place] [address] Care Team Providers Care Trigonometry Tutor Name Role Phone Janet Thompson MD Primary Care Pro vider Reason for Visit * Reason Comments Med Refill Encounter Details Date Type Department Care Team ([facility] st Contact Info) Description 12/24/2023 Refill [facility] MEDICINE [address] [place], [place] [phone] Janet Thompson MD [address] [place] [address] Social History Tobacco Use Types Packs/Day Years [...] Description 04/16/2025 2:00 PM EST Office Visit [facility] OPTOMETRY [address] [place] [address] Diego, Sara, OD [address] [place] [address] 04/17/2025 9:45 AM EST Office Visit [facility] MEDICINE [address] [place] [address] Janet Thompson MD [address] [place] [address] documented as of this encounter Visit Diagnoses Not on filedocumented in this encounter Additional Health Concerns Assessment Noted Time PHQ-9 Depression Total Score: 2 06/30/19 24 2:02 PM EDT documented as of this encounter Care Teams Trigonometry Tutor Relationship Specialty Start Date End Date Janet Thompson MD [address] [place] [address] PCP - General Internal Medicine 09/09/22 documented as of this encounter
--- OUTSIDE RECORDS SUMMARY | 2025-02-12 08:11 | XMS_ITS | Encounter Summary ---
Author Organization [employer] Address 75 [facility] 7t [place] [address] Care Team Providers Care Lay Out Maker Name Role Phone Janet Thompson MD Primary Care Pro vider Encounter Details Date Type Department Care Team ([facility] st Contact Info) Description 05/13/2023 Telephone [facility] MEDICINE [address] [place] [address] Janet Thompson MD [address] [place], [place] [phone] Social History Tobacco Use Types Packs/Day Years [...] - 05/13/2023 11:48 AM EST TC from [facility] with [employer] calling in to report A1c . Report : 6.0% Any questions may contact phone # [phone]. documented in this encounter Plan of Treatment Upcoming Encounters Date Type Department Care Team (Late st Contact Info) Description 04/16/2025 2:00 PM EST Office Visit [facility] OPTOMETRY [address] [place] [address] Sara Cortez, OD [address] [place] [address] 04/17/2025 9:45 AM EST Office Visit [facility] MEDICINE [address] [place] [address] Janet Thompson MD [address] [place] [address] documented as of this encounter Visit Diagnoses Not on filedocumented in this encounter Additional Health Concerns Assessment Noted Time PHQ-9 Depression Total Score: 10 024 3:53 PM EST documented as of this encounter Care Teams Lay Out Maker Relationship Specialty Start Date End Date Janet Thompson MD [address] [place] [address] PCP - General Internal Medicine 09/09/22 documented as of this encounter
--- OUTSIDE RECORDS SUMMARY | 2025-02-12 08:11 | XMS_ITS | Encounter Summary ---
Author Organization [employer] Address 75 [facility] 7t [place] [address] Care Team Providers Care Machine Room Engineer Name Role Phone Janet Thompson MD Primary Care Pro vider Reason for Visit * Reason Comments Med Refill Encounter Details Date Type Department Care Team ([facility] st Contact Info) Description 03/20/2024 Refill [facility] MEDICINE [address] [place], [place] [phone] Kasie Blackwood MD [address] [place], [place] [phone] Social History Tobacco Use Types Packs/Day Years [...] Description 04/16/2025 2:00 PM EST Office Visit [facility] OPTOMETRY [address] [place] [address] Diego, Sara, OD [address] [place] [address] 04/17/2025 9:45 AM EST Office Visit [facility] MEDICINE [address] [place] [address] Janet Thompson MD [address] [place] [address] documented as of this encounter Visit Diagnoses Not on filedocumented in this encounter Additional Health Concerns Assessment Noted Time PHQ-9 Depression Total Score: 2 06/30/19 24 2:02 PM EDT documented as of this encounter Care Teams Machine Room Engineer Relationship Specialty Start Date End Date Janet Thompson MD [address] [place] [address] PCP - General Internal Medicine 09/09/22 documented as of this encounter
--- OUTSIDE RECORDS SUMMARY | 2025-02-12 08:11 | XMS_ITS | Encounter Summary ---
Author Organization [employer] Address [address] [place] [address] 7 [place] [address] Care Team Providers Care Bus And Trolley Inspecting Dispatcher Name Role Phone Janet Thompson MD Primary Care Pro vider Reason for Visit * Reason Onset Date Comments Med Refill 08/22/2024 Encounter Details Date Type Department Care Team ([facility] st Contact Info) Description 08/22/2024 Telephone [facility] MEDICINE [address] [place] [address] [phone] Janet Thompson MD [address] [place] [address] Med Refill Social History Tobacco Use Types [...] 50 MG tablet To be sent to: [facility]/pharmacy #[id number] [place], [place] - [address] [place] [address] documented in this encounter Plan of Treatment Upcoming Encounters Date Type Department Care Team (Late st Contact Info) Description 04/16/2025 2:00 PM EST Office Visit [facility] OPTOMETRY [address] [facility], [place] [phone] Diego, Sara, OD [address] [place] [address] 04/17/2025 9:45 AM EST Office Visit [facility] MEDICINE [address] [place] [address] Janet Thompson MD [address] [place] [address] documented as of this encounter Visit Diagnoses Not on filedocumented in this encounter Additional Health Concerns Assessment Noted Time PHQ-9 Depression Total Score: 0 07/29/19 25 1:10 PM EDT documented as of this encounter Care Teams Bus And Trolley Inspecting Dispatcher Relationship Specialty Start Date End Date Janet Thompson MD 230 [place], [place] [phone] PCP - General Internal Medicine 09/09/22 documented as of this encounter
--- OUTSIDE RECORDS SUMMARY | 2025-02-12 08:11 | XMS_ITS | Encounter Summary ---
Author Organization [employer] Address 75 [facility] 7t [place] [address] Care Team Providers Care Tool Mechanic Name Role Phone Janet Thompson MD Primary Care Pro vider Reason for Visit * Reason Comments Med Refill Encounter Details Date Type Department Care Team ([facility] st Contact Info) Description 07/26/2023 Refill [facility] MED & PEDS [address] [place] [address] Janet Thompson MD [address] [place] [address] Cerebrovascular accident (CVA) due to thrombosis of [...] Description 04/16/2025 2:00 PM EST Office Visit [facility] OPTOMETRY [address] [place] [address] Sara Cortez, OD 230 [place] [address] 04/17/2025 9:45 AM EST Office Visit [facility] MEDICINE [address] [place] [address] Janet Thompson MD [address] [place] [address] documented as of this encounter Visit Diagnoses Diagnosis Cerebrovascular accident (CVA) due to thrombosis of precerebral artery (HCC) documented in this encounter Additional Health Concerns Assessment Noted Time PHQ-9 Depression Total Score: 2 06/30/19 24 2:02 PM EDT documented as of this encounter Care Teams Tool Mechanic Relationship Specialty Start Date End Date Janet Thompson MD [address] [place], [place] [phone] PCP - General Internal Medicine 09/09/22 documented as of this encounter
--- OUTSIDE RECORDS SUMMARY | 2025-02-12 08:11 | XMS_ITS | Encounter Summary ---
Author Organization [employer] Address [address] [place] [address] 7 [place] [address] Care Team Providers Care Zipper Repairer Name Role Phone Janet Thompson MD Primary Care Pro vider Reason for Visit * Reason Onset Date Comments Med Refill 03/31/2024 Encounter Details Date Type Department Care Team ([facility] st Contact Info) Description 03/31/2024 Telephone [facility] MEDICINE [address] [place] [address] [phone] Janet Thompson MD [address] [place] [address] Med Refill Social History Tobacco Use Types [...] 2:54 PM EST Patient needs to call [facility] Pharmacy and request medication be transferred to [facility]. * Telephone Encounter - Lorie Harman - 03/31/2024 2:46 PM EST TC from pt requesting medication refill. Medications needing refill : cetirizine (ZyrTEC) 10 MG tablet To be sent to: [facility]/pharmacy #[id number] - [place], [place] - [address] [facility] documented in this encounter Plan of Treatment Upcoming Encounters Date Type Department Care Team ([facility] st Contact Info) Description 04/16/2025 2:00 PM EST Office Visit [facility] OPTOMETRY [address] [place], [place] [phone] Sara Cortez, OD [address] [place], [place] [phone] 04/17/2025 9:45 AM EST Office Visit [facility] MEDICINE 230 [place] [address] Janet Thompson MD [address] [place] [address] documented as of this encounter Visit Diagnoses Not on filedocumented in this encounter Additional Health Concerns Assessment Noted Time PHQ-9 Depression Total Score: 2 06/30/19 24 2:02 PM EDT documented as of this encounter Care Teams Zipper Repairer Relationship Specialty Start Date End Date Janet Thompson MD [address] [place] [address] [phone] PCP - General Internal Medicine 09/09/22 documented as of this encounter
[2025-02-12 12:02] LABS: Parathyroid Hormone Intact 74.7 pg/mL (8.7-77.1)
== END 2025-02-12 08:03 | disposition home or self-care (01) ==
LOC: HO.HHCL 08:02
PROVIDERS: PCP Student in an Organized Health Care Education/Training Program; Visit Provider Student in an Organized Health Care Education/Training Program
DX: M81.0 Age-related osteoporosis without current pathological fracture (principal)
CPT/HCPCS: 36415; 83970

== ENCOUNTER 2025-02-27 09:57 | Outpatient (AMB) | payer MEDICARE, SELFPAY ==
--- NOTE | 2025-02-27 10:28 | MHC.OFFVIS ---
Vital Signs 02/27/25 10:29 Height 5 ft 4 in Weight 154 lb BMI 26.4 BP 116/78 Blood Pressure Location Lt brachial Position Sitting Pulse 77 Pulse Source Pulse Oximeter Pulse Oximetry (%) 96 Oxygen Delivery Method Room Air Intake Visit Reasons: 3mnth fu Intake Note: Patient presents follow up Sleep/RLS. Not using CPAP used only 3days. Labs in chart. Manufacturing Technology Analyst Required: Yes Manufacturing Technology Analyst Language: Headmaster/Mistress Services: Manufacturing Technology Analyst Present Manufacturing Technology Analyst Name: [id number] Information Interpreted: non-clinical & clinical Accompanied by: Self / Same As Patient Allergies aspirin (ASPIRIN) Allergy (Unknown, Verified 02/27/25 10:35) RASH/SWELLING, hives Penicillins Allergy (Unknown, Verified 02/27/25 10:35) Unknown Seasonal Allergies Allergy (Unknown, Verified 02/27/25 10:35) Unknown HPI Comments Details: 64 year old Guatemalan speaking male is here for a f/u of his HST. Manufacturing Technology Analyst on IPAD helps with history. PMH Feb 2022 He experienced stroke like symptoms and he went to the ED [place] [facility] he had slurred speech and r. sided hemiparesis and weakness. He was started on stroke protocol with statin, antiplatelete, serjio inhibitor and iv fluids, and sent home after complete work up. 10/2024 HST c/w AHI 6 and O2 Nadirs to 86% will start him on APAP [id number]. Pt is unable to tolerate the pressures, says he feels as if he is being suffocated, we discussed the importance of cpap use given his comorbidites and h/o stroke. I will change his mask and see if the pressures are improved, if not will send him for titration. He has fragmented sleep patterns since 2019 as he had a work related accident and sustained multiple vertebral fractures. He goes to bed at 9pm and wakes up at 5am. However insomnia has improved now 1x a week, he has tried Daridorexant, Benadryl, Ramelteon, Quetiapine and Ambien. He notices Ambien 10mg and Quetiapine 50mg combination works well for him. He goes to bed at 10pm and gets up at 4am, goes to the bathroom 2-3x and has difficulty staying asleep. He can not turn his brain off. Denies parasomnias. He has daily headaches, lasting 5min and go away on their own with hydration and otc tylenol. Memory is poor as he continues to be forgetful. Completes all tasks. RLS symptoms are worse at night he has an uncomfortable sensation and needs to move his feet. He has bilateral numbness, tingling, burning. He gets out of bed then stands up and stretches his legs, L>R. Mood is depressed, and he feels anxious, so he tries to keep himself busy daily. [facility] Medical History Insomnia Osteoporosis Erectile dysfunction Seasonal allergies HLD (hyperlipidemia) Hypertension Hx of hematuria Multiple joint pain Surgical History Hx of colonoscopy Family History Family/Other Diabetes Social History Are you a primary pharmacy customer care specialist to a significant other at home: No Do you presently have visiting nurse or other home services: No Alcohol intake: never Patient Tobacco Use Status: Never used Tobacco Cigarette Packs Per Day: 0.5 Cigarettes Per Day: 10.0 service: No Current occupational status: disabled Physical Exam Vital Signs: Last Vital Signs Pulse 77 02/27/25 10:29 BP 116/78 02/27/25 10:29 Pulse Ox 96 02/27/25 10:29 Oxygen Delivery Method Room Air 02/27/25 10:29 BMI result Body Mass Index 26.4 Const General: cooperative, comfortable and no acute distress Nutritional Appearance: average body habitus Orientation/consciousness: patient oriented x3 HEENT Face and sinus: Yes other Teeth and gingiva: other (mallampti score is 3) Eyes Other: r.eye pain. Neck Neck: Yes full ROM Resp Effort & Inspection: normal respiratory effort and able to speak in complete sentences Neuro Other: facial assymetry noted, ptosis, lsided facial droop post stroke Feb 2022. oral tremors limited rom on lateral head rotation, trapezius, mild tremor noted in l. upper extremity tremors>r L sided weakness, motor strenght 3/5 l.arm and legs. General: patient oriented x3 and moves all extremities Cranial nerves: Yes Facial sensation intact/muscles of mastication intact, Yes Normal accommodation reflex present, Yes Normal facial strength present, Yes Midline tongue present, Yes Ability to bilaterally rotate head present and Yes Ability to bilaterally elevate shoulders present Cognition (Neuro): normal cognition Gait exam (Neuro): Normal gait present Motor exam (neuro): no tremor noted, Abnormal motor strength present and Abnormal muscle tone present Psych Appearance: grossly normal Mental Status: mental status grossly normal Speech and movement: Normal speech and movement present Attitude: cooperative Thought content: Normal thought content present Assessment & Plan Assessment & Plan (1) SNEHA (obstructive sleep apnea): Comment: mild sneha h/o stroke Code(s): G47.33 - Obstructive sleep apnea (adult) (pediatric) Category: Medical (2) Excessive daytime sleepiness: Code(s): G47.19 - Other hypersomnia Category: Medical (3) Loud snoring: Code(s): R06.83 - Snoring Category: Medical (4) Bilateral headaches: Code(s): R51.9 - Headache, unspecified Category: Medical (5) Poor short term memory: Code(s): R41.3 - Other amnesia Category: Medical Plan Mild SNEHA AHI is 6 and O2 nadirs to 86%, start APAP [id number] and use nightly for >4 hours. Unable to tolerate cpap use due to pressrues being forceful and suffocating him. Will send him for titration study and change his mask first. Labs r/o fatigue B12, Ferritin rls? Vit D, Homocysteine, MMA, Folate MMSE at next visit to assess forgetfulness, and MRI if not improved, will monitor. F/u 3 months Orders: Orders RT PSG in-lab sleep titration Today G47.33 - Obstructive sleep apnea (adult) (pediatric) Patient Instructions: Will change out mask ENT inspire - failed cpap therapy with h/o stroke on PE today pt shows: l sided facial droop- >r. side and c/o r.eye pain pressures are too high- for him he feels suffocated- psg - in lab titration - Coding Level of Care Code Est Pt Level 4 (36167) Diagnoses SNEHA (obstructive sleep apnea) G47.33 Excessive daytime sleepiness G47.19 Loud snoring R06.83 Bilateral headaches R51.9 Poor short term memory R41.3
[2025-02-27 10:29] VITALS: BP 116/78; PULSE 77; O2SAT 96; BMI 26.4
--- OUTSIDE RECORDS SUMMARY | 2025-02-27 12:06 | XMS_ITS | Encounter Summary ---
Author Organization [employer] Address [address] [facility] 7 [place] [address] Care Team Providers Care Explosives Operator Name Role Phone Janet Thompson MD Primary Care Pro vider Reason for Visit * Reason Onset Date Comments Med Refill 01/28/2023 Encounter Details Date Type Department Care Team ([facility] st Contact Info) Description 01/28/2023 Telephone [facility] MEDICINE [address] [place] [address] [phone] Janet Thompson MD 230 [place] [address] Med Refill Social History Tobacco Use Types [...] 12:55 PM EST Medication was sent to [facility] #[id number] on 10/08/22 #90 with 1 refill. * Telephone Encounter - Dominic Powers - 01/28/2023 12:12 PM EST Tc from patient requesting medication refill for clopidogrel (Plavix) 75 MG tablet. documented in this encounter Plan of Treatment Upcoming Encounters Date Type Department Care Team (Late st Contact Info) Description 04/16/2025 2:00 PM EST Office Visit [facility] OPTOMETRY [address] [place] [address] Sara Cortez, OD 230 [place] [address] 04/17/2025 9:45 AM EST Office Visit [facility] MEDICINE [address] [place] [address] Janet Thompson MD [address] [place] [address] documented as of this encounter Visit Diagnoses Not on filedocumented in this encounter Additional Health Concerns Assessment Noted Time PHQ-9 Depression Total Score: 5 05/12/19 11:52 AM EST documented as of this encounter Care Teams Explosives Operator Relationship Specialty Start Date End Date Janet Thompson MD [address] [place] [address] PCP - General Internal Medicine 09/09/22 documented as of this encounter
--- OUTSIDE RECORDS SUMMARY | 2025-02-27 12:06 | XMS_ITS | Encounter Summary ---
Author Organization [employer] Address [address] [place] [address] 7 [place] [address] Care Team Providers Care Coroner Technician Name Role Phone Janet Thompson MD Primary Care Pro vider Reason for Visit * Reason Onset Date Comments Med Refill 03/31/2024 Encounter Details Date Type Department Care Team ([facility] st Contact Info) Description 03/31/2024 Telephone [facility] MEDICINE [address] [place] [address] [phone] Janet Thompson MD [address] [place] [address] Med Refill Social History Tobacco Use Types [...] 2:54 PM EST Patient needs to call [facility] Pharmacy and request medication be transferred to [facility]. * Telephone Encounter - Lorie Harman - 03/31/2024 2:46 PM EST TC from pt requesting medication refill. Medications needing refill : cetirizine (ZyrTEC) 10 MG tablet To be sent to: [facility]/pharmacy #[id number] - [place], [place] - [address] [facility] documented in this encounter Plan of Treatment Upcoming Encounters Date Type Department Care Team ([facility] st Contact Info) Description 04/16/2025 2:00 PM EST Office Visit [facility] OPTOMETRY [address] [place], [place] [phone] Sara Cortez, OD [address] [place], [place] [phone] 04/17/2025 9:45 AM EST Office Visit [facility] MEDICINE [address] [place] [address] Janet Thompson MD 230 [place] [address] documented as of this encounter Visit Diagnoses Not on filedocumented in this encounter Additional Health Concerns Assessment Noted Time PHQ-9 Depression Total Score: 2 06/30/19 24 2:02 PM EDT documented as of this encounter Care Teams Coroner Technician Relationship Specialty Start Date End Date Janet Thompson MD [address] [place] [address] [phone] PCP - General Internal Medicine 09/09/22 documented as of this encounter
--- OUTSIDE RECORDS SUMMARY | 2025-02-27 12:06 | XMS_ITS | Encounter Summary ---
Author Organization [employer] Address [address] [place] [address] 7 [place] [address] Care Team Providers Care Provider Enrollment Specialist Name Role Phone Janet Thompson MD Primary Care Pro vider Reason for Visit * Reason Onset Date Comments FYI 08/22/2024 Encounter Details Date Type Department Care Team ([facility] st Contact Info) Description 08/22/2024 Telephone [facility] [address] [place] [phone] Janet Thompson MD [address] [place] [address] FYI Social History Tobacco Use Types Packs/Day [...] to report he's going on vacation to [place] from September 08 to September 25, 2024. documented in this encounter Plan of Treatment Upcoming Encounters Date Type Department Care Team (Late st Contact Info) Description 04/16/2025 2:00 PM EST Office Visit [facility] OPTOMETRY [address] [place], [place] [phone] Sara Cortez, OD [address] [place] [address] 04/17/2025 9:45 AM EST Office Visit [facility] [address] [place] [address] Janet Thompson MD [address] [place], [place] [phone] documented as of this encounter Visit Diagnoses Not on filedocumented in this encounter Additional Health Concerns Assessment Noted Time PHQ-9 Depression Total Score: 0 07/29/19 25 1:10 PM EDT documented as of this encounter Care Teams Provider Enrollment Specialist Relationship Specialty Start Date End Date Janet Thompson MD [address] [place] [phone] PCP - General Internal Medicine 09/09/22 documented as of this encounter
--- OUTSIDE RECORDS SUMMARY | 2025-02-27 12:06 | XMS_ITS | Encounter Summary ---
Author Organization [employer] Address [address] [facility] 7 [place] [address] Care Team Providers Care Dictating Machine Mechanic Name Role Phone Janet Thompson MD Primary Care Pro vider Reason for Visit * Reason Comments Med Refill Encounter Details Date Type Department Care Team ([facility] st Contact Info) Description 12/24/2023 Refill [facility] MEDICINE [address] [place], [place] [phone] Janet Thompson MD [address] [place] [address] Social History Tobacco Use Types Packs/Day Years [...] Description 04/16/2025 2:00 PM EST Office Visit [facility] OPTOMETRY [address] [place] [address] Diego, Sara, OD [address] [place] [address] 04/17/2025 9:45 AM EST Office Visit [facility] MEDICINE [address] [place] [address] Janet Thompson MD [address] [place] [address] documented as of this encounter Visit Diagnoses Not on filedocumented in this encounter Additional Health Concerns Assessment Noted Time PHQ-9 Depression Total Score: 2 06/30/19 24 2:02 PM EDT documented as of this encounter Care Teams Dictating Machine Mechanic Relationship Specialty Start Date End Date Janet Thompson MD [address] [place] [address] PCP - General Internal Medicine 09/09/22 documented as of this encounter
--- OUTSIDE RECORDS SUMMARY | 2025-02-27 12:06 | XMS_ITS | Encounter Summary ---
Author Organization [employer] Address [address] [facility] 7t [place] [address] Care Team Providers Care Corporate Director Name Role Phone Janet Thompson MD Primary Care Pro vider Reason for Visit * Reason Comments Med Refill Encounter Details Date Type Department Care Team (Late st Contact Info) Description 01/29/2023 Refill [facility] MEDICINE [address] [place] [address] Erin Aviles, SOLA Cerebrovascular accident (CVA) due [...] t he electric, gas, oil or water [employer] threatened to shut off services in your [...] PM EST Office Visit [facility] OPTOMETRY [address] [place] [address] Sara Cortez, OD 230 [place] [address] 04/17/2025 9:45 AM EST Office Visit [facility] MEDICINE [address] [place] [address] Janet Thompson MD [address] [place] [address] documented as of this encounter Visit Diagnoses Diagnosis Cerebrovascular accident (CVA) due to thrombosis of precerebral artery (HCC) documented in this encounter Additional Health Concerns Assessment Noted Time PHQ-9 Depression Total Score: 5 05/12/19 23 11:52 AM EST documented as of this encounter Care Teams Corporate Director Relationship Specialty Start Date End Date Janet Thompson MD [address] [place] [address] PCP - General Internal Medicine 09/09/22 documented as of this encounter
--- OUTSIDE RECORDS SUMMARY | 2025-02-27 12:06 | XMS_ITS | Encounter Summary ---
Author Organization [employer] Address [address] [facility] 7 [place] [address] Care Team Providers Care Road Test Examiner Name Role Phone Janet Thompson MD Primary Care Pro vider Reason for Visit * Reason Comments Med Refill Encounter Details Date Type Department Care Team ([facility] st Contact Info) Description 02/26/2025 Refill [facility] [address] [place], [place] [phone] Jaent Thompson MD [address] [place] [address] Social History Tobacco Use Types Packs/Day Years [...] Description 04/16/2025 2:00 PM EST Office Visit [facility] OPTOMETRY [address] [place] [address] Diego, Sara, OD [address] [place] [address] 04/17/2025 9:45 AM EST Office Visit [facility] MED[facility] [address] [place] [address] Janet Thompson MD [address] [place] [address] documented as of this encounter Visit Diagnoses Not on filedocumented in this encounter Additional Health Concerns Assessment Noted Time PHQ-9 Depression Total Score: 0 07/29/19 25 1:10 PM EDT documented as of this encounter Care Teams Road Test Examiner Relationship Specialty Start Date End Date Janet Thompson MD [address] [place] [address] PCP - General Internal Medicine 09/09/22 documented as of this encounter
--- OUTSIDE RECORDS SUMMARY | 2025-02-27 12:06 | XMS_ITS | Encounter Summary ---
Author Organization [employer] Address [address] [facility] 7t [place] [address] Care Team Providers Care Ash Pit Worker Name Role Phone Janet Thompson MD Primary Care Pro vider Encounter Details Date Type Department Care Team ([facility] st Contact Info) Description 05/13/2023 Telephone [facility] MEDICINE [address] [place] [address] Janet Thompson MD [address] [place], [place] [phone] Social History Tobacco Use Types Packs/Day Years [...] - 05/13/2023 11:48 AM EST TC from [facility] with [employer] calling in to report A1c . Report : 6.0% Any questions may contact phone # [phone]. documented in this encounter Plan of Treatment Upcoming Encounters Date Type Department Care Team (Late st Contact Info) Description 04/16/2025 2:00 PM EST Office Visit [facility] OPTOMETRY [address] [place] [address] Sara Cortez, OD [address] [place] [address] 04/17/2025 9:45 AM EST Office Visit [facility] MEDICINE [address] [place] [address] Janet Thompson MD [address] [place] [address] documented as of this encounter Visit Diagnoses Not on filedocumented in this encounter Additional Health Concerns Assessment Noted Time PHQ-9 Depression Total Score: 10 024 3:53 PM EST documented as of this encounter Care Teams Ash Pit Worker Relationship Specialty Start Date End Date Janet Thompson MD [address] [place] [address] PCP - General Internal Medicine 09/09/22 documented as of this encounter
--- OUTSIDE RECORDS SUMMARY | 2025-02-27 12:06 | XMS_ITS | Encounter Summary ---
Author Organization [employer] Address [address] [facility] 7t [place] [address] Care Team Providers Care Lead Technical Writer Name Role Phone Janet Thompson MD Primary Care Pro vider Reason for Visit * Reason Comments Med Refill Encounter Details Date Type Department Care Team ([facility] st Contact Info) Description 03/20/2024 Refill [facility] MEDICINE [address] [place], [place] [phone] Kasie Blackwood MD 230 [place], [place] [phone] Social History Tobacco Use Types Packs/Day Years [...] Description 04/16/2025 2:00 PM EST Office Visit [facility] OPTOMETRY [address] [place] [address] Diego, Sara, OD [address] [place] [address] 04/17/2025 9:45 AM EST Office Visit [facility] MEDICINE [address] [place] [address] Janet Thompson MD [address] [place] [address] documented as of this encounter Visit Diagnoses Not on filedocumented in this encounter Additional Health Concerns Assessment Noted Time PHQ-9 Depression Total Score: 2 06/30/19 24 2:02 PM EDT documented as of this encounter Care Teams Lead Technical Writer Relationship Specialty Start Date End Date Janet Thompson MD [address] [place] [address] PCP - General Internal Medicine 09/09/22 documented as of this encounter
--- OUTSIDE RECORDS SUMMARY | 2025-02-27 12:06 | XMS_ITS | Encounter Summary ---
Author Organization [employer] Address [address] [place] [address] 7 [place] [address] Care Team Providers Care Chipper Feeder Name Role Phone Tremaine Banuelos MD Primary Care Prov ider Erin Aviles [facility] Primary Care Provider Sonia Janet Lin MD Primary Care Pro vider Encounter Details Date Type Department Care Team (Latest Contact Info) Description 05/13/2021 Abstract [facility] CONVERSIONS Dental, Provider, DDS Social History [...] 2:00 PM EST Office Visit [facility] OPTOMETRY [address] [place] [address] Diego, Sara, OD [address] [place] [address] 04/17/2025 9:45 AM EST Office Visit [facility] MEDICINE [address] [place] [address] Janet Thompson MD [address] [place] [address] documented as of this encounter Visit Diagnoses Not on filedocumented in this encounter Care Teams Chipper Feeder Relationship Specialty Start Date End Date Tremaine Banuelos MD [address] [place] [address] PCP - General Internal Medicine 08/13/19 05/10/22 Erin Aviles FNP [address] [place] [address] PCP - General Family Medicine 05/11/22 09/08/22 Janet Thompson MD [address] [place] [address] PCP - General Internal Medicine 09/09/22 documented as of this encounter
--- OUTSIDE RECORDS SUMMARY | 2025-02-27 12:06 | XMS_ITS | Encounter Summary ---
Author Organization [employer] Address [address] [facility] 7t [place] [address] Care Team Providers Care Typing Bookkeeper Name Role Phone Janet Thompson MD Primary Care Pro vider Reason for Visit * Reason Comments Med Refill Encounter Details Date Type Department Care Team ([facility] st Contact Info) Description 07/26/2023 Refill [facility] [address] [place] [address] Janet Thompson MD [address] [place] [address] Cerebrovascular accident (CVA) due to thrombosis of [...] Description 04/16/2025 2:00 PM EST Office Visit [facility] OPTOMETRY [address] [place] [address] Sara Cortez, OD 230 [place] [address] 04/17/2025 9:45 AM EST Office Visit [facility] MEDICINE [address] [place] [address] Janet Thompson MD [address] [place] [address] documented as of this encounter Visit Diagnoses Diagnosis Cerebrovascular accident (CVA) due to thrombosis of precerebral artery (HCC) documented in this encounter Additional Health Concerns Assessment Noted Time PHQ-9 Depression Total Score: 2 06/30/19 24 2:02 PM EDT documented as of this encounter Care Teams Typing Bookkeeper Relationship Specialty Start Date End Date Janet Thompson MD [address] [place], [place] [phone] PCP - General Internal Medicine 09/09/22 documented as of this encounter
--- OUTSIDE RECORDS SUMMARY | 2025-02-27 12:06 | XMS_ITS | Clinical Summary ---
Author Organization [employer] Address [address] [place] [address] Care Team Providers Care Drainlayer Name Role Phone Janet Thompson MD Primary [...] daily. 15 g 1 07/29/19 25 Active Calcium Carb-Cholecalci ferol (Calcium 600+D) 600-20 MG-MCG tablet Take 1 tablet by mouth at noon and 1 tablet in the evening. Active ferrous sulfate 325 (65 Fe) MG tablet TOME SCOTT TABLETA POR V A ORAL TODOS LOS D FOR LOW IRON 12/05/19 25 Active metFORMIN XR (Glucophage-XR) 500 MG 24 hr tablet Take 1 tablet (500 mg) by mouth with evening meal. Do not crush, chew, or split. 90 tablet 12/09/19 25 026 Active lidocaine-prilo andreea (Emla) 2.5-2.5 % cream Apply topically if needed each day for mild pain. 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) TAKE 1 TABLET BY MOUTH EVERY MORNING 90 tablet 1 02/13/20 25 Active atorvastatin (Lipitor) 80 MG tabletIndicatio ns:Cerebrovascu lar accident (CVA) due to thrombosis of precerebral artery (HCC) TOME 1 TABLETA POR VIA ORAL TODOS LOS BARNES EN [place] NOCHE 90 tablet 02/20/20 25 Active QUEtiapine (SEROquel) 50 MG tablet TAKE 1 TABLET BY MOUTH AT BEDTIME 90 tablet 02/27/20 25 Active clopidogrel (Plavix) 75 MG tabletIndicatio ns:Cerebrovascu lar accident (CVA) due to thrombosis of precerebral artery (HCC) TAKE 1 TABLET BY MOUTH EVERY MORNING 90 tablet 1 08/23/19 25 025 Discontinued(Re order (will not trigger notification to Pharmacy)) atorvastatin (Lipitor) 80 MG tabletIndicatio ns:Cerebrovascu lar accident (CVA) due to thrombosis of precerebral artery (HCC) TAKE 1 TABLET BY MOUTH EVERY EVENING 90 tablet 11/21/19 25 025 Discontinued QUEtiapine (SEROquel) 50 MG tablet TAKE 1 TABLET BY MOUTH AT BEDTIME 90 tablet 12/01/19 25 025 Discontinued zolpidem (Ambien) 10 MG tablet TAKE 1 TABLET BY MOUTH AT BEDTIME NEEDED FOR SLEEP 30 tablet 01/12/20 25 025 Discontinued(Re order (will not trigger notification to Pharmacy)) Active Problems Problem Noted Date Diagnosed Date History of tobacco use 07/01/2023 Health care maintenance 04/15/2023 Left knee pain 09/09/2022 Overview (09/09/2022): bilateral knee joint pain chronic < 1 year. No imaging Associated swelling Treating imtiaz/ David gel Assessment & Plan (09/09/2022 10:14 PM EDT): No xray results from 06/09/22 Will order bilateral xray again Refer Ortho Will task MA to contact pt and f/u PT referral Followup 2 months w/ new PCP Adjustment disorder, unspecified 06/09/2022 Insomnia 06/09/2022 CVA (cerebrovascular accident) ([facility]) 023 Overview (09/09/2022): Continue Clopidogrel as prescribed. [...] Encounters Date Type Department Care Team Description 02/26/2025 Refill [facility] MEDICINE [address] [place] [address] Janet Thompson MD 02/17/2025 Refill [facility] MEDICINE [address] [place] [address] Janet Thompson MD Cerebrovascular accident (CVA) due to thrombosis of precerebral artery (HCC) 02/12/2025 Refill [facility] MED[facility]INE [address] [place] [address] Janet Thompson MD Cerebrovascular accident (CVA) due to thrombosis of precerebral artery (HCC) 02/10/2025 Refill [facility] MED[facility]INE [address] [place] [address] Janet Thompson MD Cerebrovascular accident (CVA) due to thrombosis of precerebral artery (HCC) 01/11/2025 Refill [facility] MEDICINE [address] [place] [address] Janet Thompson MD 01/08/2025 Refill [facility] MED[facility]INE [address] [place] [address] Janet Thompson MD 12/26/2024 Results Follow-Up [facility] [address] [address] Janet Thompson MD Fecal Globin By Immunochemistry 12/22/2024 Refill [facility] [address] [place] [address] Janet Thompson MD Essential hypertension 12/15/2024 Orders Only [facility] [address] [place] [address] Janet Thompson MD 12/12/2024 Refill [facility] [address] [place] [address] Janet Thompson MD 12/08/2024 9:30 AM EDT Office Visit [facility] MED[facility]INE [address] [place] [address] Janet Thompson MD Essential hypertension (Primary Dx); Anemia, unspecified type; Osteoporosis, unspecified osteoporosis type, unspecified pathological fracture presence; Polyp of colon, unspecified part of colon, unspecified type; Pain in both knees, unspecified chronicity 12/08/2024 Travel 12/04/2024 Orders Only GENERIC EXTERNAL DATA DEPARTMENT Provider, Generic External Data 11/30/[address] [address] Janet Thompson MD from Last 3 Months [...] Description 04/16/2025 2:00 PM EST Office Visit [facility] OPTOMETRY [address] [place] [address] Sara Cortez, OD [address] [place] [address] 04/17/2025 9:45 AM EST Office Visit [facility] MEDICINE [address] [place] [address] Janet Thompson MD [address] [place], [place] [phone] Health Maintenance Due Date Last Done Comments CT Colonography 1958 FIT DNA/Cologuard 1960 Sigmoidoscopy 1960 Lung Cancer Screening 2008 Hepatitis B Vaccines (2 of 3 - 19+ 3-dose series) 09/24/2023 08/27/2023 COVID-19 Vaccine (2024- season) 2024 03/23/2024, 04/14/2023, 02/09/2022, Additional history [...] Procedure Name Priority Date/Time Associated Diagnosis Comments PTH, INTACT WITHOUT CALCIUM Routine 02/12/2025 8:12 AM EST Osteoporosis, unspecified osteoporosis type, unspecified pathological fracture presence FECAL GLOBIN BY IMMUNOCHEMISTRY Routine 12/15/2024 12:00 [...] PANEL Routine 12/04/2024 8:28 AM EDT TESTOSTERONE, FREE, BIOAVAILABLE AND TOTAL, MALES (ADULT), [place] Routine 12/04/2024 8:28 AM EDT Osteoporosis without [...] EDT from Last 3 Months Results * PTH, Intact Without Calcium (02/12/2025 8:12 AM EST) Parathyroid Hormone, Intact 74.7 8.7 - 77.1 pg/mL [facility] Blood Venous blood specimen / Unknown 02/12/2025 8:12 AM EST 02/12/2025 11:05 AM EST us Janet Pierre MD LAB BLOOD ORDERAB LES Final Result [facility] [address] [place] [phone] * Fecal Globin By Immunochemistry (12/15/2024 12:00 AM EDT) Fecal Globin By Immunochemistry SEE NOTE [facility] Comment: FECAL GLOBIN BY IMMUNOCHEMISTRY Micro Number: [id number] Test Status: Final Specimen Source: Insure (tm) fobt test card Specimen Quality: Adequate Fecal [...] FLUIDS A ND STOOLS ORDERABLES Final Result [facility] [address] [place] [address], [place] [address] [facility] [address] [place] [address] * ECG 12 lead (12/08/2024 9:45 AM EDT) Narrative Janet Thompson MD - 12/08/2024 9:45 AM EDT -EKG today NSR,QTc 389, HR 69, no ischemic changes us Janet Pierre MD ECG ORDERABLES F inal Result * (ABNORMAL) CBC (12/04/2024 8:38 AM EDT) Only the most recent of2 resultswithin the time period is included. White Blood Count 8.0 4.8 - 10.8 X10*3/uL [facility] Red Blood Count 4.52(L) 4.60 - 5.80 X10*6/uL [facility] Hemoglobin 13.3(L) 14.0 - 18.0 g/dl [facility] Hematocrit 40.4(L) 42.0 - 52.0 % [facility] Mean Corpuscular Volume 89.4 80.0 - 98.0 fL [facility] Mean Corpuscular Hemoglobin 29.4 27.0 - 33.0 pg [facility] Mean Corpuscular HGB Conc 32.9 31.0 - 36.0 g/dl [facility] Red Cell Distribution Width 13.7 11.0 - 16.0 % [facility] Platelet Count 251 160 - 400 X10*3/uL [facility] Mean Platelet Volume 9.9 9.4 - 12.4 fL [facility] NRBC Pct Auto 0.0 0.0 - 0.2 /100WBC [facility] NRBC Abs Auto 0.000 0.0 - 0.012 X10*3/uL [facility] 12/04/2024 8:38 AM EDT 12/04/2024 11:17 AM EDT us Generic External Data Provider LAB BLOOD ORDERAB LES Final Result [facility] [address] [place] [phone] * Syphilis Screen (12/04/2024 8:28 AM EDT) Syphilis Screen Nonreactive Nonreactive [facility] Blood 12/04/2024 8:28 AM EDT 12/04/2024 11:17 AM EDT Janet Pierre MD LAB BLOOD ORDERAB LES Final Result Performing Organization Address [facility] Co de Phone Number [facility] [address] [place] [address] [phone] * Vitamin D, 25-Hydroxy, Total, Immunoassay (12/04/2024 8:28 AM EDT) Only the most recent of2 resultswithin the time period is included. Vitamin D 25-OH Total 57.0 >30 ng/mL [facility] Comment: Health Based Reference Values*< 20 ng/mL Ddxttrrno37-64 ng/mL Insufficient> 30 ng/mL Sufficient*Elmer RUIZ. N [...] ORDERAB LES Final Result Performing Organization Address [facility] Co de Phone Number [facility] [address] [place] [phone] * Vitamin B12 (Cobalamin) and Folate Panel, Serum (12/04/2024 8:28 AM EDT) Only the most recent of2 resultswithin the time period is included. Vitamin B12 289 200 - 900 pg/mL [facility] Comment:NORMAL 200-900 PG/ML INDETERMINATE 160-199 PG/ML DEFICIENT < 160 PG/ML Folate 14.3 > or = 4.0 ng/mL [facility] Comment:Reference Values:> o r = 4.0 ng/mL< 4.0 ng/mL suggests folate deficiency Methotrexate, aminopterin and folinic acid(leucovorin) are chemotherapeutic agents whose molecularstructures are similar to folate; therefore, the Architectfolate assay cannot be used for patients using these drugs. 12/04/2024 8:28 AM EDT 12/04/2024 11:09 AM EDT us Generic External Data Provider LAB BLOOD ORDERAB LES Final Result Performing Organization Address [facility] Co de Phone Number [facility] [address] [place] [phone] * TSH with Reflex to Free T4 (12/04/2024 8:28 AM EDT) Only the most recent of2 resultswithin the time period is included. TSH reflex Free T4 3.34 0.32 - 4.0 uIU/mL [facility] 12/04/2024 8:28 AM EDT 12/04/2024 11:17 AM EDT Generic External Data Provider LAB BLOOD ORDERAB LES Final Result Performing Organization Address [facility] Co de Phone Number [facility] [address] [place] [phone] * Albumin, Random Urine W/Creatinine (12/04/2024 8:28 AM EDT) Pathologist [facility] Creatinine, Urine 136.36 mg/dL [facility] Microalbumin Urine <5.0 mg/L [facility] Microalbum Creatinine Ratio Ur TNP <30 ug/mg cr [facility] Comment:Unable to calculate albumin/creatinine ratio due to lowmicroalbumin or creatinine result. Urine (Urine, Random) 12/04/2024 8:28 AM EDT 12/04/2024 11:05 AM EDT us Janet Pierre MD LAB URINE ORDERAB LES Final Result Performing Organization Address [facility] de Phone Number [facility] [address] [place] [phone] * Hepatitis C Antibody with Reflex to HCV, RNA, Quantitative, Real-Time PCR (12/04/2024 8:28 AM EDT) [facility] Hepatitis C Antibody Nonreactive Nonreactive [facility] Comment:Antibodies to HCV no t detected; does not exclude early acuteHCV infection. Blood Venous blood specimen / Unknown 12/04/2024 8:28 AM EDT 12/04/2024 11:17 AM EDT us Janet Pierre MD LAB BLOOD ORDERAB LES Final Result Performing Organization Address [facility] Co de Phone Number [facility] [address] [place] [phone] * Methylmalonic Acid (12/04/2024 8:28 AM EDT) Pathologist [facility] Methylmalonic Acid 360 69 - 390 nmol/L [facility] Comment: Serum methylmalonic acid (MMA) [...] outcomes,such as neural tube defects and intrauterine growthrestriction.[employer] utilized Multi-Modal Decomposition(MMD) analysis to establish first and second trimester-specific MMA reference intervals in , as givenbelow:MMA, First trimester (<13 wks gestation): 58-167 nmol/LMMA, Second trimester (13-23 wks gestation):63-241 nmol/LThis test was developed and its analytical performancecharacteristics have been determined by [employer]. It has not been cleared or approved by theA. This assay has been validated pursuant to the CLIAregulations and is used for clinical purposes.THIS TEST WAS PERFORMED AT:[employer]/[id number] [place] [address]FAERNUMVIV MOREJON MD,PHD 12/04/2024 8:28 AM EDT 12/04/2024 11:17 AM EDT us Generic External Data Provider LAB BLOOD ORDERAB LES Final Result [facility] [address] [place] [phone] * Iron And Total Iron Binding Capacity (12/04/2024 8:28 AM EDT) Iron 70 45 - 160 mcg/dL [facility] Total Iron Binding Capacity 321 228 - 428 mcg/dL [facility] Percent Iron Saturation 22 15 - 50 % [facility] Unsaturated Iron Binding 251 ug/dL [facility] Blood Venous blood specimen / Unknown 12/04/2024 8:28 AM EDT 12/04/2024 11:17 AM EDT us Janet Pierre MD LAB BLOOD ORDERAB LES Final Result [facility] [address] [place] [phone] * Hepatitis B surface antigen, EIA (12/04/2024 8:28 AM EDT) Hepatitis B Surface Ag Negative Negative [facility] Blood Venous blood specimen / Unknown 12/04/2024 8:28 AM EDT 12/04/2024 11:17 AM EDT Janet Pierre MD LAB BLOOD ORDERAB LES Final Result Performing Organization Address [facility] Co de Phone Number [facility] [address] [place] [phone] * HIV-1/2 Antigen and Antibodies, Fourth Generation, with Reflexes (12/04/2024 8:28 AM EDT) Pathologist [facility] HIV AB/AG Nonreactive Nonreactive [facility] Comment:HIV-1 p24 Ag and/or HIV-1/HIV-2 Ab not detected.A test result that is nonreactive does not exclude thepossibility of exposure to or infection with HIV-1 and/orHIV-2. Nonreactive results in this assay for individualswith prior exposure to HIV-1 and/or HIV-2 may be due toantigen and antibody levels that are below the limit ofdetection of this assay.The [employer] HIV Ag/Ab Combo assay result andsupplemental assay results should be interpreted inconjunction with the patient's clinical presentation,history and other laboratory results. If the results areinconsistent with clinical evidence, additional testing issuggested to confirm the result. Blood Venous blood specimen / Unknown 12/04/2024 8:28 AM EDT 12/04/2024 11:17 AM EDT Janet Pierre MD LAB BLOOD ORDERAB LES Final Result Performing Organization Address City/[facility]/ZIP Co de Phone Number [facility] [address], [place] [phone] * Testosterone, Free (Dialysis) And Total, MS (12/04/2024 8:28 AM EDT) Testosterone, Total 506 250 - 1100 ng/dL [facility] Comment:Men with clinically significant hypogonadalsymptoms and testosterone values repeatedly inthe range of the 200-300 ng/dL or less, maybenefit from testosterone treatment afteradequate risk and benefits counseling.For additional information, please refer tohttp://education.myLINGO/faq/[email or web address](This link is being provided for informational/educational purposes only.)This test was developed and its analytical performancecharacteristics have been determined by [employer]. It hasnot been cleared or approved by the U.S. Food and DrugAdministration. This assay has been validated pursuantto the CLIA regulations and is used for clinicalpurposes. Testosterone, Free 65.3 35.0 - 155.0 pg/mL [facility] Comment:This test was develo ped and its analytical performancecharacteristics have been determined by [employer] [place], [place]. It hasnot been cleared or approved by the U.S. Food and DrugAdministration. This assay has been validated pursuantto the CLIA regulations and is used for clinicalpurposes.THIS TEST WAS PERFORMED AT:[employer] [id number] [place] [id number] MOREJON MD,PHD Blood Venous blood specimen / Unknown 12/04/2024 8:28 AM EDT 12/04/2024 11:17 AM EDT us Janet Pierre MD LAB BLOOD ORDERAB LES Final Result Performing Organization Address City/[facility]/ZIP Co de Phone Number [facility] [address] [place] [phone] * Vitamin B1 (12/04/2024 8:28 AM EDT) Vitamin B1 17 8 - 30 nmol/L [facility] Comment:Vitamin supplementat ion within 24 hours prior toblood draw may affect the accuracy of the results.This test was developed and its analytical performancecharacteristics have been determined by [employer] [place], [place]. It hasnot been cleared or approved by the U.S. Food and DrugAdministration. This assay has been validated pursuantto the CLIA regulations and is used for clinicalpurposes.THIS TEST WAS PERFORMED AT:[employer] [address] [id number] MOREJON MD,PHD 12/04/2024 8:28 AM EDT 12/04/2024 11:17 AM EDT us Generic External Data Provider LAB BLOOD ORDERAB LES Final Result [facility] [address] [place] [phone] * Vitamin B6, Plasma (12/04/2024 8:28 AM EDT) Pathologist [facility] Vitamin B6 9.2 2.1 - 21.7 ng/mL [facility] Comment:Vitamin supplementat ion within 24 hours prior toblood draw may affect the accuracy of the results.This test was developed and its analytical performancecharacteristics have been determined by [employer] [place], [place]. It hasnot been cleared or approved by the U.S. Food and DrugAdministration. This assay has been validated pursuantto the CLIA regulations and is used for clinicalpurposes.THIS TEST WAS PERFORMED AT:[employer] [id number] [place] [id number] MOREJON MD,PHD 12/04/2024 8:28 AM EDT 12/04/2024 11:17 AM EDT Generic External Data Provider LAB BLOOD ORDERAB LES Final Result Performing Organization Address [facility]/ZIP Co de Phone Number [facility] [address] [place] [phone] * PSA,Total (12/04/2024 8:28 AM EDT) Prostate Specific Antigen 0.52 <0.05 - 4.0 ng/mL [facility] Comment:PSA methodology: Abb ac Alinity i ChemiluminescentMicroparticle Immunoassay (CMIA) Blood Venous blood specimen / Unknown 12/04/2024 8:28 AM EDT 12/04/2024 11:09 AM EDT Janet Pierre MD LAB BLOOD ORDERAB LES Final Result Performing Organization Address [facility] Co de Phone Number [facility] [address] [place] [phone] * (ABNORMAL) Hemoglobin A1c (12/04/2024 8:28 AM EDT) Hemoglobin A1c 6.2(H) <6.0 % [facility] Comment:Hemoglobin A1C Refer ence Range Adults: 4.8 - 6.0 % Non diabetic: < 6.0 % Goal: < 7.0 %Additional Action Suggested: > 8.0 %Note: Hemoglobin A1c results are invalid for patients with abnormal amounts of HbF. Blood transfusions may impact the HbA1c concentration in the patient sample. Estimated Average Glucose 131 mg/dL [facility] Comment:eAG = Estimated ave rage glucose which is %A1C expressed asaverage glucose, using the formula of the [id number]-[id number] Glucose study (ADAG), Diabetes Care, Vol.31,#8,Oct. 2007 Blood Venous blood specimen / Unknown 12/04/2024 8:28 AM EDT 12/04/2024 11:17 AM EDT Janet Pierre MD LAB BLOOD ORDERAB LES Final Result Performing Organization Address City/[facility]/ZIP Co de Phone Number [facility] [address] [place] [phone] * (ABNORMAL) Ferritin (12/04/2024 8:28 AM EDT) Only the most recent of2 resultswithin the time period is included. Ferritin 18(L) 20 - 250 ng/mL [facility] 12/04/2024 8:28 AM EDT 12/04/2024 11:17 AM EDT us Generic External Data Provider LAB BLOOD ORDERAB LES Final Result Performing Organization Address [facility] Co de Phone Number [facility] [address] [place] [phone] * (ABNORMAL) Lipid Panel, Standard (12/04/2024 8:28 AM EDT) Triglycerides 125 <150 mg/dL [facility] Comment:Desirable Triglyceri de: less than 150 mg/dLBorderline High Triglyceride 150-199 mg/dLHigh Triglyceride: 200-499 mg/dLVery High Triglyceride: greater than or equal to 5OO mg/dL Cholesterol 129 <200 mg/dL [facility] Comment:Desirable Cholestero l: less than 200 mg/dLBorderline High Cholesterol: 200-239 mg/dLHigh Cholesterol: greater than 239 mg/dL LDL Cholesterol Calculated 68 <100 mg/dL [facility] Comment:Desirable LDL: less than 100 mg/dLNear Optimal/Above Optimal LDL: 110- 129 mg/dLBorderline High LDL: 130-159 mg/dLHigh LDL: 160-189 mg/dLVery High LDL: greater than or equal to 190 mg/dL HDL Cholesterol 36(L) >40 mg/dL [facility] Comment:Desirable HDL: great er than 40 mg/dL Note: This HDL assay may give artificially low results in patients with liver disease. Blood Venous blood specimen / Unknown 12/04/2024 8:28 AM EDT 12/04/2024 11:17 AM EDT us Janet Pierre MD LAB BLOOD ORDERAB LES Final Result [facility] [address] [place] [phone] * (ABNORMAL) Comprehensive Metabolic Panel (12/04/2024 8:28 AM EDT) Only the most recent of2 resultswithin the time period is included. Sodium 141 135 - 145 mmol/L [facility] Potassium 4.6 3.3 - 5.1 mmol/L [facility] Chloride 109(H) 96 - 108 mmol/L [facility] Carbon Dioxide 26 22 - 29 mmol/L [facility] Anion Gap 11(L) 12 - 20 [facility] Urea Nitrogen (BUN) 20(H) 9 - 16 mg/dL [facility] Creatinine, Serum 1.08 0.5 - 1.4 mg/dL [facility] Estimated Glomerular Filt Rate >60 [facility] Comment:Chronic Kidney Disea se: Estimated GFR < 60 mL/min/1.22p9Eixtit Kidney Disease: Estimated GFR < 15 mL/min/1.73m2 Glucose 105 60 - 115 mg/dL [facility] Calcium 9.3 8.4 - 10.2 mg/dL [facility] Bilirubin, Total 0.4 0.0 - 1.0 mg/dL [facility] Aspartate Amino Transferase 35 5 - 37 U/L [facility] Alanine Aminotransferase 30 0 - 40 U/L [facility] Total Protein 7.0 6.5 - 8.0 g/dL [facility] Albumin Level 4.3 3.5 - 5.0 g/dL [facility] Alkaline Phosphatase 109 39 - 117 U/L [facility] 12/04/2024 8:28 AM EDT 12/04/2024 11:17 AM EDT us Generic External Data Provider LAB BLOOD ORDERAB LES Final Result Performing Organization Address [facility] Co de Phone Number [facility] [address] [place] [phone] * Homocysteine (12/04/2024 8:02 AM EDT) Homocysteine 14.6 < or = 15.2 umol/L [facility] Comment:Homocysteine is incr eased by functional deficiency offolate or vitamin B12. Testing for methylmalonic aciddifferentiates between these deficiencies. Other causesof increased homocysteine include renal failure, folateantagonists such as methotrexate and phenytoin, andexposure to nitrous oxide.Veena Jerez, et al., Kristen Animal Physiologist Med. 1999;131(5):331-9.THIS TEST WAS PERFORMED AT:[employer] [place] [id number] ROJAS MD 12/04/2024 8:02 AM EDT 12/04/2024 11:04 AM EDT Generic External Data Provider LAB BLOOD ORDERAB LES Final Result Performing Organization Address [facility] Co de Phone Number [facility] [address] [place] [phone] from Last 3 Months Insurance [facility] OF [place] [employer] [facility] MEDICARE ADVANTAGE Care Teams Drainlayer Relationship Specialty Start Date End Date Janet Thompson MD [address] [place] [id number] PCP - General Internal Medicine 09/09/22
--- OUTSIDE RECORDS SUMMARY | 2025-02-27 12:06 | XMS_ITS | Encounter Summary ---
Author Organization [employer] Address [address] [place] [address] 7 [place] [address] Care Team Providers Care Ict Analyst Name Role Phone Janet Thompson MD Primary Care Pro vider Reason for Visit * Reason Onset Date Comments Medication Question 08/30/2024 Encounter Details Date Type Department Care Team ([facility] st Contact Info) Description 08/30/2024 Telephone [facility] [address] [place] [phone] Janet Thompson MD [address] [place] [address] Medication Question Social History Tobacco Use Types [...] discuss an alternative. Please contact pt at [phone]. (Pashto Speaker) documented in this encounter Plan of Treatment Upcoming Encounters Date Type Department Care Team (Late st Contact Info) Description 04/16/2025 2:00 PM EST Office Visit [facility] [address] [place], [place] [phone] DiegoSara barahona, OD [address] [place] [address] 04/17/2025 9:45 AM EST Office Visit [facility] [address] [place], [place] [phone] Janet Thompson MD [address] [place], [place] [phone] documented as of this encounter Visit Diagnoses Not on filedocumented in this encounter Additional Health Concerns Assessment Noted Time PHQ-9 Depression Total Score: 0 07/29/19 25 1:10 PM EDT documented as of this encounter Care Teams Ict Analyst Relationship Specialty Start Date End Date Janet Thompson MD [address] [place] [phone] PCP - General Internal Medicine 09/09/22 documented as of this encounter
--- OUTSIDE RECORDS SUMMARY | 2025-02-27 12:06 | XMS_ITS | Encounter Summary ---
Author Organization [employer] Address [address] [place] [address] Care Team Providers Care Intranet Specialist Name Role Phone Tremaine Banuelos MD Primary Care Prov ider Erin Aviles [facility] Primary Care Provider Janet Ortega MD Primary Care Pro vider Reason for Visit * Reason Onset Date Comments Other 04/02/2022 Encounter Details Date Type Department Care Team ([facility] st Contact Info) Description 04/02/2022 Telephone [facility] [address] [place], [place] [phone] Tremaine Banuelos MD [address] [place], [place] [phone] Other Social History Tobacco Use Types Packs/Day [...] calling on the status of care at [facility], due to transportation difficulties to [facility]. documented in this encounter Plan of Treatment Upcoming Encounters Date Type Department Care Team (Late st Contact Info) Description 04/16/2025 2:00 PM EST Office Visit [facility] [address] [place], [place] [phone] Diego, Sara, OD [address] [place] [address] 04/17/2025 9:45 AM EST Office Visit [facility] [address] [place] [address] Janet Thompson MD [address] [place] [address] documented as of this encounter Visit Diagnoses Not on filedocumented in this encounter Additional Health Concerns Assessment Noted Time PHQ-9 Depression Total Score: 0 03/20/19 10:12 AM EST documented as of this encounter Care Teams Intranet Specialist Relationship Specialty Start Date End Date Tremaine Banuelos MD [address] [place] [address] PCP - General Internal Medicine 08/13/19 05/10/22 Erin Aviles FNP [address] [place] [address] PCP - General Family Medicine 05/11/22 09/08/22 Janet Thompson MD [address] [place] [phone] PCP - General Internal Medicine 09/09/22 documented as of this encounter
--- OUTSIDE RECORDS SUMMARY | 2025-02-27 12:06 | XMS_ITS | Encounter Summary ---
Author Organization [employer] Address [address] [place] [address] [address] [place] [address] Care Team Providers Care Time Motion Analyst Name Role Phone Janet Thompson MD Primary Care Pro vider Reason for Visit * Reason Onset Date Comments Med Refill 08/22/2024 Encounter Details Date Type Department Care Team ([facility] st Contact Info) Description 08/22/2024 Telephone [facility] [address] [place] [address] [phone] Janet Thompson MD [address] [place] [address] Med Refill Social History Tobacco Use Types [...] sent to: [facility]/pharmacy #[id number] [place], [place] - [address] [place] [address] documented in this encounter Plan of Treatment Upcoming Encounters Date Type Department Care Team (Late st Contact Info) Description 04/16/2025 2:00 PM EST Office Visit [facility] [address] [facility], [place] [phone] Diego, Sara, OD [address] [place] [address] 04/17/2025 9:45 AM EST Office Visit [facility] [address] [place] [address] Janet Thompson MD [address] [place] [address] documented as of this encounter Visit Diagnoses Not on filedocumented in this encounter Additional Health Concerns Assessment Noted Time PHQ-9 Depression Total Score: 0 07/29/19 25 1:10 PM EDT documented as of this encounter Care Teams Time Motion Analyst Relationship Specialty Start Date End Date Janet Thompson MD [address] [place], [place] [phone] PCP - General Internal Medicine 09/09/22 documented as of this encounter
== END 2025-02-27 11:31 | disposition home or self-care (01) ==
LOC: HO.HSMS 09:58
PROVIDERS: PCP Student in an Organized Health Care Education/Training Program; Visit Provider Physician Assistant Medical
DX: G47.33 Obstructive sleep apnea (adult) (pediatric) (principal); G47.19 Other hypersomnia; R06.83 Snoring; R51.9 Headache, unspecified; R41.3 Other amnesia
CPT/HCPCS: 99214

== ENCOUNTER → 2025-02-27 09:57 | Outpatient (BNVA) | payer MEDICARE, SELFPAY | PROVIDERS: PCP Student in an Organized Health Care Education/Training Program; Visit Provider Physician Assistant Medical | DX: R06.83 Snoring (principal); R51.9 Headache, unspecified; G47.33 Obstructive sleep apnea (adult) (pediatric); Z99.89 Dependence on other enabling machines and devices; G47.19 Other hypersomnia; R41.3 Other amnesia | CPT/HCPCS: 99212 ==